=== PATIENT | female | born 1995 | race Caucasian/White ===

== ENCOUNTER 2017-07-13 12:47 | Emergency (ER) | payer SELFPAY ==
--- NOTE | 2017-07-13 15:40 | ER ---
Nurse's Notes [facility] Name: Ricarda Moya Age: 22 yrs Sex: Female : 1995 Arrival Date: 07/13/2017 Time: 12:50 Bed Waiting Private MD: None, None Diagnosis: Presentation: 07/13 12:58 Presenting complaint: Patient states: Reports vaginal bleeding with 2 small clots aj today. Patient had negative home tests and negative test at [facility]. Transition of care: patient was not received from another setting of care. Onset of symptoms was July 13, 2017. Care prior to arrival: None. 12:58 Method Of Arrival: Ambulatory aj 12:58 Acuity: CATALINO 3 aj Triage Assessment: 12:59 General: Appears in no apparent distress. comfortable, Behavior is calm, cooperative, aj appropriate for age. Neuro: Level of Consciousness is awake, alert, obeys commands, Oriented to person, place, time, situation, Appropriate for age. Respiratory: Airway is patent Respiratory effort is even, unlabored, Respiratory pattern is regular, symmetrical. : Reports vaginal bleeding that is. : Reports cramping. Derm: Skin is intact, is healthy with good turgor, Skin is pink, warm \T\ dry. normal. 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 - Social history:: Smoking status: Patient uses tobacco products, smokes one-half pack cigarettes per day. Vital Signs: 12:59 BP 103 / 57; Pulse 92; Resp 16; Temp 98.2; Pulse Ox 98% on R/A; Weight 58.97 kg; Height aj 5 ft. 3 in. (160.02 cm); 12:59 Body Mass Index 23.03 (58.97 kg, 160.02 cm) aj ED Course: 12:50 Patient arrived in ED. mr 12:50 None, None is Private Physician. mr 12:58 Triage completed. aj 12:59 Arm band placed on right wrist. Patient placed in waiting room, Patient notified of aj wait time. 14:55 Angelito Holden PA is [facility]. jr8 14:55 Hari Lama MD is Attending Physician. jr8 14:56 Patient's name was called from ER lobby. No response. aj 15:35 Patient's name was called from ER lobby. No response. aj 15:39 Patient's name was called from ER lobby. No response. aj 15:40 Hari Lama MD is Attending Physician. aj Administered Medications: No medications were administered Outcome: 15:40 Patient left the ED. aj Signatures: Rona Garcia, RN Marlee Harding mr Angelito Holden PA PA jr8
== END 2017-07-13 15:40 | disposition left against medical advice (07) ==
LOC: ER 12:47
DX: Z02.9 Encounter for administrative examinations, unspecified (principal)
CPT/HCPCS: 99281

== ENCOUNTER 2017-07-26 10:38 | Emergency (ER) | payer OTHER ==
--- NOTE | 2017-07-26 11:11 | RAD REPORT ---
EXAM DESCRIPTION: Maryann Single View07/26/2017 11:05 am CLINICAL HISTORY: Chest pain COMPARISON: 2014 FINDINGS: The lungs appear clear of acute infiltrate. The heart is normal size IMPRESSION: No acute abnormalities displayed
[2017-07-26] MEDS ORDERED: FAMOTIDINE 20 MG/2 ML VIAL IV ONE (11:21)
[2017-07-26] MEDS ORDERED: INDOMETHACIN 25 MG CAP PO ONE (11:30)
[2017-07-26 11:31] LABS: Absolute Lymphocytes (CBC) 2.2 K/uL (0.7-4.9); Absolute Monocytes 0.6 K/uL (0.1-1.3); Absolute Neutrophil 4.2 K/uL (1.8-8.0); Basophils % 0.8 % (0-1.3); Eosinophils % 2.2 % (0-4.4); Hematocrit 39.6 % (36.0-45.0); MCH 31.6 pg (27.0-35.0); MCV 92.5 fL (80-100); MPV 7.8 fL (7.6-11.3); Monocytes % 7.8 % (3.3-12.3); RBC Red Blood Cell Count 4.28 M/uL (3.86-4.86)
[2017-07-26 11:33] LABS: Bicarbonate 26 mEq/L (21-31); Glucose Level 94 mg/dL (65-120); Potassium 3.5 mEq/L (3.6-5.0); Sodium Level 138 mEq/L (135-145)
[2017-07-26 11:42] LABS: BUN Blood Urea Nitrogen 8 mg/dL (6-20); C-Reactive Protein 5.6 mg/L (<10.0); Protime INR 1.02
[2017-07-26 12:33] LABS: Urine Blood NEGATIVE (NEG); Urine Glucose NEGATIVE (NEG); Urine Protein NEGATIVE (NEG); Urine Specific Gravity <1.005 (1.005-1.030); Urine pH 5.5 (5.0-7.0)
--- NOTE | 2017-07-26 13:28 | ER ---
Nurse's Notes [facility] Name: Ricarda Moya Age: 22 yrs Sex: Female : 1995 Arrival Date: 07/26/2017 Time: 10:39 Bed 16 Private MD: Diagnosis: Chest pain, unspecified Presentation: 07/26 10:39 Presenting complaint: EMS states: pt report CP similar to last episode when diagnosed sg with inflammation of the lining of her heart. Transition of care: patient was not received from another setting of care. Onset of symptoms was July 26, 2017. Risk Assessment: Do you want to hurt yourself or someone else? Patient reports no desire to harm self or others. Initial Sepsis Screen: Does the patient meet any 2 criteria? No. Patient's initial sepsis screen is negative. Does the patient have a suspected source of infection? No. Patient's initial sepsis screen is negative. Care prior to arrival: IV initiated. 20 GA, in the right antecubital area, Glucose check: 128. 10:39 Method Of Arrival: EMS: [facility] sg 10:39 Acuity: CATALINO 3 sg Triage Assessment: 07/27 10:45 General: Appears in no apparent distress. comfortable, well groomed, well developed, sg well nourished, Behavior is calm, cooperative, appropriate for age. 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 - Social history:: Smoking status: Patient/guardian denies using tobacco. - Ebola Screening: : Patient negative for fever greater than or equal to 101.5 degrees Fahrenheit, and additional compatible Ebola Virus Disease symptoms Patient denies exposure to infectious person Patient denies travel to an Ebola-affected area in the 21 days before illness onset No symptoms or risks identified at this time. Screenin/07 10:46 Abuse screen: Denies threats or abuse. Denies injuries from another. Nutritional sg screening: No deficits noted. Tuberculosis screening: No symptoms or risk factors identified. Never had TB. Fall Risk None identified. Assessment: 10:45 General: Appears in no apparent distress. comfortable, well groomed, well developed, sg well nourished, Behavior is calm, cooperative, appropriate for age. Pain: Complains of pain in mid-sternal area Pain does not radiate. Quality of pain is described as aching. Neuro: Level of Consciousness is awake, alert, obeys commands, Oriented to person, place, time, situation, Pipe Racker are equal bilaterally Moves all extremities. Full function Speech is normal, Facial symmetry appears normal. Cardiovascular: Heart tones S1 S2 present Capillary refill is brisk in bilateral fingers Patient's skin is warm and dry. Chest pain is described as mild, is located in anterior chest wall substernal area. Respiratory: Airway is patent Respiratory effort is even, unlabored, Respiratory pattern is regular, symmetrical. GI: No signs and/or symptoms were reported involving the gastrointestinal system. : No signs and/or symptoms were reported regarding the genitourinary system. EENT: No signs and/or symptoms were reported regarding the EENT system. Derm: Skin is pink, warm \T\ dry. Musculoskeletal: No signs and/or symptoms reported regarding the musculoskeletal system. Vital Signs: 07/26 10:42 BP 107 / 66; Pulse 80; Resp 16; Temp 98.3; Pulse Ox 100% on R/A; Pain 10/10; sg 11:40 BP 110 / 68; Pulse 76; Resp 17; Temp 98.3; Pulse Ox 100% on R/A; sg ED Course: 10:39 Patient arrived in ED. sg 10:42 Triage completed. sg 10:42 Arm band placed on. sg 10:45 Angelito Holden [facility] is [facility]. jr8 10:45 Lance Landa MD is Attending Physician. jr8 10:58 Van Amezcua, SAIMA is Primary Nurse. sg 11:03 X-ray completed. Portable x-ray completed in exam room. Patient tolerated procedure kp1 well. 11:04 XRAY Chest (1 view) In Process Unspecified. EDMS 11:26 Initial lab(s) drawn, by me, sent to lab. Maintain EMS IV. Dressing intact. Site clean mh5 \T\ dry. 11:27 Patient has correct armband on for positive identification. Bed in low position. Side mh5 rails up X 1. Adult w/ patient. quality assurance monitor body on. Pulse ox on. NIBP on. 11:31 EKG done, by emergency medical technician. reviewed by Angelito AMAYA. [facility] 12:59 Urine collected: clean catch specimen, clear. [facility] 13:48 No provider procedures requiring assistance completed. IV discontinued, intact, sg bleeding controlled, No redness/swelling at site. Pressure dressing applied. Administered Medications: 12:30 Drug: Pepcid 20 mg Route: IVP; Site: right antecubital; sg 13:00 Drug: Indomethacin 50 mg Route: PO; Outcome: 13:27 Discharge ordered by MD. bashir 13:48 Discharged to home ambulatory, with employer safety technician 13:48 Condition: good 13:48 Discharge instructions given to patient, Instructed on discharge instructions, follow up and referral plans. medication usage, safety practices, Demonstrated understanding of instructions, follow-up care, medications, Prescriptions given X 2. 13:51 Patient left the ED. Signatures: Dispatcher [employer] EDMS Van Amezcua, RN RN Angelito Wilson PA PA jrRona kumar, [employer] EKG [facility]1 Marlee Soria [facility] Cherie Perry kp1
--- NOTE | 2017-07-26 13:28 | EDPHYS ---
Physician Documentation [facility] Name: Ricarda Moya Age: 22 yrs Sex: Female : 1995 Arrival Date: 07/26/2017 Time: 10:39 Bed 16 Private MD: ED Physician Lance Landa HPI: 07/26 10:54 This 22 yrs old Female presents to ER via EMS with complaints of chest pain. jr8 10:54 The patient or guardian reports chest pain that is located primarily in the anterior jr8 chest wall, left. The pain does not radiate. Associated signs and symptoms: Pertinent positives: dizziness, nausea. The chest pain is described as sharp. Duration: The patient or guardian reports a single episode, that is still ongoing. Modifying factors: The symptoms are alleviated by NSAIDS, Ibuprofen. the symptoms are aggravated by supine position . Severity of pain: At its worst the pain was moderate. The patient has experienced similar episodes in the past, a few times. The patient has not recently seen a physician. Patient stated that this past November she was diagnosed with pericarditis by PCP and shell grader. Stated that she has had recurrent episodes. Last episode was a few months ago. Today while walking had sudden onset sharp chest pain that is non relieved. Better when leaning forward and worse when lying down. Ibuprofen helps . 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 - Social history:: Smoking status: Patient/guardian denies using tobacco. - Ebola Screening: : Patient negative for fever greater than or equal to 101.5 degrees Fahrenheit, and additional compatible Ebola Virus Disease symptoms Patient denies exposure to infectious person Patient denies travel to an Ebola-affected area in the 21 days before illness onset No symptoms or risks identified at this time. ROS: 10:54 Eyes: Negative for injury, pain, redness, and discharge, ENT: Negative for injury, jr8 pain, and discharge, Neck: Negative for injury, pain, and swelling, Respiratory: Negative for shortness of breath, cough, wheezing, and pleuritic chest pain, Back: Negative for injury and pain, MS/Extremity: Negative for injury and deformity, Skin: Negative for injury, rash, and discoloration. 10:54 Cardiovascular: Positive for chest pain, Negative for edema, orthopnea, palpitations, paroxysmal nocturnal dyspnea. 10:54 Abdomen/GI: Positive for nausea, Negative for abdominal pain, vomiting, diarrhea, constipation, abdominal cramps, abdominal distension, hematemesis, black/tarry stool, rectal bleeding. 10:54 Neuro: Positive for dizziness, Negative for altered mental status, gait disturbance, headache, hearing loss, loss of consciousness, numbness, seizure activity, speech changes, syncope, near syncope, tingling, tinnitus, tremor, visual changes, weakness. Exam: 10:54 Neck: Trachea midline, no thyromegaly or masses palpated, and no cervical jr8 lymphadenopathy. Supple, full range of motion without nuchal rigidity, or vertebral point tenderness. No Meningismus. Chest/axilla: Normal chest wall appearance and motion. Nontender with no deformity. No lesions are appreciated. Cardiovascular: Regular rate and rhythm with a normal S1 and S2. No gallops, murmurs, or rubs. Normal PMI, no JVD. No pulse deficits. Respiratory: Lungs have equal breath sounds bilaterally, clear to auscultation and percussion. No rales, rhonchi or wheezes noted. No increased work of breathing, no retractions or nasal flaring. Abdomen/GI: Soft, non-tender, with normal bowel sounds. No distension or tympany. No guarding or rebound. No evidence of tenderness throughout. Back: No spinal tenderness. No costovertebral tenderness. Full range of motion. Skin: Warm, dry with normal turgor. Normal color with no rashes, no lesions, and no evidence of cellulitis. MS/ Extremity: Pulses equal, no cyanosis. Neurovascular intact. Full, normal range of motion. Neuro: Awake and alert, GCS 15, oriented to person, place, time, and situation. Cranial nerves II-XII grossly intact. Motor strength 5/5 in all extremities. Sensory grossly intact. Cerebellar exam normal. Normal gait. 13:29 ECG was reviewed by the Attending Physician. 8 Vital Signs: 10:42 BP 107 / 66; Pulse 80; Resp 16; Temp 98.3; Pulse Ox 100% on R/A; Pain 10/10; sg 11:40 BP 110 / 68; Pulse 76; Resp 17; Temp 98.3; Pulse Ox 100% on R/A; sg MDM: 10:45 Patient medically screened. jr8 13:26 Differential diagnosis: acute myocardial infarction, acute pericarditis, anxiety, chest jr8 wall pain, Cholelithiasis esophagitis, gastritis, gastroesophageal reflux disease (GERD), pancreatitis, pneumonia, pneumothorax, pulmonary embolus. Data reviewed: vital signs, nurses notes, lab test result(s), EKG, radiologic studies, plain films, and as a result, I will discharge patient. Data interpreted: Pulse oximetry: on room air is 100 %. Interpretation: normal. Counseling: I had a detailed discussion with the patient and/or guardian regarding: the historical points, exam findings, and any diagnostic results supporting the discharge/admit diagnosis, lab results, radiology results, the need for outpatient follow up, a shell grader, a family practitioner, to return to the emergency department if symptoms worsen or persist or if there are any questions or concerns that arise at home. Response to treatment: the patient's symptoms have mildly improved after treatment. Special discussion: Based on the patient's history, exam, and Dx evaluation, there is no indication for emergent intervention or inpatient Tx. It is understood by the patient/guardian that if the Sx's persist or worsen they need to return immediately for re-evaluation. 07/26 10:47 Order name: Basic Metabolic Panel; Complete Time: 12:03 07/26 10:47 Order name: BNP; Complete Time: 12:03 07/26 10:47 Order name: CBC with Diff; Complete Time: 12:03 07/26 10:47 Order name: Magnesium; Complete Time: 12:03 07/26 10:47 Order name: PT-INR; Complete Time: 12:03 07/26 10:47 Order name: Troponin (emerg Dept Use Only); Complete Time: 12:03 07/26 10:47 Order name: XRAY Chest (1 view); Complete Time: 11:19 07/26 10:47 Order name: EKG; Complete Time: 10:48 07/26 10:47 Order name: ESR; Complete Time: 12:03 07/26 10:47 Order name: CRP; Complete Time: 12:03 07/26 12:30 Order name: Urine Dipstick--Ancillary (enter results); Complete Time: 12:58 em1 07/26 12:31 Order name: Test, Serum; Complete Time: 12:58 em1 07/26 10:47 Order name: Urine Test (obtain specimen); Complete Time: 12:20 jr8 07/26 10:47 Order name: Cardiac monitoring; Complete Time: 13:04 8 07/26 10:47 Order name: EKG - Nurse/Tech; Complete Time: 13:04 jr8 07/26 10:47 Order name: IV Saline Lock; Complete Time: 10:59 jr8 07/26 10:47 Order name: Labs collected and sent; Complete Time: 10:59 jr8 07/26 10:47 Order name: O2 Per Protocol; Complete Time: 10:59 jr8 07/26 10:47 Order name: O2 Sat Monitoring; Complete Time: 10:59 jr8 07/26 10:47 Order name: Urine Dipstick-Ancillary (obtain specimen); Complete Time: 12:20 jr8 EC:29 Rate is 73 beats/min. Rhythm is regular, Normal Sinus Rhythm. QRS [place] is Normal. [place] jr8 interval is normal at 124 msec. QRS interval is normal at 86 msec. QT interval is normal at 431 msec. No Q waves. T waves are Normal. No ST changes noted. Clinical impression: Normal ECG. Interpreted by me. Reviewed by me. Administered Medications: 12:30 Drug: Pepcid 20 mg Route: IVP; Site: right antecubital; sg 13:00 Drug: Indomethacin 50 mg Route: PO; sg Disposition: 16:20 Co-signature as Attending Physician, Lance Landa MD. rn Disposition: 07/26/17 13:27 Discharged to Home. Impression: Chest pain, unspecified. - Condition is Stable. - Discharge Instructions: Nonspecific Chest Pain, Pericarditis. - Prescriptions for omeprazole 20 mg Oral capsule,delayed release(DR/EC) - take 1 capsule by ORAL route once daily; 30 capsule. Ibuprofen 800 mg Oral Tablet - take 1 tablet by ORAL route every 8 hours As needed take with food; 30 tablet. - Work release form, Medication Reconciliation Form, Thank You Letter, Antibiotic Education, Prescription Opioid Use form. - Follow up: Private Physician; When: 2 - 3 days; Reason: Recheck today's complaints, Continuance of care, Re-evaluation by your physician. - Problem is new. - Symptoms have improved. Signatures: Dispatcher [employer] EDVan Mcgill RN RN sg Lance Landa MD MD rn Roszak, Josh, PA PA jr8 Corrections: (The following items were deleted from the chart) 13:51 13:27 07/26/2017 13:27 Discharged to Home. Impression: Chest pain, unspecified. sg Condition is Stable. Forms are Medication Reconciliation Form, Thank You Letter, Antibiotic Education, Prescription Opioid Use. Follow up: Private Physician; When: 2 - 3 days; Reason: Recheck today's complaints, Continuance of care, Re-evaluation by your physician. Problem is new. Symptoms have improved. jr8
--- NOTE | 2017-07-26 13:36 | EKG ---
Test Date: 2017-07-26 Test Time: 11:22:22 Air Value Tester: NILES MEASUREMENT RESULTS: Intervals: Rate: 73 NE: 124 QRSD: 86 QT: 392 QTc: 431 [place]: P: 55 NE: 124 QRS: 86 T: 33 INTERPRETIVE STATEMENTS: Normal sinus rhythm with sinus arrhythmia Nonspecific T wave abnormality Abnormal ECG Compared to ECG 11/22/2016 11:18:32 T-wave abnormality now present Electronically Signed On 07-26-17 13:35:33 CDT by Stanisalw Carroll
== END 2017-07-26 13:51 | disposition home or self-care (01) ==
LOC: ER 10:38
DX: R07.9 Chest pain, unspecified (principal)
CPT/HCPCS: 36415; 71045; 80048; 81003; 83735; 83880; 84484; 84703; 85025; 85610; 85652; 86140; 93005; 96374; 99284

== ENCOUNTER 2017-09-01 18:25 | Emergency (ER) | payer OTHER, SELFPAY ==
[2017-09-01] MEDS ORDERED: NA CHLORIDE 0.9% 1,000 ML ONE (20:33)
--- NOTE | 2017-09-01 20:39 | RAD REPORT ---
EXAM DESCRIPTION: US - Transvaginal OB - 09/01/2017 8:29 pm CLINICAL HISTORY: with abdominal pain and vomiting COMPARISON: None. FINDINGS: The uterus 10 x 5 x 6 centimeters centimeters. A gestational sac is present within the en dometrium. The gestational sac appears unremarkable. Within this is a yolk sac and pole with a crown-rump length 0.6 centimeters. Cardiac activity 126 beats per minute The ovaries are normal in size and echotexture. No significant free fluid is seen. IMPRESSION: Single live intrauterine with an estimated gestational age 6 weeks 5 days RAE April 22, 2018
[2017-09-01 20:48] LABS: Absolute Lymphocytes (CBC) 3.1 K/uL (0.7-4.9); Absolute Monocytes 0.6 K/uL (0.1-1.3); Basophils % 0.5 % (0-1.3); Eosinophils % 0.6 % (0-4.4); Lymphocytes % 26.5 % (15.3-44.8); MCH 31.8 pg (27.0-35.0); MCV 93.8 fL (80-100); MPV 7.5 fL (7.6-11.3); Monocytes % 5.1 % (3.3-12.3); RBC Red Blood Cell Count 4.27 M/uL (3.86-4.86)
[2017-09-01 21:22] LABS: BUN Blood Urea Nitrogen 9 mg/dL (7-18); Bicarbonate 26 mmol/L (21-32); Glucose Level 84 mg/dL (74-106); HCG, Quantitative 84312 mIU/mL (1-3); Potassium 3.5 mmol/L (3.5-5.1); Sodium Level 139 mmol/L (136-145)
[2017-09-01 21:56] LABS: Urine Blood TRACE (NEG); Urine Glucose NEGATIVE (NEG); Urine Protein NEGATIVE (NEG); Urine Specific Gravity 1.025 (1.005-1.030)
--- NOTE | 2017-09-01 22:04 | ER ---
Nurse's Notes [facility] Name: Ricarda Moya Age: 22 yrs Sex: Female : 1995 Arrival Date: 09/01/2017 Time: 18:27 Bed 19 Private MD: None, None Diagnosis: Vomiting;Intrauterine Presentation: 09/01 18:55 Presenting complaint: Patient states: Vomiting x2 days, its to the point now where i sg can barely hold water down, denies pain, denies urinary symptoms. Transition of care: patient was not received from another setting of care. Onset of symptoms was September 01, 2017. Risk Assessment: Do you want to hurt yourself or someone else? Patient reports no desire to harm self or others. Initial Sepsis Screen: Does the patient have a suspected source of infection? No. Patient's initial sepsis screen is negative. Care prior to arrival: None. 18:55 Method Of Arrival: Ambulatory sg 18:55 Acuity: CATALINO 3 sg 19:20 Initial Sepsis Screen: Does the patient meet any 2 criteria? No. Patient's initial jd3 sepsis screen is negative. 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 - Social history:: Smoking status: Patient/guardian denies using tobacco. - Ebola Screening: : Patient negative for fever greater than or equal to 101.5 degrees Fahrenheit, and additional compatible Ebola Virus Disease symptoms Patient denies exposure to infectious person Patient denies travel to an Ebola-affected area in the 21 days before illness onset No symptoms or risks identified at this time. - Family history:: not pertinent. - Hospitalizations: : No recent hospitalization is reported. Screenin:20 Abuse screen: Denies threats or abuse. Nutritional screening: No deficits noted. jd3 Tuberculosis screening: No symptoms or risk factors identified. Fall Risk Ambulatory Aid- None/Bed Rest/Nurse Assist (0 pts). Gait- Normal/Bed Rest/Wheelchair (0 pts) Mental Status- Oriented to own ability (0 pts). Total Brady Fall Scale indicates No Risk (0-24 pts). Assessment: 19:16 General: Appears in no apparent distress. Behavior is calm, cooperative, appropriate jd3 for age, Reports she can't hold anything down. pt also reports being 7 weeks . Pain: Denies pain. Neuro: Level of Consciousness is awake, alert, obeys commands, Oriented to person, place, time, situation. Cardiovascular: Heart tones S1 S2 present Capillary refill < 3 seconds Patient's skin is warm and dry. Respiratory: Airway is patent Respiratory effort is even, unlabored, Respiratory pattern is regular, symmetrical, Breath sounds are clear bilaterally. GI: Abdomen is round Bowel sounds present X 4 quads. Abd is soft and non tender X 4 quads. Reports nausea, vomiting. : No signs and/or symptoms were reported regarding the genitourinary system. EENT: No signs and/or symptoms were reported regarding the EENT system. Derm: Skin is healthy with good turgor, Skin is pink, warm \T\ dry. Musculoskeletal: Circulation, motion, and sensation intact. Range of motion:. 20:47 Reassessment: Patient appears in no apparent distress at this time. Patient and/or jd3 family updated on plan of care and expected duration. Pain level reassessed. Patient is alert, oriented x 3, equal unlabored respirations, skin warm/dry/pink. 21:42 Reassessment: Patient appears in no apparent distress at this time. Patient and/or jd3 family updated on plan of care and expected duration. Pain level reassessed. Patient is alert, oriented x 3, equal unlabored respirations, skin warm/dry/pink. 22:14 Reassessment: Patient appears in no apparent distress at this time. Patient and/or jd3 family updated on plan of care and expected duration. Pain level reassessed. Patient is alert, oriented x 3, equal unlabored respirations, skin warm/dry/pink. pt reported understanding of discharge instructions, even and steady gait upon discharge. Vital Signs: 18:57 Pulse 78; Resp 19; Temp 98.6; Pulse Ox 99% on R/A; Pain 7/10; sg 18:57 Weight 59.42 kg (R); Height 5 ft. 3 in. (160.02 cm); sg 19:00 BP 99 / 62; sg 21:42 BP 121 / 65; Pulse 61; Resp 17 S; Pulse Ox 100% on R/A; Pain 0/10; jd3 18:57 Body Mass Index 23.21 (59.42 kg, 160.02 cm) ED Course: 18:27 Patient arrived in ED. sb2 18:28 None, None is Private Physician. sb2 18:56 Triage completed. sg 18:56 Arm band placed on. sg 19:10 Lance Landa MD is Attending Physician. rn 19:16 Julito Gore, RN is Primary Nurse. jd3 19:20 Bed in low position. Call light in reach. Side rails up X 1. Adult w/ patient. jd3 19:40 Radiology exam delayed due to test not completed at this time. sg3 20:26 Ultrasound completed. Patient tolerated well. sg3 20:29 US Transvaginal Ob In Process Unspecified. EDMS 20:37 Inserted saline lock: 20 gauge in right antecubital area, using aseptic technique. jd3 Blood collected. 22:16 No provider procedures requiring assistance completed. IV discontinued, intact, jd3 bleeding controlled, No redness/swelling at site. Pressure dressing applied. Administered Medications: 20:45 Drug: NS 0.9% 1000 ml Route: IV; Rate: 1000 ml; Site: right antecubital; jd3 22:16 Follow up: Response: No adverse reaction; IV Status: Completed infusion; IV Intake: jd3 1000ml 20:45 Drug: NS 0.9% 1000 ml Route: IV; Rate: 1000 ml; Site: right antecubital; jd3 22:17 Follow up: Response: No adverse reaction; IV Status: Completed infusion; IV Intake: jd3 1000ml Intake: 22:16 IV: 1000ml; Total: 1000ml. jd3 22:17 IV: 1000ml; Total: 2000ml. jd3 Outcome: 22:04 Discharge ordered by . rn 22:16 Discharged to home ambulatory, with family. jd3 22:16 Condition: stable 22:16 Discharge instructions given to patient, family, Instructed on discharge instructions, follow up and referral plans. medication usage, Demonstrated understanding of instructions, follow-up care, medications, Prescriptions given X 1. 22:17 Patient left the ED. jd3 Signatures: Dispatcher [employer] EDMS Van Amezcua RN RN sg Lance Landa MD MD rn Davies, Jonathon, RN RN jd3 Giulia Ritter sg3 Pavithra Thompson sb2 Corrections: (The following items were deleted from the chart) 22:16 22:14 Reassessment: Patient appears in no apparent distress at this time. Patient jd3 and/or family updated on plan of care and expected duration. Pain level reassessed. Patient is alert, oriented x 3, equal unlabored respirations, skin warm/dry/pink. jd3
--- NOTE | 2017-09-01 22:04 | EDPHYS ---
Physician Documentation [facility] Name: Ricarda Moya Age: 22 yrs Sex: Female : 1995 Arrival Date: 09/01/2017 Time: 18:27 Bed 19 Private MD: None, None ED Physician Lance Landa HPI: 09/01 20:04 This 22 yrs old Female presents to ER via Ambulatory with complaints of 7WKS rn PG,VOMITING. 20:04 The patient presents to the emergency department with nausea and vomiting. The rn estimated gestational age is 7 weeks. course: care: none, Leakage of Fluid: none appreciated, Ultrasound: the patient has not had an ultrasound. Previous pregnancies: in previous pregnancies patient has had no complications. The patient has not experienced similar symptoms in the past. The patient has not recently seen a physician. Reports approx 7 weeks preg by LMP, July 09, presents with vomiting, about 3x/day, when eating, no abd pain/vaginal bleeding/discharge. Has not had imaging this . .. 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 - Social history:: Smoking status: Patient/guardian denies using tobacco. - Ebola Screening: : Patient negative for fever greater than or equal to 101.5 degrees Fahrenheit, and additional compatible Ebola Virus Disease symptoms Patient denies exposure to infectious person Patient denies travel to an Ebola-affected area in the 21 days before illness onset No symptoms or risks identified at this time. - Family history:: not pertinent. - Hospitalizations: : No recent hospitalization is reported. ROS: 20:04 Constitutional: Negative for fever, chills, and weight loss, Eyes: Negative for injury, rn pain, redness, and discharge, Cardiovascular: Negative for chest pain, palpitations, and edema, Respiratory: Negative for shortness of breath, cough, wheezing, and pleuritic chest pain, Abdomen/GI: Negative for abdominal pain, diarrhea, and constipation, MS/Extremity: Negative for injury and deformity, Skin: Negative for injury, rash, and discoloration, Neuro: Negative for headache, numbness, tingling, and seizure. Exam: 20:04 Constitutional: This is a well developed, well nourished patient who is awake, alert, rn and in no acute distress. Head/Face: Normocephalic, atraumatic. ENT: MMM Cardiovascular: Regular rate and rhythm with a normal S1 and S2. No gallops, murmurs, or rubs. Normal PMI, no JVD. No pulse deficits. Respiratory: Lungs have equal breath sounds bilaterally, clear to auscultation and percussion. No rales, rhonchi or wheezes noted. No increased work of breathing, no retractions or nasal flaring. Abdomen/GI: Soft, non-tender, with normal bowel sounds. No distension or tympany. No guarding or rebound. No evidence of tenderness throughout. MS/ Extremity: Pulses equal, no cyanosis. Neurovascular intact. Full, normal range of motion. Equal circumference. Neuro: Awake and alert, GCS 15, oriented to person, place, time, and situation. Cranial nerves II-XII grossly intact. Motor strength 5/5 in all extremities. Sensory grossly intact. Cerebellar exam normal. Normal gait. Vital Signs: 18:57 Pulse 78; Resp 19; Temp 98.6; Pulse Ox 99% on R/A; Pain 7/10; sg 18:57 Weight 59.42 kg (R); Height 5 ft. 3 in. (160.02 cm); sg 19:00 BP 99 / 62; sg 21:42 BP 121 / 65; Pulse 61; Resp 17 S; Pulse Ox 100% on R/A; Pain 0/10; jd3 18:57 Body Mass Index 23.21 (59.42 kg, 160.02 cm) MDM: 19:11 Patient medically screened. rn 22:02 Differential diagnosis: ectopic . Data reviewed: vital signs, nurses notes, patent attorney test result(s), radiologic studies, ultrasound, and as a result, I will discharge patient. Counseling: I had a detailed discussion with the patient and/or guardian regarding: the historical points, exam findings, and any diagnostic results supporting the discharge/admit diagnosis, lab results, radiology results, the need for outpatient follow up, to return to the emergency department if symptoms worsen or persist or if there are any questions or concerns that arise at home. Response to treatment: the patient's symptoms have markedly improved after treatment, and as a result, I will discharge patient. Special discussion: I discussed with the patient/guardian in detail that at this point there is no indication for admission to the hospital. It is understood, however, that if the symptoms persist or worsen the patient needs to return immediately for re-evaluation. Based on the history and exam findings, there is no indication for further emergent testing or inpatient evaluation. I discussed with the patient/guardian the need to see the OB Gyne specialist for further evaluation of the symptoms. ED course: U/S shows viable IUP, improved with fluids, patient does not want to take nausea meds, will dc with zofran prn if gets near dehydration.. 09/01 19:27 Order name: Quantitative Hcg; Complete Time: 21: rn 09/01 19:27 Order name: Abo/rh Typing; Complete Time: : rn 09/01 19:27 Order name: Basic Metabolic Panel; Complete Time: 21:25 rn 09/01 19:27 Order name: CBC with Diff; Complete Time: 21:01 rn 09/01 21:27 Order name: ABO/RH no charge; Complete Time: 21:32 EDMS 09/01 21:53 Order name: Urine Dipstick--Ancillary (enter results); Complete Time: 22:02 ms 09/01 19:27 Order name: Urine Test (obtain specimen); Complete Time: 21:43 rn 09/01 19:27 Order name: IV Saline Lock; Complete Time: 20:46 rn 09/01 19:27 Order name: Labs collected and sent; Complete Time: 20:46 rn 09/01 19:27 Order name: NPO; Complete Time: 19:58 rn 09/01 19:27 Order name: US Transvaginal Ob; Complete Time: 20:41 rn 09/01 21:53 Order name: Urine --Ancillary (enter results); Complete Time: 22:02 ms 09/01 19:27 Order name: Urine Dipstick-Ancillary (obtain specimen); Complete Time: 21:43 rn Administered Medications: 20:45 Drug: NS 0.9% 1000 ml Route: IV; Rate: 1000 ml; Site: right antecubital; jd3 22:16 Follow up: Response: No adverse reaction; IV Status: Completed infusion; IV Intake: jd3 1000ml 20:45 Drug: NS 0.9% 1000 ml Route: IV; Rate: 1000 ml; Site: right antecubital; jd3 22:17 Follow up: Response: No adverse reaction; IV Status: Completed infusion; IV Intake: jd3 1000ml Disposition: 09/01/17 22:04 Discharged to Home. Impression: Vomiting, Intrauterine . - Condition is Stable. - Discharge Instructions: Nausea and Vomiting, First Trimester of . - Prescriptions for Zofran ODT 4 mg Oral tablet,disintegrating - place 1 tablet by TRANSLINGUAL route every 8-10 hours As needed; 10 tablet. - Medication Reconciliation Form, Thank You Letter, Antibiotic Education, Prescription Opioid Use form. - Follow up: Private Physician; When: As needed; Reason: Recheck today's complaints, Re-evaluation by your physician. - Problem is new. - Symptoms have improved. Signatures: Dispatcher [employer] EDVan Mcgill RN RN sg Nieto, Roman, MD MD rn Davies, Jonathon, RN RN jd3 Corrections: (The following items were deleted from the chart) 22:17 22:04 09/01/2017 22:04 Discharged to Home. Impression: Vomiting; Intrauterine jd3 . Condition is Stable. Forms are Medication Reconciliation Form, Thank You Letter, Antibiotic Education, Prescription Opioid Use. Follow up: Private Physician; When: As needed; Reason: Recheck today's complaints, Re-evaluation by your physician. Problem is new. Symptoms have improved. rn
== END 2017-09-01 22:17 | disposition home or self-care (01) ==
LOC: ER 18:25
DX: O21.9 Vomiting of pregnancy, unspecified (principal); Z3A.01 Less than 8 weeks gestation of pregnancy
CPT/HCPCS: 36415; 76817; 80048; 81003; 81025; 84702; 85025; 86900; 86901; 96360; 96361; 99284; J7030

== ENCOUNTER 2017-12-07 13:27 | Emergency (ER) | payer OTHER ==
[2017-12-07] MEDS ORDERED: NA CHLORIDE 0.9% 1,000 ML ONE (13:59)
[2017-12-07 14:22] LABS: Urine Blood 1+ (NEG); Urine Glucose NEGATIVE (NEG); Urine Protein TRACE (NEG); Urine Specific Gravity 1.025 (1.005-1.030)
[2017-12-07 14:31] LABS: BUN Blood Urea Nitrogen 7 mg/dL (7-18); Bicarbonate 27 mmol/L (21-32); Glucose Level 87 mg/dL (74-106); Potassium 3.7 mmol/L (3.5-5.1); Sodium Level 138 mmol/L (136-145); Troponin (Emerg Dept Use Only) < 0.02 ng/mL (0.0-0.045)
[2017-12-07 14:33] LABS: Absolute Lymphocytes (CBC) 1.6 K/uL (0.7-4.9); Absolute Monocytes 0.5 K/uL (0.1-1.3); Absolute Neutrophil 9.6 K/uL (1.8-8.0); Basophils % 0.4 % (0-1.3); Eosinophils % 0.5 % (0-4.4); Hematocrit 33.8 % (36.0-45.0); Lymphocytes % 13.8 % (15.3-44.8); MCH 32.7 pg (27.0-35.0); MCV 94.5 fL (80-100); MPV 7.8 fL (7.6-11.3); Monocytes % 4.3 % (3.3-12.3); RBC Red Blood Cell Count 3.58 M/uL (3.86-4.86)
[2017-12-07 14:38] LABS: Urine Bacteria <20 /HPF (<20)
[2017-12-07 14:39] LABS: Urine Culture Reflex Order NOT NEEDED; Urine Mucus MOD /HPF (NONE SEEN)
--- NOTE | 2017-12-07 15:37 | ER ---
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 aj Reports tingling over entire body during episode. Transition of care: patient was not received from another setting of care. Onset of symptoms was December 07, 2017. Risk Assessment: Do you want to hurt yourself or someone else? Patient reports no desire to harm self or others. Initial Sepsis Screen: Does the patient meet any 2 criteria? No. Patient's initial sepsis screen is negative. Does the patient have a suspected source of infection? No. Patient's initial sepsis screen is negative. Care prior to arrival: None. 13:35 Method Of Arrival: Ambulatory aj 13:35 Acuity: CATALINO 3 aj Triage Assessment: 13:37 General: Appears in no apparent distress. comfortable, Behavior is calm, cooperative, aj appropriate for age. Pain: Denies pain. Neuro: Level of Consciousness is awake, alert, obeys commands, Oriented to person, place, time, situation, Appropriate for age Reports a syncopal episode. Respiratory: Airway is patent Respiratory effort is even, unlabored, Respiratory pattern is regular, symmetrical. GI: Reports nausea. Derm: Skin is intact, is healthy with good turgor, Skin is pink, warm \T\ dry. normal. 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 - Social history:: Smoking status: Patient/guardian denies using tobacco. - Ebola Screening: : Patient negative for fever greater than or equal to 101.5 degrees Fahrenheit, and additional compatible Ebola Virus Disease symptoms Patient denies exposure to infectious person Patient denies travel to an Ebola-affected area in the 21 days before illness onset No symptoms or risks identified at this time. - Family history:: not pertinent. - Hospitalizations: : No recent hospitalization is reported. Screenin:16 Abuse screen: Denies threats or abuse. Denies injuries from another. Nutritional iw screening: No deficits noted. Tuberculosis screening: No symptoms or risk factors identified. Fall Risk IV access (20 points). Assessment: 14:15 General: Appears in no apparent distress. Behavior is calm, cooperative. Pain: Denies iw pain. Neuro: Level of Consciousness is awake, alert, obeys commands, Oriented to person, place, time, situation, Moves all extremities. Full function. Cardiovascular: Capillary refill < 3 seconds in bilateral fingers Patient's skin is warm and dry. Respiratory: Respiratory effort is even, unlabored, Respiratory pattern is regular, symmetrical. GI: Abdomen is. Derm: Skin is intact, is healthy with good turgor. Musculoskeletal: Range of motion: intact in all extremities. 14:57 Reassessment: Patient appears in no apparent distress at this time. Patient and/or iw family updated on plan of care and expected duration. Pain level reassessed. Patient is alert, oriented x 3, equal unlabored respirations, skin warm/dry/pink. Patient denies pain at this time. Neuro: Denies weakness dizziness. Vital Signs: 13:37 BP 111 / 67; Pulse 96; Resp 18; Temp 97.9; Pulse Ox 99% on R/A; Weight 61.23 kg; Height aj 5 ft. 3 in. (160.02 cm) (R); 14:56 BP 102 / 65; Pulse 79; Resp 16; Pulse Ox 100% on R/A; Pain 0/10; iw 15:34 BP 96 / 59; Pulse 84; Resp 16; Pulse Ox 98% on R/A; iw 13:37 Body Mass Index 23.91 (61.23 kg, 160.02 cm) aj ED Course: 13:31 Patient arrived in ED. mr 13:36 Triage completed. aj 13:37 Arm band placed on left wrist. Patient placed in an exam room. aj 13:39 Lance Landa MD is Attending Physician. rn 14:04 EKG done, by hvac residential service technician. reviewed by Lance Landa MD. [facility] 14:12 Bronwyn Klein, SAIMA is Primary Nurse. iw 14:15 Initial lab(s) drawn, by me, sent to lab. Urine collected: clean catch specimen. iw Inserted saline lock: 20 gauge in right antecubital area, using aseptic technique. Blood collected. 15:43 Patient has correct armband on for positive identification. iw 15:43 No provider procedures requiring assistance completed. IV discontinued, intact, iw bleeding controlled, No redness/swelling at site. Pressure dressing applied. Administered Medications: 14:12 Drug: NS 0.9% 1000 ml Route: IV; Rate: 1000 ml; Site: right antecubital; iw 15:15 Follow up: IV Status: Completed infusion iw Outcome: 15:36 Discharge ordered by MD. rn 15:43 Discharged to home ambulatory. iw 15:43 Condition: good 15:43 Discharge instructions given to patient, Instructed on discharge instructions, follow up and referral plans. Demonstrated understanding of instructions, follow-up care. 15:45 Patient left the ED. iw Signatures: Rona Garcia RN Viri Harding Irene, RN RN iw Nieto, Roman, MD MD rn Montes, Shakira 3
--- NOTE | 2017-12-07 15:37 | EDPHYS ---
Physician Documentation [facility] Name: Ricarda Moya Age: 22 yrs Sex: Female : 1995 Arrival Date: 12/07/2017 Time: 13:31 Bed 5 Private MD: ED Physician Lance Landa HPI: 12/07 13:56 This 22 yrs old Female presents to ER via Ambulatory with complaints of rn Passed Out Prior To Arrival, 21 wks . 13:56 The patient has experienced syncope, collapsed. Onset: The symptoms/episode rn began/occurred just prior to arrival. Duration: The patient has had multiple episodes. Associated injury: The patient did not suffer any apparent associated injury. Current symptoms: Currently, the patient is not experiencing any symptoms. The patient has not experienced similar symptoms in the past. Reports 21 weeks , was getting haircut, stood up and felt lightheaded, felt tunnel vision, sat in chair and told passed out briefly, happened again 10 min later. Currently asymptomatic, no known heart problems in her or family. No fever/vomiting/diarrhea, has been eating well. NO vaginal bleeding or discharge, is feeling baby move. . 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 - Social history:: Smoking status: Patient/guardian denies using tobacco. - Ebola Screening: : Patient negative for fever greater than or equal to 101.5 degrees Fahrenheit, and additional compatible Ebola Virus Disease symptoms Patient denies exposure to infectious person Patient denies travel to an Ebola-affected area in the 21 days before illness onset No symptoms or risks identified at this time. - Family history:: not pertinent. - Hospitalizations: : No recent hospitalization is reported. ROS: 13:56 Constitutional: Negative for fever, chills, and weight loss, Eyes: Negative for injury, rn pain, redness, and discharge, Neck: Negative for injury, pain, and swelling, Cardiovascular: Negative for chest pain, palpitations, and edema, Respiratory: Negative for shortness of breath, cough, wheezing, and pleuritic chest pain, Abdomen/GI: Negative for abdominal pain, nausea, vomiting, diarrhea, and constipation, Back: Negative for injury and pain, : Negative for injury, bleeding, discharge, and swelling, MS/Extremity: Negative for injury and deformity, Skin: Negative for injury, rash, and discoloration, Neuro: Negative for headache, numbness, tingling, and seizure. Exam: 13:56 Constitutional: This is a well developed, well nourished patient who is awake, alert, rn and in no acute distress. Head/Face: Normocephalic, atraumatic. Eyes: Pupils equal round and reactive to light, extra-ocular motions intact. Lids and lashes normal. Conjunctiva and sclera are non-icteric and not injected. Cornea within normal limits. Periorbital areas with no swelling, redness, or edema. ENT: MMM Cardiovascular: Regular rate and rhythm with a normal S1 and S2. No gallops, murmurs, or rubs. Normal PMI, no JVD. No pulse deficits. Respiratory: Lungs have equal breath sounds bilaterally, clear to auscultation and percussion. No rales, rhonchi or wheezes noted. No increased work of breathing, no retractions or nasal flaring. Abdomen/GI: + gravid uterus, no abd tenderness Skin: Warm, dry with normal turgor. Normal color with no rashes, no lesions, and no evidence of cellulitis. MS/ Extremity: Pulses equal, no cyanosis. Neurovascular intact. Full, normal range of motion. Equal circumference. Neuro: Awake and alert, GCS 15, oriented to person, place, time, and situation. Cranial nerves II-XII grossly intact. Motor strength 5/5 in all extremities. Sensory grossly intact. Cerebellar exam normal. Vital Signs: 13:37 BP 111 / 67; Pulse 96; Resp 18; Temp 97.9; Pulse Ox 99% on R/A; Weight 61.23 kg; Height aj 5 ft. 3 in. (160.02 cm) (R); 14:56 BP 102 / 65; Pulse 79; Resp 16; Pulse Ox 100% on R/A; Pain 0/10; iw 15:34 BP 96 / 59; Pulse 84; Resp 16; Pulse Ox 98% on R/A; iw 13:37 Body Mass Index 23.91 (61.23 kg, 160.02 cm) aj Procedures: 13:56 Ultrasound: Type: OB, performed by the emergency department physician, Bedside u/s rn performed by Dr. Landa, [facility] 135, good movement and fluid, showed images to patient and SAIMA Borges. No free abd fluid noted. . MDM: 13:39 Patient medically screened. rn 15:34 Differential Diagnosis: cardiac arrhythmia, idiopathic syncope, , vasovagal rn episode. Data reviewed: vital signs, nurses notes, lab test result(s), EKG, and as a result, I will discharge patient. Counseling: I had a detailed discussion with the patient and/or guardian regarding: the historical points, exam findings, and any diagnostic results supporting the discharge/admit diagnosis, lab results, the need for outpatient follow up, to return to the emergency department if symptoms worsen or persist or if there are any questions or concerns that arise at home. Response to treatment: the patient's symptoms have resolved after treatment, the patient's condition has returned to base line, the patient is now symptom free, patient is well hydrated. and as a result, I will discharge patient. Special discussion: I discussed with the patient/guardian in detail that at this point there is no indication for admission to the hospital. It is understood, however, that if the symptoms persist or worsen the patient needs to return immediately for re-evaluation. Based on the history and exam findings, there is no indication for further emergent testing or inpatient evaluation. I discussed with the patient/guardian the need to see the OB Gyne specialist for further evaluation of the symptoms. I discussed with the patient/guardian the need to see the primary care provider for further evaluation of the symptoms. ED course: Pt back to baseline, normal vitals, neg w/u here, on phone entire time, no further episodes, ambulatory to bathroom, normal neuro exam, baby fine on bedside u/s, will dc home with pcp and OB f/u. Return precautions given and understood.. 12/07 13:47 Order name: CBC with Diff; Complete Time: 14:41 rn 12/07 13:47 Order name: Basic Metabolic Panel; Complete Time: 14:36 rn 12/07 13:47 Order name: Urine Microscopic Only; Complete Time: 14:41 rn 12/07 13:47 Order name: Troponin (emerg Dept Use Only); Complete Time: 14:36 rn 12/07 14:14 Order name: Urine Dipstick--Ancillary (enter results); Complete Time: 14:36 eb 12/07 14:14 Order name: Urine --Ancillary (enter results); Complete Time: 14:36 eb 12/07 13:47 Order name: IV Start; Complete Time: 13:51 rn 12/07 13:47 Order name: Urine Dipstick-Ancillary (obtain specimen); Complete Time: 14:13 rn 12/07 13:47 Order name: EKG; Complete Time: 13:48 rn 12/07 13:47 Order name: EKG - Nurse/Tech; Complete Time: 13:50 rn Administered Medications: 14:12 Drug: NS 0.9% 1000 ml Route: IV; Rate: 1000 ml; Site: right antecubital; iw 15:15 Follow up: IV Status: Completed infusion iw Disposition: 12/07/17 15:36 Discharged to Home. Impression: Syncope and collapse, Dehydration. - Condition is Stable. - Discharge Instructions: Dehydration, Adult, Syncope. - Medication Reconciliation Form, Thank You Letter, Antibiotic Education, Prescription Opioid Use form. - Follow up: Private Physician; When: As needed; Reason: Recheck today's complaints, Re-evaluation by your physician. - Problem is new. - Symptoms have improved. Signatures: Dispatcher [employer] EDMS Rona Garcia RN RN aj Williams, Irene, RN RN iw Nieto, Roman, MD MD rn Corrections: (The following items were deleted from the chart) 14:01 13:56 Constitutional: Negative for fever, chills, and weight loss, Eyes: Negative for rn injury, pain, redness, and discharge, Neck: Negative for injury, pain, and swelling, Cardiovascular: Negative for chest pain, palpitations, and edema, Respiratory: Negative for shortness of breath, cough, wheezing, and pleuritic chest pain, Abdomen/GI: Negative for abdominal pain, nausea, vomiting, diarrhea, and constipation, Back: Negative for injury and pain, MS/Extremity: Negative for injury and deformity, Skin: Negative for injury, rash, and discoloration, Neuro: Negative for headache, numbness, tingling, and seizure, rn 15:45 15:36 12/07/2017 15:36 Discharged to Home. Impression: Syncope and collapse; iw Dehydration. Condition is Stable. Forms are Medication Reconciliation Form, Thank You Letter, Antibiotic Education, Prescription Opioid Use. Follow up: Private Physician; When: As needed; Reason: Recheck today's complaints, Re-evaluation by your physician. Problem is new. Symptoms have improved. rn
--- NOTE | 2017-12-08 06:51 | EKG ---
Test Date: 2017-12-07 Test Time: 13:57:59 [employer]: MELANIE MEASUREMENT RESULTS: Intervals: Rate: 77 GA: 118 QRSD: 84 QT: 388 QTc: 439 [place]: P: 76 GA: 118 QRS: 86 T: 33 INTERPRETIVE STATEMENTS: Normal sinus rhythm Normal ECG Compared to ECG 07/26/2017 11:22:22 Sinus arrhythmia no longer present T-wave abnormality no longer present Electronically Signed On 12-08-17 06:49:17 CDT by Remberto Frye
== END 2017-12-07 15:45 | disposition home or self-care (01) ==
LOC: ER 13:27
DX: E86.0 Dehydration (principal); Z3A.21 21 weeks gestation of pregnancy
CPT/HCPCS: 36415; 80048; 81003; 81015; 81025; 84484; 85025; 93005; 96360; 99284; J7030

== ENCOUNTER 2021-03-09 09:10 | Emergency (ER) | payer BC, OTHER ==
--- OUTSIDE RECORDS SUMMARY | 2021-03-09 09:19 | XMS REPORT | Continuity of Care Document ---
:1995 Author Organization [facility] t Address 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 [facility] [id number] 2019 [facility] - 00:00:00 STAR (MEDICAID HMO) MEDICAID [facility] [id number] 2019 00:00:00 [place] ACS - [id number] [facility] - [place]OM[place] [id number] [facility] PROGRAM - FAMILY PLANNING Advance Directives Directive Decision Effective Termination Comments Source Date Date Healthcare Agents on N/A Univ ersity [facility]NameRelations[facility] Agent Medical RelationshipCommunicationJames Branch MilesFatherPrimary healthcare [phone] (Mobile) Problems Condition Condition Condition Status Onset Resolution Last Treating Co mments Source Name Details Category Date Date Treatment Clinician Date Problem Active 2020-1 [facility] depression Depression 0-08 da 00:00: Medical 00 Group Sterilizat Sterilizat Problem Active 2020-1 [facility] [place] ion ion 0-08 da requested Requested 00:00: Medi mary 00 Group Gastroesop Gastroesop Problem Active 2020-0 M [place] hageal hageal 6-05 da reflux Reflux 00:00: Medical disease Disease 00 Group without without esophagiti Esophagiti s s Tachycardi Tachycardi Problem Active 2020-0 M [place] a a 5-12 da 00:00: Medical 00 Group Dyspnea on Dyspnea on Problem Active 2020-0 [facility] exertion Exertion 5-12 da 00:00: Medical 00 Group Folliculit Folliculit Problem Active 2020-0 M [place] is is 2-26 da 00:00: Medical 00 Group History of History of Problem Active 2020-0 M [facility] pre-eclamp Pre-eclamp 2-26 da leoncio leoncio 00:00: Medical 00 Group Over Over Disease Active 2019- Univers weight weight 2-18 ity of 00:00: [place] 00 Medical Branch Acute Acute Disease Active Univers nasopharyn nasopharyn 2-18 it y of gitis gitis 00:00: [place] (common (common 00 Medical cold) cold) Branch Multiparit Multiparit Disease Active 2020 U nivers y y 1-15 ity of 00:00: [place] 00 Medical Branch History of History of Disease Active Overview : Univers pre-eclamp pre-eclamp 1-15 Reports i ty of leoncio leoncio 00:00: delivery [place] 00 at 37w5d Medical Branch Rubella Rubella Disease Active Univers non-immune non-immune 7-13 it y of status, status, 00:00: [place] antepartum antepartum 00 Ga dical Branch Tobacco Tobacco Disease Active Overview: Univ ers use in use in 7-10 Reports ity of , , [place] ante[place] antepartum [place] days ago Medical 03/04/19 Branch History of History of Disease Active Overview : Univers pericardit pericardit 7-10 Questiona ity of is is 00:00: ble. [place] 00 External Medical records Branch received and reviewed. All labs (ESR and CRP) were normal, CXR was normal. No EKG received. Pt was tx with kenalog 40mg. EKG from 11/28/16 received (see external records) noted to be NSR Supervisio Supervisio Disease Active U nivers n of high n of high 7-10 ity of risk risk 00:00: [place] , , 00 Me dical antepartum antepartum Br anch Breast Breast Disease Active Univers lump on lump on 10 ity of right side right [place] 00:[place] at 11 at 11 00 Medical o'clock o'clock Branch position position History of History of Disease Active Overview : Univers breast breast 10 Reports ity of lump lump 00:00: benign no 00 issues Medical Branch Allergies, Adverse Reactions, Alerts Allergy Allergy Status Severity Reaction(s) Onset Inactive Treating Comm ents Source Name Type Date Date Clinician LATEX DRUG Active Low Rash Univers INGREDI 7-10 ity of 00:00: [place] 00 Medical Branch Latex Propensi Active Rash Univers ty to 7-10 ity of adverse 00:00: [place] reaction 00 Medical s Branch Latex Allergy Active Rash [place] [facility] e Group Social History Social Habit Start Date Stop Date Quantity Comments Source ASSERTION 2019-02-22 University of 00:00:00 [facility] [place] [facility] Sex Assigned At Universit y of [facility] [place] [facility] Cigarettes smoked 2019-04-09 2019-04-09 Univers ity of current (pack per 00:00:00 00:00:00 ) - Reported Branch Cigarette 2019-04-09 2019-04-09 University of pack-years 00:00:00 00:00:00 [facility] [place] [facility] Alcohol intake 2019-04-09 2019-04-09 University of 00:00:00 00:00:00 [facility] [place] [facility] Alcohol Comment 2019-03-06 2019-03-06 [facility] 03/04/2019 [facility] [place] [facility] History of tobacco 2019-03-04 Cigarette Smoker University of use 00:00:00 [facility] [place] [facility] Tobacco Comment 2017-08-29 2017-08-29 information Universi ty of 00:00:00 00:00:00 provided [facility] [place] [facility] Smoking Status Start Date Stop Date Source Former smoker 2019-04-09 00:00:00 2019-04-09 00:00:00 Universi ty of [facility] [place] [facility] Medications Ordered Filled Start Stop Current Ordering Indication Dosage Frequency Signature Comments Components Source Medication Medication Date Date Medication? Clinician (SIG) Name Name proMETHazin 2020-0 Yes 12.5mg Take 12.5 Univers e 12.5 mg 1-15 mg by ity of tablet 16:18: mouth [place] 36 every 4 Medical (four) Branch hours as needed. proMETHazin 2020-0 Yes 12.5mg Take 12.5 Univers e 12.5 mg 1-15 mg by ity of tablet 16:18: mouth [place] 36 every 4 Medical (four) Branch hours as needed. proMETHazin 2020-0 Yes 12.5mg Take 12.5 Univers e 12.5 mg 1-15 mg by ity of tablet 16:18: mouth [place] 36 every 4 Medical (four) Branch hours as needed. proMETHazin 2020-0 Yes 12.5mg Take 12.5 Univers e 12.5 mg 1-15 mg by ity of tablet 16:18: mouth [place] 36 every 4 Medical (four) Branch hours as needed. proMETHazin 2020-0 Yes 12.5mg Take 12.5 Univers e 12.5 mg 1-15 mg by ity of tablet 16:18: mouth [place] 36 every 4 Medical (four) Branch hours as needed. proMETHazin 2020-0 Yes 12.5mg Take 12.5 Univers e 12.5 mg 1-15 mg by ity of tablet 16:18: mouth [place] 36 every 4 Medical (four) Branch hours as needed. proMETHazin 2020-0 Yes 12.5mg Take 12.5 Univers e 12.5 mg 1-15 mg by ity of tablet 16:18: mouth [place] 36 every 4 Medical (four) Branch hours as needed. proMETHazin 2020-0 Yes 12.5mg Take 12.5 Univers e 12.5 mg 1-15 mg by ity of tablet 16:18: mouth [place] 36 every 4 Medical (four) Branch hours as needed. proMETHazin 2020-0 Yes 12.5mg Take 12.5 Univers e 12.5 mg 1-15 mg by ity of tablet 16:18: mouth [place] 36 every 4 Medical (four) Branch hours as needed. proMETHazin 2020-0 Yes 12.5mg Take 12.5 Univers e 12.5 mg 1-15 mg by ity of tablet 16:18: mouth [place] 36 every 4 Medical (four) Branch hours as needed. proMETHazin 2020-0 Yes 12.5mg Take 12.5 Univers e 12.5 mg 1-15 mg by ity of tablet 16:18: mouth [place] 36 every 4 Medical (four) Branch hours as needed. proMETHazin 2020-0 Yes 12.5mg Take 12.5 Univers e 12.5 mg 1-15 mg by ity of tablet 16:18: mouth [place] 36 every 4 Medical (four) Branch hours as needed. proMETHazin 2020-0 Yes 12.5mg Take 12.5 Univers e 12.5 mg 1-15 mg by ity of tablet 16:18: mouth [place] 36 every 4 Medical (four) Branch hours as needed. proMETHazin 2020-0 Yes 12.5mg Take 12.5 Univers e 12.5 mg 1-15 mg by ity of tablet 16:18: mouth [place] 36 every 4 Medical (four) Branch hours as needed. proMETHazin 2020-0 Yes 12.5mg Take 12.5 Univers e 12.5 mg 1-15 mg by ity of tablet 16:18: mouth [place] 36 every 4 Medical (four) Branch hours as needed. proMETHazin 2020-0 Yes 12.5mg Take 12.5 Univers e 12.5 mg 1-15 mg by ity of tablet 16:18: mouth [place] 36 every 4 Medical (four) Branch hours as needed. proMETHazin 2020-0 Yes 12.5mg Take 12.5 Univers e 12.5 mg 1-15 mg by ity of tablet 16:18: mouth [place] 36 every 4 Medical (four) Branch hours as needed. 2020-0 Yes [id number] 1{tbl} Take 1 U nivers multivitami 1-15 tablet by ity of n ( 00:00: mouth [place] VITAMIN) 00 daily. Medical tablet Branch 2020-0 Yes [id number] 1{tbl} Take 1 U nivers multivitami 1-15 tablet by ity of n ( 00:00: mouth [place] VITAMIN) 00 daily. Medical tablet Branch Yes [id number] 1{tbl} Take 1 U nivers multivitami 1-15 tablet by ity of n ( 00:00: mouth [place] VITAMIN) 00 daily. Medical tablet Branch Yes [id number] 1{tbl} Take 1 U nivers multivitami 1-15 tablet by ity of n ( 00:00: mouth [place] VITAMIN) 00 daily. Medical tablet Branch Yes [id number] 1{tbl} Take 1 U nivers multivitami 1-15 tablet by ity of n ( 00:00: mouth [place] VITAMIN) 00 daily. Medical tablet Branch Yes [id number] 1{tbl} Take 1 U nivers multivitami 1-15 tablet by ity of n ( 00:00: mouth [place] VITAMIN) 00 daily. Medical tablet Branch Yes [id number] 1{tbl} Take 1 U nivers multivitami 1-15 tablet by ity of n ( 00:00: mouth [place] VITAMIN) 00 daily. Medical tablet Branch Yes [id number] 1{tbl} Take 1 U nivers multivitami 1-15 tablet by ity of n ( 00:00: mouth [place] VITAMIN) 00 daily. Medical tablet Branch Yes [id number] 1{tbl} Take 1 U nivers multivitami 1-15 tablet by ity of n ( 00:00: mouth [place] VITAMIN) 00 daily. Medical tablet Branch Yes [id number] 1{tbl} Take 1 U nivers multivitami 1-15 tablet by ity of n ( 00:00: mouth [place] VITAMIN) 00 daily. Medical tablet Branch Yes [id number] 1{tbl} Take 1 U nivers multivitami 1-15 tablet by ity of n ( 00:00: mouth [place] VITAMIN) 00 daily. Medical tablet Branch Yes [id number] 1{tbl} Take 1 U nivers multivitami 1-15 tablet by ity of n ( 00:00: mouth [place] VITAMIN) 00 daily. Medical tablet Branch 2020-0 Yes [id number] 1{tbl} Take 1 U nivers multivitami 1-15 tablet by ity of n ( 00:00: mouth [place] VITAMIN) 00 daily. Medical tablet Branch Yes [id number] 1{tbl} Take 1 U nivers multivitami 1-15 tablet by ity of n ( 00:00: mouth [place] VITAMIN) 00 daily. Medical tablet Branch Yes [id number] 1{tbl} Take 1 U nivers multivitami 1-15 tablet by ity of n ( 00:00: mouth [place] VITAMIN) 00 daily. Medical tablet Branch Yes [id number] 1{tbl} Take 1 U nivers multivitami 1-15 tablet by ity of n ( 00:00: mouth [place] VITAMIN) 00 daily. Medical tablet Branch Yes [id number] 1{tbl} Take 1 U nivers multivitami 1-15 tablet by ity of n ( 00:00: mouth [place] VITAMIN) 00 daily. Medical tablet Branch proMETHazin Yes 12.5mg Take 12.5 Univers e 12.5 mg 8-10 mg by ity of tablet 17:49: mouth [place] 27 every 4 Medical (four) Branch hours as needed. [id number] 2018-0 Yes 1{tbl} Take 1 Un alejandrina iron-folic- 7-10 tablet by ity of docusate 00:00: mouth [place] (CITRANATAL 00 daily. Medica l , Branch DUAL-IRON,) 27 mg iron-1 mg -50 mg Tab [id number] 2018-0 Yes 1{tbl} Take 1 Un alejandrina iron-folic- 7-10 tablet by ity of docusate 00:00: mouth [place] (CITRANATAL 00 daily. Medica l , Branch DUAL-IRON,) 27 mg iron-1 mg -50 mg Tab [id number] 2018-0 Yes 1{tbl} Take 1 Un alejandrina iron-folic- 7-10 tablet by ity of docusate 00:00: mouth [place] (CITRANATAL 00 daily. Medica l , Branch DUAL-IRON,) 27 mg iron-1 mg -50 mg Tab [id number] 2018-0 Yes 1{tbl} Take 1 Un alejandrina iron-folic- 7-10 tablet by ity of docusate 00:00: mouth [place] (CITRANATAL 00 daily. Medica l , Branch DUAL-IRON,) 27 mg iron-1 mg -50 mg Tab [id number] 2018-0 Yes 1{tbl} Take 1 Un alejandrina iron-folic- 7-10 tablet by ity of docusate 00:00: mouth [place] (CITRANATAL 00 daily. Medica l , Branch DUAL-IRON,) 27 mg iron-1 mg -50 mg Tab [id number] 2018-0 Yes 1{tbl} Take 1 Un ale[place]andrina iron-folic- 7-10 tablet by ity of docusate 00:00: mouth [place] (CITRANATAL 00 daily. Medica l , Branch DUAL-IRON,) 27 mg iron-1 mg -50 mg Tab [id number] 2018-0 Yes 1{tbl} Take 1 Un alejandrina iron-folic- 7-10 tablet by ity of docusate 00:00: mouth [place] (CITRANATAL 00 daily. Medica l , Branch DUAL-IRON,) 27 mg iron-1 mg -50 mg Tab 2018-0 Yes 1{tbl} Take 1 Un alejandrina iron-folic- 7-10 tablet by ity of docusate 00:00: mouth [place] (CITRANATAL 00 daily. Medica l , Branch DUAL-IRON,) 27 mg iron-1 mg -50 mg Tab 2018-0 Yes 1{tbl} Take 1 Un alejandrina iron-folic- 7-10 tablet by ity of docusate 00:00: mouth [place] (CITRANATAL 00 daily. Medica l , Branch DUAL-IRON,) 27 mg iron-1 mg -50 mg Tab [id number] 2018-0 Yes 1{tbl} Take 1 Un alejandrina iron-folic- 7-10 tablet by ity of docusate 00:00: mouth [place] (CITRANATAL 00 daily. Medica l , Branch DUAL-IRON,) 27 mg iron-1 mg -50 mg Tab [id number] 2018-0 Yes 1{tbl} Take 1 Un ale[place] iron-folic- 7-10 tablet by ity of docusate 00:00: mouth [place] (CITRANATAL 00 daily. Medica l , Branch DUAL-IRON,) 27 mg iron-1 mg -50 mg Tab [id number] 2018-0 Yes 1{tbl} Take 1 Un ale[place]andrina iron-folic- 7-10 tablet by ity of docusate 00:00: mouth [place] (CITRANATAL 00 daily. Medica l , Branch DUAL-IRON,) 27 mg iron-1 mg -50 mg Tab [id number] 2018-0 Yes 1{tbl} Take 1 Un [place] iron-folic- 7-10 tablet by ity of docusate 00:00: mouth [place] (CITRANATAL 00 daily. Medica l , Branch DUAL-IRON,) 27 mg iron-1 mg -50 mg Tab [id number] 2018-0 Yes 1{tbl} Take 1 Un alejandrina iron-folic- 7-10 tablet by ity of docusate 00:00: mouth [place] (CITRANATAL 00 daily. Medica l , Branch DUAL-IRON,) 27 mg iron-1 mg -50 mg Tab [id number] Yes 1{tbl} Take 1 Un [place] iron-folic- 7-10 tablet by ity of docusate 00:00: mouth [place] (CITRANATAL 00 daily. Medica l , Branch DUAL-IRON,) 27 mg iron-1 mg -50 mg Tab [id number] Yes 1{tbl} Take 1 Un [place] iron-folic- 7-10 tablet by ity of docusate 00:00: mouth [place] (CITRANATAL 00 daily. Medica l , Branch DUAL-IRON,) 27 mg iron-1 mg -50 mg Tab [id number] 2018-0 Yes 1{tbl} Take 1 Un ale[place]andrina iron-folic- 7-10 tablet by ity of docusate 00:00: mouth [place] (CITRANATAL 00 daily. Medica l , Branch DUAL-IRON,) 27 mg iron-1 mg -50 mg Tab [id number] 2018-0 Yes 1{tbl} Take 1 Un aeljandrina iron-folic- 7-10 tablet by ity of docusate 00:00: mouth [place] (CITRANATAL 00 daily. Medica l , Branch DUAL-IRON,) 27 mg iron-1 mg -50 mg Tab acetaminoph acetaminoph No acetaminop [place] en 300 en 300 hen 300 da mg-codeine mg-codeine mg-codeine Medical 30 mg 30 mg 30 mg Group tablet 1-2 tablet 1-2 tablet 1-2 p.o. q 6 p.o. q 6 p.o. q 6 hrs PRN hrs PRN hrs PRN pain pain pain citalopram citalopram No citalopram [place] 20 mg 20 mg 20 mg da tablet Take tablet Take tablet Medical 1 tablet 1 tablet Take 1 Group every day every day tablet by oral by oral every day route. route. by oral route. doxycycline doxycycline No 1capsul BID doxycyclin [place] monohydrate monohydrate e(s) e d a 100 mg 100 mg monohydrat Medic al capsule capsule e 100 mg Group Take 1 Take 1 capsule capsule capsule Take 1 twice a day twice a day capsule by oral by oral twice a route for 7 route for 7 day by days. days. oral route for 7 days. Flagyl 500 Flagyl 500 No 1 BID Flagyl 500 [place] mg tablet mg tablet mg tablet da Take 1 Take 1 Take 1 Medical tablet tablet tablet Group twice a day twice a day twice a by oral by oral day by route for 7 route for 7 oral route days. days. for 7 days. ibuprofen ibuprofen No ibuprofen [place] 800 mg 800 mg 800 mg da tablet Take tablet Take tablet Medical 1 tablet 1 tablet Take 1 Group every 6 every 6 tablet hours by hours by every 6 oral route oral route hours by as needed. as needed. oral route as needed. Sprintec Sprintec No 1 Q1D Sprintec [place] (28) 0.25 (28) 0.25 (28) 0.25 da mg-35 mcg mg-35 mcg mg-35 mcg Medical tablet Take tablet Take tablet Group 1 tablet 1 tablet Take 1 every day every day tablet by oral by oral every day route. route. by oral route. Vital Signs Vital Name Observation Time Observation Value Comments Source BP Diastolic 2020-05-11 00:00:00 71 mm[Hg] [facility] Height 2020-05-11 00:00:00 63 [in_i] [facility] BMI (Body Mass 2020-05-11 00:00:00 29.3 kg/m2 [facility] Medical Index) Group BP Systolic 2020-05-11 00:00:00 105 mm[Hg] [facility] Body Weight 2020-05-11 00:00:00 165.6 [lb_av] [facility] BP Diastolic 2019-12-27 00:00:00 63 mm[Hg] [facility] Height 2019-12-27 00:00:00 63 [in_i] [facility] BMI (Body Mass 2019-12-27 00:00:00 27 kg/m2 [facility] Medical Index) Group BP Systolic 2019-12-27 00:00:00 107 mm[Hg] [facility] Body Weight 2019-12-27 00:00:00 152.6 [lb_av] [facility] BP Diastolic 2019-12-13 00:00:00 76 mm[Hg] [facility] Height 2019-12-13 00:00:00 63 [in_i] [facility] BMI (Body Mass 2019-12-13 00:00:00 27.1 kg/m2 [facility] Medical Index) Group BP Systolic 2019-12-13 00:00:00 112 mm[Hg] [facility] Body Weight 2019-12-13 00:00:00 153 [lb_av] [facility] BP Diastolic 2019-11-28 00:00:00 72 mm[Hg] [facility] Height 2019-11-28 00:00:00 63 [in_i] [facility] BMI (Body Mass 2019-11-28 00:00:00 27.1 kg/m2 [facility] Medical Index) Group BP Systolic 2019-11-28 00:00:00 113 mm[Hg] [facility] Body Weight 2019-11-28 00:00:00 153 [lb_av] [facility] BP Diastolic 2019-10-31 00:00:00 81 mm[Hg] [facility] Height 2019-10-31 00:00:00 63 [in_i] [facility] BMI (Body Mass 2019-10-31 00:00:00 31.4 kg/m2 [facility] Medical Index) Group BP Systolic 2019-10-31 00:00:00 123 mm[Hg] [facility] Body Weight 2019-10-31 00:00:00 177.3 [lb_av] [facility] BP Diastolic 2019-10-24 00:00:00 78 mm[Hg] [facility] Height 2019-10-24 00:00:00 63 [in_i] [facility] BMI (Body Mass 2019-10-24 00:00:00 31.2 kg/m2 [facility] Medical Index) Group BP Systolic 2019-10-24 00:00:00 121 mm[Hg] [facility] Body Weight 2019-10-24 00:00:00 176 [lb_av] [facility] BP Diastolic 2019-10-14 00:00:00 70 mm[Hg] [facility] Height 2019-10-14 00:00:00 63 [in_i] [facility] BMI (Body Mass 2019-10-14 00:00:00 30.6 kg/m2 [facility] Medical Index) Group BP Systolic 2019-10-14 00:00:00 106 mm[Hg] [facility] Body Weight 2019-10-14 00:00:00 173 [lb_av] [facility] BP Diastolic 2019-10-09 00:00:00 72 mm[Hg] [facility] Height 2019-10-09 00:00:00 63 [in_i] [facility] BMI (Body Mass 2019-10-09 00:00:00 30.5 kg/m2 [facility] Medical Index) Group BP Systolic 2019-10-09 00:00:00 112 mm[Hg] [facility] Body Weight 2019-10-09 00:00:00 172.3 [lb_av] [facility] BP Diastolic 2019-10-04 00:00:00 78 mm[Hg] [facility] Height 2019-10-04 00:00:00 63 [in_i] [facility] BMI (Body Mass 2019-10-04 00:00:00 30.5 kg/m2 [facility] BP Systolic 2019-10-04 00:00:00 116 mm[Hg] [facility] Body Weight 2019-10-04 00:00:00 171.9 [lb_av] [facility] BP Diastolic 2019-09-17 00:00:00 71 mm[Hg] [facility] Height 2019-09-17 00:00:00 63 [in_i] [facility] BMI (Body Mass 2019-09-17 00:00:00 30 kg/m2 [facility] 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 BP Systolic 2019-09-17 00:00:00 112 mm[Hg] [facility] Body Weight 2019-09-17 00:00:00 169.4 [lb_av] [facility] BP Diastolic 2019-08-27 00:00:00 71 mm[Hg] [facility] Height 2019-08-27 00:00:00 63 [in_i] [facility] BMI (Body Mass 2019-08-27 00:00:00 29.4 kg/m2 [place] 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 BP Systolic 2019-08-27 00:00:00 114 mm[Hg] [facility] Body Weight 2019-08-27 00:00:00 166 [lb_av] [facility] BP Diastolic 2019-07-26 00:00:00 63 mm[Hg] [facility] Height 2019-07-26 00:00:00 63 [in_i] [facility] BMI (Body Mass 2019-07-26 00:00:00 29.1 kg/m2 [place] 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 BP Systolic 2019-07-26 00:00:00 102 mm[Hg] [facility] Body Weight 2019-07-26 00:00:00 164 [lb_av] [facility] BP Diastolic 2019-07-18 00:00:00 63 mm[Hg] [facility] Height 2019-07-18 00:00:00 63 [in_i] [facility] BMI (Body Mass 2019-07-18 00:00:00 29.1 kg/m2 [place] 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 BP Systolic 2019-07-18 00:00:00 102 mm[Hg] [facility] Body Weight 2019-07-18 00:00:00 164.3 [lb_av] [facility] BP Diastolic 2019-07-02 00:00:00 70 mm[Hg] [facility] Height 2019-07-02 00:00:00 63 [in_i] [facility] BMI (Body Mass 2019-07-02 00:00:00 28.6 kg/m2 [place] 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 BP Systolic 2019-07-02 00:00:00 117 mm[Hg] [facility] Body Weight 2019-07-02 00:00:00 161.2 [lb_av] [facility] BP Diastolic 2019-06-04 00:00:00 60 mm[Hg] [facility] Height 2019-06-04 00:00:00 63 [in_i] [facility] BMI (Body Mass 2019-06-04 00:00:00 28.1 kg/m2 [place] 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 BP Systolic 2019-06-04 00:00:00 107 mm[Hg] [facility] Body Weight 2019-06-04 00:00:00 158.8 [lb_av] [facility] BP Diastolic 2019-05-02 00:00:00 58 mm[Hg] [facility] Height 2019-05-02 00:00:00 63 [in_i] [facility] BMI (Body Mass 2019-05-02 00:00:00 27.9 kg/m2 [place] 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 BP Systolic 2019-05-02 00:00:00 107 mm[Hg] [facility] Body Weight 2019-05-02 00:00:00 157.3 [lb_av] [facility] BP Diastolic 2019-04-17 00:00:00 67 mm[Hg] [facility] Height 2019-04-17 00:00:00 63 [in_i] [facility] BMI (Body Mass 2019-04-17 00:00:00 28.4 kg/m2 [place] 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 BP Systolic 2019-04-17 00:00:00 111 mm[Hg] [facility] Body Weight 2019-04-17 00:00:00 160.2 [lb_av] [facility] Systolic blood 2019-04-09 16:28:00 111 mm[Hg] Univer sity of pressure [facility] [place] [facility] Diastolic blood 2019-04-09 16:28:00 65 mm[Hg] Unive rsity of pressure [place] [facility] Heart rate 2019-04-09 16:28:00 92 /min [facility] [place] [facility] Body temperature 2019-04-09 16:28:00 36.39 Jacki [facility] [place] [facility] Respiratory rate 2019-04-09 16:28:00 16 /min [facility] [place] [facility] Body height 2019-04-09 16:28:00 160 cm [facility] [place] [facility] Body weight 2019-04-09 16:28:00 72.15 kg [facility] [place] [facility] BMI 2019-04-09 16:28:00 28.18 kg/m2 [facility] [place] [facility] Systolic blood 2019-04-09 16:28:00 111 mm[Hg] Univer sity of pressure [place] [facility] Diastolic blood 2019-04-09 16:28:00 65 mm[Hg] Unive rsity of pressure [place] [facility] Heart rate 2019-04-09 16:28:00 92 /min [facility] [place] [facility] Body temperature 2019-04-09 16:28:00 36.39 Jacki [facility] [place] [facility] Respiratory rate 2019-04-09 16:28:00 16 /min [facility] [place] [facility] Body height 2019-04-09 16:28:00 160 cm [facility] [place] [facility] Body weight 2019-04-09 16:28:00 72.15 kg [facility] [place] [facility] BMI 2019-04-09 16:28:00 28.18 kg/m2 [facility] [place] [facility] Systolic blood 2019-03-29 19:36:00 113 mm[Hg] Univer sity of pressure [place] [facility] Diastolic blood 2019-03-29 19:36:00 72 mm[Hg] [facility] Heart rate 2019-03-29 19:36:00 82 /min [facility] Body temperature 2019-03-29 19:36:00 36.11 Jacki [facility] Respiratory rate 2019-03-29 19:36:00 16 /min [facility] Body height 2019-03-29 19:36:00 160 cm [facility] Body weight 2019-03-29 19:36:00 72.632 kg [facility] BMI 2019-03-29 19:36:00 28.36 kg/m2 [facility] Systolic blood 2019-03-29 19:36:00 113 mm[Hg] [facility] Diastolic blood 2019-03-29 19:36:00 72 mm[Hg] [facility] Heart rate 2019-03-29 19:36:00 82 /min [facility] Body temperature 2019-03-29 19:36:00 36.11 Jacki [facility] Respiratory rate 2019-03-29 19:36:00 16 /min [facility] Body height 2019-03-29 19:36:00 160 cm [facility] Body weight 2019-03-29 19:36:00 72.632 kg [facility] BMI 2019-03-29 19:36:00 28.36 kg/m2 [facility] Heart rate 2019-03-21 16:56:00 59 /min [facility] Body temperature 2019-03-21 16:56:00 36.39 Jacki [facility] Respiratory rate 2019-03-21 16:56:00 16 /min [facility] Body height 2019-03-21 16:56:00 160 cm [facility] Body weight 2019-03-21 16:56:00 73.029 kg [facility] BMI 2019-03-21 16:56:00 28.52 kg/m2 [facility] Systolic blood 2019-03-21 16:56:00 112 mm[Hg] [facility] Diastolic blood 2019-03-21 16:56:00 62 mm[Hg] [facility] Heart rate 2019-03-21 16:56:00 59 /min [facility] Body temperature 2019-03-21 16:56:00 36.39 Jacki [facility] Respiratory rate 2019-03-21 16:56:00 16 /min [facility] Body height 2019-03-21 16:56:00 160 cm [facility] Body weight 2019-03-21 16:56:00 73.029 kg [facility] BMI 2019-03-21 16:56:00 28.52 kg/m2 [facility] Systolic blood 2019-03-21 16:56:00 112 mm[Hg] [facility] Diastolic blood 2019-03-21 16:56:00 62 mm[Hg] [facility] Systolic blood 2019-03-12 16:59:00 123 mm[Hg] [facility] Diastolic blood 2019-03-12 16:59:00 71 mm[Hg] [facility] Heart rate 2019-03-12 16:59:00 76 /min [facility] Body temperature 2019-03-12 16:59:00 36.28 Jacki [facility] Respiratory rate 2019-03-12 16:59:00 16 /min [facility] Body height 2019-03-12 16:59:00 160 cm [facility] Body weight 2019-03-12 16:59:00 73.738 kg [facility] BMI 2019-03-12 16:59:00 28.80 kg/m2 [facility] Systolic blood 2019-03-12 16:59:00 123 mm[Hg] [facility] Diastolic blood 2019-03-12 16:59:00 71 mm[Hg] [facility] Heart rate 2019-03-12 16:59:00 76 /min [facility] Body temperature 2019-03-12 16:59:00 36.28 Jacki [facility] Respiratory rate 2019-03-12 16:59:00 16 /min [facility] Body height 2019-03-12 16:59:00 160 cm [facility] Body weight 2019-03-12 16:59:00 73.738 kg [facility] BMI 2019-03-12 16:59:00 28.80 kg/m2 [facility] Systolic blood 2019-03-06 15:53:00 127 mm[Hg] [facility] Diastolic blood 2019-03-06 15:53:00 80 mm[Hg] [facility] Heart rate 2019-03-06 15:53:00 79 /min [facility] Body temperature 2019-03-06 15:53:00 36.22 Jacki [facility] Respiratory rate 2019-03-06 15:53:00 16 /min [facility] Body height 2019-03-06 15:53:00 170.2 cm [facility] Body weight 2019-03-06 15:53:00 72.576 kg [facility] BMI 2019-03-06 15:53:00 25.06 kg/m2 [facility] Height 2018-10-26 00:00:00 63 [in_i] [facility] BMI (Body Mass 2018-10-26 00:00:00 27.6 kg/m2 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 Body Weight 2018-10-26 00:00:00 156 [lb_av] [facility] BP Diastolic 2018-07-26 00:00:00 73 mm[Hg] [facility] Height 2018-07-26 00:00:00 63 [in_i] [facility] BMI (Body Mass 2018-07-26 00:00:00 26.6 kg/m2 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 BP Systolic 2018-07-26 00:00:00 121 mm[Hg] [facility] Body Weight 2018-07-26 00:00:00 150.2 [lb_av] [facility] BP Diastolic 2018-04-26 00:00:00 69 mm[Hg] [facility] Height 2018-04-26 00:00:00 63 [in_i] [facility] BMI (Body Mass 2018-04-26 00:00:00 25.7 kg/m2 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 BP Systolic 2018-04-26 00:00:00 97 mm[Hg] [facility] Body Weight 2018-04-26 00:00:00 145 [lb_av] [facility] BP Diastolic 2018-04-02 00:00:00 85 mm[Hg] [facility] Height 2018-04-02 00:00:00 63 [in_i] [facility] BMI (Body Mass 2018-04-02 00:00:00 29.5 kg/m2 [facility] Medical Index) Group BP Systolic 2018-04-02 00:00:00 145 mm[Hg] [facility] Body Weight 2018-04-02 00:00:00 166.5 [lb_av] [facility] BP Diastolic 2018-03-29 00:00:00 79 mm[Hg] [facility] Height 2018-03-29 00:00:00 63 [in_i] [facility] BMI (Body Mass 2018-03-29 00:00:00 29.6 kg/m2 [facility] BP Systolic 2018-03-29 00:00:00 118 mm[Hg] [facility] Body Weight 2018-03-29 00:00:00 166.9 [lb_av] [facility] BP Diastolic 2018-03-09 00:00:00 75 mm[Hg] [facility] Height 2018-03-09 00:00:00 63 [in_i] [facility] BMI (Body Mass 2018-03-09 00:00:00 28 kg/m2 [facility] BP Systolic 2018-03-09 00:00:00 120 mm[Hg] [facility] Body Weight 2018-03-09 00:00:00 158 [lb_av] [facility] BP Diastolic 2018-02-28 00:00:00 72 mm[Hg] [facility] Height 2018-02-28 00:00:00 63 [in_i] [facility] BMI (Body Mass 2018-02-28 00:00:00 27.6 kg/m2 [facility] BP Systolic 2018-02-28 00:00:00 115 mm[Hg] [facility] Body Weight 2018-02-28 00:00:00 156 [lb_av] [facility] BP Diastolic 2018-02-23 00:00:00 69 mm[Hg] [facility] Height 2018-02-23 00:00:00 63 [in_i] [facility] BMI (Body Mass 2018-02-23 00:00:00 27.5 kg/m2 [facility] 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 BP Systolic 2018-02-23 00:00:00 107 [facility]Hg[facility] 2018-02-23 00:00:00 155 [lb_av] [facility] Procedures Procedure Date / Time Performing Clinician Source Performed unlisted imaging order 2019-12-27 00:00:00 [facility] Bilateral Tubal Ligation 2019-12-18 00:00:00 [facility] non-stress test 2019-10-31 00:00:00 [facility] US, obstetric, limited 2019-10-14 [facility] 2019-10-14 00:00:00 [facility] non-stress test 2019-10-09 00:00:00 [facility] US, obstetric, limited 2019-09-17 00:00:00 [facility] ULTRASOUND REPEAT 2019-08-27 00:00:00 [facility] US, obstetric, limited 2019-07-26 00:00:00 [facility] ULTRASOUND, 2019-06-27 00:00:00 [facility] UTERUS REAL TIME WITH Group IMAGE DOC, AND MATERNAL EVAL PLUS DETAILED ANATOMIC EXAMINATION, TRANSABDOMINAL APPROACH; SINGLE OR FIRST GESTATION US, obstetric, limited 2019-06-04 00:00:00 [facility] ULTRASOUND, 2019-05-30 00:00:00 [facility] UTERUS REAL TIME WITH Group IMAGE DOC, AND MATERNAL EVAL PLUS DETAILED ANATOMIC EXAMINATION, TRANSABDOMINAL APPROACH; SINGLE OR FIRST GESTATION US, obstetric, limited 2019-05-02 00:00:00 [facility] AUTHORIZATION FOR RELEASE 2019-04-17 06:01:00 Doctor Unassigned, [facility] US, obstetric, limited 2019-04-17 00:00:00 [facility] POCT RAPID FLU A AND B 2019-04-09 17:08:00 Melyssa Mccarty [facility] POCT URINALYSIS 2019-04-09 16:42:00 Melyssa Mccarty [facility] POCT URINALYSIS 2019-03-29 19:40:00 Melyssa Mccarty [facility] US OB TRANSVAGINAL 2019-03-21 19:44:41 Vani Sullivan [facility] POCT URINALYSIS 2019-03-12 17:18:00 Melyssa Mccarty [facility] POCT URINALYSIS W/O 2019-03-06 16:01:00 [facility] SPECIFIC GRAVITY [facility] POCT TEST 2019-03-06 15:58:[address] [facility] ASSIGNMENT OF BENEFITS 2019-03-06 15:11:41 [facility] non-stress test 2018-04-02 00:00:00 [facility] US, obstetric, limited 2018-03-29 00:00:00 [facility] non-stress test 2018-02-28 00:00:00 [facility] US, obstetric, limited 2018-02-23 00:00:00 [facility] ULTRASOUND REPEAT 2018-01-26 00:00:00 [facility] Plan of Care Planned Activity Planned Date Details Comments Source Diagnostic Test 2020-05-11 urinalysis, [facility] 00:00:00 dipstick [code = Group urinalysis, dipstick] Diagnostic Test 2020-05-11 wet [place], vaginal [facility] [employer] [facility] Pending 00:00:00 [code = wet mount, Group vaginal] Encounters Start End Encounter Admission Attending Care Care Encounter Source Date/Time Date/Time Type Type Clinicians Facility Department ID 2020-06-10 2020-06-10 Outpatient [facility] [id number] [facility] 03:[facility]:00 03:45:00 [facility] 2020-05-11 2020-05-11 Outpatient G_[facility] MMG [id number] [facility] 11:32:00 11:32:00 [facility] 2020-05-11 2020-05-11 Outpatient G_[facility] MMG [id number] [facility] 11:32:00 11:32:00 0323 [facility] 2020-05-11 2020-05-11 Kartik MMG [place] - [id number] [facility] 00:00:00 00:00:00 Discovery tavia Samuels MD: [address] [facility] [place] [address] [address] , Ph. [phone] 2020-05-05 2020-05-05 Outpatient G_[facility] MMG [id number] [facility] 01:33:00 01:33:00 0318 [facility] 2020-03-23 2020-03-23 Outpatient [facility] MMG [id number] [facility] 01:05:00 01:05:00 [facility]201 [facility] 2020-02-17 2020-02-17 Outpatient G_[facility] MMG [id number] [facility] 01:05:00 01:05:00 1228 [facility] 2020-01-13 2020-01-13 Outpatient [facility] MMG [id number] [facility] 01:06:00 01:06:00 1123 [facility] 2020-01-08 2020-01-08 Outpatient G_[facility] MMG [id number] [facility] 02:30:00 02:30:00 [facility]8 [facility] 2019-12-27 2019-12-27 Outpatient [facility] MMG [id number] [facility] 03:21:00 03:21:00 [facility]6 [facility] 2019-12-27 2019-12-27 Outpatient G_[facility] MMG MMG [id number] [facility] 03:21:00 03:21:00 [facility]9 [facility] 2019-12-27 2019-12-27 Kartik MM [place] - [id number] [facility] 00:00:00 00:00:00 Discovery tavia Samuels MD: [address] [facility] [address], [place] [address] , Ph. [phone] 2019-12-18 2019-12-18 Outpatient [facility] MMG [id number] [facility] 10:30:00 10:30:00 [facility]5 [facility] 2019-12-13 2019-12-13 Outpatient G_[facility] MMG [id number] [facility] 10:26:00 10:26:00 1023 [facility] 2019-12-13 2019-12-13 Outpatient [facility] MMG [id number] [facility] 10:26:00 10:26:00 1024 [facility] 2019-12-13 2019-12-13 Kartik [facility] [place] - [id number] M at[facility] 00:00:00 00:00:00 Discovery tavia Samuels MD: [address] [place] [address] , Ph. [phone] 2019-12-06 2019-12-06 Outpatient [facility] MMG [id number] [facility] 05:58:00 05:58:00 1022 Medical Group 2019-11-28 2019-11-28 Outpatient G_[facility] MMG [id number] [facility] 02:49:00 02:49:00 1008 [facility] 2019-11-28 2019-11-28 Outpatient [facility] MMG [id number] [facility] 02:49:00 02:49:00 1012 Medical Group 2019-11-28 2019-11-28 Kartik [facility] [place] - [id number] M [facility] 00:00:00 00:00:00 Discovery tavia Samuels MD: [address] [place] [address] , Ph. [phone] 2019-11-01 2019-11-01 Outpatient [facility] MMG [id number] [facility] 09:08:00 09:08:00 0924 [facility] 2019-11-01 2019-11-01 Outpatient G_[facility] MM[facility] MMG [id number] [facility] 09:08:00 09:08:00 [facility]7 [facility] 2019-10-31 2019-10-31 Outpatient [facility] MMG [id number] [facility] 11:52:00 11:52:00 0910 [facility] 2019-10-31 2019-10-31 Kartik [place]WKINSG [place] - [id number] M [facility] 00:00:00 00:00:00 Discovery tavia Samuels MD: [address] [place] [address] , Ph. [phone] 2019-10-24 2019-10-24 Outpatient G_[facility] MMG [id number] [facility] 08:18:00 08:18:00 0903 da [facility] 2019-10-24 2019-10-24 Kartik [place]WKINSG [place] - [id number] M [facility] 00:00:00 00:00:00 Discovery tavia Samuels MD: [address] [place] [address] , Ph. [phone] 2019-10-14 2019-10-14 Outpatient [facility] MMG [id number] [facility] 08:40:00 08:40:00 0824 [facility] 2019-10-14 2019-10-14 Kartik [place]INS[place] - [id number] M [facility] 00:00:00 00:00:00 Discovery tavia Samuels MD: [address] [place] [address] , Ph. [phone] 2019-10-09 2019-10-09 Outpatient [facility] MMG [id number] [facility] 07:34:00 07:34:00 0819 [facility] 2019-10-09 2019-10-09 Jena Loaiza MM [place] - [id number] [facility] 00:00:00 00:00:00 Discovery tavia Adair NP: [address] [place] [address] , Ph. [phone] 2019-10-06 2019-10-06 Outpatient [facility] MMG [id number] [facility] 09:39:00 09:39:00 0816 [facility] 2019-10-04 2019-10-04 Outpatient [facility] MMG [id number] [facility] 03:37:00 03:37:00 0814 [facility] 2019-10-04 2019-10-04 Kartik [place] - [id number] M [facility] 00:00:00 00:00:00 Discovery tavia Samuels MD: [address] [place] [address] , Ph. [phone] 2019-09-17 2019-09-17 Outpatient [facility] MMG [id number] [facility] 08:39:00 08:39:00 0728 da [facility] 2019-09-17 2019-09-17 Outpatient G_[facility] MMG [id number] [facility] 08:39:00 08:39:00 0813 [facility] 2019-09-17 2019-09-17 Kartik [place] - [id number] M [facility] 00:00:00 00:00:00 Discovery tavia Samuels MD: [address] [place] [address] , Ph. [phone] 2019-08-27 2019-08-27 Outpatient [facility] MMG [id number] [facility] 07:51:00 07:51:00 0707 [facility] 2019-08-27 2019-08-27 Kartik [place] - [id number] M [facility] 00:00:00 00:00:00 Discovery tavia Samuels MD: [address] [place] [address] , Ph. [phone] 2019-08-15 2019-08-15 Outpatient [facility] MMG [id number] [facility] 06:16:00 06:16:00 0706 Medical Group 2019-07-29 2019-07-29 Outpatient G_[facility] MMG MMG [id number] [facility] 12:56:00 12:56:00 0608 [facility] 2019-07-26 2019-07-26 Outpatient [facility] MMG [id number] [facility] 03:50:00 03:50:00 06 [facility] 2019-07-26 2019-07-26 Kartik [place] - [id number] [facility] 00:00:00 00:00:00 Discovery tavia Samuels MD: [address] [place] [address] , Ph. [phone] 2019-07-18 2019-07-18 Outpatient [facility] MMG [id number] [facility] 10:22:00 10:22:00 0528 [facility] 2019-07-18 2019-07-18 Outpatient [facility] MMG [id number] [facility] 10:22:00 10:22:00 0604 [facility] 2019-07-18 2019-07-18 Kartik [place] - [id number] [facility] 00:00:00 00:00:00 Discovery tavia Samuels MD: [address] [place] [address] , Ph. [phone] 2019-07-02 2019-07-02 Outpatient [facility] MMG [id number] [facility] 07:27:00 07:27:00 0512 Medical Group 2019-07-02 2019-07-02 Kartik [place] - [id number] M [facility] 00:00:00 00:00:00 Discovery tavia Samuels MD: [address] [place] [address] , Ph. [phone] 2019-06-04 2019-06-04 Outpatient [facility] MMG [id number] [facility] 11:25:00 11:25:00 0414 [facility] 2019-06-04 2019-06-04 Outpatient [facility] MMG [id number] [facility] 11:25:00 11:25:00 0507 [facility] 2019-06-04 2019-06-04 Outpatient [facility] MMG [id number] [facility] 11:25:00 11:25:00 0511 [facility] 2019-06-04 2019-06-04 Kartik [facility] [place] - [id number] M [facility] 00:00:00 00:00:00 Discovery tavia Samuels MD: [address] [facility] [address], [place] [address] , Ph. [phone] 2019-05-31 2019-05-31 Outpatient G_[facility]appas MMG [facility] [id number] [facility] 11:44:00 11:44:00 0410 [facility] 2019-05-30 2019-05-30 Kartik HAWKINS [place] - [id number] M [facility] 00:00:00 00:00:00 Discovery tavia Samuels MD: [address] [facility] [address], [place] [address] , Ph. [phone] 2019-05-28 2019-05-28 Outpatient G_[facility]appas MMG [facility] [id number] [facility] 09:09:00 09:09:00 0409 [facility] 2019-05-07 2019-05-07 Outpatient R AKINSIPE, [facility] [id number] Univers 16:00:00 16:00:00 MELYSSA [id number] ity o f [facility] 2019-05-07 2019-05-07 Telephone [facility] 1.2.840.114 [id number] [facility] 00:00:00 00:00:00 Melyssa Dailey MACHINE BRUSHER [id number] ity [facility] [id number] Dewayne as MATERNAL [id number] Med ical & CHILD [address] [place] [address] 2019-05-07 2019-05-07 Telephone [facility] 1.2.840.114 [id number] 00:00:00 00:00:00 Melyssa Dailey MACHINE BRUSHER [id number] REGIONAL [id number] MATERNAL [id number] & CHILD [address] [place] [address] 2019-05-05 2019-05-05 Outpatient G_Pappas MMG MM [id number] [facility] 01:01:00 01:01:00 0315 [facility] 2019-05-02 2019-05-02 Outpatient G_Pappas MMG MM [id number] [facility] 04:27:00 04:27:00 311 Medical Group 2019-05-02 2019-05-02 Jena Loaiza [facility] [place] - [id number] [facility] 00:00:00 00:00:00 Discovery [facility]: [address] [place] [address] , Ph. [phone] 2019-04-30 2019-04-30 Outpatient P ARTEMIO, [facility] [id number] Univers 11:00:00 11:00:00 OSCAR yanez [facility] 2019-04-19 2019-04-19 Outpatient G_Pappas MMG MM [id number] [facility] 10:48:00 10:48:00 0228 Medical [facility] 2019-04-19 2019-04-19 Outpatient G_[facility] MMG MM [id number] [facility] 10:48:00 10:48:00 031 [facility] 2019-04-17 2019-04-17 Outpatient G_[facility] MMG MMG [id number] [facility] 12:05:00 12:05:00 022 [facility] 2019-04-17 2019-04-17 Orders Doctor GWEN Smallwood2.840.114 [id number] Univers 00:00:00 00:00:00 Only Unassigned, DAVON 350.1.13.10 ity of [place] [facility] 4.2.7.2.686 Dewayne as [id number] [address] 2019-04-17 2019-04-17 Jena Loaiza [facility] [place] - [id number] [facility] 00:00:00 00:00:00 Discovery tavia Adair [facility]: [address] [place] [address] , Ph. [phone] 2019-04-17 2019-04-17 Orders Doctor GWEN Smallwood2.840.114 [id number] 00:00:00 00:00:00 Only Unassigned, DAVON 350.1.13.10 [place] [facility] [id number] [id number] 2019-04-11 2019-04-11 Outpatient G_Pappas MMG MM [id number] [facility] 10:46:00 10:46:00 0220 Medical Group 2019-04-11 2019-04-11 Outpatient G_[facility] MMG [id number] [facility] 10:46:00 10:46:00 0225 Medical Group 2019-04-10 2019-04-10 Outpatient [facility] MMG [id number] [facility] 11:46:00 11:46:00 0219 [facility] 2019-04-09 2019-04-09 Routine Akinsipe, [facility] 1.2.720.063 [id number] [facility] 10:20:53 11:14:02 Melyssa C MACHINE BRUSHER 350.1.13.10 ity of Visit REGIONAL 4.2.7.2.686 Dewayne as MATERNAL [id number] Med ical & CHILD [address] [place] [address] 2019-04-09 2019-04-09 Routine Akinsipe, [facility] 1.2.555.780 [id number] 10:20:53 11:14:02 Melyssa C MACHINE BRUSHER 350.1.13.10 Visit REGIONAL [id number] MATERNAL [id number] & CHILD [address] [place] [address] 2019-04-09 2019-04-09 Telephone Akinsipe, [facility] 1.2.840.114 [id number] 00:00:00 00:00:00 Melyssa C MACHINE BRUSHER [id number] REGIONAL [id number] MATERNAL [id number] & CHILD [address] [place] [address] 2019-04-09 2019-04-09 Telephone Akinsipe, [facility] 1.2.840.114 [id number] [facility] 00:00:00 00:00:00 Melyssa C MACHINE BRUSHER 350.1.13.10 ity of REGIONAL 4.2.7.2.686 Dewayne as MATERNAL [id number] Med ical & CHILD [address] [place] [address] 2019-04-02 2019-04-02 Abstract Akinsipe, [facility] 1.2.840.114 [id number] 00:00:00 00:00:00 Melyssa C MACHINE BRUSHER 350.1.13.10 REGIONAL 4.2.7.2.686 MATERNAL [id number] & CHILD [address] [place] [address] 2019-04-02 2019-04-02 Abstract Shylape, [facility] 1.2.840.114 [id number] [facility] 00:00:00 00:00:00 Melyssa C MACHINE BRUSHER 350.1.13.10 ity of REGIONAL 4.2.7.2.686 Dewayne as MATERNAL [id number] Med ical & CHILD [address] [place] [address] 2019-03-29 2019-03-29 Routine Biggsipe, [facility] 1.2.600.009 [id number] 13:15:49 13:58:15 Melyssa C MACHINE BRUSHER 350.1.13.10 Visit REGIONAL [id number] MATERNAL [id number] & CHILD [address] [place] [address] 2019-03-29 2019-03-29 Routine Akinpe, [facility] 1.2.593.466 [id number] [facility] 13:15:49 13:58:15 Melyssa C MACHINE BRUSHER 350.1.13.10 ity of Visit REGIONAL 4.2.7.2.686 Dewayne as MATERNAL [id number] Med ical & CHILD [address] [place] [address] 2019-03-25 2019-03-25 Patient Lul, [facility] 1.2.835.600 [id number] Univers 00:00:00 00:00:00 Secure Msg Melyssa C MACHINE BRUSHER 350.1.13.10 ity of REGIONAL 4.2.7.2.686 Dewayne as MATERNAL [id number] Med ical & CHILD [address] [place] [address] 2019-03-25 2019-03-25 Patient Shylape, [facility] 1.2.971.558 [id number] 00:00:00 00:00:00 Secure Msg Melyssa C MACHINE BRUSHER 350.1.13.10 REGIONAL 4.2.7.2.686 MATERNAL [id number] & CHILD [address] [place] [address] 2019-03-23 2019-03-23 Patient Doctor H[place]AL[place] [id number] Univers 00:00:00 00:00:00 Secure Msg Unassigned, DAVON [id number] [facility] [place] [facility] 4.2.7.2.686 Dewayne as [phone] [facility] 019 Miranda 2019-03-23 2019-03-23 Patient Doctor GWEN [id number] 00:00:00 00:00:00 Secure Msg Unassigned, DAVON [id number] [place] [facility] [id number] [id number] [facility] 2019-03-22 2019-03-22 Outpatient G_[facility] [id number] [place] 03:31:00 03:31:00 0131 [facility] 2019-03-21 2019-03-21 Routine Trimester, [facility] Res-1st UNIVERSIT 1.2.840.114 [id number] Univers 10:37:46 12:13:44 Cain Pereyra HEALTH 350.1.13.1 0 ity of Visit CLINICS 4.2.7.2.686 [place] [id number] [facility] [address] 2019-03-21 2019-03-21 Routine Trimester, UNIVERSIT 1.2.840.114 [id number] 10:37:46 12:13:44 [facility] HEALTH 350.1.13.10 Visit Res-1st CLINICS 4.2.7.2.686 [id number] [facility] 2019-03-14 2019-03-14 [facility], [facility] 1.2.840. 114 [id number] [facility] 08:59:20 09:14:20 Visit Melyssa Mccarty MACHINE BRUSHER 350.1.13. 10 ity of REGIONAL 4.2.7.2.686 [place] as MATERNAL [id number] Med ical & CHILD 107 [facility] 2019-03-14 2019-03-14 [facility], [facility] 1.2.840.114 [id number] 08:59:20 09:14:20 Visit [facility] MACHINE BRUSHER 350.1.13.10 REGIONAL 4.2.7.2.686 MATERNAL [id number] & CHILD 107 [facility] 2019-03-12 2019-03-12 Routine [place], [facility] 1.2.566.463 [id number] Univers 10:45:27 11:26:38 Melyssa C MACHINE BRUSHER 350.1.13.10 ity of Visit REGIONAL 4.2.7.2.686 [place] as MATERNAL [id number] [facility] ical & CHILD [address] [place] [address] 2019-03-12 2019-03-12 Routine [place], [facility] 1.2.403.928 [id number] 10:45:27 11:26:38 Melyssa C MACHINE BRUSHER 350.1.13.10 Visit REGIONAL 4.2.7.2.686 MATERNAL [id number] & CHILD [address] [place] [address] 2019-03-12 2019-03-12 Telephone [place], [facility] 1.2.840.114 [id number] Univers 00:00:00 00:00:00 Melyssa C MACHINE BRUSHER 350.1.13.10 ity of REGIONAL 4.2.7.2.686 [place] as MATERNAL [id number] Med ical & CHILD [address] [place] [address] 2019-03-08 2019-03-08 Patient [place], [facility] 1.2.058.998 [id number] Univers 00:00:00 00:00:00 Secure Msg Melyssa C MACHINE BRUSHER 350.1.13.10 ity of REGIONAL 4.2.7.2.686 [place] as MATERNAL [id number] [facility] ical & CHILD [address] [place] [address] 2019-03-08 2019-03-08 Patient [place], [facility] 1.2.955.842 [id number] 00:00:00 00:00:00 Secure Msg Melyssa C MACHINE BRUSHER 350.1.13.10 REGIONAL 4.2.7.2.686 MATERNAL [id number] & CHILD [address] [place] [address] 2019-03-07 2019-03-07 Telephone [place], [facility] 1.2.840.114 [id number] Univers 00:00:00 00:00:00 Melyssa C MACHINE BRUSHER 350.1.13.10 ity of REGIONAL 4.2.7.2.686 [place] as MATERNAL [id number] Med ical & CHILD [address] [place] [address] 2019-03-06 2019-03-06 Initial A[place], [facility] 1.2.671.074 [id number] Univers 09:42:06 11:08:11 Melyssa C MACHINE BRUSHER 350.1.13.10 ity of Visit [facility] 4.2.7.2.686 [place] as MATERNAL [id number] [facility] ical & CHILD [address] [place] [address] 2019-03-06 2019-03-06 Orders Doctor GWEN 1.2.840.114 [id number] Univers 00:00:00 00:00:00 Only Unassigned, DAVON 350.1.13.10 ity of [place] [facility] 4.2.7.2.686 [place]ne as [id number] [address] 2018-11-10 2018-11-10 Outpatient G_Pappas [facility] [id number] [place] 11:17:00 11:17:00 0114 [facility] 2018-11-10 2018-11-10 Outpatient G_Pappas [facility] [id number] [place] 11:17:00 11:17:00 0121 [facility] 2018-10-26 2018-10-26 Liz [facility] [place] - [id number] [place] 00:00:00 00:00:00 Maximilian [facility]ave [facility] MD: [address] [place], [place] [id number] , Ph. [phone] 2018-07-26 2018-07-26 Jena Loaiza [facility] [place] - [id number] [place] 00:00:00 00:00:00 Discovery Shanita Adair: [address] [facility] [address] [address] , Ph. [phone] 2018-04-26 2018-04-26 Jena Loaiza MM [place] - [id number] [place] 00:00:00 00:00:00 Discovery Shanita Adair: [facility] [address] [address] , Ph. [phone] 2018-04-02 2018-04-02 Kartik LANGE [place] - [id number] [place] 00:00:00 00:00:00 Discovery tavia Samuels MD: [address] [place] [address] , Ph. [phone] 2018-03-29 2018-03-29 Jena LANGE [place] - [id number] [place] 00:00:00 00:00:00 Discovery tavia Adair WHNP: [address] [place] [address] , Ph. [phone] 2018-03-09 2018-03-09 Kartik LANGE [place] - [id number] [place] 00:00:00 00:00:00 Discovery tavia Samuels MD: [address] [place] [address] , Ph. [phone] 2018-02-28 2018-02-28 Jena LANGE [place] - [id number] [place] 00:00:00 00:00:00 Discovery Bassam AdairNP: [address] [place] [address] , Ph. [phone] 2018-02-23 2018-02-23 Jena LANGE [place] - [id number] [place] 00:00:00 00:00:00 Discovery tavia Adair WHNP: [address] [place] [address] , Ph. [phone] 2018-01-26 2018-01-26 Kartik LANGE [place] - [id number] [place] 00:00:00 00:00:00 Discovery tavia Samuels MD: [address] [place] [address] Arvind [address] , Ph. [phone] Results Test Description Test Time Test Comments Results Result Comments Source Urinalysis macro (dipstick) panel - Urine 2020-05-11 10:34:3 6 Test Item Value Reference Range Interpretation Comme nts Leukocytes (test code = Leukocytes) Small Nitrite (test code = Nitrite) negative Urobilinogen (test code = Urobilinogen) .2 Protein (test code = Protein) Negative pH (test code = pH) 6.0 Blood (test code = Blood) Moderate Specific Spruce (test code = Specific Spruce) 1.020 Ketone (test code = Ketone) Negative Bilirubin (test code = Bilirubin) Negative Glucose (test code = Glucose) Negative Appearance (test code = Appearance) Clear Color (test code = Color) Yellow [facility]) panel - [id number] 14:51:51 Test Item Value Reference Range Interpretation Comments Leukocytes (test code = Leukocytes) Negative Nitrite (test code = Nitrite) negative Urobilinogen (test code = .2 Urobilinogen) Protein (test code = Protein) Negative pH (test code = pH) 7.0 Blood (test code = Blood) Negative Specific Spruce (test code = 1.020 Specific Spruce) Ketone (test code = Ketone) Negative Bilirubin (test code = Bilirubin) Negative Glucose (test code = Glucose) Negative Appearance (test code = Appearance) Clear Color (test code = Color) Yellow [facility] macro (dipstick) panel - [id number] 10:06:00 Test Item Value Reference Range Interpretation Comments Leukocytes (test code = Leukocytes) Trace Nitrite (test code = Nitrite) negative Urobilinogen (test code = .2 Urobilinogen) Protein (test code = Protein) Negative pH (test code = pH) 7.0 Blood (test code = Blood) Negative Specific Spruce (test code = 1.025 Specific Spruce) Ketone (test code = Ketone) Negative Bilirubin (test code = Bilirubin) Negative Glucose (test code = Glucose) Negative Appearance (test code = Appearance) Clear Color (test code = Color) Yellow [facility] macro (dipstick) panel - [id number] 10:06:00 Test Item Value Reference Range Interpretation Comments Leukocytes (test code = Leukocytes) Trace Nitrite (test code = Nitrite) negative Urobilinogen (test code = .2 Urobilinogen) Protein (test code = Protein) Negative pH (test code = pH) 7.0 Blood (test code = Blood) Negative Specific Spruce (test code = 1.025 Specific Spruce) Ketone (test code = Ketone) Negative Bilirubin (test code = Bilirubin) Negative Glucose (test code = Glucose) Negative Appearance (test code = Appearance) Clear Color (test code = Color) Yellow [facility], [id number] 09:33:09 Test Item Value Reference Range Interpretation Comments Test (test code = negative Test) [facility], [id number] 09:33:09 Test Item Value Reference Range Interpretation Comments Test (test code = negative Test) [facility] W Auto Differential panel - [id number] 08:59:00 Test Item Value Reference Range Interpretation Comments white blood count (test code = 6.0 K/uL 4.0-11.5 white blood count) red blood count (test code = red 5.01 M/uL 3.80-5.20 blood count) hemoglobin (test code = 13.5 g/dL 10.5-15.7 hemoglobin) hematocrit (test code = 43.1 % 34.0-50.0 hematocrit) MCV [Entitic volume] (test code = 86.0 fL 86-100 04686-7) mean corpuscular hemoglobin (test 26.9 pg 26.2-33.4 code = mean corpuscular hemoglobin) mean corpuscular HGB conc (test 31.3 g/dL 30-34 code = mean corpuscular HGB conc) red cell distribution width (test 15.5 % 12.0-15.5 code = red cell distribution width) platelet count (test code = 280 K/uL 165-450 platelet count) mean platelet volume (test code = 9.1 fL 9.4-12.6 L mean platelet volume) Segmented neutrophils/100 49.2 % 44.4-80.1 leukocytes in Blood (test code = 07479-8) Immature granulocytes [#/volume] 0.0 K/uL 0.0-0.03 in Blood (test code = 01717-5) lymphocyte% (test code = 43.9 % 10.0-50.0 lymphocyte%) mono % (test code = mono %) 4.2 % 3.6-12.0 eos % (test code = eos %) 1.8 % 0.0-5.4 Basophils/100 leukocytes in 0.7 % 0.1-1.2 Unspecified specimen (test code = 25685-7) Band form neutrophils [#/volume] 2.96 K/uL 1.56-6.13 in Blood (test code = 36163-0) Lymphocytes [#/volume] in 2.6 K/uL 1.18-3.74 Unspecified specimen by Automated count (test code = 87388-2) mono # (test code = mono #) 0.25 K/uL 0.24-0.86 eos # (test code = eos #) 0.11 K/uL 0.04-0.36 basophil # (test code = basophil 0.04 K/uL 0.01-0.08 #) NRBC% (test code = NRBC%) 0 /100 WBC 0-0.2 NRBC# (test code = NRBC#) 0 K/uL [facility] W Auto Differential panel - [id number] 08:59:00 Test Item Value Reference Range Interpretation Comments white blood count (test code = 6.0 K/uL 4.0-11.5 white blood count) red blood count (test code = red 5.01 M/uL 3.80-5.20 blood count) hemoglobin (test code = 13.5 g/dL 10.5-15.7 hemoglobin) hematocrit (test code = 43.1 % 34.0-50.0 hematocrit) MCV [Entitic volume] (test code = 86.0 fL 86-100 20381-3) mean corpuscular hemoglobin (test 26.9 pg 26.2-33.4 code = mean corpuscular hemoglobin) mean corpuscular HGB conc (test 31.3 g/dL 30-34 code = mean corpuscular HGB conc) red cell distribution width (test 15.5 % 12.0-15.5 code = red cell distribution width) platelet count (test code = 280 K/uL 165-450 platelet count) mean platelet volume (test code = 9.1 fL 9.4-12.6 L mean platelet volume) Segmented neutrophils/100 49.2 % 44.4-80.1 leukocytes in Blood (test code = 19368-3) Immature granulocytes [#/volume] 0.0 K/uL 0.0-0.03 in Blood (test code = 85789-8) lymphocyte% (test code = 43.9 % 10.0-50.0 lymphocyte%) mono % (test code = mono %) 4.2 % 3.6-12.0 eos % (test code = eos %) 1.8 % 0.0-5.4 Basophils/100 leukocytes in 0.7 % 0.1-1.2 Unspecified specimen (test code = 58382-8) Band form neutrophils [#/volume] 2.96 K/uL 1.56-6.13 in Blood (test code = 39374-9) Lymphocytes [#/volume] in 2.6 K/uL 1.18-3.74 Unspecified specimen by Automated count (test code = 68502-4) mono # (test code = mono #) 0.25 K/uL 0.24-0.86 eos # (test code = eos #) 0.11 K/uL 0.04-0.36 basophil # (test code = basophil 0.04 K/uL 0.01-0.08 #) NRBC% (test code = NRBC%) 0 /100 WBC 0-0.2 NRBC# (test code = NRBC#) 0 K/uL [facility] macro (dipstick) panel - [id number] 13:38:11 Test Item Value Reference Range Interpretation Comments Leukocytes (test code = Leukocytes) Small Nitrite (test code = Nitrite) negative Urobilinogen (test code = .2 Urobilinogen) Protein (test code = Protein) Negative pH (test code = pH) 7.0 Blood (test code = Blood) Moderate Specific Spruce (test code = 1.020 Specific Spruce) Ketone (test code = Ketone) Negative Bilirubin (test code = Bilirubin) Negative Glucose (test code = Glucose) Negative Appearance (test code = Appearance) Clear Color (test code = Color) Yellow [facility] macro (dipstick) panel - [id number] 13:38:11 Test Item Value Reference Range Interpretation Comments Leukocytes (test code = Leukocytes) Small Nitrite (test code = Nitrite) negative Urobilinogen (test code = .2 Urobilinogen) Protein (test code = Protein) Negative pH (test code = pH) 7.0 Blood (test code = Blood) Moderate Specific Spruce (test code = 1.020 Specific Spruce) Ketone (test code = Ketone) Negative Bilirubin (test code = Bilirubin) Negative Glucose (test code = Glucose) Negative Appearance (test code = Appearance) Clear Color (test code = Color) [facility] - [id number] 13:38:11 Test Item Value Reference Range Interpretation Comments Leukocytes (test code = Leukocytes) Small Nitrite (test code = Nitrite) negative Urobilinogen (test code = .2 Urobilinogen) Protein (test code = Protein) Negative pH (test code = pH) 7.0 Blood (test code = Blood) Moderate Specific Spruce (test code = 1.020 Specific Spruce) Ketone (test code = Ketone) Negative Bilirubin (test code = Bilirubin) Negative Glucose (test code = Glucose) Negative Appearance (test code = Appearance) Clear Color (test code = Color) [facility] panel - [id number] 08:05:00 Test Item Value Reference Range Interpretation Comments white blood count (test code = 10.1 K/uL 4.0-11.5 white blood count) red blood count (test code = red 3.40 M/uL 3.80-5.20 L blood count) hemoglobin (test code = 9.6 g/dL 10.5-15.7 L hemoglobin) hematocrit (test code = 29.8 % 34.0-50.0 L hematocrit) MCV [Entitic volume] (test code = 87.6 fL 86-100 57508-1) mean corpuscular hemoglobin (test 28.2 pg 26.2-33.4 code = mean corpuscular hemoglobin) mean corpuscular HGB conc (test 32.2 g/dL 30-34 code = mean corpuscular HGB conc) red cell distribution width (test 14.1 % 12.0-15.5 code = red cell distribution width) platelet count (test code = 245 K/uL 165-450 platelet count) mean platelet volume (test code = 11.0 fL 9.4-12.6 mean platelet volume) Segmented neutrophils/100 65.7 % 44.4-80.1 leukocytes in Blood (test code = 39847-4) Immature granulocytes [#/volume] 0.1 K/uL 0.0-0.03 H in Blood (test code = 81473-6) lymphocyte% (test code = 27.2 % 10.0-50.0 lymphocyte%) mono % (test code = mono %) 5.2 % 3.6-12.0 eos % (test code = eos %) 0.7 % 0.0-5.4 Basophils/100 leukocytes in 0.5 % 0.1-1.2 Unspecified specimen (test code = 17655-7) Band form neutrophils [#/volume] 6.61 K/uL 1.56-6.13 H in Blood (test code = 21103-4) Lymphocytes [#/volume] in 2.7 K/uL 1.18-3.74 Unspecified specimen by Automated count (test code = 58955-2) mono # (test code = mono #) 0.52 K/uL 0.24-0.86 eos # (test code = eos #) 0.07 K/uL 0.04-0.36 basophil # (test code = basophil 0.05 K/uL 0.01-0.08 #) NRBC% (test code = NRBC%) 0 /100 WBC 0-0.2 NRBC# (test code = NRBC#) 0 K/uL [facility] W Auto Differential panel - [id number] 04:18:00 Test Item Value Reference Range Interpretation Comments white blood count (test code = 8.2 K/uL 4.0-11.5 white blood count) red blood count (test code = red 3.42 M/uL 3.80-5.20 L blood count) hemoglobin (test code = 9.6 g/dL 10.5-15.7 L hemoglobin) hematocrit (test code = 30.3 % 34.0-50.0 L hematocrit) MCV [Entitic volume] (test code = 88.6 fL 86-100 94312-6) mean corpuscular hemoglobin (test 28.1 pg 26.2-33.4 code = mean corpuscular hemoglobin) mean corpuscular HGB conc (test 31.7 g/dL 30-34 code = mean corpuscular HGB conc) red cell distribution width (test 14.3 % 12.0-15.5 code = red cell distribution width) platelet count (test code = 288 K/uL 165-450 platelet count) mean platelet volume (test code = 10.5 fL 9.4-12.6 mean platelet volume) Segmented neutrophils/100 58.7 % 44.4-80.1 leukocytes in Blood (test code = 81213-6) Immature granulocytes [#/volume] 0.1 K/uL 0.0-0.03 H in Blood (test code = 14328-1) lymphocyte% (test code = 32.6 % 10.0-50.0 lymphocyte%) mono % (test code = mono %) 6.2 % 3.6-12.0 eos % (test code = eos %) 1.1 % 0.0-5.4 Basophils/100 leukocytes in 0.5 % 0.1-1.2 Unspecified specimen (test code = 83068-0) Band form neutrophils [#/volume] 4.81 K/uL 1.56-6.13 in Blood (test code = 75673-4) Lymphocytes [#/volume] in 2.7 K/uL 1.18-3.74 Unspecified specimen by Automated count (test code = 25981-0) mono # (test code = mono #) 0.51 K/uL 0.24-0.86 eos # (test code = eos #) 0.09 K/uL 0.04-0.36 basophil # (test code = basophil 0.04 K/uL 0.01-0.08 #) NRBC% (test code = NRBC%) 0 /100 WBC 0-0.2 NRBC# (test code = NRBC#) 0 K/uL [facility] and Indirect antibody screen panel - Blood 2019-11-07 04:18:00 Test Item Value Reference Range Interpretation Comments Rh [Type] in Blood (test code = 4+ 86955-6) ABO and Rh group panel - Blood A positive (test code = 54477-1) [facility]port[facility]atitis B virus surface Ag [Presence] in Serum 2019-11-07 04:18:00 Test Item Value Reference Range Interpretation Comments .hepatitis B surface antigen (test negative negative code = .hepatitis B surface antigen) [facility]port[facility]agin Ab [Presence] in Serum by [id number] 04:18:00 Test Item Value Reference Range Interpretation Comments Reagin Ab [Presence] in Serum by nonreactive nonreactive RPR (test code = 28324-9) [facility]port[facility]inalysis macro (dipstick) panel - [id number] 08:55:00 Test Item Value Reference Range Interpretation Comments Leukocytes (test code = Large Leukocytes) Nitrite (test code = negative Nitrite) Urobilinogen (test code = .2 Urobilinogen) Protein (test code = Negative Protein) pH (test code = pH) 7.0 Blood (test code = Blood) Hemolyzed: Trace Specific Spruce (test code 1.025 = Specific Spruce) Ketone (test code = Ketone) Negative Bilirubin (test code = Negative Bilirubin) Glucose (test code = Negative Glucose) Appearance (test code = Clear Appearance) Color (test code = Color) Yellow [facility]portUrinalysis macro (dipstick) panel - [id number] 11:15:00 Test Item Value Reference Range Interpretation Comments Leukocytes (test code = Large Leukocytes) Nitrite (test code = negative Nitrite) Urobilinogen (test code = .2 Urobilinogen) Protein (test code = Negative Protein) pH (test code = pH) 7.0 Blood (test code = Blood) Non-Hemolyzed: Trace Specific Spruce (test 1.020 code = Specific Spruce) Ketone (test code = Negative Ketone) Bilirubin (test code = Negative Bilirubin) Glucose (test code = Negative Glucose) Appearance (test code = Clear Appearance) Color (test code = Color) Yellow [facility]portUrinalysis macro (dipstick) panel - [id number] 11:15:00 Test Item Value Reference Range Interpretation Comments Leukocytes (test code = Large Leukocytes) Nitrite (test code = negative Nitrite) Urobilinogen (test code = .2 Urobilinogen) Protein (test code = Negative Protein) pH (test code = pH) 7.0 Blood (test code = Blood) Non-Hemolyzed: Trace Specific Spruce (test 1.020 code = Specific Spruce) Ketone (test code = Negative Ketone) Bilirubin (test code = Negative Bilirubin) Glucose (test code = Negative Glucose) Appearance (test code = Clear Appearance) Color (test code = Color) Yellow [facility]portnon-stress [id number] 18:40:53 Test Item Value Reference Range Interpretation Comments Reactive (test code = Reactive) Yes Contractions (test code = Contractions) No [facility]port[facility]-stress [id number] 18:40:53 Test Item Value Reference Range Interpretation Comments Reactive (test code = Reactive) Yes Contractions (test code = Contractions) No [facility] Group[facility] [id number] 18:40:53 Test Item Value Reference Range Interpretation Comments Reactive (test code = Reactive) Yes Contractions (test code = Contractions) No [facility]portUrinalysis complete panel - [id number] 05:54:00 Test Item Value Reference Range Interpretation Comments Color of Urine by Auto (test light yellow code = 47128-2) Appearance of Urine (test code = SL cloudy clear A 5767-9) Glucose [Presence] in Urine by negative negative Automated test strip (test code = 23439-7) Bilirubin.total [Mass/volume] in negative negative Urine (test code = 1978-6) Ketones [Mass/volume] in Urine negative negative by Automated test strip (test code = 02190-6) Specific gravity of Urine by 1.017 1.003-1.030 Automated test strip (test code = 54888-4) blood urine (test code = blood negative negative urine) pH of Urine (test code = 2756-5) 7.000 5-9 protein urine (UA) (test code = trace negative protein urine (UA)) Urobilinogen [Presence] in Urine normal 0.2-1.0 (test code = 04169-8) Nitrite [Presence] in Urine by negative negative Test strip (test code = 5802-4) Leukocyte esterase [Presence] in =4 negative H Urine by Automated test strip (test code = 62358-5) Erythrocytes [#/volume] in Urine =1-5 0-5 by Automated count (test code = 798-9) Leukocytes [#/area] in Urine =30-49 0-5 H sediment by Automated count (test code = 67975-2) Epithelial cells [Presence] in =11-14 0-5 Urine sediment by Light microscopy (test code = 04687-5) Bacteria identified in Urine by moderate (2 none detect H Culture (test code = 630-4) Casts [#/area] in Urine sediment =2-5 none detect by Automated count (test code = 30864-2) urine culture added? (test code yes = urine culture added?) [facility]portAphvnTxmkp-4-Vithepwdibprx.placental [Presence] in Vaginal [id number] 05:54:00 Test Item Value Reference Range Interpretation Comments Oirkw-3-Bhzwdnqzdltdd.placental negative neg [Presence] in Vaginal fluid (test code = 85994-5) [facility]portBacteria identified in Urine by [id number] 05:54:00 Test Item Value Reference Range Interpretation Comments Bacteria identified in no growth at 2 days. Urine by Culture (test code = 630-4) [facility]port[facility]inalysis complete panel - [id number] 05:54:00 Test Item Value Reference Range Interpretation Comments Color of Urine by Auto (test light yellow code = 92098-6) Appearance of Urine (test code = SL cloudy clear A 5767-9) Glucose [Presence] in Urine by negative negative Automated test strip (test code = 88216-9) Bilirubin.total [Mass/volume] in negative negative Urine (test code = 1978-6) Ketones [Mass/volume] in Urine negative negative by Automated test strip (test code = 54947-8) Specific gravity of Urine by 1.017 1.003-1.030 Automated test strip (test code = 07946-1) blood urine (test code = blood negative negative urine) pH of Urine (test code = 2756-5) 7.000 5-9 protein urine (UA) (test code = trace negative protein urine (UA)) Urobilinogen [Presence] in Urine normal 0.2-1.0 (test code = 85751-4) Nitrite [Presence] in Urine by negative negative Test strip (test code = 5802-4) Leukocyte esterase [Presence] in =4 negative H Urine by Automated test strip (test code = 67288-6) Erythrocytes [#/volume] in Urine =1-5 0-5 by Automated count (test code = 798-9) Leukocytes [#/area] in Urine =30-49 0-5 H sediment by Automated count (test code = 55604-7) Epithelial cells [Presence] in =11-14 0-5 Urine sediment by Light microscopy (test code = 60986-7) Bacteria identified in Urine by moderate (2 none detect H Culture (test code = 630-4) Casts [#/area] in Urine sediment =2-5 none detect by Automated count (test code = 00894-5) urine culture added? (test code yes = urine culture added?) [facility] GulfportAsqslGgbez-7-Ebgbtvetykumb.placental [Presence] in Vaginal [id number] 05:54:00 Test Item Value Reference Range Interpretation Comments Utsqh-9-Uwmenmbwrjncr.placental negative neg [Presence] in Vaginal fluid (test code = 61069-0) [facility]portBacteria identified in Urine by [id number] 05:54:00 Test Item Value Reference Range Interpretation Comments Bacteria identified in no growth at 2 days. Urine by Culture (test code = 630-4) [facility]port[facility]inalysis complete panel - [id number] 05:54:00 Test Item Value Reference Range Interpretation Comments Color of Urine by Auto (test light yellow code = 47040-2) Appearance of Urine (test code = SL cloudy clear A 5767-9) Glucose [Presence] in Urine by negative negative Automated test strip (test code = 10111-2) Bilirubin.total [Mass/volume] in negative negative Urine (test code = 1978-6) Ketones [Mass/volume] in Urine negative negative by Automated test strip (test code = 21220-4) Specific gravity of Urine by 1.017 1.003-1.030 Automated test strip (test code = 91336-0) blood urine (test code = blood negative negative urine) pH of Urine (test code = 2756-5) 7.000 5-9 protein urine (UA) (test code = trace negative protein urine (UA)) Urobilinogen [Presence] in Urine normal 0.2-1.0 (test code = 85519-8) Nitrite [Presence] in Urine by negative negative Test strip (test code = 5802-4) Leukocyte esterase [Presence] in =4 negative H Urine by Automated test strip (test code = 39305-8) Erythrocytes [#/volume] in Urine =1-5 0-5 by Automated count (test code = 798-9) Leukocytes [#/area] in Urine =30-49 0-5 H sediment by Automated count (test code = 53528-5) Epithelial cells [Presence] in =11-14 0-5 Urine sediment by Light microscopy (test code = 63425-7) Bacteria identified in Urine by moderate (2 none detect H Culture (test code = 630-4) Casts [#/area] in Urine sediment =2-5 none detect by Automated count (test code = 68841-0) urine culture added? (test code yes = urine culture added?) [facility] IxzytIfdow-2-Ycvfgpiqpjprt.placental [Presence] in Vaginal [id number] 05:54:00 Test Item Value Reference Range Interpretation Comments Gdsag-3-Gyxxzuizqpaqn.placental negative neg [Presence] in Vaginal fluid (test code = 60521-1) [facility] GroupBacteria identified in Urine by [id number] 05:54:00 Test Item Value Reference Range Interpretation Comments Bacteria identified in no growth at 2 days. Urine by Culture (test code = 630-4) [facility], vaginal/rectal, streptococcus group [id number] 00:00:00 Test Item Value Reference Range Interpretation Comments group B strep (test code = group B normal strep) [facility] vaginal/rectal, streptococcus group [id number] 00:00:00 Test Item Value Reference Range Interpretation Comments group B strep (test code = group B normal strep) [facility] vaginal/rectal, streptococcus group [id number] 00:00:00 Test Item Value Reference Range Interpretation Comments group B strep (test code = group B normal strep) [facility] vaginal/rectal, streptococcus group [id number] 00:00:00 Test Item Value Reference Range Interpretation Comments group B strep (test code = group B normal strep) [facility] GroupUrinalysis macro (dipstick) panel - [id number] 14:59:26 Test Item Value Reference Range Interpretation Comments Leukocytes (test code = Large Leukocytes) Nitrite (test code = negative Nitrite) Urobilinogen (test code = .2 Urobilinogen) Protein (test code = Negative Protein) pH (test code = pH) 7.5 Blood (test code = Blood) Non-Hemolyzed: Trace Specific Spruce (test 1.020 code = Specific Spruce) Ketone (test code = Negative Ketone) Bilirubin (test code = Negative Bilirubin) Glucose (test code = Negative Glucose) Appearance (test code = Clear Appearance) Color (test code = Color) [facility] - [id number] 14:59:26 Test Item Value Reference Range Interpretation Comments Leukocytes (test code = Large Leukocytes) Nitrite (test code = negative Nitrite) Urobilinogen (test code = .2 Urobilinogen) Protein (test code = Negative Protein) pH (test code = pH) 7.5 Blood (test code = Blood) Non-Hemolyzed: Trace Specific Spruce (test 1.020 code = Specific Spruce) Ketone (test code = Negative Ketone) Bilirubin (test code = Negative Bilirubin) Glucose (test code = Negative Glucose) Appearance (test code = Clear Appearance) Color (test code = Color) [facility]) panel - [id number] 14:59:26 Test Item Value Reference Range Interpretation Comments Leukocytes (test code = Large Leukocytes) Nitrite (test code = negative Nitrite) Urobilinogen (test code = .2 Urobilinogen) Protein (test code = Negative Protein) pH (test code = pH) 7.5 Blood (test code = Blood) Non-Hemolyzed: Trace Specific Spruce (test 1.020 code = Specific Spruce) Ketone (test code = Negative Ketone) Bilirubin (test code = Negative Bilirubin) Glucose (test code = Negative Glucose) Appearance (test code = Clear Appearance) Color (test code = Color) [facility] (dipstick) panel - [id number] 14:59:26 Test Item Value Reference Range Interpretation Comments Leukocytes (test code = Large Leukocytes) Nitrite (test code = negative Nitrite) Urobilinogen (test code = .2 Urobilinogen) Protein (test code = Negative Protein) pH (test code = pH) 7.5 Blood (test code = Blood) Non-Hemolyzed: Trace Specific Spruce (test 1.020 code = Specific Spruce) Ketone (test code = Negative Ketone) Bilirubin (test code = Negative Bilirubin) Glucose (test code = Negative Glucose) Appearance (test code = Clear Appearance) Color (test code = Color) [facility] (dipstick) panel - [id number] 14:59:26 Test Item Value Reference Range Interpretation Comments Leukocytes (test code = Large Leukocytes) Nitrite (test code = negative Nitrite) Urobilinogen (test code = .2 Urobilinogen) Protein (test code = Negative Protein) pH (test code = pH) 7.5 Blood (test code = Blood) Non-Hemolyzed: Trace Specific Spruce (test 1.020 code = Specific Spruce) Ketone (test code = Negative Ketone) Bilirubin (test code = Negative Bilirubin) Glucose (test code = Negative Glucose) Appearance (test code = Clear Appearance) Color (test code = Color) [facility] - [id number] 06:30:00 Test Item Value Reference Range Interpretation Comments white blood count (test code = 11.5 K/uL 4.0-11.5 white blood count) red blood count (test code = red 3.26 M/uL 3.80-5.20 L blood count) hemoglobin (test code = 9.9 g/dL 10.5-15.7 L hemoglobin) hematocrit (test code = 29.7 % 34.0-50.0 L hematocrit) MCV [Entitic volume] (test code = 91.1 fL 86-100 11583-7) mean corpuscular hemoglobin (test 30.4 pg 26.2-33.4 code = mean corpuscular hemoglobin) mean corpuscular HGB conc (test 33.3 g/dL 30-34 code = mean corpuscular HGB conc) red cell distribution width (test 13.2 % 12.0-15.5 code = red cell distribution width) platelet count (test code = 310 K/uL 165-450 platelet count) mean platelet volume (test code = 9.5 fL 9.4-12.6 mean platelet volume) Segmented neutrophils/100 68.5 % 44.4-80.1 leukocytes in Blood (test code = 16964-4) Immature granulocytes [#/volume] 0.3 K/uL 0.0-0.03 H in Blood (test code = 40432-5) lymphocyte% (test code = 21.8 % 10.0-50.0 lymphocyte%) mono % (test code = mono %) 6.4 % 3.6-12.0 eos % (test code = eos %) 0.5 % 0.0-5.4 Basophils/100 leukocytes in 0.3 % 0.1-1.2 Unspecified specimen (test code = 25896-5) Band form neutrophils [#/volume] 7.85 K/uL 1.56-6.13 H in Blood (test code = 78341-6) Lymphocytes [#/volume] in 2.5 K/uL 1.18-3.74 Unspecified specimen by Automated count (test code = 09029-7) mono # (test code = mono #) 0.73 K/uL 0.24-0.86 eos # (test code = eos #) 0.06 K/uL 0.04-0.36 basophil # (test code = basophil 0.04 K/uL 0.01-0.08 #) NRBC% (test code = NRBC%) 0 /100 WBC 0-0.2 NRBC# (test code = NRBC#) 0 K/uL [facility] W Auto Differential panel - [id number] 06:30:00 Test Item Value Reference Range Interpretation Comments white blood count (test code = 11.5 K/uL 4.0-11.5 white blood count) red blood count (test code = red 3.26 M/uL 3.80-5.20 L blood count) hemoglobin (test code = 9.9 g/dL 10.5-15.7 L hemoglobin) hematocrit (test code = 29.7 % 34.0-50.0 L hematocrit) MCV [Entitic volume] (test code = 91.1 fL 86-100 93613-3) mean corpuscular hemoglobin (test 30.4 pg 26.2-33.4 code = mean corpuscular hemoglobin) mean corpuscular HGB conc (test 33.3 g/dL 30-34 code = mean corpuscular HGB conc) red cell distribution width (test 13.2 % 12.0-15.5 code = red cell distribution width) platelet count (test code = 310 K/uL 165-450 platelet count) mean platelet volume (test code = 9.5 fL 9.4-12.6 mean platelet volume) Segmented neutrophils/100 68.5 % 44.4-80.1 leukocytes in Blood (test code = 44749-5) Immature granulocytes [#/volume] 0.3 K/uL 0.0-0.03 H in Blood (test code = 61151-8) lymphocyte% (test code = 21.8 % 10.0-50.0 lymphocyte%) mono % (test code = mono %) 6.4 % 3.6-12.0 eos % (test code = eos %) 0.5 % 0.0-5.4 Basophils/100 leukocytes in 0.3 % 0.1-1.2 Unspecified specimen (test code = 73730-1) Band form neutrophils [#/volume] 7.85 K/uL 1.56-6.13 H in Blood (test code = 92654-1) Lymphocytes [#/volume] in 2.5 K/uL 1.18-3.74 Unspecified specimen by Automated count (test code = 11761-8) mono # (test code = mono #) 0.73 K/uL 0.24-0.86 eos # (test code = eos #) 0.06 K/uL 0.04-0.36 basophil # (test code = basophil 0.04 K/uL 0.01-0.08 #) NRBC% (test code = NRBC%) 0 /100 WBC 0-0.2 NRBC# (test code = NRBC#) 0 K/uL [facility] W Auto Differential panel - [id number] 06:30:00 Test Item Value Reference Range Interpretation Comments white blood count (test code = 11.5 K/uL 4.0-11.5 white blood count) red blood count (test code = red 3.26 M/uL 3.80-5.20 L blood count) hemoglobin (test code = 9.9 g/dL 10.5-15.7 L hemoglobin) hematocrit (test code = 29.7 % 34.0-50.0 L hematocrit) MCV [Entitic volume] (test code = 91.1 fL 86-100 38129-1) mean corpuscular hemoglobin (test 30.4 pg 26.2-33.4 code = mean corpuscular hemoglobin) mean corpuscular HGB conc (test 33.3 g/dL 30-34 code = mean corpuscular HGB conc) red cell distribution width (test 13.2 % 12.0-15.5 code = red cell distribution width) platelet count (test code = 310 K/uL 165-450 platelet count) mean platelet volume (test code = 9.5 fL 9.4-12.6 mean platelet volume) Segmented neutrophils/100 68.5 % 44.4-80.1 leukocytes in Blood (test code = 15323-0) Immature granulocytes [#/volume] 0.3 K/uL 0.0-0.03 H in Blood (test code = 30954-6) lymphocyte% (test code = 21.8 % 10.0-50.0 lymphocyte%) mono % (test code = mono %) 6.4 % 3.6-12.0 eos % (test code = eos %) 0.5 % 0.0-5.4 Basophils/100 leukocytes in 0.3 % 0.1-1.2 Unspecified specimen (test code = 21800-9) Band form neutrophils [#/volume] 7.85 K/uL 1.56-6.13 H in Blood (test code = 93352-2) Lymphocytes [#/volume] in 2.5 K/uL 1.18-3.74 Unspecified specimen by Automated count (test code = 93528-2) mono # (test code = mono #) 0.73 K/uL 0.24-0.86 eos # (test code = eos #) 0.06 K/uL 0.04-0.36 basophil # (test code = basophil 0.04 K/uL 0.01-0.08 #) NRBC% (test code = NRBC%) 0 /100 WBC 0-0.2 NRBC# (test code = NRBC#) 0 K/uL [facility] W Auto Differential panel - [id number] 06:30:00 Test Item Value Reference Range Interpretation Comments white blood count (test code = 11.5 K/uL 4.0-11.5 white blood count) red blood count (test code = red 3.26 M/uL 3.80-5.20 L blood count) hemoglobin (test code = 9.9 g/dL 10.5-15.7 L hemoglobin) hematocrit (test code = 29.7 % 34.0-50.0 L hematocrit) MCV [Entitic volume] (test code = 91.1 fL 86-100 63365-0) mean corpuscular hemoglobin (test 30.4 pg 26.2-33.4 code = mean corpuscular hemoglobin) mean corpuscular HGB conc (test 33.3 g/dL 30-34 code = mean corpuscular HGB conc) red cell distribution width (test 13.2 % 12.0-15.5 code = red cell distribution width) platelet count (test code = 310 K/uL 165-450 platelet count) mean platelet volume (test code = 9.5 fL 9.4-12.6 mean platelet volume) Segmented neutrophils/100 68.5 % 44.4-80.1 leukocytes in Blood (test code = 14376-8) Immature granulocytes [#/volume] 0.3 K/uL 0.0-0.03 H in Blood (test code = 25980-4) lymphocyte% (test code = 21.8 % 10.0-50.0 lymphocyte%) mono % (test code = mono %) 6.4 % 3.6-12.0 eos % (test code = eos %) 0.5 % 0.0-5.4 Basophils/100 leukocytes in 0.3 % 0.1-1.2 Unspecified specimen (test code = 67925-4) Band form neutrophils [#/volume] 7.85 K/uL 1.56-6.13 H in Blood (test code = 14271-3) Lymphocytes [#/volume] in 2.5 K/uL 1.18-3.74 Unspecified specimen by Automated count (test code = 26815-9) mono # (test code = mono #) 0.73 K/uL 0.24-0.86 eos # (test code = eos #) 0.06 K/uL 0.04-0.36 basophil # (test code = basophil 0.04 K/uL 0.01-0.08 #) NRBC% (test code = NRBC%) 0 /100 WBC 0-0.2 NRBC# (test code = NRBC#) 0 K/uL [facility] W Auto Differential panel - [id number] 06:30:00 Test Item Value Reference Range Interpretation Comments white blood count (test code = 11.5 K/uL 4.0-11.5 white blood count) red blood count (test code = red 3.26 M/uL 3.80-5.20 L blood count) hemoglobin (test code = 9.9 g/dL 10.5-15.7 L hemoglobin) hematocrit (test code = 29.7 % 34.0-50.0 L hematocrit) MCV [Entitic volume] (test code = 91.1 fL 86-100 87726-1) mean corpuscular hemoglobin (test 30.4 pg 26.2-33.4 code = mean corpuscular hemoglobin) mean corpuscular HGB conc (test 33.3 g/dL 30-34 code = mean corpuscular HGB conc) red cell distribution width (test 13.2 % 12.0-15.5 code = red cell distribution width) platelet count (test code = 310 K/uL 165-450 platelet count) mean platelet volume (test code = 9.5 fL 9.4-12.6 mean platelet volume) Segmented neutrophils/100 68.5 % 44.4-80.1 leukocytes in Blood (test code = 22235-4) Immature granulocytes [#/volume] 0.3 K/uL 0.0-0.03 H in Blood (test code = 07919-5) lymphocyte% (test code = 21.8 % 10.0-50.0 lymphocyte%) mono % (test code = mono %) 6.4 % 3.6-12.0 eos % (test code = eos %) 0.5 % 0.0-5.4 Basophils/100 leukocytes in 0.3 % 0.1-1.2 Unspecified specimen (test code = 45046-4) Band form neutrophils [#/volume] 7.85 K/uL 1.56-6.13 H in Blood (test code = 60237-7) Lymphocytes [#/volume] in 2.5 K/uL 1.18-3.74 Unspecified specimen by Automated count (test code = 07260-5) mono # (test code = mono #) 0.73 K/uL 0.24-0.86 eos # (test code = eos #) 0.06 K/uL 0.04-0.36 basophil # (test code = basophil 0.04 K/uL 0.01-0.08 #) NRBC% (test code = NRBC%) 0 /100 WBC 0-0.2 NRBC# (test code = NRBC#) 0 [facility] - [id number] 06:07:00 Test Item Value Reference Range Interpretation Comments Color of Urine by Auto (test light yellow code = 82073-6) Appearance of Urine (test code clear clear = 5767-9) Glucose [Presence] in Urine by trace (30 negative Automated test strip (test code = 97768-6) Bilirubin.total [Mass/volume] negative negative in Urine (test code = 1978-6) Ketones [Mass/volume] in Urine negative negative by Automated test strip (test code = 86257-0) Specific gravity of Urine by 1.016 1.003-1.030 Automated test strip (test code = 60923-7) blood urine (test code = blood negative negative urine) pH of Urine (test code = 7.000 5-9 2756-5) protein urine (UA) (test code = trace negative protein urine (UA)) Urobilinogen [Presence] in normal 0.2-1.0 Urine (test code = 72934-5) Nitrite [Presence] in Urine by negative negative Test strip (test code = 5802-4) Leukocyte esterase [Presence] =1 negative H in Urine by Automated test strip (test code = 18502-8) Erythrocytes [#/volume] in =1-5 0-5 Urine by Automated count (test code = 798-9) Leukocytes [#/area] in Urine =1-5 0-5 sediment by Automated count (test code = 31389-1) Epithelial cells [Presence] in =6-10 0-5 Urine sediment by Light microscopy (test code = 60005-0) Bacteria identified in Urine by small(1 none detect Culture (test code = 630-4) Casts [#/area] in Urine none detected none detect sediment by Automated count (test code = 81497-4) urine culture added? (test code yes = urine culture added?) [facility] - [id number] 06:07:00 Test Item Value Reference Range Interpretation Comments Color of Urine by Auto (test light yellow code = 62727-8) Appearance of Urine (test code clear clear = 5767-9) Glucose [Presence] in Urine by trace (30 negative Automated test strip (test code = 57010-6) Bilirubin.total [Mass/volume] negative negative in Urine (test code = 1978-6) Ketones [Mass/volume] in Urine negative negative by Automated test strip (test code = 96424-1) Specific gravity of Urine by 1.016 1.003-1.030 Automated test strip (test code = 33425-1) blood urine (test code = blood negative negative urine) pH of Urine (test code = 7.000 5-9 2756-5) protein urine (UA) (test code = trace negative protein urine (UA)) Urobilinogen [Presence] in normal 0.2-1.0 Urine (test code = 43695-7) Nitrite [Presence] in Urine by negative negative Test strip (test code = 5802-4) Leukocyte esterase [Presence] =1 negative H in Urine by Automated test strip (test code = 71713-1) Erythrocytes [#/volume] in =1-5 0-5 Urine by Automated count (test code = 798-9) Leukocytes [#/area] in Urine =1-5 0-5 sediment by Automated count (test code = 02846-3) Epithelial cells [Presence] in =6-10 0-5 Urine sediment by Light microscopy (test code = 63413-0) Bacteria identified in Urine by small(1 none detect Culture (test code = 630-4) Casts [#/area] in Urine none detected none detect sediment by Automated count (test code = 07009-6) urine culture added? (test code yes = urine culture added?) [facility] - [id number] 06:07:00 Test Item Value Reference Range Interpretation Comments Color of Urine by Auto (test light yellow code = 21915-7) Appearance of Urine (test code clear clear = 5767-9) Glucose [Presence] in Urine by trace (30 negative Automated test strip (test code = 57082-3) Bilirubin.total [Mass/volume] negative negative in Urine (test code = 1977-07) Ketones [Mass/volume] in Urine negative negative by Automated test strip (test code = 22291-6) Specific gravity of Urine by 1.016 1.003-1.030 Automated test strip (test code = 89182-9) blood urine (test code = blood negative negative urine) pH of Urine (test code = 7.000 5-9 2756-5) protein urine (UA) (test code = trace negative protein urine (UA)) Urobilinogen [Presence] in normal 0.2-1.0 Urine (test code = 69106-4) Nitrite [Presence] in Urine by negative negative Test strip (test code = 5802-4) Leukocyte esterase [Presence] =1 negative H in Urine by Automated test strip (test code = 23505-8) Erythrocytes [#/volume] in =1-5 0-5 Urine by Automated count (test code = 798-9) Leukocytes [#/area] in Urine =1-5 0-5 sediment by Automated count (test code = 45634-1) Epithelial cells [Presence] in =6-10 0-5 Urine sediment by Light microscopy (test code = 56067-7) Bacteria identified in Urine by small(1 none detect Culture (test code = 630-4) Casts [#/area] in Urine none detected none detect sediment by Automated count (test code = 34531-6) urine culture added? (test code yes = urine culture added?) [facility] by [id number] 06:07:00 Test Item Value Reference Range Interpretation Comments Bacteria identified in no growth after 2 Urine by Culture (test days code = 630-4) [facility] - [id number] 06:07:00 Test Item Value Reference Range Interpretation Comments Color of Urine by Auto (test light yellow code = 70691-0) Appearance of Urine (test code clear clear = 5767-9) Glucose [Presence] in Urine by trace (30 negative Automated test strip (test code = 09919-2) Bilirubin.total [Mass/volume] negative negative in Urine (test code = 1977-07) Ketones [Mass/volume] in Urine negative negative by Automated test strip (test code = 13928-9) Specific gravity of Urine by 1.016 1.003-1.030 Automated test strip (test code = 67256-0) blood urine (test code = blood negative negative urine) pH of Urine (test code = 7.000 5-9 2756-5) protein urine (UA) (test code = trace negative protein urine (UA)) Urobilinogen [Presence] in normal 0.2-1.0 Urine (test code = 01150-2) Nitrite [Presence] in Urine by negative negative Test strip (test code = 5802-4) Leukocyte esterase [Presence] =1 negative H in Urine by Automated test strip (test code = 68266-1) Erythrocytes [#/volume] in =1-5 0-5 Urine by Automated count (test code = 798-9) Leukocytes [#/area] in Urine =1-5 0-5 sediment by Automated count (test code = 83761-7) Epithelial cells [Presence] in =6-10 0-5 Urine sediment by Light microscopy (test code = 16139-6) Bacteria identified in Urine by small(1 none detect Culture (test code = 630-4) Casts [#/area] in Urine none detected none detect sediment by Automated count (test code = 94248-6) urine culture added? (test code yes = urine culture added?) [facility] by [id number] 06:07:00 Test Item Value Reference Range Interpretation Comments Bacteria identified in no growth after 2 Urine by Culture (test days code = 630-4) [facility] - [id number] 06:07:00 Test Item Value Reference Range Interpretation Comments Color of Urine by Auto (test light yellow code = 93829-1) Appearance of Urine (test code clear clear = 5767-9) Glucose [Presence] in Urine by trace (30 negative Automated test strip (test code = 15819-0) Bilirubin.total [Mass/volume] negative negative in Urine (test code = 1977-07) Ketones [Mass/volume] in Urine negative negative by Automated test strip (test code = 18352-1) Specific gravity of Urine by 1.016 1.003-1.030 Automated test strip (test code = 38276-7) blood urine (test code = blood negative negative urine) pH of Urine (test code = 7.000 5-9 2756-5) protein urine (UA) (test code = trace negative protein urine (UA)) Urobilinogen [Presence] in normal 0.2-1.0 Urine (test code = 99701-8) Nitrite [Presence] in Urine by negative negative Test strip (test code = 5802-4) Leukocyte esterase [Presence] =1 negative H in Urine by Automated test strip (test code = 53175-6) Erythrocytes [#/volume] in =1-5 0-5 Urine by Automated count (test code = 798-9) Leukocytes [#/area] in Urine =1-5 0-5 sediment by Automated count (test code = 56241-6) Epithelial cells [Presence] in =6-10 0-5 Urine sediment by Light microscopy (test code = 21064-5) Bacteria identified in Urine by small(1 none detect Culture (test code = 630-4) Casts [#/area] in Urine none detected none detect sediment by Automated count (test code = 17556-5) urine culture added? (test code yes = urine culture added?) [facility] by [id number] 06:07:00 Test Item Value Reference Range Interpretation Comments Bacteria identified in no growth after 2 Urine by Culture (test days code = 630-4) [facility] (dipstick) panel - [id number] 09:25:26 Test Item Value Reference Range Interpretation Comments Leukocytes (test code = Leukocytes) Large Nitrite (test code = Nitrite) negative Urobilinogen (test code = .2 Urobilinogen) Protein (test code = Protein) Negative pH (test code = pH) 7.0 Blood (test code = Blood) Negative Specific Spruce (test code = 1.015 Specific Spruce) Ketone (test code = Ketone) Negative Bilirubin (test code = Bilirubin) Negative Glucose (test code = Glucose) Negative Appearance (test code = Appearance) Clear Color (test code = Color) Yellow [facility] (dipstick) panel - [id number] 09:25:26 Test Item Value Reference Range Interpretation Comments Leukocytes (test code = Leukocytes) Large Nitrite (test code = Nitrite) negative Urobilinogen (test code = .2 Urobilinogen) Protein (test code = Protein) Negative pH (test code = pH) 7.0 Blood (test code = Blood) Negative Specific Spruce (test code = 1.015 Specific Spruce) Ketone (test code = Ketone) Negative Bilirubin (test code = Bilirubin) Negative Glucose (test code = Glucose) Negative Appearance (test code = Appearance) Clear Color (test code = Color) Yellow [facility] (dipstick) panel - [id number] 09:25:26 Test Item Value Reference Range Interpretation Comments Leukocytes (test code = Leukocytes) Large Nitrite (test code = Nitrite) negative Urobilinogen (test code = .2 Urobilinogen) Protein (test code = Protein) Negative pH (test code = pH) 7.0 Blood (test code = Blood) Negative Specific Spruce (test code = 1.015 Specific Spruce) Ketone (test code = Ketone) Negative Bilirubin (test code = Bilirubin) Negative Glucose (test code = Glucose) Negative Appearance (test code = Appearance) Clear Color (test code = Color) [facility] (dipstick) panel - [id number] 09:25:26 Test Item Value Reference Range Interpretation Comments Leukocytes (test code = Leukocytes) Large Nitrite (test code = Nitrite) negative Urobilinogen (test code = .2 Urobilinogen) Protein (test code = Protein) Negative pH (test code = pH) 7.0 Blood (test code = Blood) Negative Specific Spruce (test code = 1.015 Specific Spruce) Ketone (test code = Ketone) Negative Bilirubin (test code = Bilirubin) Negative Glucose (test code = Glucose) Negative Appearance (test code = Appearance) Clear Color (test code = Color) Yellow [facility] Group[facility] [Mass/volume] in Serum or Plasma --1 hour post dose [id number] 09:49:00 Test Item Value Reference Range Interpretation Comments Results (test code = Results) [facility] [[facility]/volume] in Serum or Plasma --1 hour post dose [id number] 09:49:00 Test Item Value Reference Range Interpretation Comments Results (test code = Results) 121 [facility] macro (dipstick) panel - [id number] 08:47:35 Test Item Value Reference Range Interpretation Comments Leukocytes (test code = Large Leukocytes) Nitrite (test code = negative Nitrite) Urobilinogen (test code = .2 Urobilinogen) Protein (test code = Negative Protein) pH (test code = pH) 7.0 Blood (test code = Blood) Non-Hemolyzed: Trace Specific Spruce (test 1.020 code = Specific Spruce) Ketone (test code = Negative Ketone) Bilirubin (test code = Negative Bilirubin) Glucose (test code = Negative Glucose) Appearance (test code = Slightly Cloudy Appearance) Color (test code = Color) Yellow [facility] macro (dipstick) panel - [id number] 08:47:35 Test Item Value Reference Range Interpretation Comments Leukocytes (test code = Large Leukocytes) Nitrite (test code = negative Nitrite) Urobilinogen (test code = .2 Urobilinogen) Protein (test code = Negative Protein) pH (test code = pH) 7.0 Blood (test code = Blood) Non-Hemolyzed: Trace Specific Spruce (test 1.020 code = Specific Spruce) Ketone (test code = Negative Ketone) Bilirubin (test code = Negative Bilirubin) Glucose (test code = Negative Glucose) Appearance (test code = Slightly Cloudy Appearance) Color (test code = Color) Yellow [facility] [id number] 07:41:00 Test Item Value Reference Range Interpretation Comments quest collection (test code = quest quest collection) [facility]port[facility] observation [Identifier] in Unspecified specimen by Wet [id number] 06:57:00 Test Item Value Reference Range Interpretation Comments Microscopic observation no trichomonas, [Identifier] in yeast or clue cell Unspecified specimen by observed. Wet preparation (test code = 680-9) [facility] observation [Identifier] in Unspecified specimen by Wet [id number] 06:57:00 Test Item Value Reference Range Interpretation Comments Microscopic observation no trichomonas, [Identifier] in yeast or clue cell Unspecified specimen by observed. Wet preparation (test code = 680-9) [facility]portErwjyXyirt-3-Yafuxdmvmdmhn.placental [Presence] in Vaginal [id number] 05:33:00 Test Item Value Reference Range Interpretation Comments Ezowu-1-Utfzzamqeujtk.placental negative neg [Presence] in Vaginal fluid (test code = 67412-5) [facility] complete panel - [id number] 05:33:00 Test Item Value Reference Range Interpretation Comments Color of Urine by Auto (test light yellow code = 67894-5) Appearance of Urine (test code = SL cloudy clear A 5767-9) Glucose [Presence] in Urine by trace (50 negative Automated test strip (test code = 69997-9) Bilirubin.total [Mass/volume] in negative negative Urine (test code = 1978-6) Ketones [Mass/volume] in Urine negative negative by Automated test strip (test code = 95571-6) Specific gravity of Urine by 1.016 1.003-1.030 Automated test strip (test code = 60712-7) blood urine (test code = blood negative negative urine) pH of Urine (test code = 2756-5) 7.000 5-9 protein urine (UA) (test code = trace negative protein urine (UA)) Urobilinogen [Presence] in Urine normal 0.2-1.0 (test code = 75137-2) Nitrite [Presence] in Urine by negative negative Test strip (test code = 5802-4) Leukocyte esterase [Presence] in =2 negative H Urine by Automated test strip (test code = 27049-9) Erythrocytes [#/volume] in Urine =1-5 0-5 by Automated count (test code = 798-9) Leukocytes [#/area] in Urine =11-14 0-5 H sediment by Automated count (test code = 39363-6) Epithelial cells [Presence] in =11-14 0-5 Urine sediment by Light microscopy (test code = 41763-6) Bacteria identified in Urine by small(1 none detect Culture (test code = 630-4) Casts [#/area] in Urine sediment =2-5 none detect by Automated count (test code = 86304-0) urine culture added? (test code yes = urine culture added?) [facility] identified in Urine by [id number] 05:33:00Bacteria Ur [facility]Mat[facility] GiuynEabpy-9-Cmtcakazeanvb.placental [Presence] in Vaginal [id number] 05:33:00 Test Item Value Reference Range Interpretation Comments Rxtdu-7-Zydhnhjjbktrd.placental negative neg [Presence] in Vaginal fluid (test code = 98828-1) [facility] complete panel - [id number] 05:33:00 Test Item Value Reference Range Interpretation Comments Color of Urine by Auto (test light yellow code = 34188-8) Appearance of Urine (test code = SL cloudy clear A 5767-9) Glucose [Presence] in Urine by trace (50 negative Automated test strip (test code = 29893-1) Bilirubin.total [Mass/volume] in negative negative Urine (test code = 1978-6) Ketones [Mass/volume] in Urine negative negative by Automated test strip (test code = 84557-5) Specific gravity of Urine by 1.016 1.003-1.030 Automated test strip (test code = 89582-7) blood urine (test code = blood negative negative urine) pH of Urine (test code = 2756-5) 7.000 5-9 protein urine (UA) (test code = trace negative protein urine (UA)) Urobilinogen [Presence] in Urine normal 0.2-1.0 (test code = 81431-8) Nitrite [Presence] in Urine by negative negative Test strip (test code = 5802-4) Leukocyte esterase [Presence] in =2 negative H Urine by Automated test strip (test code = 48936-1) Erythrocytes [#/volume] in Urine =1-5 0-5 by Automated count (test code = 798-9) Leukocytes [#/area] in Urine =11-14 0-5 H sediment by Automated count (test code = 96080-0) Epithelial cells [Presence] in =11-14 0-5 Urine sediment by Light microscopy (test code = 09817-5) Bacteria identified in Urine by small(1 none detect Culture (test code = 630-4) Casts [#/area] in Urine sediment =2-5 none detect by Automated count (test code = 92395-8) urine culture added? (test code yes = urine culture added?) [facility]port[facility] identified in Urine by [id number] 05:33:00Bacteria Ur [facility]Urinal[facility] macro (dipstick) panel - [id number] 15:17:12 Test Item Value Reference Range Interpretation Comments Leukocytes (test code = Small Leukocytes) Nitrite (test code = negative Nitrite) Urobilinogen (test code = .2 Urobilinogen) Protein (test code = Negative Protein) pH (test code = pH) 7.0 Blood (test code = Blood) Non-Hemolyzed: Trace Specific Spruce (test 1.025 code = Specific Spruce) Ketone (test code = Negative Ketone) Bilirubin (test code = Negative Bilirubin) Glucose (test code = Negative Glucose) Appearance (test code = Clear Appearance) Color (test code = Color) Yellow [facility]port[facility]ysis macro (dipstick) panel - [id number] 09:42:47 Test Item Value Reference Range Interpretation Comments Leukocytes (test code = Leukocytes) Large Nitrite (test code = Nitrite) negative Urobilinogen (test code = .2 Urobilinogen) Protein (test code = Protein) Negative pH (test code = pH) 7.0 Blood (test code = Blood) Negative Specific Spruce (test code = 1.020 Specific Spruce) Ketone (test code = Ketone) Negative Bilirubin (test code = Bilirubin) Negative Glucose (test code = Glucose) Negative Appearance (test code = Appearance) Cloudy Color (test code = Color) Yellow [facility]port[facility] macro (dipstick) panel - [id number] 09:42:47 Test Item Value Reference Range Interpretation Comments Leukocytes (test code = Leukocytes) Large Nitrite (test code = Nitrite) negative Urobilinogen (test code = .2 Urobilinogen) Protein (test code = Protein) Negative pH (test code = pH) 7.0 Blood (test code = Blood) Negative Specific Spruce (test code = 1.020 Specific Spruce) Ketone (test code = Ketone) Negative Bilirubin (test code = Bilirubin) Negative Glucose (test code = Glucose) Negative Appearance (test code = Appearance) Cloudy Color (test code = Color) Yellow [facility]port[facility] macro (dipstick) panel - [id number] 09:54:00 Test Item Value Reference Range Interpretation Comments Leukocytes (test code = Leukocytes) Small Nitrite (test code = Nitrite) negative Urobilinogen (test code = .2 Urobilinogen) Protein (test code = Protein) Negative pH (test code = pH) 7.0 Blood (test code = Blood) Negative Specific Spruce (test code = 1.020 Specific Spruce) Ketone (test code = Ketone) Negative Bilirubin (test code = Bilirubin) Negative Glucose (test code = Glucose) Negative Appearance (test code = Appearance) Clear Color (test code = Color) Yellow [facility]port[facility] macro (dipstick) panel - [id number] 09:54:00 Test Item Value Reference Range Interpretation Comments Leukocytes (test code = Leukocytes) Small Nitrite (test code = Nitrite) negative Urobilinogen (test code = .2 Urobilinogen) Protein (test code = Protein) Negative pH (test code = pH) 7.0 Blood (test code = Blood) Negative Specific Spruce (test code = 1.020 Specific Spruce) Ketone (test code = Ketone) Negative Bilirubin (test code = Bilirubin) Negative Glucose (test code = Glucose) Negative Appearance (test code = Appearance) Clear Color (test code = Color) Yellow [facility]port[facility] macro (dipstick) panel - [id number] 09:54:00 Test Item Value Reference Range Interpretation Comments Leukocytes (test code = Leukocytes) Small Nitrite (test code = Nitrite) negative Urobilinogen (test code = .2 Urobilinogen) Protein (test code = Protein) Negative pH (test code = pH) 7.0 Blood (test code = Blood) Negative Specific Spruce (test code = 1.020 Specific Spruce) Ketone (test code = Ketone) Negative Bilirubin (test code = Bilirubin) Negative Glucose (test code = Glucose) Negative Appearance (test code = Appearance) Clear Color (test code = Color) Yellow [facility], LB + reflex to HR HPV if [id number] 00:00:00 Test Item Value Reference Range Interpretation Comments liquid Pap test with reflex to HPV normal type-detect 3.0 if ASCUS or greater (test code = liquid Pap test with reflex to HPV type-detect 3.0 if ASCUS or greater) [facility]portB[facility] identified in Urine by [id number] 03:30:00[facility] CenterChromosome 13+18+21+X+Y aneuploidy in Blood by Molecular genetics method [id number] 00:00:00 Test Item Value Reference Range Interpretation Comments report summary (test code = see notes report summary) report note (test code = see notes report note) trisomy 13 age-based risk score (test code = trisomy 13 age-based risk score) trisomy 13 risk score (test code = trisomy 13 risk score) trisomy 13 age-based risk 1/5,621 (0.02%) text (test code = trisomy 13 age-based risk text) trisomy 13 risk score text <1/10,000 (<0.01%) (test code = trisomy 13 risk score text) trisomy 13 age-based risk fraction (test code = trisomy 13 age-based risk fraction) trisomy 13 risk score fraction (test code = trisomy 13 risk score fraction) trisomy 13 result text low risk (test code = trisomy 13 result text) trisomy 13 result comments see notes (test code = trisomy 13 result comments) trisomy 18 age-based risk score (test code = trisomy 18 age-based risk score) trisomy 18 risk score (test code = trisomy 18 risk score) trisomy 18 age-based risk 1/1,765 (0.06%) text (test code = trisomy 18 age-based risk text) trisomy 18 risk score text <1/10,000 (<0.01%) (test code = trisomy 18 risk score text) trisomy 18 age-based risk fraction (test code = trisomy 18 age-based risk fraction) trisomy 18 risk score fraction (test code = trisomy 18 risk score fraction) trisomy 18 result text low risk (test code = trisomy 18 result text) trisomy 18 result comments see notes (test code = trisomy 18 result comments) trisomy 21 age-based risk score (test code = trisomy 21 age-based risk score) trisomy 21 risk score (test code = trisomy 21 risk score) trisomy 21 age-based risk 1/870 (0.11%) text (test code = trisomy 21 age-based risk text) trisomy 21 risk score text <1/10,000 (<0.01%) (test code = trisomy 21 risk score text) trisomy 21 age-based risk fraction (test code = trisomy 21 age-based risk fraction) trisomy 21 risk score fraction (test code = trisomy 21 risk score fraction) trisomy 21 result text low risk (test code = trisomy 21 result text) trisomy 21 result comments see notes (test code = trisomy 21 result comments) monosomy X age-based risk score (test code = monosomy X age-based risk score) monosomy X risk score (test code = monosomy X risk score) monosomy X age-based risk 1/255 (0.39%) text (test code = monosomy X age-based risk text) monosomy X risk score text <1/10,000 (<0.01%) (test code = monosomy X risk score text) monosomy X age-based risk fraction (test code = monosomy X age-based risk fraction) monosomy X risk score fraction (test code = monosomy X risk score fraction) monosomy X result text low risk (test code = monosomy X result text) monosomy X result comments see notes (test code = monosomy X result comments) 22Q11.2 deletion syndrome population-based risk score (test code = 22Q11.2 deletion syndrome population-based risk score) 22Q11.2 deletion syndrome /2,000 population-based risk text (test code = 22Q11.2 deletion syndrome population-based risk text) 22Q11.2 deletion syndrome risk score (test code = 22Q11.2 deletion syndrome risk score) 22Q11.2 deletion syndrome 9,000 risk score text (test code = 22Q11.2 deletion syndrome risk score text) 22Q11.2 deletion syndrome low risk result text (test code = 22Q11.2 deletion syndrome result text) 22Q11.2 deletion syndrome see notes result interpretation (test code = 22Q11.2 deletion syndrome result interpretation) prader-willi syndrome population-based risk score (test code = prader-willi syndrome population-based risk score) prader-willi syndrome 1/10,000 population-based risk text (test code = prader-willi syndrome population-based risk text) prader-willi syndrome risk score (test code = prader-willi syndrome risk score) prader-willi syndrome risk 03/04,800 score text (test code = prader-willi syndrome risk score text) prader-willi syndrome low risk result text (test code = prader-willi syndrome result text) prader-willi syndrome see notes result interpretation (test code = prader-willi syndrome result interpretation) angelman syndrome population-based risk score (test code = angelman syndrome population-based risk score) angelman syndrome 1/12,000 population-based risk text (test code = angelman syndrome population-based risk text) angelman syndrome risk score (test code = angelman syndrome risk score) angelman syndrome risk 16,600 score text (test code = angelman syndrome risk score text) angelman syndrome result low risk text (test code = angelman syndrome result text) angelman syndrome result see notes interpretation (test code = angelman syndrome result interpretation) cri-du-chat syndrome population-based risk score (test code = cri-du-chat syndrome population-based risk score) cri-du-chat syndrome 20,000 population-based risk text (test code = cri-du-chat syndrome population-based risk text) cri-du-chat syndrome risk score (test code = cri-du-chat syndrome risk score) cri-du-chat syndrome risk 57,100 score text (test code = cri-du-chat syndrome risk score text) cri-du-chat syndrome result low risk text (test code = cri-du-chat syndrome result text) cri-du-chat syndrome result see notes interpretation (test code = cri-du-chat syndrome result interpretation) 1P36 deletion syndrome population-based risk score (test code = 1P36 deletion syndrome population-based risk score) 1P36 deletion syndrome 5,000 population-based risk text (test code = 1P36 deletion syndrome population-based risk text) 1P36 deletion syndrome risk score (test code = 1P36 deletion syndrome risk score) 1P36 deletion syndrome risk 12,400 score text (test code = 1P36 deletion syndrome risk score text) 1P36 deletion syndrome low risk result text (test code = 1P36 deletion syndrome result text) 1P36 deletion syndrome see notes result interpretation (test code = 1P36 deletion syndrome result interpretation) triploidy result text (test low risk code = triploidy result text) triploidy result comments see notes (test code = triploidy result comments) gender of fetus (test code female = gender of fetus) fraction (in %) (test 6.8 % code = fraction (in %)) fraction (test code = 6.8% fraction) footnotes (test code = see notes footnotes) boiler plate text (test see notes code = boiler plate text) references (test code = see notes references) approvals (test code = see notes approvals) contacts (test code = see notes contacts) [facility] RAPID FLU A AND B [id number] 17:18:00 Test Item Value Reference Range Interpretation Comments POCT INFLUENZA A (test code = Negative Negative - Negative 3840) POCT INFLUENZA B (test code = Negative Negative - Negative 3841) [facility] URINALYSIS W SPECIFIC [id number] 16:43:00 Test Item Value Reference Range Interpretation Comments POCT U SP GRAV (test code = 3255) . 1.005-1.025 POCT PH U (test code = 3254) . 5-8 POCT U LEUK EST (test code = 3263) . Negative - Negative POCT U NIT (test code = 3262) . Negative - Negative POCT U PROT (test code = 3259) Trace Negative - Negative POCT U GLU (test code = 3256) Neg Negative - Negative POCT U KETONE (test code = 3258) . Negative - Negative POCT U UROBILI (test code = 3260) . 0.2-1 POCT U BILI (test code = 3261) . Negative - Negative POCT U BLD (test code = 3257) . Negative - Negative POCT U COLOR (test code = 3266) POCT U APPEAR (test code = 3267) [facility] URINALYSIS W SPECIFIC [id number] 19:40:00 Test Item Value Reference Range Interpretation Comments POCT U SP GRAV (test code = 3255) . 1.005-1.025 POCT PH U (test code = 3254) . 5-8 POCT U LEUK EST (test code = 3263) . Negative - Negative POCT U NIT (test code = 3262) . Negative - Negative POCT U PROT (test code = 3259) Trace Negative - Negative POCT U GLU (test code = 3256) Neg Negative - Negative POCT U KETONE (test code = 3258) . Negative - Negative POCT U UROBILI (test code = 3260) . 0.2-1 POCT U BILI (test code = 3261) . Negative - Negative POCT U BLD (test code = 3257) . Negative - Negative POCT U COLOR (test code = 3266) POCT U APPEAR (test code = 3267) [facility] URINALYSIS W SPECIFIC [id number] 17:18:00 Test Item Value Reference Range Interpretation Comments POCT U SP GRAV (test code = 3255) . 1.005-1.025 POCT PH U (test code = 3254) . 5-8 POCT U LEUK EST (test code = 3263) . Negative - Negative POCT U NIT (test code = 3262) . Negative - Negative POCT U PROT (test code = 3259) Trace Negative - Negative POCT U GLU (test code = 3256) Neg Negative - Negative POCT U KETONE (test code = 3258) . Negative - Negative POCT U UROBILI (test code = 3260) . 0.2-1 POCT U BILI (test code = 3261) . Negative - Negative POCT U BLD (test code = 3257) . Negative - Negative POCT U COLOR (test code = 3266) POCT U APPEAR (test code = 3267) [facility] URINALYSIS W SPECIFIC [id number] 17:18:00 Test Item Value Reference Range Interpretation Comments POCT U SP GRAV (test code = 3255) . 1.005-1.025 POCT PH U (test code = 3254) . 5-8 POCT U LEUK EST (test code = 3263) . Negative - Negative POCT U NIT (test code = 3262) . Negative - Negative POCT U PROT (test code = 3259) Trace Negative - Negative POCT U GLU (test code = 3256) Neg Negative - Negative POCT U KETONE (test code = 3258) . Negative - Negative POCT U UROBILI (test code = 3260) . 0.2-1 POCT U BILI (test code = 3261) . Negative - Negative POCT U BLD (test code = 3257) . Negative - Negative POCT U COLOR (test code = 3266) POCT U APPEAR (test code = 3267) [facility] URINALYSIS W/O SPECIFIC [id number] 16:01:00 Test Item Value Reference Range Interpretation Comments POCT PH U (test code = 3254) 5 mg/dl 5-8 POCT U LEUK EST (test code = Trace Negative - Negative 3263) POCT U NIT (test code = 3262) Neg Negative - Negative POCT U PROT (test code = 3259) Trace Negative - Negative POCT U GLU (test code = 3256) Neg Negative - Negative POCT U KETONE (test code = 3258) None Negative - Negative POCT U BLD (test code = 3257) Neg Negative - Negative [facility] URINALYSIS W/O SPECIFIC [id number] 16:01:00 Test Item Value Reference Range Interpretation Comments POCT PH U (test code = 3254) 5 mg/dl 5-8 POCT U LEUK EST (test code = Trace Negative - Negative 3263) POCT U NIT (test code = 3262) Neg Negative - Negative POCT U PROT (test code = 3259) Trace Negative - Negative POCT U GLU (test code = 3256) Neg Negative - Negative POCT U KETONE (test code = 3258) None Negative - Negative POCT U BLD (test code = 3257) Neg Negative - Negative [facility] [id number] 15:58:00 Test Item Value Reference Range Interpretation Comments POCT PREG (test code = 1605) Positive On board controls acceptable with C Yes Line (test code = 3574) POCT PREG LOT # (test code = 3575) POCT PREG TEST DATE (test code = 3576) Lab Interpretation (test code = Abnormal 45469-7) [facility] [id number] 15:58:00 Test Item Value Reference Range Interpretation Comments POCT PREG (test code = 1605) Positive On board controls acceptable with C Yes Line (test code = 3574) POCT PREG LOT # (test code = 3575) POCT PREG TEST DATE (test code = 3576) Lab Interpretation (test code = Abnormal 17061-0) [facility], [id number] 13:36:04 Test Item Value Reference Range Interpretation Comments Test (test code = negative Test) [facility]stick) panel - [id number] 13:27:27 Test Item Value Reference Range Interpretation Comments Leukocytes (test code = Leukocytes) Trace Nitrite (test code = Nitrite) negative Urobilinogen (test code = .2 Urobilinogen) Protein (test code = Protein) Negative pH (test code = pH) 6.0 Blood (test code = Blood) Small Specific Spruce (test code = 1.010 Specific Spruce) Ketone (test code = Ketone) Negative Bilirubin (test code = Bilirubin) Negative Glucose (test code = Glucose) Negative Appearance (test code = Appearance) Clear Color (test code = Color) Yellow [facility] W Auto Differential panel - [id number] 09:04:00 Test Item Value Reference Range Interpretation Comments white blood count (test code = 9.4 K/uL 4.0-11.5 white blood count) red blood count (test code = red 3.47 M/uL 3.80-5.20 L blood count) Hemoglobin [Mass/volume] in Blood 10.5 g/dL 10.5-15.7 (test code = 718-7) hematocrit (test code = hematocrit) 32.4 % 34.0-50.0 L Erythrocyte mean corpuscular volume 93.2 fL 78-98 [Entitic volume] (test code = 37292-2) Erythrocyte mean corpuscular 30.2 pg 26.2-33.4 hemoglobin [Entitic mass] (test code = 00557-1) mean corpuscular HGB conc (test 32.3 g/dL 31.5-36.2 code = mean corpuscular HGB conc) red cell distribution width (test 12.7 % 11.5-15.5 code = red cell distribution width) Platelets [#/volume] in Blood (test 188 K/uL 137-338 code = 89463-6) Platelet mean volume [Entitic 9.2 fL 8.4-11.8 volume] in Blood (test code = 06442-3) Neutrophils.band form/100 67.1 % 44.4-80.1 leukocytes in Blood (test code = 06415-9) Lymphocytes/100 leukocytes in Body 26.9 % 10.0-50.0 fluid (test code = 55494-3) Monocytes/100 leukocytes in Blood 4.6 % 3.6-12.04 by Automated count (test code = 5905-5) Eosinophils/100 leukocytes in Blood 0.7 % 0.0-5.41 by Automated count (test code = 713-8) Basophils/100 leukocytes in Blood 0.7 % 0.0-0.79 by Automated count (test code = 706-2) [facility] [facility] Differential panel - [id number] 04:43:00 Test Item Value Reference Range Interpretation Comments white blood count (test code = 8.6 K/uL 4.0-11.5 white blood count) red blood count (test code = red 3.65 M/uL 3.80-5.20 L blood count) Hemoglobin [Mass/volume] in Blood 11.1 g/dL 10.5-15.7 (test code = 718-7) hematocrit (test code = hematocrit) 34.0 % 34.0-50.0 Erythrocyte mean corpuscular volume 93.0 fL 78-98 [Entitic volume] (test code = 07083-2) Erythrocyte mean corpuscular 30.4 pg 26.2-33.4 hemoglobin [Entitic mass] (test code = 75183-7) mean corpuscular HGB conc (test 32.7 g/dL 31.5-36.2 code = mean corpuscular HGB conc) red cell distribution width (test 12.8 % 11.5-15.5 code = red cell distribution width) Platelets [#/volume] in Blood (test 218 K/uL 137-338 code = 57507-0) Platelet mean volume [Entitic 9.2 fL 8.4-11.8 volume] in Blood (test code = 01724-4) Neutrophils.band form/100 54.5 % 44.4-80.1 leukocytes in Blood (test code = 85063-4) Lymphocytes/100 leukocytes in Body 38.2 % 10.0-50.0 fluid (test code = 60470-8) Monocytes/100 leukocytes in Blood 5.6 % 3.6-12.04 by Automated count (test code = 5905-5) Eosinophils/100 leukocytes in Blood 0.9 % 0.0-5.41 by Automated count (test code = 713-8) Basophils/100 leukocytes in Blood 0.8 % 0.0-0.79 H by Automated count (test code = 706-2) [facility] - Serum or Plasma 2018-04-05 04:43:00 Test Item Value Reference Range Interpretation Comments glucose (test code = glucose) 80 mg/dL 74-106 Urea nitrogen [Mass/volume] in 11 mg/dL 6-20 Serum or Plasma (test code = 3094-0) Osmolality of Serum or Plasma 265 280-300 L (test code = 2692-2) creatinine (test code = 0.8 mg/dL 0.50-0.90 creatinine) glomerular filtration rate (test >60.00 code = glomerular filtration rate) Urea nitrogen/Creatinine [Mass 13.8 12-20 Ratio] in Serum or Plasma (test code = 3097-3) sodium level (test code = sodium 133 mmol/L 135-145 L level) Potassium [Moles/volume] in Body 4.1 mmol/L 3.5-5.2 fluid (test code = 2821-7) chloride level (test code = 102 mmol/L 98-108 chloride level) CO2 (test code = CO2) 19 mmol/L 21-32 L anion gap (test code = anion gap) 16.1 mEq/L 12-20 calcium level (test code = calcium 9.3 mg/dL 8.6-10.0 level) total protein (test code = total 6.5 g/dL 6.6-8.7 L protein) albumin (test code = albumin) 3.1 g/dL 3.5-5.2 L globulin (test code = globulin) 3.4 gm/dL A/G ratio (test code = A/G ratio) 0.9 >1.0 bilirubin,total (test code = <0.3 0.0-1.2 bilirubin,total) AST/SGOT (test code = AST/SGOT) 15 U/L 15-32 Alanine aminotransferase 10 U/L 0-33 [Enzymatic activity/volume] in Serum or Plasma (test code = 1742-6) Alkaline phosphatase [Enzymatic 166 U/L 35-105 H activity/volume] in Serum or Plasma (test code = 6768-6) [facility] [Mass/volume] in [id number] 04:43:00 Test Item Value Reference Range Interpretation Comments uric acid (test code = uric acid) 6.3 mg/dL 2.4-5.7 H [facility]act[facility] [Moles/volume] in Serum or [id number] 04:43:00 Test Item Value Reference Range Interpretation Comments LDH (test code = LDH) 177 U/L 135-214 [facility] [Presence] in Serum by [id number] 04:43:00 Test Item Value Reference Range Interpretation Comments Reagin Ab [Presence] in Serum by nonreactive nonreactive RPR (test code = 56616-6) [facility]port[facility]atitis B virus surface Ag [Presence] in Serum 2018-04-05 04:43:00 Test Item Value Reference Range Interpretation Comments .hepatitis B surface antigen (test negative negative code = .hepatitis B surface antigen) [facility]port[facility] macro (dipstick) panel - [id number] 14:37:39 Test Item Value Reference Range Interpretation Comments Leukocytes (test code = Small Leukocytes) Nitrite (test code = negative Nitrite) Urobilinogen (test code = .2 Urobilinogen) Protein (test code = 30 Protein) pH (test code = pH) 7.0 Blood (test code = Blood) Non-Hemolyzed: Moderate Specific Spruce (test 1.020 code = Specific Spruce) Ketone (test code = Negative Ketone) Bilirubin (test code = Negative Bilirubin) Glucose (test code = Negative Glucose) Appearance (test code = Clear Appearance) Color (test code = Color) Yellow [facility] macro (dipstick) panel - [id number] 14:37:39 Test Item Value Reference Range Interpretation Comments Leukocytes (test code = Small Leukocytes) Nitrite (test code = negative Nitrite) Urobilinogen (test code = .2 Urobilinogen) Protein (test code = 30 Protein) pH (test code = pH) 7.0 Blood (test code = Blood) Non-Hemolyzed: Moderate Specific Spruce (test 1.020 code = Specific Spruce) Ketone (test code = Negative Ketone) Bilirubin (test code = Negative Bilirubin) Glucose (test code = Negative Glucose) Appearance (test code = Clear Appearance) Color (test code = Color) Yellow [facility]port[facility] macro (dipstick) panel - [id number] 14:37:39 Test Item Value Reference Range Interpretation Comments Leukocytes (test code = Small Leukocytes) Nitrite (test code = negative Nitrite) Urobilinogen (test code = .2 Urobilinogen) Protein (test code = 30 Protein) pH (test code = pH) 7.0 Blood (test code = Blood) Non-Hemolyzed: Moderate Specific Spruce (test 1.020 code = Specific Spruce) Ketone (test code = Negative Ketone) Bilirubin (test code = Negative Bilirubin) Glucose (test code = Negative Glucose) Appearance (test code = Clear Appearance) Color (test code = Color) Yellow [facility] GroupUrinal[facility] complete panel - [id number] 06:37:00 Test Item Value Reference Range Interpretation Comments Color of Urine by Auto (test yellow code = 77410-8) Appearance of Urine (test code SL cloudy clear A = 5767-9) Glucose [Presence] in Urine by =4+ (1000 negative H Automated test strip (test code = 25083-5) Bilirubin.total [Mass/volume] negative negative in Urine (test code = 1978-6) Ketones [Mass/volume] in Urine negative negative by Automated test strip (test code = 00719-5) Specific gravity of Urine by 1.021 1.003-1.030 Automated test strip (test code = 91133-1) blood urine (test code = blood negative negative urine) pH of Urine (test code = 6.500 5-9 2756-5) protein urine (UA) (test code = negative negative protein urine (UA)) Urobilinogen [Presence] in normal 0.2-1.0 Urine (test code = 14623-2) Nitrite [Presence] in Urine by negative negative Test strip (test code = 5802-4) Leukocyte esterase [Presence] =3 negative H in Urine by Automated test strip (test code = 74282-8) Erythrocytes [#/volume] in =1-5 0-5 Urine by Automated count (test code = 798-9) Leukocytes [#/area] in Urine =11-14 0-5 H sediment by Automated count (test code = 47006-4) Epithelial cells [Presence] in =6-10 0-5 Urine sediment by Light microscopy (test code = 52225-1) Bacteria identified in Urine by small(1 none detect Culture (test code = 630-4) Casts [#/area] in Urine none detected none detect sediment by Automated count (test code = 14990-0) urine culture added? (test code yes = urine culture added?) [facility] identified in Urine by [id number] 06:37:00Bacteria Ur [facility] 2018-03-20 06:37:00 Test Item Value Reference Range Interpretation Comments Color of Urine by Auto (test yellow code = 08300-9) Appearance of Urine (test code SL cloudy clear A = 5767-9) Glucose [Presence] in Urine by =4+ (1000 negative H Automated test strip (test code = 56561-9) Bilirubin.total [Mass/volume] negative negative in Urine (test code = 1978-6) Ketones [Mass/volume] in Urine negative negative by Automated test strip (test code = 13654-4) Specific gravity of Urine by 1.021 1.003-1.030 Automated test strip (test code = 23301-8) blood urine (test code = blood negative negative urine) pH of Urine (test code = 6.500 5-9 2756-5) protein urine (UA) (test code = negative negative protein urine (UA)) Urobilinogen [Presence] in normal 0.2-1.0 Urine (test code = 01607-4) Nitrite [Presence] in Urine by negative negative Test strip (test code = 5802-4) Leukocyte esterase [Presence] =3 negative H in Urine by Automated test strip (test code = 47008-8) Erythrocytes [#/volume] in =1-5 0-5 Urine by Automated count (test code = 798-9) Leukocytes [#/area] in Urine =11-14 0-5 H sediment by Automated count (test code = 17923-2) Epithelial cells [Presence] in =6-10 0-5 Urine sediment by Light microscopy (test code = 40533-4) Bacteria identified in Urine by small(1 none detect Culture (test code = 630-4) Casts [#/area] in Urine none detected none detect sediment by Automated count (test code = 96101-8) urine culture added? (test code yes = urine culture added?) [facility] identified in Urine by [id number] 06:37:00Bacteria Ur CultMem[facility] GulfportUrinalysis macro (dipstick) panel - [id number] 10:47:01 Test Item Value Reference Range Interpretation Comments Leukocytes (test code = Leukocytes) Trace Nitrite (test code = Nitrite) negative Urobilinogen (test code = .2 Urobilinogen) Protein (test code = Protein) Negative pH (test code = pH) 7.0 Blood (test code = Blood) Negative Specific Spruce (test code = 1.015 Specific Spruce) Ketone (test code = Ketone) Negative Bilirubin (test code = Bilirubin) Negative Glucose (test code = Glucose) Negative Appearance (test code = Appearance) Clear Color (test code = Color) Yellow [facility]port[facility]ysis macro (dipstick) panel - [id number] 10:47:01 Test Item Value Reference Range Interpretation Comments Leukocytes (test code = Leukocytes) Trace Nitrite (test code = Nitrite) negative Urobilinogen (test code = .2 Urobilinogen) Protein (test code = Protein) Negative pH (test code = pH) 7.0 Blood (test code = Blood) Negative Specific Spruce (test code = 1.015 Specific Spruce) Ketone (test code = Ketone) Negative Bilirubin (test code = Bilirubin) Negative Glucose (test code = Glucose) Negative Appearance (test code = Appearance) Clear Color (test code = Color) Yellow [facility]port[facility]ysis macro (dipstick) panel - [id number] 10:47:01 Test Item Value Reference Range Interpretation Comments Leukocytes (test code = Leukocytes) Trace Nitrite (test code = Nitrite) negative Urobilinogen (test code = .2 Urobilinogen) Protein (test code = Protein) Negative pH (test code = pH) 7.0 Blood (test code = Blood) Negative Specific Spruce (test code = 1.015 Specific Spruce) Ketone (test code = Ketone) Negative Bilirubin (test code = Bilirubin) Negative Glucose (test code = Glucose) Negative Appearance (test code = Appearance) Clear Color (test code = Color) Yellow [facility]portnon-stress [id number] 14:04:00 Test Item Value Reference Range Interpretation Comments Reactive (test code = Reactive) Yes Contractions (test code = Contractions) No [facility] Groupnon-stress [id number] 14:04:00 Test Item Value Reference Range Interpretation Comments Reactive (test code = Reactive) Yes Contractions (test code = Contractions) No [facility] GroupUrinalysis macro (dipstick) panel - [id number] 13:10:36 Test Item Value Reference Range Interpretation Comments Leukocytes (test code = Leukocytes) Large Nitrite (test code = Nitrite) negative Urobilinogen (test code = .2 Urobilinogen) Protein (test code = Protein) Negative pH (test code = pH) 7.0 Blood (test code = Blood) Negative Specific Spruce (test code = 1.015 Specific Spruce) Ketone (test code = Ketone) Negative Bilirubin (test code = Bilirubin) Negative Glucose (test code = Glucose) Negative Appearance (test code = Appearance) Clear Color (test code = Color) Yellow [facility] GroupUrinalysis macro (dipstick) panel - [id number] 13:10:36 Test Item Value Reference Range Interpretation Comments Leukocytes (test code = Leukocytes) Large Nitrite (test code = Nitrite) negative Urobilinogen (test code = .2 Urobilinogen) Protein (test code = Protein) Negative pH (test code = pH) 7.0 Blood (test code = Blood) Negative Specific Spruce (test code = 1.015 Specific Spruce) Ketone (test code = Ketone) Negative Bilirubin (test code = Bilirubin) Negative Glucose (test code = Glucose) Negative Appearance (test code = Appearance) Clear Color (test code = Color) Yellow [facility] GroupUrinalysis macro (dipstick) panel - [id number] 13:10:36 Test Item Value Reference Range Interpretation Comments Leukocytes (test code = Leukocytes) Large Nitrite (test code = Nitrite) negative Urobilinogen (test code = .2 Urobilinogen) Protein (test code = Protein) Negative pH (test code = pH) 7.0 Blood (test code = Blood) Negative Specific Spruce (test code = 1.015 Specific Spruce) Ketone (test code = Ketone) Negative Bilirubin (test code = Bilirubin) Negative Glucose (test code = Glucose) Negative Appearance (test code = Appearance) Clear Color (test code = Color) Yellow [facility] GroupUrinalysis macro (dipstick) panel - [id number] 09:37:36 Test Item Value Reference Range Interpretation Comments Leukocytes (test code = Leukocytes) Small Nitrite (test code = Nitrite) negative Urobilinogen (test code = .2 Urobilinogen) Protein (test code = Protein) Trace pH (test code = pH) 7.0 Blood (test code = Blood) Negative Specific Spruce (test code = 1.020 Specific Spruce) Ketone (test code = Ketone) Negative Bilirubin (test code = Bilirubin) Negative Glucose (test code = Glucose) Negative Appearance (test code = Appearance) Clear Color (test code = Color) Yellow [facility] GroupUrinalysis macro (dipstick) panel - [id number] 09:37:36 Test Item Value Reference Range Interpretation Comments Leukocytes (test code = Leukocytes) Small Nitrite (test code = Nitrite) negative Urobilinogen (test code = .2 Urobilinogen) Protein (test code = Protein) Trace pH (test code = pH) 7.0 Blood (test code = Blood) Negative Specific Spruce (test code = 1.020 Specific Spruce) Ketone (test code = Ketone) Negative Bilirubin (test code = Bilirubin) Negative Glucose (test code = Glucose) Negative Appearance (test code = Appearance) Clear Color (test code = Color) Yellow [facility]port[facility] macro (dipstick) panel - [id number] 09:37:36 Test Item Value Reference Range Interpretation Comments Leukocytes (test code = Leukocytes) Small Nitrite (test code = Nitrite) negative Urobilinogen (test code = .2 Urobilinogen) Protein (test code = Protein) Trace pH (test code = pH) 7.0 Blood (test code = Blood) Negative Specific Spruce (test code = 1.020 Specific Spruce) Ketone (test code = Ketone) Negative Bilirubin (test code = Bilirubin) Negative Glucose (test code = Glucose) Negative Appearance (test code = Appearance) Clear Color (test code = Color) Yellow [facility]portGlucose [Mass/volume] in Serum or Plasma --1 hour post dose [id number] 13:44:00 Test Item Value Reference Range Interpretation Comments Results (test code = Results) 104 [facility] GroupUrinalysis macro (dipstick) panel - [id number] 08:53:48 Test Item Value Reference Range Interpretation Comments Leukocytes (test code = Leukocytes) Negative Nitrite (test code = Nitrite) negative Urobilinogen (test code = .2 Urobilinogen) Protein (test code = Protein) Negative pH (test code = pH) 7.0 Blood (test code = Blood) Negative Specific Spruce (test code = 1.010 Specific Spruce) Ketone (test code = Ketone) Negative Bilirubin (test code = Bilirubin) Negative Glucose (test code = Glucose) Negative Appearance (test code = Appearance) Clear Color (test code = Color) Yellow [facility]
[2021-03-09] MEDS ORDERED: AZITHROMYCIN 250 MG TAB ONE (10:41)
[2021-03-09 11:11] LABS: SARS-COV-2 RT PCR POSITIVE (NEGATIVE)
--- NOTE | 2021-03-09 11:30 | ER ---
Nurse's Notes [facility] Name: Ricarda Moya Age: 25 yrs Sex: Female : 1995 Arrival Date: 03/09/2021 Time: 09:23 Bed Treatment Private MD: Diagnosis: Acute bronchiolitis, unspecified;Acute upper respiratory infection, unspecified;Tobacco abuse counseling;Tobacco use;Coronavirus infection, unspecified Presentation: 03/09 09:34 Chief complaint: Patient states: Cough for 2 days that is getting worse and chest ww pressure this morning. Sore throat on and has resolved. Exposed to COVID this past weekend. Coronavirus screen: Vaccine status: Patient reports receiving the 1st dose of the Covid vaccine. Client denies travel out of the [place] in the last 14 days. Ebola Screen: Patient negative for fever greater than or equal to 101.5 degrees Fahrenheit, and additional compatible Ebola Virus Disease symptoms Patient denies exposure to infectious person. Patient denies travel to an Ebola-affected area in the 21 days before illness onset. Initial Sepsis Screen: Does the patient meet any 2 criteria? No. Patient's initial sepsis screen is negative. Does the patient have a suspected source of infection? No. Patient's initial sepsis screen is negative. Risk Assessment: Do you want to hurt yourself or someone else? Patient reports no desire to harm self or others. Onset of symptoms was March 09, 2021. 09:34 Method Of Arrival: Ambulatory ww 09:34 Acuity: CATALINO 4 ww Triage Assessment: 09:36 General: Appears in no apparent distress. comfortable, Behavior is calm, cooperative, ww appropriate for age. Pain: Denies pain. EENT: No deficits noted. No signs and/or symptoms were reported regarding the EENT system. Neuro: Level of Consciousness is awake, alert, obeys commands, Oriented to person, place, time, situation. Cardiovascular: Reports chest pain, since chest pressure this morning from coughing. Respiratory: Reports shortness of breath cough that is Airway is patent Respiratory effort is even, unlabored, Respiratory pattern is regular, symmetrical, Onset: The symptoms/episode began/occurred yesterday, the patient has mild shortness of breath. GI: No deficits noted. No signs and/or symptoms were reported involving the gastrointestinal system. : No deficits noted. No signs and/or symptoms were reported regarding the genitourinary system. Derm: Skin is intact, is healthy with good turgor, Skin is pink, warm \\T\\ dry. 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 - Social history:: Smoking status: Patient denies any tobacco usage or history of. - Family history:: not pertinent. Screenin:38 Abuse screen: Denies threats or abuse. Denies injuries from another. Nutritional ww screening: No deficits noted. Tuberculosis screening: No symptoms or risk factors identified. Fall Risk None identified. Assessment: 10:43 Cardiovascular: Rhythm is regular. Respiratory: Airway is patent [facility] Vital Signs: 09:34 BP 107 / 83; Pulse 81; Resp 18; Temp 97.4; Pulse Ox 100% on R/A; Weight 58.97 kg; ww Height 5 ft. 3 in. (160.02 cm); Pain 0/10; 09:34 Body Mass Index 23.03 (58.97 kg, 160.02 cm) ED Course: 09:23 Patient arrived in ED. am2 09:36 Triage completed. ww 09:36 Arm band placed on left wrist. ww 09:52 COVID swab sent to lab. 09:59 Fadia Walden, SAIMA is Primary Nurse. [facility] 10:00 COVID-19/FLU A+B (Document "Date of Onset" if Symptomatic) Sent. [facility] 10:01 Cristiano Jenkins MD is Attending Physician. [facility] 10:43 Patient has correct armband on for positive identification. Bed in low position. Call [facility] light in reach. Side rails up X 1. 10:43 No provider procedures requiring assistance completed. Patient did not have IV access [facility] during this emergency room visit. Administered Medications: 10:44 Drug: Zithromax (azithromycin) 500 mg Route: PO; [facility] 11:35 Drug: Aspirin Chewable Tablet 162 mg Route: PO; [facility] 11:35 Drug: Pepcid (famotidine) 40 mg Route: PO; jh5 Outcome: 11:29 Discharge ordered by MD. junior 11:40 Patient left the ED. 5 Signatures: Cristiano Jenkins MD MD cha Moreno, Amanda am2 Rees, Jessica RN RN jh5 Joann Wesley RN RN ww
--- NOTE | 2021-03-09 11:30 | EDPHYS ---
Physician Documentation [facility] Name: Ricarda Moya Age: 25 yrs Sex: Female : 1995 Arrival Date: 03/09/2021 Time: 09:23 Bed Treatment Private MD: ED Physician Cristiano Jenkins HPI: 03/09 10:39 This 25 yrs old Female presents to ER via Ambulatory with complaints of vernon Cough, Breathing Difficulty. 10:39 The patient or guardian reports airway noise, cough, flu symptoms, low-grade fever, vernon myalgias. Onset: The symptoms/episode began/occurred 2 day(s) ago. Severity of symptoms: At their worst the symptoms were mild, in the emergency department the symptoms are unchanged. Modifying factors: The symptoms are alleviated by nothing, the symptoms are aggravated by nothing. Associated signs and symptoms: Pertinent positives: rhinorrhea. The patient has experienced similar episodes in the past, several times. 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 - Social history:: Smoking status: Patient denies any tobacco usage or history of. - Family history:: not pertinent. ROS: 10:39 Constitutional: Negative for fever, chills, and weight loss, Eyes: Negative for injury, vernon pain, redness, and discharge, ENT: Negative for injury, pain, and discharge, Neck: Negative for injury, pain, and swelling, Cardiovascular: Negative for chest pain, palpitations, and edema, Abdomen/GI: Negative for abdominal pain, nausea, vomiting, diarrhea, and constipation, Back: Negative for injury and pain, : Negative for injury, bleeding, discharge, and swelling, MS/Extremity: Negative for injury and deformity, Skin: Negative for injury, rash, and discoloration, Neuro: Negative for headache, weakness, numbness, tingling, and seizure, Psych: Negative for depression, anxiety, suicide ideation, homicidal ideation, and hallucinations, Allergy/Immunology: Negative for hives, rash, and allergies, Endocrine: Negative for neck swelling, polydipsia, polyuria, polyphagia, and marked weight changes, Hematologic/Lymphatic: Negative for swollen nodes, abnormal bleeding, and unusual bruising. 10:39 Respiratory: Positive for cough, "sounds productive". Exam: 10:39 Constitutional: This is a well developed, well nourished patient who is awake, alert, vernon and in no acute distress. Head/Face: Normocephalic, atraumatic. Eyes: Pupils equal round and reactive to light, extra-ocular motions intact. Lids and lashes normal. Conjunctiva and sclera are non-icteric and not injected. Cornea within normal limits. Periorbital areas with no swelling, redness, or edema. ENT: Nares patent. No nasal discharge, no septal abnormalities noted. Tympanic membranes are normal and external auditory canals are clear. Oropharynx with no redness, swelling, or masses, exudates, or evidence of obstruction, uvula midline. Mucous membranes moist. Neck: Trachea midline, no thyromegaly or masses palpated, and no cervical lymphadenopathy. Supple, full range of motion without nuchal rigidity, or vertebral point tenderness. No Meningismus. Chest/axilla: Normal chest wall appearance and motion. Nontender with no deformity. No lesions are appreciated. Cardiovascular: Regular rate and rhythm with a normal S1 and S2. No gallops, murmurs, or rubs. Normal PMI, no JVD. No pulse deficits. Abdomen/GI: Soft, non-tender, with normal bowel sounds. No distension or tympany. No guarding or rebound. No evidence of tenderness throughout. Back: No spinal tenderness. No costovertebral tenderness. Full range of motion. Skin: Warm, dry with normal turgor. Normal color with no rashes, no lesions, and no evidence of cellulitis. MS/ Extremity: Pulses equal, no cyanosis. Neurovascular intact. Full, normal range of motion. Neuro: Awake and alert, GCS 15, oriented to person, place, time, and situation. Cranial nerves II-XII grossly intact. Motor strength 5/5 in all extremities. Sensory grossly intact. Cerebellar exam normal. Normal gait. Psych: Awake, alert, with orientation to person, place and time. Behavior, mood, and affect are within normal limits. 10:39 Respiratory: the patient does not display signs of respiratory distress, Respirations: normal, Breath sounds: are clear throughout, no bronchial sounds, no decreased breath sounds, no rales, no stridor, no wheezing, rhonchi, that are mild. Vital Signs: 09:34 BP 107 / 83; Pulse 81; Resp 18; Temp 97.4; Pulse Ox 100% on R/A; Weight 58.97 kg; ww Height 5 ft. 3 in. (160.02 cm); Pain 0/10; 09:34 Body Mass Index 23.03 (58.97 kg, 160.02 cm) ww MDM: 10:01 Patient medically screened. [facility] 10:45 Differential Diagnosis: Bronchitis Influenza Upper Respiratory Infection Sinusitis vernon Pharyngitis Otitis Media Viral Syndrome Pneumonia. Data reviewed: vital signs, nurses notes. 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 Counseling: I had a detailed discussion with the patient and/or guardian regarding: the historical points, exam findings, and any diagnostic results supporting the discharge/admit diagnosis, lab results, radiology results, the need for outpatient follow up, for definitive care, a family practitioner. 03/09 09:43 Order name: COVID-19/FLU A+B (Document "Date of Onset" if Symptomatic); Complete Time: 11:29 Administered Medications: 10:44 Drug: Zithromax (azithromycin) 500 mg Route: PO; [facility] 11:35 Drug: Aspirin Chewable Tablet 162 mg Route: PO; 5 11:35 Drug: Pepcid (famotidine) 40 mg Route: PO; [email or web address] Disposition Summary: 03/09/21 11:29 Discharge Ordered Location: Home vernon Problem: new vernon Symptoms: have improved vernon Condition: Stable vernon Diagnosis - Acute bronchiolitis, unspecified vernon - Acute upper respiratory infection, unspecified vernon - Tobacco abuse counseling vernon - Tobacco use vernon - Coronavirus infection, unspecified vernon Followup: vernon - With: Private Physician - When: 2 - 3 days - Reason: Recheck today's complaints, Continuance of care, Re-evaluation by your physician Discharge Instructions: - Discharge Summary Sheet vernon - Steps to Quit Smoking vernon - Health Risks of Smoking vernon - Upper Respiratory Infection, Adult vernon - Cool Mist Vaporizer vrenon - Upper Respiratory Infection, Adult, [id number] vernon - Steps to Quit Smoking, [id number] vernon - Cough, Adult, [id number] [facility] - Cough, Adult vernon - Aspirin and Your Heart vernon - COVID-19 vernon - COVID-19 Frequently Asked Questions [place] [id number] Things You Can Do to Manage Your COVID-19 Symptoms at Home - [facility] - COVID-19: Quarantine vs. Isolation - [facility] Forms: - Medication Reconciliation Form [facility] - Thank You Letter vernon - Antibiotic Education [facility] - Prescription Opioid Use [facility] Prescriptions: - Bromfed DM 2-30-10 mg/5 mL Oral syrup - take 7.5 milliliter by ORAL route every 6 hours; 160 milliliter; Refills: 0, [facility] Product Selection Permitted - Zithromax Z-Anthony 250 mg Oral Tablet - take 1 tablet by ORAL route as directed for 5 days Day 1 - take two (2) tablets [facility] one time. Day 2, 3, 4 , 5 take one (1) tablet once daily.; 6 tablet; Refills: 0, Product Selection Permitted - albuterol sulfate 90 mcg/actuation Inhalation HFA aerosol inhaler - inhale 2 puff by INHALATION route every 4-6 hours; 1 Pump; Refills: 0, Product vernon Selection Permitted - Pepcid 20 mg Oral Tablet - take 1 tablet by ORAL route every 12 hours for 30 days; 60 tablet; Refills: 0, [facility] Product Selection Permitted - Singulair 10 mg Oral Tablet - take 1 tablet by ORAL route At bedtime; 30 tablet; Refills: 0, Product vernon Selection Permitted Signatures: Dispatcher [employer] Cristiano Nayak MD MD cha Rees, Jessica RN RN [email or web address] Joann Wesley RN RN ww Corrections: (The following items were deleted from the chart) 09:44 09:44 COVID-19/FLU A+[id number] ordered. EDMS EDMS
[2021-03-09] MEDS ORDERED: ASPIRIN 81 MG CHEWABLE TABLET ONE (11:37)
[2021-03-09] MEDS ORDERED: FAMOTIDINE 20 MG TAB ONE (11:38)
[2021-03-09 11:51] VITALS: BP 107/83; TEMP 97.4; O2SAT 100
== END 2021-03-09 11:40 | disposition home or self-care (01) ==
LOC: ER 09:10
DX: U07.1 COVID-19 (principal); J21.9 Acute bronchiolitis, unspecified; J06.9 Acute upper respiratory infection, unspecified; Z71.6 Tobacco abuse counseling; Z72.0 Tobacco use
CPT/HCPCS: 0240U; 99283

== ENCOUNTER 2021-04-30 15:30 | Emergency (ER) | payer OTHER ==
--- OUTSIDE RECORDS SUMMARY | 2021-04-30 15:37 | XMS REPORT | Continuity of Care Document ---
:1995 Author Organization [facility] t Address [address] [place] [address] Care Team Providers Name Role Phone G_Pappas Attending Clinician Unavailable AKINDEE C Attending Clinician Unavailable Akinsipe DARLINE C Attending Clinician Redd ULLOA Attending Clinician Unavailable Doctor Unassigned, Name Attending Clinician Unavailable Trimester, Res-1st Attending Clinician Unavailable Hafsa CABRERA R Attending Clinician Lab Attending Clinician Unavailable G_Pappas Admitting Clinician Unavailable Payers Payer Name Policy Type Policy Number Effective Date Expiration Date Mame goldsmith [facility] [id number] 2019 [facility] - 00:00:00 STAR (MEDICAID HMO) MEDICAID [facility] [id number] 2019 00:00:00 [place] - [id number] [facility] - [place]OM[place] [id number] [facility] PROGRAM - FAMILY PLANNING Advance Directives Directive Decision Effective Termination Comments Source Date Date Healthcare Agents on N/A [facility] ersity [facility]NameRelationsh[facility] Agent Medical RelationshipCommunicationJames Branch MilesFatherPrimary healthcare -[phone] (Mobile) Problems Condition Condition Condition Status Onset [...] Univers weight weight 2-18 ity of 00:00: [place] 00 Medical Branch Acute Acute Disease Active Univers nasopharyn nasopharyn 2-18 it y of gitis gitis 00:00: [place] (common (common 00 Medical cold) cold) Branch [...] status, status, 00:00: [place] antepartum antepartum 00 Ca dical Branch Tobacco Tobacco Disease Active Overview: [...] high 7-10 ity of risk risk 00:00: [place] , , 00 Me dical antepartum antepartum [...] Latex Allergy Active Rash [facility] Social History Social Habit Start Date Stop Date Quantity Comments Source ASSERTION 2019-02-22 University of 00:00:00 [facility] Sex Assigned At Universit y of [facility] Cigarettes smoked 2019-04-09 2019-04-09 Univers ity of current (pack per 00:00:00 00:00:00 ) - Reported Branch Cigarette 2019-04-09 2019-04-09 University of pack-years 00:00:00 00:00:00 [facility] Alcohol intake 2019-04-09 2019-04-09 University of 00:00:00 00:00:00 [facility] Alcohol Comment 2019-03-06 2019-03-[address] [facility], T[facility] y of 00:00:00 00:00:00 03/04/2019 [facility] History of tobacco 2019-03-04 Cigarette Smoker University of use 00:00:00 [facility] Tobacco Comment 2017-08-29 2017-08-29 information Universi ty of 00:00:00 00:00:00 provided [facility] Smoking Status Start Date Stop Date Source Former smoker 2019-04-09 00:00:00 2019-04-09 00:00:00 Universi ty of [facility] Medications Ordered Filled Start Stop Current Ordering [...] (four) Branch hours as needed. 2020-0 Yes [id number] 1{tbl} Take 1 U nivers multivitami 1-15 tablet by ity of n ( 00:00: mouth [place] VITAMIN) 00 daily. Medical tablet Branch 2020-0 Yes [id number] 1{tbl} Take 1 U nivers multivitami 1-15 tablet by ity of n ( 00:00: mouth [place] VITAMIN) 00 daily. Medical tablet Branch Yes [id number] 1{tbl} Take 1 U nivers multivitami 1-15 tablet by ity of n ( 00:00: mouth [place] VITAMIN) 00 daily. Medical tablet Branch Yes [id number] 1{tbl} Take 1 U nivers multivitami 1-15 tablet by ity of n ( 00:00: mouth [place] VITAMIN) 00 daily. Medical tablet Branch Yes [id number] 1{tbl} Take 1 U nivers multivitami 1-15 tablet by ity of n ( 00:00: mouth [place] VITAMIN) 00 daily. Medical tablet Branch Yes [id number] 1{tbl} Take 1 U nivers multivitami 1-15 tablet by ity of n ( 00:00: mouth [place] VITAMIN) 00 daily. Medical tablet Branch Yes [id number] 1{tbl} Take 1 U nivers multivitami 1-15 tablet by ity of n ( 00:00: mouth [place] VITAMIN) 00 daily. Medical tablet Branch Yes [id number] 1{tbl} Take 1 U nivers multivitami 1-15 tablet by ity of n ( 00:00: mouth [place] VITAMIN) 00 daily. Medical tablet Branch Yes [id number] 1{tbl} Take 1 U nivers multivitami 1-15 tablet by ity of n ( 00:00: mouth [place] VITAMIN) 00 daily. Medical tablet Branch Yes [id number] 1{tbl} Take 1 U nivers multivitami 1-15 tablet by ity of n ( 00:00: mouth [place] VITAMIN) 00 daily. Medical tablet Branch Yes [id number] 1{tbl} Take 1 U nivers multivitami 1-15 tablet by ity of n ( 00:00: mouth [place] VITAMIN) 00 daily. Medical tablet Branch Yes [id number] 1{tbl} Take 1 U nivers multivitami 1-15 tablet by ity of n ( 00:00: mouth [place] VITAMIN) 00 daily. Medical tablet Branch 2020-0 Yes [id number] 1{tbl} Take 1 U nivers multivitami 1-15 tablet by ity of n ( 00:00: mouth [place] VITAMIN) 00 daily. Medical tablet Branch Yes [id number] 1{tbl} Take 1 U nivers multivitami 1-15 tablet by ity of n ( 00:00: mouth [place] VITAMIN) 00 daily. Medical tablet Branch Yes [id number] 1{tbl} Take 1 U nivers multivitami 1-15 tablet by ity of n ( 00:00: mouth [place] VITAMIN) 00 daily. Medical tablet Branch Yes [id number] 1{tbl} Take 1 U nivers multivitami 1-15 tablet by ity of n ( 00:00: mouth [place] VITAMIN) 00 daily. Medical tablet Branch Yes [id number] 1{tbl} Take 1 U nivers multivitami 1-15 tablet by ity of n ( 00:00: mouth [place] VITAMIN) 00 daily. Medical tablet Branch proMETHazin Yes 12.5mg Take 12.5 Univers e 12.5 mg 8-10 mg by ity of tablet 17:49: mouth [place] 27 every 4 Medical (four) Branch hours as needed. [id number]- 2018-0 Yes 1{tbl} Take 1 Un alejandrina iron-folic- 7-10 tablet by ity of docusate 00:00: mouth [place] (CITRANATAL 00 daily. Medica l , Branch DUAL-IRON,) 27 mg iron-1 mg -50 mg Tab [id number]- 2018-0 Yes 1{tbl} Take 1 Un alejandrina iron-folic- 7-10 tablet by ity of docusate 00:00: mouth [place] (CITRANATAL 00 daily. Medica l , Branch DUAL-IRON,) 27 mg iron-1 mg -50 mg Tab [id number]- 2018-0 Yes 1{tbl} Take 1 Un alejandrina iron-folic- 7-10 tablet by ity of docusate 00:00: mouth [place] (CITRANATAL 00 daily. Medica l , Branch DUAL-IRON,) 27 mg iron-1 mg -50 mg Tab [id number]- 2018-0 Yes 1{tbl} Take 1 Un alejandrina iron-folic- 7-10 tablet by ity of docusate 00:00: mouth [place] (CITRANATAL 00 daily. Medica l , Branch DUAL-IRON,) 27 mg iron-1 mg -50 mg Tab [id number] 2018-0 Yes 1{tbl} Take 1 Un alejandrina iron-folic- 7-10 tablet by ity of docusate 00:00: mouth [place] (CITRANATAL 00 daily. Medica l , Branch DUAL-IRON,) 27 mg iron-1 mg -50 mg Tab [id number] 2018-0 Yes 1{tbl} Take 1 Un alejandrina iron-folic- 7-10 tablet by ity of docusate 00:00: mouth [place] (CITRANATAL 00 daily. Medica l , Branch DUAL-IRON,) 27 mg iron-1 mg -50 mg Tab [id number] 2018-0 Yes 1{tbl} Take 1 Un alejandrina iron-folic- 7-10 tablet by ity of docusate 00:00: mouth [place] (CITRANATAL 00 daily. Medica l , Branch DUAL-IRON,) 27 mg iron-1 mg -50 mg Tab [id number] 2018-0 Yes 1{tbl} Take 1 Un alejandrina iron-folic- 7-10 tablet by ity of docusate 00:00: mouth [place] (CITRANATAL 00 daily. Medica l , Branch DUAL-IRON,) 27 mg iron-1 mg -50 mg Tab [id number] 2018-0 Yes 1{tbl} Take 1 Un alejandrina iron-folic- 7-10 tablet by ity of docusate 00:00: mouth [place] (CITRANATAL 00 daily. Medica l , Branch DUAL-IRON,) 27 mg iron-1 mg -50 mg Tab [id number] 2018-0 Yes 1{tbl} Take 1 Un alejandrina [...] 27 mg iron-1 mg -50 mg Tab [id number] 2018-0 Yes 1{tbl} Take 1 Un alejandrina iron-folic- 7-10 tablet by ity of docusate 00:00: mouth [place] (CITRANATAL 00 daily. Medica l , Branch DUAL-IRON,) 27 mg iron-1 mg -50 mg Tab [id number] 2018-0 Yes 1{tbl} Take 1 Un alejandrina iron-folic- 7-10 tablet by ity of docusate 00:00: mouth [place] (CITRANATAL 00 daily. Medica l , Branch DUAL-IRON,) 27 mg iron-1 mg -50 mg Tab [id number] 2018-0 Yes 1{tbl} Take 1 Un alejandrina iron-folic- 7-10 tablet by ity of docusate 00:00: mouth [place] (CITRANATAL 00 daily. Medica l , Branch DUAL-IRON,) 27 mg iron-1 mg -50 mg Tab [id number] Yes 1{tbl} Take 1 Un alejandrina iron-folic- 7-10 tablet by ity of docusate 00:00: mouth [place] (CITRANATAL 00 daily. Medica l , Branch DUAL-IRON,) 27 mg iron-1 mg -50 mg Tab [id number] Yes 1{tbl} Take 1 Un alejandrina iron-folic- 7-10 tablet by ity of docusate 00:00: mouth [place] (CITRANATAL 00 daily. Medica l , Branch DUAL-IRON,) 27 mg iron-1 mg -50 mg Tab 2018-0 Yes 1{tbl} Take 1 Un alejandrina iron-folic- 7-10 tablet by ity of docusate 00:00: mouth [place] (CITRANATAL 00 daily. Medica l , Branch DUAL-IRON,) 27 mg iron-1 mg -50 mg Tab [id number] 2018-0 Yes 1{tbl} Take 1 Un alejandrina [...] Source BP Diastolic 2020-05-11 00:00:00 71 mm[Hg] [facility] Height 2020-05-11 00:00:00 63 [facility] BMI (Body Mass 2020-05-11 00:00:00 29.3 kg/m2 [facility] BP Systolic 2020-05-11 00:00:00 105 mm[Hg] [facility] Body Weight 2020-05-11 00:00:00 165.6 [lb_av] [facility] BP Diastolic 2019-12-27 00:00:00 63 mm[Hg] [facility] Height 2019-12-27 00:00:00 63 [in_i] [facility] BMI (Body Mass 2019-12-27 00:00:00 27 kg/m2 [facility] BP Systolic 2019-12-27 00:00:00 107 mm[Hg] [facility] Body Weight 2019-12-27 00:00:00 152.6 [lb_av] [facility] BP Diastolic 2019-12-13 00:00:00 76 mm[Hg] [facility] Height 2019-12-13 00:00:00 63 [in_i] [facility] BMI (Body Mass 2019-12-13 00:00:00 27.1 kg/m2 [facility] BP Systolic 2019-12-13 00:00:00 112 mm[Hg] [facility] Body Weight 2019-12-13 00:00:00 153 [lb_av] [facility] BP Diastolic 2019-11-28 00:00:00 72 mm[Hg] [facility] Height 2019-11-28 00:00:00 63 [in_i] [facility] BMI (Body Mass 2019-11-28 00:00:00 27.1 kg/m2 [facility] BP Systolic 2019-11-28 00:00:00 113 mm[Hg] [facility] Body Weight 2019-11-28 00:00:00 153 [lb_av] [facility] BP Diastolic 2019-10-31 00:00:00 81 mm[Hg] [facility] Height 2019-10-31 00:00:00 63 [in_i] [facility] BMI (Body Mass 2019-10-31 00:00:00 31.4 kg/m2 [facility] BP Systolic 2019-10-31 00:00:00 123 mm[Hg] [facility] Body Weight 2019-10-31 00:00:00 177.3 [lb_av] [facility] BP Diastolic 2019-10-24 00:00:00 78 mm[Hg] [facility] Height 2019-10-24 00:00:00 63 [in_i] [facility] BMI (Body Mass 2019-10-24 00:00:00 31.2 kg/m2 [facility] BP Systolic 2019-10-24 00:00:00 121 mm[Hg] [facility] Body Weight 2019-10-24 00:00:00 176 [lb_av] [facility] BP Diastolic 2019-10-14 00:00:00 70 mm[Hg] [facility] Height 2019-10-14 00:00:00 63 [in_i] [facility] BMI (Body Mass 2019-10-14 00:00:00 30.6 kg/m2 [facility] BP Systolic 2019-10-14 00:00:00 106 mm[Hg] [facility] Body Weight 2019-10-14 00:00:00 173 [lb_av] [facility] BP Diastolic 2019-10-09 00:00:00 72 mm[Hg] [facility] Height 2019-10-09 00:00:00 63 [in_i] [facility] BMI (Body Mass 2019-10-09 00:00:00 30.5 kg/m2 [facility] BP Systolic 2019-10-09 00:00:00 112 mm[Hg] [facility] Body Weight 2019-10-09 00:00:00 172.3 [lb_av] [facility] BP Diastolic 2019-10-04 00:00:00 78 mm[Hg] [facility] Height 2019-10-04 00:00:00 63 [in_i] [facility] BMI (Body Mass 2019-10-04 00:00:00 [facility] BP Systolic 2019-10-04 00:00:00 116 mm[Hg] [facility] Body Weight 2019-10-04 00:00:00 171.9 [lb_av] [facility] BP Diastolic 2019-09-17 00:00:00 71 mm[Hg] [facility] Height 2019-09-17 00:00:00 63 [in_i] [facility] BMI (Body Mass 2019-09-17 00:00:00 30 kg/m2 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 BP Systolic 2019-09-17 00:00:00 112 mm[Hg] [facility] Body Weight 2019-09-17 00:00:00 169.4 [lb_av] [facility] BP Diastolic 2019-08-27 00:00:00 71 mm[Hg] [facility] Height 2019-08-27 00:00:00 63 [in_i] [facility] BMI (Body Mass 2019-08-27 00:00:00 29.4 kg/m2 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 BP Systolic 2019-08-27 00:00:00 114 mm[Hg] [facility] Body Weight 2019-08-27 00:00:00 166 [lb_av] [facility] BP Diastolic 2019-07-26 00:00:00 63 mm[Hg] [facility] Height 2019-07-26 00:00:00 63 [in_i] [facility] BMI (Body Mass 2019-07-26 00:00:00 29.1 kg/m2 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 BP Systolic 2019-07-26 00:00:00 102 mm[Hg] [facility] Body Weight 2019-07-26 00:00:00 164 [lb_av] [facility] BP Diastolic 2019-07-18 00:00:00 63 mm[Hg] [facility] Height 2019-07-18 00:00:00 63 [in_i] [facility] BMI (Body Mass 2019-07-18 00:00:00 29.1 kg/m2 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 BP Systolic 2019-07-18 00:00:00 102 mm[Hg] [facility] Body Weight 2019-07-18 00:00:00 164.3 [lb_av] [facility] BP Diastolic 2019-07-02 00:00:00 70 mm[Hg] [facility] Height 2019-07-02 00:00:00 63 [in_i] [facility] BMI (Body Mass 2019-07-02 00:00:00 28.6 kg/m2 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 BP Systolic 2019-07-02 00:00:00 117 mm[Hg] [facility] Body Weight 2019-07-02 00:00:00 161.2 [lb_av] [facility] BP Diastolic 2019-06-04 00:00:00 60 mm[Hg] [facility] Height 2019-06-04 00:00:00 63 [in_i] [facility] BMI (Body Mass 2019-06-04 00:00:00 28.1 kg/m2 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 BP Systolic 2019-06-04 00:00:00 107 mm[Hg] [facility] Body Weight 2019-06-04 00:00:00 158.8 [lb_av] [facility] BP Diastolic 2019-05-02 00:00:00 58 mm[Hg] [facility] Height 2019-05-02 00:00:00 63 [in_i] [facility] BMI (Body Mass 2019-05-02 00:00:00 27.9 kg/m2 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 BP Systolic 2019-05-02 00:00:00 107 mm[Hg] [facility] Body Weight 2019-05-02 00:00:00 157.3 [lb_av] [facility] BP Diastolic 2019-04-17 00:00:00 67 mm[Hg] [facility] Height 2019-04-17 00:00:00 63 [in_i] [facility] BMI (Body Mass 2019-04-17 00:00:00 28.4 kg/m2 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 BP Systolic 2019-04-17 00:00:00 111 mm[Hg] [facility] Body Weight 2019-04-17 00:00:00 160.2 [lb_av] [facility] Systolic blood 2019-04-09 16:28:00 111 mm[Hg] Univer sity of pressure [facility] Diastolic blood 2019-04-09 16:28:00 65 mm[Hg] Unive rsity of pressure [place] [facility] Heart rate 2019-04-09 16:28:00 92 /min [facility] [place] [facility] Body temperature 2019-04-09 16:28:00 36.39 Jacki [facility] [place] [facility] Respiratory rate 2019-04-09 16:28:00 16 /min [facility] [place] [facility] Body height 2019-04-09 16:28:00 160 cm [facility] [place] [facility] Body weight 2019-04-09 16:28:00 72.15 kg [facility] [place] [facility] BMI 2019-04-09 16:28:00 28.18 kg/m2 [facility] [place] [facility] Systolic blood 2019-04-09 16:28:00 111 mm[Hg] Univer sity of pressure [place] [facility] Diastolic blood 2019-04-09 16:28:00 65 mm[Hg] Unive rsity of pressure [place] [facility] Heart rate 2019-04-09 16:28:00 92 /min [facility] [place] [facility] Body temperature 2019-04-09 16:28:00 36.39 Jacki [facility] [place] [facility] Respiratory rate 2019-04-09 16:28:00 16 /min [facility] [place] [facility] Body height 2019-04-09 16:28:00 160 cm [facility] [place] [facility] Body weight 2019-04-09 16:28:00 72.15 kg [facility] [place] [facility] BMI 2019-04-09 16:28:00 28.18 kg/m2 [facility] [place] [facility] Systolic blood 2019-03-29 19:36:00 113 mm[Hg] Univer sity of pressure [place] [facility] Diastolic blood 2019-03-29 19:36:00 72 mm[Hg] Unive rsity of pressure [place] [facility] Heart rate 2019-03-29 19:36:00 82 /min [facility] [place] [facility] Body temperature 2019-03-29 19:36:00 36.11 Jacki [facility] [place] [facility] Respiratory rate 2019-03-29 19:36:00 16 /min [facility] [place] [facility] Body height 2019-03-29 19:36:00 160 cm [facility] [place] [facility] Body weight 2019-03-29 19:36:00 72.632 kg [facility] [place] [facility] BMI 2019-03-29 19:36:00 28.36 kg/m2 [facility] [place] [facility] Systolic blood 2019-03-29 19:36:00 113 mm[Hg] Univer sity of pressure [place] [facility] Diastolic blood 2019-03-29 19:36:00 72 mm[Hg] Unive rsity of pressure [place] [facility] Heart rate 2019-03-29 19:36:00 82 /min [facility] [place] [facility] Body temperature 2019-03-29 19:36:00 36.11 Jacki [facility] [place] [facility] Respiratory rate 2019-03-29 19:36:00 16 /min [facility] [place] [facility] Body height 2019-03-29 19:36:00 160 cm [facility] [place] [facility] Body weight 2019-03-29 19:36:00 72.632 kg [facility] [place] [facility] BMI 2019-03-29 19:36:00 28.36 kg/m2 [facility] [place] [facility] Heart rate 2019-03-21 16:56:00 59 /min [facility] [place] [facility] Body temperature 2019-03-21 16:56:00 36.39 Jacki [facility] [place] [facility] Respiratory rate 2019-03-21 16:56:00 16 /min [facility] [place] [facility] Body height 2019-03-21 16:56:00 160 cm [facility] [place] [facility] Body weight 2019-03-21 16:56:00 73.029 kg [facility] [place] [facility] BMI 2019-03-21 16:56:00 28.52 kg/m2 [facility] [place] [facility] Systolic blood 2019-03-21 16:56:00 112 mm[Hg] Univer sity of pressure [place] [facility] Diastolic blood 2019-03-21 16:56:00 62 mm[Hg] Unive rsity of pressure [place] [facility] Heart rate 2019-03-21 16:56:00 59 /min [facility] [place] [facility] Body temperature 2019-03-21 16:56:00 36.39 Jacki [facility] [place] [facility] Respiratory rate 2019-03-21 16:56:00 16 /min [facility] [place] [facility] Body height 2019-03-21 16:56:00 160 cm [facility] [place] [facility] Body weight 2019-03-21 16:56:00 73.029 kg [facility] [place] [facility] BMI 2019-03-21 16:56:00 28.52 kg/m2 [facility] [place] [facility] Systolic blood 2019-03-21 16:56:00 112 mm[Hg] Univer sity of pressure [place] [facility] Diastolic blood 2019-03-21 16:56:00 62 mm[Hg] Unive rsity of pressure [place] [facility] Systolic blood 2019-03-12 16:59:00 123 mm[Hg] Univer sity of pressure [place] [facility] Diastolic blood 2019-03-12 16:59:00 71 mm[Hg] Unive rsity of pressure [place] [facility] Heart rate 2019-03-12 16:59:00 76 /min [facility] [place] [facility] Body temperature 2019-03-12 16:59:00 36.28 Jacki [facility] [place] [facility] Respiratory rate 2019-03-12 16:59:00 16 /min [facility] [place] [facility] Body height 2019-03-12 16:59:00 160 cm [facility] [place] [facility] Body weight 2019-03-12 16:59:00 73.738 kg [facility] [place] [facility] BMI 2019-03-12 16:59:00 28.80 kg/m2 [facility] [place] [facility] Systolic blood 2019-03-12 16:59:00 123 mm[Hg] Univer sity of pressure [place] [facility] Diastolic blood 2019-03-12 16:59:00 71 mm[Hg] Unive rsity of pressure [place] [facility] Heart rate 2019-03-12 16:59:00 76 /min [facility] [place] [facility] Body temperature 2019-03-12 16:59:00 36.28 Jacki [facility] [place] [facility] Respiratory rate 2019-03-12 16:59:00 16 /min [facility] [place] [facility] Body height 2019-03-12 16:59:00 160 cm [facility] [place] [facility] Body weight 2019-03-12 16:59:00 73.738 kg [facility] [place] [facility] BMI 2019-03-12 16:59:00 28.80 kg/m2 [facility] [place] [facility] Systolic blood 2019-03-06 15:53:00 127 mm[Hg] Univer sity of pressure [place] [facility] Diastolic blood 2019-03-06 15:53:00 80 mm[Hg] Unive rsity of pressure [place] [facility] Heart rate 2019-03-06 15:53:00 79 /min [facility] Body temperature 2019-03-06 15:53:00 36.22 Jacki [facility] Respiratory rate 2019-03-06 15:53:00 16 /min [facility] Body height 2019-03-06 15:53:00 170.2 cm [facility] Body weight 2019-03-06 15:53:00 72.576 kg [facility] BMI 2019-03-06 15:53:00 25.06 kg/m2 [facility] Height 2018-10-26 00:00:00 63 [in_i] [facility] BMI (Body Mass 2018-10-26 00:00:00 27.6 kg/m2 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 Body Weight 2018-10-26 00:00:00 156 [lb_av] [facility] BP Diastolic 2018-07-26 00:00:00 73 mm[Hg] [facility] Height 2018-07-26 00:00:00 63 [in_i] [facility] BMI (Body Mass 2018-07-26 00:00:00 26.6 kg/m2 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 BP Systolic 2018-07-26 00:00:00 121 mm[Hg] [facility] Body Weight 2018-07-26 00:00:00 150.2 [lb_av] [facility] BP Diastolic 2018-04-26 00:00:00 69 mm[Hg] [facility] Height 2018-04-26 00:00:00 63 [in_i] [facility] BMI (Body Mass 2018-04-26 00:00:00 25.7 kg/m2 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 BP Systolic 2018-04-26 00:00:00 97 mm[Hg] [facility] Body Weight 2018-04-26 00:00:00 145 [lb_av] [facility] BP Diastolic 2018-04-02 00:00:00 85 mm[Hg] [facility] Height 2018-04-02 00:00:00 63 [in_i] [facility] BMI (Body Mass 2018-04-02 00:00:00 29.5 kg/m2 [facility] BP Systolic 2018-04-02 00:00:00 145 mm[Hg] [facility] Body Weight 2018-04-02 00:00:00 166.5 [lb_av] [facility] BP Diastolic 2018-03-29 00:00:00 79 mm[Hg] [facility] Height 2018-03-29 00:00:00 63 [in_i] [facility] BMI (Body Mass 2018-03-29 00:00:00 29[facility]6 [facility] BP Systolic 2018-03-29 00:00:00 118 mm[Hg] [facility] Body Weight 2018-03-29 00:00:00 166.9 [lb_av] [facility] BP Diastolic 2018-03-09 00:00:00 75 mm[Hg] [facility] Height 2018-03-09 00:00:00 63 [in_i] [facility] BMI (Body Mass 2018-03-09 00:00:00 28 [facility] BP Systolic 2018-03-09 00:00:00 120 mm[Hg] [facility] Body Weight 2018-03-09 00:00:00 158 [lb_av] [facility] BP Diastolic 2018-02-28 00:00:00 72 mm[Hg] [facility] Height 2018-02-28 00:00:00 63 [in_i] [facility] BMI (Body Mass 2018-02-28 00:00:00 27.6 [facility] BP Systolic 2018-02-28 00:00:00 115 mm[Hg] [facility] Body Weight 2018-02-28 00:00:00 156 [lb_av] [facility] BP Diastolic 2018-02-23 00:00:00 69 mm[Hg] [facility] Height 2018-02-23 00:00:00 63 [in_i] [facility] BMI (Body Mass 2018-02-23 00:00:00 27.5 kg/m2 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 BP Systolic 2018-02-23 00:00:00 107 mm[facility] Weight 2018-02-23 00:00:00 155 [lb_av] [facility] Procedures Procedure Date / Time Performing Clinician Source Performed unlisted imaging order 2019-12-27 00:00:00 [facility] Bilateral Tubal Ligation 2019-12-18 00:00:00 [facility] non-stress test 2019-10-31 00:00:00 [facility] US, obstetric, limited 2019-10-14 00[facility]00 [facility] 2019-10-14 00:00:00 [facility] non-stress test 2019-10-09 00:00:00 [facility] US, obstetric, limited 2019-09-17 00:00:00 [facility] ULTRASOUND REPEAT 2019-08-27 00:00:00 [facility] US, obstetric, limited 2019-07-26 00:00:00 [facility] ULTRASOUND, 2019-06-27 00:00:00 [facility] UTERUS REAL TIME WITH Group IMAGE DOC, AND MATERNAL EVAL PLUS DETAILED ANATOMIC EXAMINATION, TRANSABDOMINAL APPROACH; SINGLE OR FIRST GESTATION US, obstetric, limited 2019-06-04 00:00:00 [facility] ULTRASOUND, 2019-05-30 00:00:00 [facility] UTERUS REAL TIME WITH Group IMAGE DOC, AND MATERNAL EVAL PLUS DETAILED ANATOMIC EXAMINATION, TRANSABDOMINAL APPROACH; SINGLE OR FIRST GESTATION US, obstetric, limited 2019-05-02 00:00:00 [facility] AUTHORIZATION FOR RELEASE 2019-04-17 06:01:00 Doctor Unassigned, [facility] [place] [facility] US, obstetric, limited 2019-04-17 00:00:00 [facility] POCT RAPID FLU A AND B 2019-04-09 17:08:00 Melyssa Mccarty [facility] POCT URINALYSIS 2019-04-09 16:42:00 Melyssa Mccarty [facility] POCT URINALYSIS 2019-03-29 19:40:00 Melyssa Mccarty [facility] US OB TRANSVAGINAL 2019-03-21 19:44:41 Vani Sullivan [facility] POCT URINALYSIS 2019-03-12 17:18:00 Melyssa Mccarty [facility] POCT URINALYSIS W/O 2019-03-06 16:01:00 [facility] SPECIFIC GRAVITY [facility] POCT TEST 2019-03-06 15:58:00 Gabby Florian [facility] ASSIGNMENT OF BENEFITS 2019-03-06 15:11:41 Doctor [facility]assigned, [facility] [place] [facility] non-stress test 2018-04-02 00:00:00 [facility] US, obstetric, limited 2018-03-29 00:00:00 [facility] non-stress test 2018-02-28 00:00:00 [facility] US, obstetric, limited 2018-02-23 00:00:00 [facility] ULTRASOUND REPEAT 2018-01-26 00:00:00 [facility] Plan of Care Planned Activity Planned Date Details Comments Source Diagnostic Test 2020-05-11 urinalysis, [facility] 00:00:00 dipstick [code = Group urinalysis, dipstick] Diagnostic Test 2020-05-11 wet [place], vaginal [facility] 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 Medical Pending 00:00:00 [code = [place], Group vaginal] Encounters Start End Encounter Admission Attending Care Care Encounter Source Date/Time Date/Time Type Type Clinicians Facility Department ID 2020-06-10 2020-06-10 Outpatient [facility] [id number] [facility] 03:45:00 03:45:00 0623 [facility] 2020-05-11 2020-05-11 Outpatient G_Pappas [facility] MMG [id number] [place] 11:32:00 11:32:00 0322 [facility] 2020-05-11 2020-05-11 Outpatient G_Pappas MMG MMG [id number] [place] 11:32:00 11:32:00 0323 [facility] 2020-05-11 2020-05-11 Kartik MMG [place] - [id number] [place] [facility] 00:00:00 00:00:00 Discovery tavia Samuels MD: 600 [facility] [address], [place] [address] , Ph. [phone] 2020-05-05 2020-05-05 Outpatient G_Pappas MMG MMG [id number] [place] 01:33:00 01:33:00 0318 [facility] 2020-03-23 2020-03-23 Outpatient G_Pappas MMG MMG [id number] [place] 01:05:00 01:05:00 0201 [facility] 2020-02-17 2020-02-17 Outpatient G_Pappas MMG MMG [id number] [place] 01:05:00 01:05:00 1228 [facility] 2020-01-13 2020-01-13 Outpatient G_Pappas MMG MMG [id number] [place] 01:06:00 01:06:00 1123 [facility] 2020-01-08 2020-01-08 Outpatient G_Pappas MMG MMG [id number] [place] 02:30:00 02:30:00 1118 [facility] 2019-12-27 2019-12-27 Outpatient G_Pappas MMG MMG [id number] [place] 03:21:00 03:21:00 1106 [facility] 2019-12-27 2019-12-27 Outpatient G_Pappas MMG MMG [id number] [place] 03:21:00 03:21:00 1109 [facility] 2019-12-27 2019-12-27 Kartik MM [place] - [id number] [facility] 00:00:00 00:00:00 Discovery tavia Samuels MD: 600 [facility] [address], [place] [address] , Ph. [phone] 2019-12-18 2019-12-18 Outpatient G_Pappas MMG MMG [id number] [place] 10:30:00 10:30:00 1105 [facility] 2019-12-13 2019-12-13 Outpatient G_Pappas MMG MMG [id number] [place] 10:26:00 10:26:00 1023 [facility] 2019-12-13 2019-12-13 Outpatient G_Pappas MMG MMG [id number] [place] 10:26:00 10:26:00 1024 [facility] 2019-12-13 2019-12-13 Kartik [facility] [place] - [id number] M [facility] 00:00:00 00:00:00 Discovery tavia Samuels MD: [address] [place] [address] , Ph. [phone] 2019-12-06 2019-12-06 Outpatient G_Pappas MMG MMG [id number] [place] 05:58:00 05:58:00 1022 Medical Group 2019-11-28 2019-11-28 Outpatient G_Pappas MMG MMG [id number] [place] 02:49:00 02:49:00 1008 [facility] 2019-11-28 2019-11-28 Outpatient G_Pappas MMG MMG [id number] [place] 02:49:00 02:49:00 1012 Medical Group 2019-11-28 2019-11-28 Kartik [facility] [place] - [id number] M [facility] 00:00:00 00:00:00 Discovery tavia Samuels MD: [address] [place] [address] , Ph. [phone] 2019-11-01 2019-11-01 Outpatient G_Pappas MMG MMG [id number] [place] 09:08:00 09:08:00 0924 [facility] 2019-11-01 2019-11-01 Outpatient G_Pappas MMG MMG [id number] [place] 09:08:00 09:08:00 1007 [facility] 2019-10-31 2019-10-31 Outpatient G_Pappas MMG MMG [id number] [place] 11:52:00 11:52:00 0910 [facility] 2019-10-31 2019-10-31 Kartik [place]WKINSG [place] - [id number] [facility] 00:00:00 00:00:00 Discovery tavia Samuels MD: [address] [place] [address] , Ph. [phone] 2019-10-24 2019-10-24 Outpatient G_Pappas MMG MMG [id number] [place] 08:18:00 08:18:00 0903 da [facility] 2019-10-24 2019-10-24 Kartik [place]WKINSG [place] - [id number] M [facility] 00:00:00 00:00:00 Discovery tavia Samuels MD: [address] [place] [address] , Ph. [phone] 2019-10-14 2019-10-14 Outpatient G_Pappas MMG MMG [id number] [place] 08:40:00 08:40:00 0824 [facility] 2019-10-14 2019-10-14 Kartik [place]WKINS[place] - [id number] M [facility] 00:00:00 00:00:00 Discovery tavia Samuels MD: [address] [place] [address] , Ph. [phone] 2019-10-09 2019-10-09 Outpatient G_Pappas MMG MMG [id number] [place] 07:34:00 07:34:00 0819 [facility] 2019-10-09 2019-10-09 Jena Loaiza MM [place] - [id number] [place] 00:00:00 00:00:00 Discovery tavia Adair NP: [address] [place] [address] , Ph. [phone] 2019-10-06 2019-10-06 Outpatient G_Pappas MMG MMG [id number] [place] 09:39:00 09:39:00 0816 [facility] 2019-10-04 2019-10-04 Outpatient G_Pappas MMG MMG [id number] [place] 03:37:00 03:37:00 0814 [facility] 2019-10-04 2019-10-04 Kartik [place] - [id number] M [facility] 00:00:00 00:00:00 Discovery tavia Samuels MD: [address] [place] [address] , Ph. [phone] 2019-09-17 2019-09-17 Outpatient G_Pappas MMG MMG [id number] [place] 08:39:00 08:39:00 0728 da [facility] 2019-09-17 2019-09-17 Outpatient G_Pappas MMG MMG [id number] [place] 08:39:00 08:39:00 0813 [facility] 2019-09-17 2019-09-17 Kartik [place] - [id number] M [facility] 00:00:00 00:00:00 Discovery tavia Samuels MD: [address] [place] [address] , Ph. [phone] 2019-08-27 2019-08-27 Outpatient G_Pappas MMG MMG [id number] [place] 07:51:00 07:51:00 0707 [facility] 2019-08-27 2019-08-27 Kartik [place] - [id number] M [facility] 00:00:00 00:00:00 Discovery tavia Samuels MD: [address] [place] [address] , Ph. [phone] 2019-08-15 2019-08-15 Outpatient G_Pappas MMG MMG [id number] [place] 06:16:00 06:16:00 0706 Medical Group 2019-07-29 2019-07-29 Outpatient G_Pappas MMG MMG [id number] [place] 12:56:00 12:56:00 0608 [facility] 2019-07-26 2019-07-26 Outpatient G_Pappas MMG MMG [id number] [place] 03:50:00 03:50:00 06 da [facility] 2019-07-26 2019-07-26 Kartik [place] - [id number] M [facility] 00:00:00 00:00:00 Discovery tavia Samuels MD: [address] [place] [address] , Ph. [phone] 2019-07-18 2019-07-18 Outpatient G_Pappas MMG MMG [id number] [place] 10:22:00 10:22:00 0528 [facility] 2019-07-18 2019-07-18 Outpatient G_Pappas MMG MMG [id number] [place] 10:22:00 10:22:00 0604 [facility] 2019-07-18 2019-07-18 Kartik [place] - [id number] M [facility] 00:00:00 00:00:00 Discovery tavia Samuels MD: [address] [place] [address] , Ph. [phone] 2019-07-02 2019-07-02 Outpatient G_[facility]app[facility] MMG MMG [id number] [place] 07:27:00 07:27:00 0512 Medical Group 2019-07-02 2019-07-02 Kartik [place] - [id number] M [facility] 00:00:00 00:00:00 Discovery tavia Samuels MD: [address] [place] [address] , Ph. [phone] 2019-06-04 2019-06-04 Outpatient G_Pappas MMG MMG [id number] [place] 11:25:00 11:25:00 0414 [facility] 2019-06-04 2019-06-04 Outpatient G_Pappas MMG MMG [id number] [place] 11:25:00 11:25:00 0507 [facility] 2019-06-04 2019-06-04 Outpatient G_Pappas MMG MMG [id number] [place] 11:25:00 11:25:00 0511 [facility] 2019-06-04 2019-06-04 Kartik [facility] [place] - [id number] M [facility] 00:00:00 00:00:00 Discovery tavia Samuels MD: 600 [facility] [address], [place] [address] , Ph. [phone] 2019-05-31 2019-05-31 Outpatient G_Pappas MMG [facility] [id number] [place] 11:44:00 11:44:00 0410 [facility] 2019-05-30 2019-05-30 Kartik HAWKINS [place] - [id number] M [facility] 00:00:00 00:00:00 Discovery tavia Samuels MD: 600 [facility] [address], [place] [address] , Ph. [phone] 2019-05-28 2019-05-28 Outpatient G_Pappas MMG [facility] [id number] [place] 09:09:00 09:09:00 0409 [facility] 2019-05-07 2019-05-07 Outpatient R AKINSIPE, [facility] [id number] [id number]-20 Univers 16:00:00 16:00:00 MELYSSA [id number] ity o f [facility] 2019-05-07 2019-05-07 Telephone [facility] 1.2.840.[id number] [facility] 00:00:00 00:00:00 Melyssa Dailey SALES SERVICE EXECUTIVE 350.1.13.10 ity [facility] 4.2.7.2.686 [place] as MATERNAL [id number] Med ical & CHILD [address] [place] [address] 2019-05-07 2019-05-07 Telephone [facility] 1.2.840.114 [id number] 00:00:00 00:00:00 Melyssa Dailey SALES SERVICE EXECUTIVE 350.1.13.10 REGIONAL 4.2.7.2.686 MATERNAL [id number] & CHILD [address] [place] [address] 2019-05-05 2019-05-05 Outpatient G_Pappas MMG MM [id number] [place] 01:01:00 01:01:00 0315 [facility] 2019-05-02 2019-05-02 Outpatient G_Pappas MMG MM [id number] [place] 04:27:00 04:27:00 311 Medical Group 2019-05-02 2019-05-02 Jena Loaiza [facility] [place] - [id number] [place] 00:00:00 00:00:00 Discovery Giovany [facility]: [address] [place] [address] , Ph. [phone] 2019-04-30 2019-04-30 Outpatient P ARTEMIO, [facility] [id number] Univers 11:00:00 11:00:00 OSCAR yanez [facility] 2019-04-19 2019-04-19 Outpatient G_Pappas MMG MM [id number] [place] 10:48:00 10:48:00 0228 Medical [facility] 2019-04-19 2019-04-19 Outpatient G_Pappas MMG MM [id number] [place] 10:48:00 10:48:00 031 [facility] 2019-04-17 2019-04-17 Outpatient G_Pappas MMG MMG [id number] [place] 12:05:00 12:05:00 022 [facility] 2019-04-17 2019-04-17 Orders Doctor GWEN Smallwood2.840.114 [id number] Univers 00:00:00 00:00:00 Only Unassigned, DAVON 350.1.13.10 ity of [place] [facility] 4.2.7.2.686 [place] as [id number] [address] 2019-04-17 2019-04-17 Jena Loaiza [facility] [place] - [id number] [place] 00:00:00 00:00:00 Discovery tavia Adair [facility]: [address] [place] [address] , Ph. [phone] 2019-04-17 2019-04-17 Orders Doctor GWEN Small[place]2.840.114 [id number] 00:00:00 00:00:00 Only Unassigned, DAVON 350.1.13.10 [place] [facility] 4.2.7.2.686 [id number] 2019-04-11 2019-04-11 Outpatient G_Pappas MMG MM [id number] [place] 10:46:00 10:46:00 0220 Medical Group 2019-04-11 2019-04-11 Outpatient G_Pappas MMG MMG [id number] [place] 10:46:00 10:46:00 0225 Medical Group 2019-04-10 2019-04-10 Outpatient G_Pappas MMG MM [id number] [place] 11:46:00 11:46:00 0219 [facility] 2019-04-09 2019-04-09 Routine Akinsipe, [facility] 1.2.454.679 [id number] Univers 10:20:53 11:14:02 Melyssa C SALES SERVICE EXECUTIVE 350.1.13.10 ity of Visit REGIONAL 4.2.7.2.686 [place] as MATERNAL [id number] Med ical & CHILD [address] [place] [address] 2019-04-09 2019-04-09 Routine Akinsipe, [facility] 1.2.249.323 [id number] 10:20:53 11:14:02 Melyssa C SALES SERVICE EXECUTIVE 350.1.13.10 Visit REGIONAL 4.2.7.2.686 MATERNAL [id number] & CHILD [address] [place] [address] 2019-04-09 2019-04-09 Telephone Biggpe, [facility] 1.2.840.114 [id number] Univers 00:00:00 00:00:00 Melyssa C SALES SERVICE EXECUTIVE 350.1.13.10 ity of REGIONAL 4.2.7.2.686 [place] as MATERNAL [id number] Med ical & CHILD [address] [place] [address] 2019-04-09 2019-04-09 Telephone Akinsipe, [facility] 1.2.840.114 [id number] 00:00:00 00:00:00 Melyssa C SALES SERVICE EXECUTIVE 350.1.13.10 REGIONAL 4.2.7.2.686 MATERNAL [id number] & CHILD [address] [place] [address] 2019-04-02 2019-04-02 Abstract Akinpe, [facility] 1.2.840.114 [id number] 00:00:00 00:00:00 Melyssa C SALES SERVICE EXECUTIVE 350.1.13.10 REGIONAL 4.2.7.2.686 MATERNAL [id number] & CHILD [address] [place] [address] 2019-04-02 2019-04-02 Abstract Akinsipe, [facility] 1.2.840.[id number] [facility] 00:00:00 00:00:00 Melyssa C SALES SERVICE EXECUTIVE 350.1.13.10 ity of REGIONAL 4.2.7.2.686 [place] as MATERNAL [id number] Med ical & CHILD [address] [place] [address] 2019-03-29 2019-03-29 Routine Akinsipe, [facility] 1.2.823.811 [id number] 13:15:49 13:58:15 Melyssa C SALES SERVICE EXECUTIVE 350.1.13.10 Visit REGIONAL 4.2.7.2.686 MATERNAL [id number] & CHILD [address] [place] [address] 2019-03-29 2019-03-29 Routine Akinsipe, [facility] 1.2.565.[id number] [facility] 13:15:49 13:58:15 Melyssa C SALES SERVICE EXECUTIVE 350.1.13.10 ity of Visit REGIONAL 4.2.7.2.686 [place] as MATERNAL [id number] Med ical & CHILD [address] [place] [address] 2019-03-25 2019-03-25 Patient Akinsipe, [facility] 1.2.512.603 [id number] 00:00:00 00:00:00 Secure Msg Melyssa C SALES SERVICE EXECUTIVE 350.1.13.10 REGIONAL 4.2.7.2.686 MATERNAL [id number] & CHILD [address] [place] [address] 2019-03-25 2019-03-25 Patient Akinsipe, [facility] 1.2.767.[id number] [facility] 00:00:00 00:00:00 Secure Msg Melyssa C SALES SERVICE EXECUTIVE 350.1.13.10 ity of REGIONAL 4.2.7.2.686 [place] as MATERNAL [id number] Med ical & CHILD [address] [place] [address] 2019-03-23 2019-03-23 Patient Doctor HIDALGO 1.2.840.114 [id number] Univers 00:00:00 00:00:00 Secure Msg Unassigned, DAVON 350.1.13.10 ity of [place] [facility] 4.2.7.2.686 [place] as [id number] [facility] [address] [place] 2019-03-23 2019-03-23 Patient Doctor GWEN 1.2.840.114 [id number] 00:00:00 00:00:00 Secure Msg Unassigned, DAVON 350.1.13.10 [place] [facility] 4.2.7.2.[id number] [facility] 2019-03-22 2019-03-22 Outpatient G_Pappas MMG MMG [id number] [place] 03:31:00 03:31:00 0131 Medical Group 2019-03-21 2019-03-21 Routine Trimester, [facility] Res-1st UN[facility]ERSIT 1.2.840.114 [id number] Univers 10:37:46 12:13:44 Cain Pereyra HEALTH 350.1.13.1 0 ity of Visit CLINICS 4.2.7.2.[place] [id number] [facility] 113 [place] 2019-03-21 2019-03-21 Routine Trimester, [facility] 1.2.840.114 [id number] 10:37:46 12:13:44 [facility] HEALTH 350.1.13.10 Visit Res-1st CLINICS 4.2.7.2.686 [id number] [facility] 2019-03-14 2019-03-14 Printing Plate Setter Lab, [facility] 1.2.840. [id number] [facility] 08:59:20 09:14:20 Visit Melyssa Mccarty SALES SERVICE EXECUTIVE 350.1.13. 10 ity of REGIONAL 4.2.7.2.686 [place] as MATERNAL [id number] Med ical & CHILD 107 [facility] 2019-03-14 2019-03-14 Printing Plate Setter Lab, [facility] 1.2.840.114 [id number] 08:59:20 09:14:20 Visit [facility] SALES SERVICE EXECUTIVE 350.1.13.10 REGIONAL 4.2.7.2.686 MATERNAL [id number] & CHILD 107 [facility] 2019-03-12 2019-03-12 Routine Akinsipe, [facility] 1.2.350.538 [id number] Univers 10:45:27 11:26:38 Melyssa C SALES SERVICE EXECUTIVE 350.1.13.10 ity of Visit REGIONAL 4.2.7.2.686 [place] as MATERNAL [id number] [facility] ical & CHILD [address] [place] [address] 2019-03-12 2019-03-12 Routine Akinsipe, [facility] 1.2.794.806 [id number] 10:45:27 11:26:38 Melyssa C SALES SERVICE EXECUTIVE 350.1.13.10 Visit REGIONAL 4.2.7.2.686 MATERNAL [id number] & CHILD [address] [place] [address] 2019-03-12 2019-03-12 Telephone Akinsipe, [facility] 1.2.840.114 [id number] Univers 00:00:00 00:00:00 Melyssa C SALES SERVICE EXECUTIVE 350.1.13.10 ity of REGIONAL 4.2.7.2.686 [place] as MATERNAL [id number] Med ical & CHILD [address] [place] [address] 2019-03-08 2019-03-08 Patient Akinsipe, [facility] 1.2.247.227 [id number] Univers 00:00:00 00:00:00 Secure Msg Melyssa C SALES SERVICE EXECUTIVE 350.1.13.10 ity of REGIONAL 4.2.7.2.686 [place] as MATERNAL [id number] [facility] ical & CHILD [address] [place] [address] 2019-03-08 2019-03-08 Patient Akinsipe, [facility] 1.2.773.844 [id number] 00:00:00 00:00:00 Secure Msg Melyssa C SALES SERVICE EXECUTIVE 350.1.13.10 REGIONAL 4.2.7.2.686 MATERNAL [id number] & CHILD [address] [place] [address] 2019-03-07 2019-03-07 Telephone Akinsipe, [facility] 1.2.840.114 [id number] Univers 00:00:00 00:00:00 Melyssa C SALES SERVICE EXECUTIVE 350.1.13.10 ity of REGIONAL 4.2.7.2.686 [place] as MATERNAL [id number] Med ical & CHILD [address] [place] [address] 2019-03-06 2019-03-06 Initial Akinsipe, [facility] 1.2.878.049 [id number] Univers 09:42:06 11:08:11 Melyssa C SALES SERVICE EXECUTIVE 350.1.13.10 ity of Visit [facility] 4.2.7.2.686 [place] as MATERNAL [id number] [facility] ical & CHILD [address] [place] [address] 2019-03-06 2019-03-06 Orders Doctor GWEN 1.2.840.114 [id number] Univers 00:00:00 00:00:00 Only Unassigned, DAVON 350.1.13.10 ity of [place] [facility] 4.2.7.2.686 [place] as [id number] [address] 2018-11-10 2018-11-10 Outpatient G_Pappas [facility] [id number] [place] 11:17:00 11:17:00 0114 [facility] 2018-11-10 2018-11-10 Outpatient G_Pappas [facility] [id number] [place] 11:17:00 11:17:00 0121 [facility] 2018-10-26 2018-10-26 Liz [facility] [place] - [id number] M atagor 00:00:00 00:00:00 Maximilian Malave [facility]ally MD: [address] [place], [place] [address] , Ph. [phone] 2018-07-26 2018-07-26 Jena Loaiza [facility] [place] - [id number] [place] 00:00:00 00:00:00 Discovery Shanita Adair: 600 Medical Medica l [address] [address] , Ph. [phone] 2018-04-26 2018-04-26 Jena Loaiza MM [place] - [id number] [place] 00:00:00 00:00:00 Discovery Shanita Adair: [facility] [address] [address] , Ph. [phone] 2018-04-02 2018-04-02 Kartik [place] - [id number] M at[place]or 00:00:00 00:00:00 Discovery tavia Samuels MD: [address] [place] [address] , Ph. [phone] 2018-03-29 2018-03-29 Jena [place] - [id number] [place] 00:00:00 00:00:00 Discovery tavia Adair WHNP: [address] [place] [address] , Ph. [phone] 2018-03-09 2018-03-09 Kartik [place] - [id number] M at[place]or 00:00:00 00:00:00 Discovery tavia Samuels MD: [address] [place] [address] , Ph. [phone] 2018-02-28 2018-02-28 Jena [place] - [id number] [place] 00:00:00 00:00:00 Discovery Bassam AdairNP: [address] [place] [address] , Ph. [phone] 2018-02-23 2018-02-23 Jena [place] - [id number] [place] 00:00:00 00:00:00 Discovery tavia Adair WHNP: [address] [place] [address] , Ph. [phone] 2018-01-26 2018-01-26 Kartik [place] - [id number] M at[place]or 00:00:00 00:00:00 Discovery tavia Samuels MD: [address] [place] [address] Arvind [address] , Ph. [phone] Results Test Description Test Time Test Comments [...] Blood (test code = Blood) Moderate Specific [place] (test code = Specific [place]) 1.020 Ketone (test code = Ketone) Negative Bilirubin (test code = Bilirubin) Negative Glucose (test code = Glucose) Negative Appearance (test code = Appearance) Clear Color (test code = Color) Yellow [facility] - [id number] 14:51:51 Test Item Value Reference Range Interpretation Comments Leukocytes (test code = Leukocytes) Negative Nitrite (test code = Nitrite) negative Urobilinogen (test code = .2 Urobilinogen) Protein (test code = Protein) Negative pH (test code = pH) 7.0 Blood (test code = Blood) Negative Specific [place] (test code = 1.020 Specific [place]) Ketone (test code = Ketone) Negative Bilirubin (test code = Bilirubin) Negative Glucose (test code = Glucose) Negative Appearance (test code = Appearance) Clear Color (test code = Color) Yellow [facility]dipstick[facility] - [id number] 10:06:00 Test Item Value Reference Range Interpretation Comments Leukocytes (test code = Leukocytes) Trace Nitrite (test code = Nitrite) negative Urobilinogen (test code = .2 Urobilinogen) Protein (test code = Protein) Negative pH (test code = pH) 7.0 Blood (test code = Blood) Negative Specific [place] (test code = 1.025 Specific [place]) Ketone (test code = Ketone) Negative Bilirubin (test code = Bilirubin) Negative Glucose (test code = Glucose) Negative Appearance (test code = Appearance) Clear Color (test code = Color) Yellow [place] [facility] macro (dipstick) panel - [id number] 10:06:00 Test Item Value Reference Range Interpretation Comments Leukocytes (test code = Leukocytes) Trace Nitrite (test code = Nitrite) negative Urobilinogen (test code = .2 Urobilinogen) Protein (test code = Protein) Negative pH (test code = pH) 7.0 Blood (test code = Blood) Negative Specific [place] (test code = 1.025 Specific [place]) Ketone (test code = Ketone) Negative Bilirubin (test code = Bilirubin) Negative Glucose (test code = Glucose) Negative Appearance (test code = Appearance) Clear Color (test code = Color) Yellow [facility], [id number] 09:33:09 Test Item Value Reference Range Interpretation Comments Test (test code = negative Test) [facility], [id number] 09:33:09 Test Item Value Reference Range Interpretation Comments Test (test code = negative Test) [facility] W Auto Differential panel - [id number] 08:59:00 Test Item Value Reference Range Interpretation Comments white blood count (test code = 6.0 K/uL 4.0-11.5 white blood count) red blood count (test code = red 5.01 M/uL 3.80-5.20 blood count) hemoglobin (test code = 13.5 g/dL 10.5-15.7 hemoglobin) hematocrit (test code = 43.1 % 34.0-50.0 hematocrit) MCV [Entitic volume] (test code = 86.0 fL 86-100 12252-1) mean corpuscular hemoglobin (test 26.9 pg 26.2-33.4 [...] 44.4-80.1 leukocytes in Blood (test code = 91388-8) Immature granulocytes [#/volume] 0.0 K/uL 0.0-0.03 in Blood (test code = 10907-5) lymphocyte% (test code = 43.9 % 10.0-50.0 lymphocyte%) mono % (test code = mono %) 4.2 % 3.6-12.0 eos % (test code = eos %) 1.8 % 0.0-5.4 Basophils/100 leukocytes in 0.7 % 0.1-1.2 Unspecified specimen (test code = 60679-1) Band form neutrophils [#/volume] 2.96 K/uL 1.56-6.13 in Blood (test code = 43623-0) Lymphocytes [#/volume] in 2.6 K/uL 1.18-3.74 Unspecified specimen by Automated count (test code = 87320-3) mono # (test code = mono #) 0.25 K/uL 0.24-0.86 eos # (test code = eos #) 0.11 K/uL 0.04-0.36 basophil # (test code = basophil 0.04 K/uL 0.01-0.08 #) NRBC% (test code = NRBC%) 0 /100 WBC 0-0.2 NRBC# (test code = NRBC#) 0 K/uL [facility] W Auto Differential panel - [id number] 08:59:00 Test Item Value Reference Range Interpretation Comments white blood count (test code = 6.0 K/uL 4.0-11.5 white blood count) red blood count (test code = red 5.01 M/uL 3.80-5.20 blood count) hemoglobin (test code = 13.5 g/dL 10.5-15.7 hemoglobin) hematocrit (test code = 43.1 % 34.0-50.0 hematocrit) MCV [Entitic volume] (test code = 86.0 fL 86-100 73805-6) mean corpuscular hemoglobin (test 26.9 pg 26.2-33.4 [...] 44.4-80.1 leukocytes in Blood (test code = 55000-0) Immature granulocytes [#/volume] 0.0 K/uL 0.0-0.03 in Blood (test code = 59965-5) lymphocyte% (test code = 43.9 % 10.0-50.0 lymphocyte%) mono % (test code = mono %) 4.2 % 3.6-12.0 eos % (test code = eos %) 1.8 % 0.0-5.4 Basophils/100 leukocytes in 0.7 % 0.1-1.2 Unspecified specimen (test code = 71719-3) Band form neutrophils [#/volume] 2.96 K/uL 1.56-6.13 in Blood (test code = 25654-7) Lymphocytes [#/volume] in 2.6 K/uL 1.18-3.74 Unspecified specimen by Automated count (test code = 59637-2) mono # (test code = mono #) 0.25 K/uL 0.24-0.86 eos # (test code = eos #) 0.11 K/uL 0.04-0.36 basophil # (test code = basophil 0.04 K/uL 0.01-0.08 #) NRBC% (test code = NRBC%) 0 /100 WBC 0-0.2 NRBC# (test code = NRBC#) 0 K/[facility] - [id number] 13:38:11 Test Item Value Reference Range Interpretation Comments Leukocytes (test code = Leukocytes) Small Nitrite (test code = Nitrite) negative Urobilinogen (test code = .2 Urobilinogen) Protein (test code = Protein) Negative pH (test code = pH) 7.0 Blood (test code = Blood) Moderate Specific [place] (test code = 1.020 Specific [place]) Ketone (test code = Ketone) Negative Bilirubin (test code = Bilirubin) Negative Glucose (test code = Glucose) Negative Appearance (test code = Appearance) Clear Color (test code = Color) Yellow [facility] - [id number] 13:38:11 Test Item Value Reference Range Interpretation Comments Leukocytes (test code = Leukocytes) Small Nitrite (test code = Nitrite) negative Urobilinogen (test code = .2 Urobilinogen) Protein (test code = Protein) Negative pH (test code = pH) 7.0 Blood (test code = Blood) Moderate Specific [place] (test code = 1.020 Specific [place]) Ketone (test code = Ketone) Negative Bilirubin (test code = Bilirubin) Negative Glucose (test code = Glucose) Negative Appearance (test code = Appearance) Clear Color (test code = Color) [facility] - [id number] 13:38:11 Test Item Value Reference Range Interpretation Comments Leukocytes (test code = Leukocytes) Small Nitrite (test code = Nitrite) negative Urobilinogen (test code = .2 Urobilinogen) Protein (test code = Protein) Negative pH (test code = pH) 7.0 Blood (test code = Blood) Moderate Specific [place] (test code = 1.020 Specific [place]) Ketone (test code = Ketone) Negative Bilirubin (test code = Bilirubin) Negative Glucose (test code = Glucose) Negative Appearance (test code = Appearance) Clear Color (test code = Color) [facility] - [id number] 08:05:00 Test Item Value Reference Range Interpretation Comments white blood count (test code = 10.1 K/uL 4.0-11.5 white blood count) red blood count (test code = red 3.40 M/uL 3.80-5.20 L blood count) hemoglobin (test code = 9.6 g/dL 10.5-15.7 L hemoglobin) hematocrit (test code = 29.8 % 34.0-50.0 L hematocrit) MCV [Entitic volume] (test code = 87.6 fL 86-100 89484-0) mean corpuscular hemoglobin (test 28.2 pg 26.2-33.4 [...] 44.4-80.1 leukocytes in Blood (test code = 59242-4) Immature granulocytes [#/volume] 0.1 K/uL 0.0-0.03 H in Blood (test code = 23193-9) lymphocyte% (test code = 27.2 % 10.0-50.0 lymphocyte%) mono % (test code = mono %) 5.2 % 3.6-12.0 eos % (test code = eos %) 0.7 % 0.0-5.4 Basophils/100 leukocytes in 0.5 % 0.1-1.2 Unspecified specimen (test code = 51138-8) Band form neutrophils [#/volume] 6.61 K/uL 1.56-6.13 H in Blood (test code = 08410-3) Lymphocytes [#/volume] in 2.7 K/uL 1.18-3.74 Unspecified specimen by Automated count (test code = 40764-3) mono # (test code = mono #) 0.52 K/uL 0.24-0.86 eos # (test code = eos #) 0.07 K/uL 0.04-0.36 basophil # (test code = basophil 0.05 K/uL 0.01-0.08 #) NRBC% (test code = NRBC%) 0 /100 WBC 0-0.2 NRBC# (test code = NRBC#) 0 K/uL [facility] W Auto Differential panel - [id number] 04:18:00 Test Item Value Reference Range Interpretation Comments white blood count (test code = 8.2 K/uL 4.0-11.5 white blood count) red blood count (test code = red 3.42 M/uL 3.80-5.20 L blood count) hemoglobin (test code = 9.6 g/dL 10.5-15.7 L hemoglobin) hematocrit (test code = 30.3 % 34.0-50.0 L hematocrit) MCV [Entitic volume] (test code = 88.6 fL 86-100 18553-2) mean corpuscular hemoglobin (test 28.1 pg 26.2-33.4 [...] 44.4-80.1 leukocytes in Blood (test code = 30429-7) Immature granulocytes [#/volume] 0.1 K/uL 0.0-0.03 H in Blood (test code = 47938-4) lymphocyte% (test code = 32.6 % 10.0-50.0 lymphocyte%) mono % (test code = mono %) 6.2 % 3.6-12.0 eos % (test code = eos %) 1.1 % 0.0-5.4 Basophils/100 leukocytes in 0.5 % 0.1-1.2 Unspecified specimen (test code = 06520-6) Band form neutrophils [#/volume] 4.81 K/uL 1.56-6.13 in Blood (test code = 37596-7) Lymphocytes [#/volume] in 2.7 K/uL 1.18-3.74 Unspecified specimen by Automated count (test code = 36928-8) mono # (test code = mono #) 0.51 K/uL 0.24-0.86 eos # (test code = eos #) 0.09 K/uL 0.04-0.36 basophil # (test code = basophil 0.04 K/uL 0.01-0.08 #) NRBC% (test code = NRBC%) 0 /100 WBC 0-0.2 NRBC# (test code = NRBC#) 0 K/uL [facility] - Blood 2019-11-07 04:18:00 Test Item Value Reference Range Interpretation Comments Rh [Type] in Blood (test code = 4+ 81345-8) ABO and Rh group panel - Blood A positive (test code = 96175-2) [facility] WesleyHepatitis B virus surface Ag [Presence] in Serum 2019-11-07 04:18:00 Test Item Value Reference Range Interpretation Comments .hepatitis B surface antigen (test negative negative code = .hepatitis B surface antigen) [facility] WesleyReagin Ab [Presence] in Serum by [id number] 04:18:00 Test Item Value Reference Range Interpretation Comments Reagin Ab [Presence] in Serum by nonreactive nonreactive RPR (test code = 41394-7) [facility]Ur[facility] macro (dipstick) panel - [id number] 08:55:00 Test Item Value Reference Range Interpretation Comments Leukocytes (test code = Large Leukocytes) Nitrite (test code = negative Nitrite) Urobilinogen (test code = .2 Urobilinogen) Protein (test code = Negative Protein) pH (test code = pH) 7.0 Blood (test code = Blood) Hemolyzed: Trace Specific [place] (test code 1.025 = Specific [place]) Ketone (test code = Ketone) Negative Bilirubin (test code = Negative Bilirubin) Glucose (test code = Negative Glucose) Appearance (test code = Clear Appearance) Color (test code = Color) Yellow [facility]Ur[facility] macro (dipstick) panel - [id number] 11:15:00 Test Item Value Reference Range Interpretation Comments Leukocytes (test code = Large Leukocytes) Nitrite (test code = negative Nitrite) Urobilinogen (test code = .2 Urobilinogen) Protein (test code = Negative Protein) pH (test code = pH) 7.0 Blood (test code = Blood) Non-Hemolyzed: Trace Specific [place] (test 1.020 code = Specific [place]) Ketone (test code = Negative Ketone) Bilirubin (test code = Negative Bilirubin) Glucose (test code = Negative Glucose) Appearance (test code = Clear Appearance) Color (test code = Color) Yellow [facility] macro (dipstick) panel - [id number] 11:15:00 Test Item Value Reference Range Interpretation Comments Leukocytes (test code = Large Leukocytes) Nitrite (test code = negative Nitrite) Urobilinogen (test code = .2 Urobilinogen) Protein (test code = Negative Protein) pH (test code = pH) 7.0 Blood (test code = Blood) Non-Hemolyzed: Trace Specific [place] (test 1.020 code = Specific [place]) Ketone (test code = Negative Ketone) Bilirubin (test code = Negative Bilirubin) Glucose (test code = Negative Glucose) Appearance (test code = Clear Appearance) Color (test code = Color) Yellow [facility]le[facility]on[facility] [id number] 18:40:53 Test Item Value Reference Range Interpretation Comments Reactive (test code = Reactive) Yes Contractions (test code = Contractions) No [facility]leynon[facility] [id number] 18:40:53 Test Item Value Reference Range Interpretation Comments Reactive (test code = Reactive) Yes Contractions (test code = Contractions) No [facility] [id number] 18:40:53 Test Item Value Reference Range Interpretation Comments Reactive (test code = Reactive) Yes Contractions (test code = Contractions) No [facility] WesleyUrinalysis complete panel - [id number] 05:54:00 Test Item Value Reference Range Interpretation Comments Color of Urine by Auto (test light yellow code = 66462-9) Appearance of Urine (test code = SL cloudy clear A 5767-9) Glucose [Presence] in Urine by negative negative Automated test strip (test code = 16631-9) Bilirubin.total [Mass/volume] in negative negative Urine (test code = 1978-6) Ketones [Mass/volume] in Urine negative negative by Automated test strip (test code = 06461-6) Specific gravity of Urine by 1.017 1.003-1.030 Automated test strip (test code = 05385-2) blood urine (test code = blood negative negative urine) pH of Urine (test code = 2756-5) 7.000 5-9 protein urine (UA) (test code = trace negative protein urine (UA)) Urobilinogen [Presence] in Urine normal 0.2-1.0 (test code = 05227-7) Nitrite [Presence] in Urine by negative negative Test strip (test code = 5802-4) Leukocyte esterase [Presence] in =4 negative H Urine by Automated test strip (test code = 34959-4) Erythrocytes [#/volume] in Urine =1-5 0-5 by Automated count (test code = 798-9) Leukocytes [#/area] in Urine =30-49 0-5 H sediment by Automated count (test code = 49079-7) Epithelial cells [Presence] in =11-14 0-5 Urine sediment by Light microscopy (test code = 49429-1) Bacteria identified in Urine by moderate (2 none detect H Culture (test code = 630-4) Casts [#/area] in Urine sediment =2-5 none detect by Automated count (test code = 60094-3) urine culture added? (test code yes = urine culture added?) [facility] WesleyUemleTexup-9-Rukfqcmvlfeip.placental [Presence] in Vaginal [id number] 05:54:00 Test Item Value Reference Range Interpretation Comments Jwlzg-3-Xpadtocfzbxtx.placental negative neg [Presence] in Vaginal fluid (test code = 97116-1) [facility] WesleyBacteria identified in Urine by [id number] 05:54:00 Test Item Value Reference Range Interpretation Comments Bacteria identified in no growth at 2 days. Urine by Culture (test code = 630-4) [facility] complete panel - [id number] 05:54:00 Test Item Value Reference Range Interpretation Comments Color of Urine by Auto (test light yellow code = 98109-4) Appearance of Urine (test code = SL cloudy clear A 5767-9) Glucose [Presence] in Urine by negative negative Automated test strip (test code = 31680-0) Bilirubin.total [Mass/volume] in negative negative Urine (test code = 1978-6) Ketones [Mass/volume] in Urine negative negative by Automated test strip (test code = 54464-9) Specific gravity of Urine by 1.017 1.003-1.030 Automated test strip (test code = 54395-4) blood urine (test code = blood negative negative urine) pH of Urine (test code = 2756-5) 7.000 5-9 protein urine (UA) (test code = trace negative protein urine (UA)) Urobilinogen [Presence] in Urine normal 0.2-1.0 (test code = 39552-1) Nitrite [Presence] in Urine by negative negative Test strip (test code = 5802-4) Leukocyte esterase [Presence] in =4 negative H Urine by Automated test strip (test code = 51755-3) Erythrocytes [#/volume] in Urine =1-5 0-5 by Automated count (test code = 798-9) Leukocytes [#/area] in Urine =30-49 0-5 H sediment by Automated count (test code = 09479-5) Epithelial cells [Presence] in =11-14 0-5 Urine sediment by Light microscopy (test code = 63924-5) Bacteria identified in Urine by moderate (2 none detect H Culture (test code = 630-4) Casts [#/area] in Urine sediment =2-5 none detect by Automated count (test code = 73267-9) urine culture added? (test code yes = urine culture added?) [facility] WesleyCscytJhney-1-Vkaqklvxssaub.placental [Presence] in Vaginal [id number] 05:54:00 Test Item Value Reference Range Interpretation Comments Jeinb-8-Zbkirlnxzjdak.placental negative neg [Presence] in Vaginal fluid (test code = 45201-9) [facility] WesleyBacteria identified in Urine by [id number] 05:54:00 Test Item Value Reference Range Interpretation Comments Bacteria identified in no growth at 2 days. Urine by Culture (test code = 630-4) [facility] complete panel - [id number] 05:54:00 Test Item Value Reference Range Interpretation Comments Color of Urine by Auto (test light yellow code = 14122-7) Appearance of Urine (test code = SL cloudy clear A 5767-9) Glucose [Presence] in Urine by negative negative Automated test strip (test code = 56009-2) Bilirubin.total [Mass/volume] in negative negative Urine (test code = 1978-6) Ketones [Mass/volume] in Urine negative negative by Automated test strip (test code = 24514-0) Specific gravity of Urine by 1.017 1.003-1.030 Automated test strip (test code = 13642-0) blood urine (test code = blood negative negative urine) pH of Urine (test code = 2756-5) 7.000 5-9 protein urine (UA) (test code = trace negative protein urine (UA)) Urobilinogen [Presence] in Urine normal 0.2-1.0 (test code = 55826-5) Nitrite [Presence] in Urine by negative negative Test strip (test code = 5802-4) Leukocyte esterase [Presence] in =4 negative H Urine by Automated test strip (test code = 04673-5) Erythrocytes [#/volume] in Urine =1-5 0-5 by Automated count (test code = 798-9) Leukocytes [#/area] in Urine =30-49 0-5 H sediment by Automated count (test code = 50518-1) Epithelial cells [Presence] in =11-14 0-5 Urine sediment by Light microscopy (test code = 35846-7) Bacteria identified in Urine by moderate (2 none detect H Culture (test code = 630-4) Casts [#/area] in Urine sediment =2-5 none detect by Automated count (test code = 04102-5) urine culture added? (test code yes = urine culture added?) [facility] ApdjjOcsnh-5-Buhgikupcgcva.placental [Presence] in Vaginal [id number] 05:54:00 Test Item Value Reference Range Interpretation Comments Gufqi-3-Bzubihtewacfu.placental negative neg [Presence] in Vaginal fluid (test code = 71020-0) [facility] GroupBacteria identified in Urine by [id number] 05:54:00 Test Item Value Reference Range Interpretation Comments Bacteria identified in no growth at 2 days. Urine by Culture (test code = 630-4) [facility]culture[facility] vaginal/rectal, streptococcus group [id number] 00:00:00 Test Item Value Reference Range Interpretation Comments group B strep (test code = group B normal strep) [facility] vaginal/rectal, streptococcus group [id number] 00:00:00 Test Item Value Reference Range Interpretation Comments group B strep (test code = group B normal strep) [facility] vaginal/rectal, streptococcus group [id number] 00:00:00 Test Item Value Reference Range Interpretation Comments group B strep (test code = group B normal strep) [facility]/rectal, streptococcus group [id number] 00:00:00 Test Item Value Reference Range Interpretation Comments group B strep (test code = group B normal strep) [facility] GroupUrinalysis macro (dipstick) panel - [id number] 14:59:26 Test Item Value Reference Range Interpretation Comments Leukocytes (test code = Large Leukocytes) Nitrite (test code = negative Nitrite) Urobilinogen (test code = .2 Urobilinogen) Protein (test code = Negative Protein) pH (test code = pH) 7.5 Blood (test code = Blood) Non-Hemolyzed: Trace Specific [place] (test 1.020 code = Specific [place]) Ketone (test code = Negative Ketone) Bilirubin (test code = Negative Bilirubin) Glucose (test code = Negative Glucose) Appearance (test code = Clear Appearance) Color (test code = Color) Yellow [facility]dipstick) panel - [id number] 14:59:26 Test Item Value Reference Range Interpretation Comments Leukocytes (test code = Large Leukocytes) Nitrite (test code = negative Nitrite) Urobilinogen (test code = .2 Urobilinogen) Protein (test code = Negative Protein) pH (test code = pH) 7.5 Blood (test code = Blood) Non-Hemolyzed: Trace Specific [place] (test 1.020 code = Specific [place]) Ketone (test code = Negative Ketone) Bilirubin (test code = Negative Bilirubin) Glucose (test code = Negative Glucose) Appearance (test code = Clear Appearance) Color (test code = Color) Yellow [facility] macro (dipstick) panel - [id number] 14:59:26 Test Item Value Reference Range Interpretation Comments Leukocytes (test code = Large Leukocytes) Nitrite (test code = negative Nitrite) Urobilinogen (test code = .2 Urobilinogen) Protein (test code = Negative Protein) pH (test code = pH) 7.5 Blood (test code = Blood) Non-Hemolyzed: Trace Specific [place] (test 1.020 code = Specific [place]) Ketone (test code = Negative Ketone) Bilirubin (test code = Negative Bilirubin) Glucose (test code = Negative Glucose) Appearance (test code = Clear Appearance) Color (test code = Color) Yellow [facility] (dipstick) panel - [id number] 14:59:26 Test Item Value Reference Range Interpretation Comments Leukocytes (test code = Large Leukocytes) Nitrite (test code = negative Nitrite) Urobilinogen (test code = .2 Urobilinogen) Protein (test code = Negative Protein) pH (test code = pH) 7.5 Blood (test code = Blood) Non-Hemolyzed: Trace Specific [place] (test 1.020 code = Specific [place]) Ketone (test code = Negative Ketone) Bilirubin (test code = Negative Bilirubin) Glucose (test code = Negative Glucose) Appearance (test code = Clear Appearance) Color (test code = Color) Yellow [facility] (dipstick) panel - [id number] 14:59:26 Test Item Value Reference Range Interpretation Comments Leukocytes (test code = Large Leukocytes) Nitrite (test code = negative Nitrite) Urobilinogen (test code = .2 Urobilinogen) Protein (test code = Negative Protein) pH (test code = pH) 7.5 Blood (test code = Blood) Non-Hemolyzed: Trace Specific [place] (test 1.020 code = Specific [place]) Ketone (test code = Negative Ketone) Bilirubin (test code = Negative Bilirubin) Glucose (test code = Negative Glucose) Appearance (test code = Clear Appearance) Color (test code = Color) [facility] - [id number] 06:30:00 Test Item Value Reference Range Interpretation Comments white blood count (test code = 11.5 K/uL 4.0-11.5 white blood count) red blood count (test code = red 3.26 M/uL 3.80-5.20 L blood count) hemoglobin (test code = 9.9 g/dL 10.5-15.7 L hemoglobin) hematocrit (test code = 29.7 % 34.0-50.0 L hematocrit) MCV [Entitic volume] (test code = 91.1 fL 86-100 86879-4) mean corpuscular hemoglobin (test 30.4 pg 26.2-33.4 [...] 44.4-80.1 leukocytes in Blood (test code = 10512-5) Immature granulocytes [#/volume] 0.3 K/uL 0.0-0.03 H in Blood (test code = 98028-7) lymphocyte% (test code = 21.8 % 10.0-50.0 lymphocyte%) mono % (test code = mono %) 6.4 % 3.6-12.0 eos % (test code = eos %) 0.5 % 0.0-5.4 Basophils/100 leukocytes in 0.3 % 0.1-1.2 Unspecified specimen (test code = 88239-0) Band form neutrophils [#/volume] 7.85 K/uL 1.56-6.13 H in Blood (test code = 42423-6) Lymphocytes [#/volume] in 2.5 K/uL 1.18-3.74 Unspecified specimen by Automated count (test code = 56478-8) mono # (test code = mono #) 0.73 K/uL 0.24-0.86 eos # (test code = eos #) 0.06 K/uL 0.04-0.36 basophil # (test code = basophil 0.04 K/uL 0.01-0.08 #) NRBC% (test code = NRBC%) 0 /100 WBC 0-0.2 NRBC# (test code = NRBC#) 0 K/uL [facility] W Auto Differential panel - [id number] 06:30:00 Test Item Value Reference Range Interpretation Comments white blood count (test code = 11.5 K/uL 4.0-11.5 white blood count) red blood count (test code = red 3.26 M/uL 3.80-5.20 L blood count) hemoglobin (test code = 9.9 g/dL 10.5-15.7 L hemoglobin) hematocrit (test code = 29.7 % 34.0-50.0 L hematocrit) MCV [Entitic volume] (test code = 91.1 fL 86-100 95349-8) mean corpuscular hemoglobin (test 30.4 pg 26.2-33.4 [...] 44.4-80.1 leukocytes in Blood (test code = 08064-4) Immature granulocytes [#/volume] 0.3 K/uL 0.0-0.03 H in Blood (test code = 84792-3) lymphocyte% (test code = 21.8 % 10.0-50.0 lymphocyte%) mono % (test code = mono %) 6.4 % 3.6-12.0 eos % (test code = eos %) 0.5 % 0.0-5.4 Basophils/100 leukocytes in 0.3 % 0.1-1.2 Unspecified specimen (test code = 28961-3) Band form neutrophils [#/volume] 7.85 K/uL 1.56-6.13 H in Blood (test code = 93944-5) Lymphocytes [#/volume] in 2.5 K/uL 1.18-3.74 Unspecified specimen by Automated count (test code = 87973-1) mono # (test code = mono #) 0.73 K/uL 0.24-0.86 eos # (test code = eos #) 0.06 K/uL 0.04-0.36 basophil # (test code = basophil 0.04 K/uL 0.01-0.08 #) NRBC% (test code = NRBC%) 0 /100 WBC 0-0.2 NRBC# (test code = NRBC#) 0 K/uL [facility] W Auto Differential panel - [id number] 06:30:00 Test Item Value Reference Range Interpretation Comments white blood count (test code = 11.5 K/uL 4.0-11.5 white blood count) red blood count (test code = red 3.26 M/uL 3.80-5.20 L blood count) hemoglobin (test code = 9.9 g/dL 10.5-15.7 L hemoglobin) hematocrit (test code = 29.7 % 34.0-50.0 L hematocrit) MCV [Entitic volume] (test code = 91.1 fL 86-100 54481-6) mean corpuscular hemoglobin (test 30.4 pg 26.2-33.4 [...] 44.4-80.1 leukocytes in Blood (test code = 90131-5) Immature granulocytes [#/volume] 0.3 K/uL 0.0-0.03 H in Blood (test code = 99357-7) lymphocyte% (test code = 21.8 % 10.0-50.0 lymphocyte%) mono % (test code = mono %) 6.4 % 3.6-12.0 eos % (test code = eos %) 0.5 % 0.0-5.4 Basophils/100 leukocytes in 0.3 % 0.1-1.2 Unspecified specimen (test code = 76653-2) Band form neutrophils [#/volume] 7.85 K/uL 1.56-6.13 H in Blood (test code = 93900-5) Lymphocytes [#/volume] in 2.5 K/uL 1.18-3.74 Unspecified specimen by Automated count (test code = 70029-2) mono # (test code = mono #) 0.73 K/uL 0.24-0.86 eos # (test code = eos #) 0.06 K/uL 0.04-0.36 basophil # (test code = basophil 0.04 K/uL 0.01-0.08 #) NRBC% (test code = NRBC%) 0 /100 WBC 0-0.2 NRBC# (test code = NRBC#) 0 K/uL [facility] W Auto Differential panel - [id number] 06:30:00 Test Item Value Reference Range Interpretation Comments white blood count (test code = 11.5 K/uL 4.0-11.5 white blood count) red blood count (test code = red 3.26 M/uL 3.80-5.20 L blood count) hemoglobin (test code = 9.9 g/dL 10.5-15.7 L hemoglobin) hematocrit (test code = 29.7 % 34.0-50.0 L hematocrit) MCV [Entitic volume] (test code = 91.1 fL 86-100 17442-5) mean corpuscular hemoglobin (test 30.4 pg 26.2-33.4 [...] 44.4-80.1 leukocytes in Blood (test code = 68162-9) Immature granulocytes [#/volume] 0.3 K/uL 0.0-0.03 H in Blood (test code = 10989-4) lymphocyte% (test code = 21.8 % 10.0-50.0 lymphocyte%) mono % (test code = mono %) 6.4 % 3.6-12.0 eos % (test code = eos %) 0.5 % 0.0-5.4 Basophils/100 leukocytes in 0.3 % 0.1-1.2 Unspecified specimen (test code = 18300-3) Band form neutrophils [#/volume] 7.85 K/uL 1.56-6.13 H in Blood (test code = 98090-1) Lymphocytes [#/volume] in 2.5 K/uL 1.18-3.74 Unspecified specimen by Automated count (test code = 28999-8) mono # (test code = mono #) 0.73 K/uL 0.24-0.86 eos # (test code = eos #) 0.06 K/uL 0.04-0.36 basophil # (test code = basophil 0.04 K/uL 0.01-0.08 #) NRBC% (test code = NRBC%) 0 /100 WBC 0-0.2 NRBC# (test code = NRBC#) 0 K/uL [facility] W Auto Differential panel - [id number] 06:30:00 Test Item Value Reference Range Interpretation Comments white blood count (test code = 11.5 K/uL 4.0-11.5 white blood count) red blood count (test code = red 3.26 M/uL 3.80-5.20 L blood count) hemoglobin (test code = 9.9 g/dL 10.5-15.7 L hemoglobin) hematocrit (test code = 29.7 % 34.0-50.0 L hematocrit) MCV [Entitic volume] (test code = 91.1 fL 86-100 93697-1) mean corpuscular hemoglobin (test 30.4 pg 26.2-33.4 [...] 44.4-80.1 leukocytes in Blood (test code = 07587-5) Immature granulocytes [#/volume] 0.3 K/uL 0.0-0.03 H in Blood (test code = 80243-6) lymphocyte% (test code = 21.8 % 10.0-50.0 lymphocyte%) mono % (test code = mono %) 6.4 % 3.6-12.0 eos % (test code = eos %) 0.5 % 0.0-5.4 Basophils/100 leukocytes in 0.3 % 0.1-1.2 Unspecified specimen (test code = 42059-7) Band form neutrophils [#/volume] 7.85 K/uL 1.56-6.13 H in Blood (test code = 02090-5) Lymphocytes [#/volume] in 2.5 K/uL 1.18-3.74 Unspecified specimen by Automated count (test code = 29032-2) mono # (test code = mono #) 0.73 K/uL 0.24-0.86 eos # (test code = eos #) 0.06 K/uL 0.04-0.36 basophil # (test code = basophil 0.04 K/uL 0.01-0.08 #) NRBC% (test code = NRBC%) 0 /100 WBC 0-0.2 NRBC# (test code = NRBC#) 0 [facility] [id number] 06:07:00 Test Item Value Reference Range Interpretation Comments Color of Urine by Auto (test light yellow code = 21717-4) Appearance of Urine (test code clear clear = 5767-9) Glucose [Presence] in Urine by trace (30 negative Automated test strip (test code = 55553-6) Bilirubin.total [Mass/volume] negative negative in Urine (test code = 1978-6) Ketones [Mass/volume] in Urine negative negative by Automated test strip (test code = 31129-9) Specific gravity of Urine by 1.016 1.003-1.030 Automated test strip (test code = 87827-1) blood urine (test code = blood negative negative urine) pH of Urine (test code = 7.000 5-9 2756-5) protein urine (UA) (test code = trace negative protein urine (UA)) Urobilinogen [Presence] in normal 0.2-1.0 Urine (test code = 90830-3) Nitrite [Presence] in Urine by negative negative Test strip (test code = 5802-4) Leukocyte esterase [Presence] =1 negative H in Urine by Automated test strip (test code = 97632-4) Erythrocytes [#/volume] in =1-5 0-5 Urine by Automated count (test code = 798-9) Leukocytes [#/area] in Urine =1-5 0-5 sediment by Automated count (test code = 92812-7) Epithelial cells [Presence] in =6-10 0-5 Urine sediment by Light microscopy (test code = 14695-9) Bacteria identified in Urine by small(1 none detect Culture (test code = 630-4) Casts [#/area] in Urine none detected none detect sediment by Automated count (test code = 74969-6) urine culture added? (test code yes = urine culture added?) [facility] - [id number] 06:07:00 Test Item Value Reference Range Interpretation Comments Color of Urine by Auto (test light yellow code = 90313-5) Appearance of Urine (test code clear clear = 5767-9) Glucose [Presence] in Urine by trace (30 negative Automated test strip (test code = 20795-7) Bilirubin.total [Mass/volume] negative negative in Urine (test code = 1978-6) Ketones [Mass/volume] in Urine negative negative by Automated test strip (test code = 70942-4) Specific gravity of Urine by 1.016 1.003-1.030 Automated test strip (test code = 76826-2) blood urine (test code = blood negative negative urine) pH of Urine (test code = 7.000 5-9 2756-5) protein urine (UA) (test code = trace negative protein urine (UA)) Urobilinogen [Presence] in normal 0.2-1.0 Urine (test code = 51247-3) Nitrite [Presence] in Urine by negative negative Test strip (test code = 5802-4) Leukocyte esterase [Presence] =1 negative H in Urine by Automated test strip (test code = 25060-3) Erythrocytes [#/volume] in =1-5 0-5 Urine by Automated count (test code = 798-9) Leukocytes [#/area] in Urine =1-5 0-5 sediment by Automated count (test code = 77150-1) Epithelial cells [Presence] in =6-10 0-5 Urine sediment by Light microscopy (test code = 75273-6) Bacteria identified in Urine by small(1 none detect Culture (test code = 630-4) Casts [#/area] in Urine none detected none detect sediment by Automated count (test code = 34494-8) urine culture added? (test code yes = urine culture added?) [facility] - [id number] 06:07:00 Test Item Value Reference Range Interpretation Comments Color of Urine by Auto (test light yellow code = 68142-7) Appearance of Urine (test code clear clear = 5767-9) Glucose [Presence] in Urine by trace (30 negative Automated test strip (test code = 94464-4) Bilirubin.total [Mass/volume] negative negative in Urine (test code = 1977-07) Ketones [Mass/volume] in Urine negative negative by Automated test strip (test code = 15374-9) Specific gravity of Urine by 1.016 1.003-1.030 Automated test strip (test code = 34894-5) blood urine (test code = blood negative negative urine) pH of Urine (test code = 7.000 5-9 2756-5) protein urine (UA) (test code = trace negative protein urine (UA)) Urobilinogen [Presence] in normal 0.2-1.0 Urine (test code = 69928-8) Nitrite [Presence] in Urine by negative negative Test strip (test code = 5802-4) Leukocyte esterase [Presence] =1 negative H in Urine by Automated test strip (test code = 41612-1) Erythrocytes [#/volume] in =1-5 0-5 Urine by Automated count (test code = 798-9) Leukocytes [#/area] in Urine =1-5 0-5 sediment by Automated count (test code = 53366-7) Epithelial cells [Presence] in =6-10 0-5 Urine sediment by Light microscopy (test code = 70193-6) Bacteria identified in Urine by small(1 none detect Culture (test code = 630-4) Casts [#/area] in Urine none detected none detect sediment by Automated count (test code = 46347-5) urine culture added? (test code yes = urine culture added?) [facility] by [id number] 06:07:00 Test Item Value Reference Range Interpretation Comments Bacteria identified in no growth after 2 Urine by Culture (test days code = 630-4) [facility] - [id number] 06:07:00 Test Item Value Reference Range Interpretation Comments Color of Urine by Auto (test light yellow code = 64585-8) Appearance of Urine (test code clear clear = 5767-9) Glucose [Presence] in Urine by trace (30 negative Automated test strip (test code = 20345-2) Bilirubin.total [Mass/volume] negative negative in Urine (test code = 1977-07) Ketones [Mass/volume] in Urine negative negative by Automated test strip (test code = 77739-8) Specific gravity of Urine by 1.016 1.003-1.030 Automated test strip (test code = 10357-5) blood urine (test code = blood negative negative urine) pH of Urine (test code = 7.000 5-9 2756-5) protein urine (UA) (test code = trace negative protein urine (UA)) Urobilinogen [Presence] in normal 0.2-1.0 Urine (test code = 51199-4) Nitrite [Presence] in Urine by negative negative Test strip (test code = 5802-4) Leukocyte esterase [Presence] =1 negative H in Urine by Automated test strip (test code = 56447-0) Erythrocytes [#/volume] in =1-5 0-5 Urine by Automated count (test code = 798-9) Leukocytes [#/area] in Urine =1-5 0-5 sediment by Automated count (test code = 02716-8) Epithelial cells [Presence] in =6-10 0-5 Urine sediment by Light microscopy (test code = 09043-9) Bacteria identified in Urine by small(1 none detect Culture (test code = 630-4) Casts [#/area] in Urine none detected none detect sediment by Automated count (test code = 24289-7) urine culture added? (test code yes = urine culture added?) [facility] by [id number] 06:07:00 Test Item Value Reference Range Interpretation Comments Bacteria identified in no growth after 2 Urine by Culture (test days code = 630-4) [facility] - [id number] 06:07:00 Test Item Value Reference Range Interpretation Comments Color of Urine by Auto (test light yellow code = 23365-2) Appearance of Urine (test code clear clear = 5767-9) Glucose [Presence] in Urine by trace (30 negative Automated test strip (test code = 15133-9) Bilirubin.total [Mass/volume] negative negative in Urine (test code = 1977-07) Ketones [Mass/volume] in Urine negative negative by Automated test strip (test code = 06802-3) Specific gravity of Urine by 1.016 1.003-1.030 Automated test strip (test code = 06533-0) blood urine (test code = blood negative negative urine) pH of Urine (test code = 7.000 5-9 2756-5) protein urine (UA) (test code = trace negative protein urine (UA)) Urobilinogen [Presence] in normal 0.2-1.0 Urine (test code = 19737-2) Nitrite [Presence] in Urine by negative negative Test strip (test code = 5802-4) Leukocyte esterase [Presence] =1 negative H in Urine by Automated test strip (test code = 61757-6) Erythrocytes [#/volume] in =1-5 0-5 Urine by Automated count (test code = 798-9) Leukocytes [#/area] in Urine =1-5 0-5 sediment by Automated count (test code = 85877-7) Epithelial cells [Presence] in =6-10 0-5 Urine sediment by Light microscopy (test code = 34049-3) Bacteria identified in Urine by small(1 none detect Culture (test code = 630-4) Casts [#/area] in Urine none detected none detect sediment by Automated count (test code = 88860-9) urine culture added? (test code yes = urine culture added?) [facility] by [id number] 06:07:00 Test Item Value Reference Range Interpretation Comments Bacteria identified in no growth after 2 Urine by Culture (test days code = 630-4) [facility] macro (dipstick) panel - [id number] 09:25:26 Test Item Value Reference Range Interpretation Comments Leukocytes (test code = Leukocytes) Large Nitrite (test code = Nitrite) negative Urobilinogen (test code = .2 Urobilinogen) Protein (test code = Protein) Negative pH (test code = pH) 7.0 Blood (test code = Blood) Negative Specific [place] (test code = 1.015 Specific [place]) Ketone (test code = Ketone) Negative Bilirubin (test code = Bilirubin) Negative Glucose (test code = Glucose) Negative Appearance (test code = Appearance) Clear Color (test code = Color) Yellow [facility] (dipstick) panel - [id number] 09:25:26 Test Item Value Reference Range Interpretation Comments Leukocytes (test code = Leukocytes) Large Nitrite (test code = Nitrite) negative Urobilinogen (test code = .2 Urobilinogen) Protein (test code = Protein) Negative pH (test code = pH) 7.0 Blood (test code = Blood) Negative Specific [place] (test code = 1.015 Specific [place]) Ketone (test code = Ketone) Negative Bilirubin (test code = Bilirubin) Negative Glucose (test code = Glucose) Negative Appearance (test code = Appearance) Clear Color (test code = Color) Yellow [facility] (dipstick) panel - [id number] 09:25:26 Test Item Value Reference Range Interpretation Comments Leukocytes (test code = Leukocytes) Large Nitrite (test code = Nitrite) negative Urobilinogen (test code = .2 Urobilinogen) Protein (test code = Protein) Negative pH (test code = pH) 7.0 Blood (test code = Blood) Negative Specific [place] (test code = 1.015 Specific [place]) Ketone (test code = Ketone) Negative Bilirubin (test code = Bilirubin) Negative Glucose (test code = Glucose) Negative Appearance (test code = Appearance) Clear Color (test code = Color) Yellow [facility] (dipstick) panel - [id number] 09:25:26 Test Item Value Reference Range Interpretation Comments Leukocytes (test code = Leukocytes) Large Nitrite (test code = Nitrite) negative Urobilinogen (test code = .2 Urobilinogen) Protein (test code = Protein) Negative pH (test code = pH) 7.0 Blood (test code = Blood) Negative Specific [place] (test code = 1.015 Specific [place]) Ketone (test code = Ketone) Negative Bilirubin (test code = Bilirubin) Negative Glucose (test code = Glucose) Negative Appearance (test code = Appearance) Clear Color (test code = Color) Yellow [facility] GroupGlucose [Mass/volume] in Serum or Plasma --1 hour post dose [id number] 09:49:00 Test Item Value Reference Range Interpretation Comments Results (test code = Results) 121 [facility] GroupGlucose [Mass/volume] in Serum or Plasma --1 hour post dose [id number] 09:49:00 Test Item Value Reference Range Interpretation Comments Results (test code = Results) 121 [facility] macro (dipstick) panel - [id number] 08:47:35 Test Item Value Reference Range Interpretation Comments Leukocytes (test code = Large Leukocytes) Nitrite (test code = negative Nitrite) Urobilinogen (test code = .2 Urobilinogen) Protein (test code = Negative Protein) pH (test code = pH) 7.0 Blood (test code = Blood) Non-Hemolyzed: Trace Specific [place] (test 1.020 code = Specific [place]) Ketone (test code = Negative Ketone) Bilirubin (test code = Negative Bilirubin) Glucose (test code = Negative Glucose) Appearance (test code = Slightly Cloudy Appearance) Color (test code = Color) Yellow [facility] (dipstick) panel - [id number] 08:47:35 Test Item Value Reference Range Interpretation Comments Leukocytes (test code = Large Leukocytes) Nitrite (test code = negative Nitrite) Urobilinogen (test code = .2 Urobilinogen) Protein (test code = Negative Protein) pH (test code = pH) 7.0 Blood (test code = Blood) Non-Hemolyzed: Trace Specific [place] (test 1.020 code = Specific [place]) Ketone (test code = Negative Ketone) Bilirubin (test code = Negative Bilirubin) Glucose (test code = Negative Glucose) Appearance (test code = Slightly Cloudy Appearance) Color (test code = Color) Yellow [facility] [id number] 07:41:00 Test Item Value Reference Range Interpretation Comments quest collection (test code = quest quest collection) [facility] WesleyMicroscopic observation [Identifier] in Unspecified specimen by Wet [id number] 06:57:00 Test Item Value Reference Range Interpretation Comments Microscopic observation no trichomonas, [Identifier] in yeast or clue cell Unspecified specimen by observed. Wet preparation (test code = 680-9) [facility]Microsc[facility] observation [Identifier] in Unspecified specimen by Wet [id number] 06:57:00 Test Item Value Reference Range Interpretation Comments Microscopic observation no trichomonas, [Identifier] in yeast or clue cell Unspecified specimen by observed. Wet preparation (test code = 680-9) [facility] WesleyXfenmQtwqz-8-Aogzayzgklshi.placental [Presence] in Vaginal [id number] 05:33:00 Test Item Value Reference Range Interpretation Comments Ziiwk-6-Kqotalxbmqsqp.placental negative neg [Presence] in Vaginal fluid (test code = 73039-6) [facility] complete panel - [id number] 05:33:00 Test Item Value Reference Range Interpretation Comments Color of Urine by Auto (test light yellow code = 37387-0) Appearance of Urine (test code = SL cloudy clear A 5767-9) Glucose [Presence] in Urine by trace (50 negative Automated test strip (test code = 46318-7) Bilirubin.total [Mass/volume] in negative negative Urine (test code = 1978-6) Ketones [Mass/volume] in Urine negative negative by Automated test strip (test code = 40972-7) Specific gravity of Urine by 1.016 1.003-1.030 Automated test strip (test code = 27209-6) blood urine (test code = blood negative negative urine) pH of Urine (test code = 2756-5) 7.000 5-9 protein urine (UA) (test code = trace negative protein urine (UA)) Urobilinogen [Presence] in Urine normal 0.2-1.0 (test code = 98391-1) Nitrite [Presence] in Urine by negative negative Test strip (test code = 5802-4) Leukocyte esterase [Presence] in =2 negative H Urine by Automated test strip (test code = 18464-5) Erythrocytes [#/volume] in Urine =1-5 0-5 by Automated count (test code = 798-9) Leukocytes [#/area] in Urine =11-14 0-5 H sediment by Automated count (test code = 81346-3) Epithelial cells [Presence] in =11-14 0-5 Urine sediment by Light microscopy (test code = 32454-2) Bacteria identified in Urine by small(1 none detect Culture (test code = 630-4) Casts [#/area] in Urine sediment =2-5 none detect by Automated count (test code = 30138-6) urine culture added? (test code yes = urine culture added?) [facility] identified in Urine by [id number] 05:33:00Bacteria Ur [facility] UgvbgSkmcf-9-Apvilvypqdjhi.placental [Presence] in Vaginal [id number] 05:33:00 Test Item Value Reference Range Interpretation Comments Eoufc-2-Tlnduggtmrhop.placental negative neg [Presence] in Vaginal fluid (test code = 26732-6) [facility] complete panel - [id number] 05:33:00 Test Item Value Reference Range Interpretation Comments Color of Urine by Auto (test light yellow code = 31731-1) Appearance of Urine (test code = SL cloudy clear A 5767-9) Glucose [Presence] in Urine by trace (50 negative Automated test strip (test code = 34210-3) Bilirubin.total [Mass/volume] in negative negative Urine (test code = 1978-6) Ketones [Mass/volume] in Urine negative negative by Automated test strip (test code = 79529-4) Specific gravity of Urine by 1.016 1.003-1.030 Automated test strip (test code = 14520-8) blood urine (test code = blood negative negative urine) pH of Urine (test code = 2756-5) 7.000 5-9 protein urine (UA) (test code = trace negative protein urine (UA)) Urobilinogen [Presence] in Urine normal 0.2-1.0 (test code = 46237-8) Nitrite [Presence] in Urine by negative negative Test strip (test code = 5802-4) Leukocyte esterase [Presence] in =2 negative H Urine by Automated test strip (test code = 72160-7) Erythrocytes [#/volume] in Urine =1-5 0-5 by Automated count (test code = 798-9) Leukocytes [#/area] in Urine =11-14 0-5 H sediment by Automated count (test code = 65706-5) Epithelial cells [Presence] in =11-14 0-5 Urine sediment by Light microscopy (test code = 75631-5) Bacteria identified in Urine by small(1 none detect Culture (test code = 630-4) Casts [#/area] in Urine sediment =2-5 none detect by Automated count (test code = 74005-5) urine culture added? (test code yes = urine culture added?) [facility] in Urine by [id number] 05:33:00[facility] - [id number] 15:17:12 Test Item Value Reference Range Interpretation Comments Leukocytes (test code = Small Leukocytes) Nitrite (test code = negative Nitrite) Urobilinogen (test code = .2 Urobilinogen) Protein (test code = Negative Protein) pH (test code = pH) 7.0 Blood (test code = Blood) Non-Hemolyzed: Trace Specific [place] (test 1.025 code = Specific [place]) Ketone (test code = Negative Ketone) Bilirubin (test code = Negative Bilirubin) Glucose (test code = Negative Glucose) Appearance (test code = Clear Appearance) Color (test code = Color) Yellow [facility] (dipstick) panel - [id number] 09:42:47 Test Item Value Reference Range Interpretation Comments Leukocytes (test code = Leukocytes) Large Nitrite (test code = Nitrite) negative Urobilinogen (test code = .2 Urobilinogen) Protein (test code = Protein) Negative pH (test code = pH) 7.0 Blood (test code = Blood) Negative Specific [place] (test code = 1.020 Specific [place]) Ketone (test code = Ketone) Negative Bilirubin (test code = Bilirubin) Negative Glucose (test code = Glucose) Negative Appearance (test code = Appearance) Cloudy Color (test code = Color) Yellow [facility] (dipstick) panel - [id number] 09:42:47 Test Item Value Reference Range Interpretation Comments Leukocytes (test code = Leukocytes) Large Nitrite (test code = Nitrite) negative Urobilinogen (test code = .2 Urobilinogen) Protein (test code = Protein) Negative pH (test code = pH) 7.0 Blood (test code = Blood) Negative Specific [place] (test code = 1.020 Specific [place]) Ketone (test code = Ketone) Negative Bilirubin (test code = Bilirubin) Negative Glucose (test code = Glucose) Negative Appearance (test code = Appearance) Cloudy Color (test code = Color) Yellow [facility] (dipstick) panel - [id number] 09:54:00 Test Item Value Reference Range Interpretation Comments Leukocytes (test code = Leukocytes) Small Nitrite (test code = Nitrite) negative Urobilinogen (test code = .2 Urobilinogen) Protein (test code = Protein) Negative pH (test code = pH) 7.0 Blood (test code = Blood) Negative Specific [place] (test code = 1.020 Specific [place]) Ketone (test code = Ketone) Negative Bilirubin (test code = Bilirubin) Negative Glucose (test code = Glucose) Negative Appearance (test code = Appearance) Clear Color (test code = Color) Yellow [facility]Ur[facility] macro (dipstick) panel - [id number] 09:54:00 Test Item Value Reference Range Interpretation Comments Leukocytes (test code = Leukocytes) Small Nitrite (test code = Nitrite) negative Urobilinogen (test code = .2 Urobilinogen) Protein (test code = Protein) Negative pH (test code = pH) 7.0 Blood (test code = Blood) Negative Specific [place] (test code = 1.020 Specific [place]) Ketone (test code = Ketone) Negative Bilirubin (test code = Bilirubin) Negative Glucose (test code = Glucose) Negative Appearance (test code = Appearance) Clear Color (test code = Color) Yellow [facility] macro (dipstick) panel - [id number] 09:54:00 Test Item Value Reference Range Interpretation Comments Leukocytes (test code = Leukocytes) Small Nitrite (test code = Nitrite) negative Urobilinogen (test code = .2 Urobilinogen) Protein (test code = Protein) Negative pH (test code = pH) 7.0 Blood (test code = Blood) Negative Specific [place] (test code = 1.020 Specific [place]) Ketone (test code = Ketone) Negative Bilirubin (test code = Bilirubin) Negative Glucose (test code = Glucose) Negative Appearance (test code = Appearance) Clear Color (test code = Color) Yellow [facility], LB + reflex to HR HPV if [id number] 00:00:00 Test Item Value Reference Range Interpretation Comments liquid Pap test with reflex to HPV normal type-detect 3.0 if ASCUS or greater (test code = liquid Pap test with reflex to HPV type-detect 3.0 if ASCUS or greater) [facility]Bacteria identified in Urine by [id number] 03:30[facility]Chrom[facility] 13+18+21+X+Y aneuploidy in Blood by Molecular genetics method [id number] 00:00:00 Test Item Value Reference Range Interpretation [...] contacts (test code = see notes contacts) [facility] RAPID FLU A AND B [id number] 17:18:00 Test Item Value Reference Range Interpretation Comments POCT INFLUENZA A (test code = Negative Negative - Negative 3840) POCT INFLUENZA B (test code = Negative Negative - Negative 3841) [facility] URINALYSIS W SPECIFIC [id number] 16:43:00 Test Item Value Reference Range Interpretation [...] POCT U APPEAR (test code = 3267) [facility] URINALYSIS W SPECIFIC [id number] 19:40:00 Test Item Value Reference Range Interpretation [...] POCT U APPEAR (test code = 3267) [facility] URINALYSIS W SPECIFIC [id number] 17:18:00 Test Item Value Reference Range Interpretation [...] POCT U APPEAR (test code = 3267) [facility] URINALYSIS W SPECIFIC [id number] 17:18:00 Test Item Value Reference Range Interpretation [...] POCT U APPEAR (test code = 3267) [facility] URINALYSIS W/O SPECIFIC [id number] 16:01:00 Test Item Value Reference Range Interpretation [...] code = 3257) Neg Negative - Negative [facility] URINALYSIS W/O SPECIFIC [id number] 16:01:00 Test Item Value Reference Range Interpretation [...] code = 3257) Neg Negative - Negative [facility] [id number] 15:58:00 Test Item Value Reference Range Interpretation Comments POCT PREG (test code = 1605) Positive On board controls acceptable with C Yes Line (test code = 3574) POCT PREG LOT # (test code = 3575) POCT PREG TEST DATE (test code = 3576) Lab Interpretation (test code = Abnormal 56878-4) [facility] [id number] 15:58:00 Test Item Value Reference Range Interpretation Comments POCT PREG (test code = 1605) Positive On board controls acceptable with C Yes Line (test code = 3574) POCT PREG LOT # (test code = 3575) POCT PREG TEST DATE (test code = 3576) Lab Interpretation (test code = Abnormal 42216-0) [facility], [id number] 13:36:04 Test Item Value Reference Range Interpretation Comments Test (test code = negative Test) [facility]dipstick[facility] - [id number] 13:27:27 Test Item Value Reference Range Interpretation Comments Leukocytes (test code = Leukocytes) Trace Nitrite (test code = Nitrite) negative Urobilinogen (test code = .2 Urobilinogen) Protein (test code = Protein) Negative pH (test code = pH) 6.0 Blood (test code = Blood) Small Specific [place] (test code = 1.010 Specific [place]) Ketone (test code = Ketone) Negative Bilirubin (test code = Bilirubin) Negative Glucose (test code = Glucose) Negative Appearance (test code = Appearance) Clear Color (test code = Color) Yellow [facility] W Auto Differential panel - [id number] 09:04:00 Test Item Value Reference Range Interpretation [...] fL 78-98 [Entitic volume] (test code = 04750-1) Erythrocyte mean corpuscular 30.2 pg 26.2-33.4 hemoglobin [Entitic mass] (test code = 62807-2) mean corpuscular HGB conc (test 32.3 g/dL 31.5-36.2 code = mean corpuscular HGB conc) red cell distribution width (test 12.7 % 11.5-15.5 code = red cell distribution width) Platelets [#/volume] in Blood (test 188 K/uL 137-338 code = 37657-9) Platelet mean volume [Entitic 9.2 fL 8.4-11.8 volume] in Blood (test code = 25322-9) Neutrophils.band form/100 67.1 % 44.4-80.1 leukocytes in Blood (test code = 06117-6) Lymphocytes/100 leukocytes in Body 26.9 % 10.0-50.0 fluid (test code = 01436-6) Monocytes/100 leukocytes in Blood 4.6 % 3.6-12.04 by Automated count (test code = 5905-5) Eosinophils/100 leukocytes in Blood 0.7 % 0.0-5.41 by Automated count (test code = 713-8) Basophils/100 leukocytes in Blood 0.7 % 0.0-0.79 by Automated count (test code = 706-2) [facility] W Auto Differential panel - [id number] 04:43:00 Test Item Value Reference Range Interpretation [...] fL 78-98 [Entitic volume] (test code = 34822-1) Erythrocyte mean corpuscular 30.4 pg 26.2-33.4 hemoglobin [Entitic mass] (test code = 38440-6) mean corpuscular HGB conc (test 32.7 g/dL 31.5-36.2 code = mean corpuscular HGB conc) red cell distribution width (test 12.8 % 11.5-15.5 code = red cell distribution width) Platelets [#/volume] in Blood (test 218 K/uL 137-338 code = 44568-1) Platelet mean volume [Entitic 9.2 fL 8.4-11.8 volume] in Blood (test code = 13654-0) Neutrophils.band form/100 54.5 % 44.4-80.1 leukocytes in Blood (test code = 33516-1) Lymphocytes/100 leukocytes in Body 38.2 % 10.0-50.0 fluid (test code = 21993-6) Monocytes/100 leukocytes in Blood 5.6 % 3.6-12.04 by Automated count (test code = 5905-5) Eosinophils/100 leukocytes in Blood 0.9 % 0.0-5.41 by Automated count (test code = 713-8) Basophils/100 leukocytes in Blood 0.8 % 0.0-0.79 H by Automated count (test code = 706-2) [facility] 2000 [facility] - Serum or Plasma [...] Serum or Plasma (test code = 6768-6) [facility] WesleyUrate [Mass/volume] in [id number] 04:43:00 Test Item Value Reference Range Interpretation Comments uric acid (test code = uric acid) 6.3 mg/dL 2.4-5.7 H [facility] WesleyD-Lactate [Moles/volume] in Serum or [id number] 04:43:00 Test Item Value Reference Range Interpretation Comments LDH (test code = LDH) 177 U/L 135-214 [facility]Reagin Ab [Presence] in Serum by [id number] 04:43:00 Test Item Value Reference Range Interpretation Comments Reagin Ab [Presence] in Serum by nonreactive nonreactive RPR (test code = 72457-3) [facility] WesleyHepatitis B virus surface Ag [Presence] in Serum 2018-04-05 04:43:00 Test Item Value Reference Range Interpretation Comments .hepatitis B surface antigen (test negative negative code = .hepatitis B surface antigen) [facility] macro (dipstick) panel - [id number] 14:37:39 Test Item Value Reference Range Interpretation Comments Leukocytes (test code = Small Leukocytes) Nitrite (test code = negative Nitrite) Urobilinogen (test code = .2 Urobilinogen) Protein (test code = 30 Protein) pH (test code = pH) 7.0 Blood (test code = Blood) Non-Hemolyzed: Moderate Specific [place] (test 1.020 code = Specific [place]) Ketone (test code = Negative Ketone) Bilirubin (test code = Negative Bilirubin) Glucose (test code = Negative Glucose) Appearance (test code = Clear Appearance) Color (test code = Color) Yellow [facility] macro (dipstick) panel - [id number] 14:37:39 Test Item Value Reference Range Interpretation Comments Leukocytes (test code = Small Leukocytes) Nitrite (test code = negative Nitrite) Urobilinogen (test code = .2 Urobilinogen) Protein (test code = 30 Protein) pH (test code = pH) 7.0 Blood (test code = Blood) Non-Hemolyzed: Moderate Specific [place] (test 1.020 code = Specific [place]) Ketone (test code = Negative Ketone) Bilirubin (test code = Negative Bilirubin) Glucose (test code = Negative Glucose) Appearance (test code = Clear Appearance) Color (test code = Color) Yellow [facility] macro (dipstick) panel - [id number] 14:37:39 Test Item Value Reference Range Interpretation Comments Leukocytes (test code = Small Leukocytes) Nitrite (test code = negative Nitrite) Urobilinogen (test code = .2 Urobilinogen) Protein (test code = 30 Protein) pH (test code = pH) 7.0 Blood (test code = Blood) Non-Hemolyzed: Moderate Specific [place] (test 1.020 code = Specific [place]) Ketone (test code = Negative Ketone) Bilirubin (test code = Negative Bilirubin) Glucose (test code = Negative Glucose) Appearance (test code = Clear Appearance) Color (test code = Color) Yellow [facility] GroupUrinalysis complete panel - [id number] 06:37:00 Test Item Value Reference Range Interpretation Comments Color of Urine by Auto (test yellow code = 38278-1) Appearance of Urine (test code SL cloudy clear A = 5767-9) Glucose [Presence] in Urine by =4+ (1000 negative H Automated test strip (test code = 65394-4) Bilirubin.total [Mass/volume] negative negative in Urine (test code = 1978-6) Ketones [Mass/volume] in Urine negative negative by Automated test strip (test code = 48852-0) Specific gravity of Urine by 1.021 1.003-1.030 Automated test strip (test code = 20702-7) blood urine (test code = blood negative negative urine) pH of Urine (test code = 6.500 5-9 2756-5) protein urine (UA) (test code = negative negative protein urine (UA)) Urobilinogen [Presence] in normal 0.2-1.0 Urine (test code = 50482-1) Nitrite [Presence] in Urine by negative negative Test strip (test code = 5802-4) Leukocyte esterase [Presence] =3 negative H in Urine by Automated test strip (test code = 91961-3) Erythrocytes [#/volume] in =1-5 0-5 Urine by Automated count (test code = 798-9) Leukocytes [#/area] in Urine =11-14 0-5 H sediment by Automated count (test code = 69664-8) Epithelial cells [Presence] in =6-10 0-5 Urine sediment by Light microscopy (test code = 23481-2) Bacteria identified in Urine by small(1 none detect Culture (test code = 630-4) Casts [#/area] in Urine none detected none detect sediment by Automated count (test code = 37520-0) urine culture added? (test code yes = urine culture added?) [facility] identified in Urine by [id number] 06:37:00Bacteria Ur [facility]rine 2018-03-20 06:37:00 Test Item Value Reference Range Interpretation Comments Color of Urine by Auto (test yellow code = 93543-8) Appearance of Urine (test code SL cloudy clear A = 5767-9) Glucose [Presence] in Urine by =4+ (1000 negative H Automated test strip (test code = 07493-0) Bilirubin.total [Mass/volume] negative negative in Urine (test code = 1978-6) Ketones [Mass/volume] in Urine negative negative by Automated test strip (test code = 53576-7) Specific gravity of Urine by 1.021 1.003-1.030 Automated test strip (test code = 96453-5) blood urine (test code = blood negative negative urine) pH of Urine (test code = 6.500 5-9 2756-5) protein urine (UA) (test code = negative negative protein urine (UA)) Urobilinogen [Presence] in normal 0.2-1.0 Urine (test code = 86246-7) Nitrite [Presence] in Urine by negative negative Test strip (test code = 5802-4) Leukocyte esterase [Presence] =3 negative H in Urine by Automated test strip (test code = 14382-0) Erythrocytes [#/volume] in =1-5 0-5 Urine by Automated count (test code = 798-9) Leukocytes [#/area] in Urine =11-14 0-5 H sediment by Automated count (test code = 02506-1) Epithelial cells [Presence] in =6-10 0-5 Urine sediment by Light microscopy (test code = 85627-3) Bacteria identified in Urine by small(1 none detect Culture (test code = 630-4) Casts [#/area] in Urine none detected none detect sediment by Automated count (test code = 31878-0) urine culture added? (test code yes = urine culture added?) [facility] identified in Urine by [id number] 06:37:00Bacteria Ur CultMerit Health WesleyUrinalysis macro (dipstick) panel - [id number] 10:47:01 Test Item Value Reference Range Interpretation Comments Leukocytes (test code = Leukocytes) Trace Nitrite (test code = Nitrite) negative Urobilinogen (test code = .2 Urobilinogen) Protein (test code = Protein) Negative pH (test code = pH) 7.0 Blood (test code = Blood) Negative Specific [place] (test code = 1.015 Specific [place]) Ketone (test code = Ketone) Negative Bilirubin (test code = Bilirubin) Negative Glucose (test code = Glucose) Negative Appearance (test code = Appearance) Clear Color (test code = Color) Yellow [facility]Ur[facility] macro (dipstick) panel - [id number] 10:47:01 Test Item Value Reference Range Interpretation Comments Leukocytes (test code = Leukocytes) Trace Nitrite (test code = Nitrite) negative Urobilinogen (test code = .2 Urobilinogen) Protein (test code = Protein) Negative pH (test code = pH) 7.0 Blood (test code = Blood) Negative Specific [place] (test code = 1.015 Specific [place]) Ketone (test code = Ketone) Negative Bilirubin (test code = Bilirubin) Negative Glucose (test code = Glucose) Negative Appearance (test code = Appearance) Clear Color (test code = Color) Yellow [facility]Ur[facility] macro (dipstick) panel - [id number] 10:47:01 Test Item Value Reference Range Interpretation Comments Leukocytes (test code = Leukocytes) Trace Nitrite (test code = Nitrite) negative Urobilinogen (test code = .2 Urobilinogen) Protein (test code = Protein) Negative pH (test code = pH) 7.0 Blood (test code = Blood) Negative Specific [place] (test code = 1.015 Specific [place]) Ketone (test code = Ketone) Negative Bilirubin (test code = Bilirubin) Negative Glucose (test code = Glucose) Negative Appearance (test code = Appearance) Clear Color (test code = Color) Yellow [facility]on-stress [id number] 14:04:00 Test Item Value Reference Range Interpretation Comments Reactive (test code = Reactive) Yes Contractions (test code = Contractions) No [facility] Groupnon-stress [id number] 14:04:00 Test Item Value Reference Range Interpretation Comments Reactive (test code = Reactive) Yes Contractions (test code = Contractions) No [facility] GroupUrinalysis macro (dipstick) panel - [id number] 13:10:36 Test Item Value Reference Range Interpretation Comments Leukocytes (test code = Leukocytes) Large Nitrite (test code = Nitrite) negative Urobilinogen (test code = .2 Urobilinogen) Protein (test code = Protein) Negative pH (test code = pH) 7.0 Blood (test code = Blood) Negative Specific [place] (test code = 1.015 Specific [place]) Ketone (test code = Ketone) Negative Bilirubin (test code = Bilirubin) Negative Glucose (test code = Glucose) Negative Appearance (test code = Appearance) Clear Color (test code = Color) Yellow [facility] GroupUrinalysis macro (dipstick) panel - [id number] 13:10:36 Test Item Value Reference Range Interpretation Comments Leukocytes (test code = Leukocytes) Large Nitrite (test code = Nitrite) negative Urobilinogen (test code = .2 Urobilinogen) Protein (test code = Protein) Negative pH (test code = pH) 7.0 Blood (test code = Blood) Negative Specific [place] (test code = 1.015 Specific [place]) Ketone (test code = Ketone) Negative Bilirubin (test code = Bilirubin) Negative Glucose (test code = Glucose) Negative Appearance (test code = Appearance) Clear Color (test code = Color) Yellow [facility] GroupUrinalysis macro (dipstick) panel - [id number] 13:10:36 Test Item Value Reference Range Interpretation Comments Leukocytes (test code = Leukocytes) Large Nitrite (test code = Nitrite) negative Urobilinogen (test code = .2 Urobilinogen) Protein (test code = Protein) Negative pH (test code = pH) 7.0 Blood (test code = Blood) Negative Specific [place] (test code = 1.015 Specific [place]) Ketone (test code = Ketone) Negative Bilirubin (test code = Bilirubin) Negative Glucose (test code = Glucose) Negative Appearance (test code = Appearance) Clear Color (test code = Color) Yellow [facility] GroupUrinalysis macro (dipstick) panel - [id number] 09:37:36 Test Item Value Reference Range Interpretation Comments Leukocytes (test code = Leukocytes) Small Nitrite (test code = Nitrite) negative Urobilinogen (test code = .2 Urobilinogen) Protein (test code = Protein) Trace pH (test code = pH) 7.0 Blood (test code = Blood) Negative Specific [place] (test code = 1.020 Specific [place]) Ketone (test code = Ketone) Negative Bilirubin (test code = Bilirubin) Negative Glucose (test code = Glucose) Negative Appearance (test code = Appearance) Clear Color (test code = Color) Yellow [facility] GroupUrinalysis macro (dipstick) panel - [id number] 09:37:36 Test Item Value Reference Range Interpretation Comments Leukocytes (test code = Leukocytes) Small Nitrite (test code = Nitrite) negative Urobilinogen (test code = .2 Urobilinogen) Protein (test code = Protein) Trace pH (test code = pH) 7.0 Blood (test code = Blood) Negative Specific [place] (test code = 1.020 Specific [place]) Ketone (test code = Ketone) Negative Bilirubin (test code = Bilirubin) Negative Glucose (test code = Glucose) Negative Appearance (test code = Appearance) Clear Color (test code = Color) Yellow [facility] macro (dipstick) panel - [id number] 09:37:36 Test Item Value Reference Range Interpretation Comments Leukocytes (test code = Leukocytes) Small Nitrite (test code = Nitrite) negative Urobilinogen (test code = .2 Urobilinogen) Protein (test code = Protein) Trace pH (test code = pH) 7.0 Blood (test code = Blood) Negative Specific [place] (test code = 1.020 Specific [place]) Ketone (test code = Ketone) Negative Bilirubin (test code = Bilirubin) Negative Glucose (test code = Glucose) Negative Appearance (test code = Appearance) Clear Color (test code = Color) Yellow [facility] WesleyGlucose [Mass/volume] in Serum or Plasma --1 hour post dose [id number] 13:44:00 Test Item Value Reference Range Interpretation Comments Results (test code = Results) 104 [facility] GroupUrinalysis macro (dipstick) panel - [id number] 08:53:48 Test Item Value Reference Range Interpretation Comments Leukocytes (test code = Leukocytes) Negative Nitrite (test code = Nitrite) negative Urobilinogen (test code = .2 Urobilinogen) Protein (test code = Protein) Negative pH (test code = pH) 7.0 Blood (test code = Blood) Negative Specific [place] (test code = 1.010 Specific [place]) Ketone (test code = Ketone) Negative Bilirubin (test code = Bilirubin) Negative Glucose (test code = Glucose) Negative Appearance (test code = Appearance) Clear Color (test code = Color) Yellow [facility]
[2021-04-30] MEDS ORDERED: ONDANSETRON 4 MG/2 ML VIAL ONE (16:11)
[2021-04-30] MEDS ORDERED: NA CHLORIDE 0.9% 1,000 ML ONE (16:11)
[2021-04-30 16:23] LABS: Hematocrit 41.4 % (36.0-45.0); Lymphocytes % 15.1 % (15.3-44.8); MPV 7.7 fL (7.6-11.3); RBC Red Blood Cell Count 4.49 M/uL (3.86-4.86)
[2021-04-30 16:30] LABS: Urine Blood Trace-intact (Negative); Urine Glucose Negative (Negative); Urine Protein Negative (Negative); Urine Specific Gravity >=1.030 (1.005-1.030)
[2021-04-30 16:39] LABS: ALT/SGPT 35 U/L (12-78); AST/SGOT 15 U/L (15-37); Albumin 3.8 g/dL (3.4-5.0); Alkaline Phosphatase 77 U/L (45-117); BUN Blood Urea Nitrogen 12 mg/dL (7-18); Bicarbonate 27 mmol/L (21-32); Bilirubin Direct 0.3 mg/dL (0-0.2); Bilirubin Total 1.8 mg/dL (0.2-1.0); Glucose Level 90 mg/dL (74-106); Lipase 92 U/L (73-393); Potassium 3.7 mmol/L (3.5-5.1); Protein, Total 7.3 g/dL (6.4-8.2); Sodium Level 138 mmol/L (136-145)
[2021-04-30 17:32] LABS: Urine Specific Gravity/Preg >1.030 (1.005-1.030)
--- NOTE | 2021-04-30 18:37 | ER ---
Nurse's Notes [facility] Name: Ricarda Moya Age: 25 yrs Sex: Female : 1995 Arrival Date: 04/30/2021 Time: 15:34 Bed 12 Private MD: Diagnosis: Other abdominal pain;Vomiting;Diarrhea, unspecified Presentation: 04/30 15:40 Chief complaint: Patient states: she woke up this morning with abdominal pain, that ap3 when palpated radiates up her epigastric area. Patient reports NVD that also began this morning. Coronavirus screen: At this time, the client does not indicate any symptoms associated with coronavirus-19. Ebola Screen: No symptoms or risks identified at this time. Initial Sepsis Screen: Does the patient meet any 2 criteria? No. Patient's initial sepsis screen is negative. Does the patient have a suspected source of infection? No. Patient's initial sepsis screen is negative. Risk Assessment: Do you want to hurt yourself or someone else? Patient reports no desire to harm self or others. Onset of symptoms was April 30, 2021. 15:40 Method Of Arrival: Ambulatory ap3 15:40 Acuity: CATALINO 3 ap3 Triage Assessment: 15:42 General: Appears in no apparent distress. Behavior is calm, cooperative. Pain: ap3 Complains of pain in abdomen Pain radiates to epigastric area Pain currently is 7 out of 10 on a pain scale. Pain began suddenly, this morning Also complains of nausea. Neuro: Level of Consciousness is awake, alert, obeys commands, Oriented to person, place, time, situation, Appropriate for age. Cardiovascular: Patient's skin is warm and dry. Respiratory: Airway is patent Respiratory effort is even, unlabored. GI: Abdomen is flat, Reports lower abdominal pain, upper abdominal pain, diarrhea, nausea, vomiting. [employer]: 15:44 LMP 04/14/2021 ap3 Historical: - Allergies: 15:42 No Known Allergies; ap3 - Home Meds: 15:42 None [Active]; ap3 - PMHx: 15:42 pericarditis; ap3 - Immunization history:: Client reports receiving the 1st dose of the Covid vaccine, Flu vaccine is not up to date. - Social history:: Smoking status: Patient reports the use of cigarette tobacco products, smokes one-half pack cigarettes per day. Screenin:44 Abuse screen: Denies threats or abuse. Nutritional screening: No deficits noted. ap3 Tuberculosis screening: No symptoms or risk factors identified. Fall Risk Fall in past 12 months (25 points). No secondary diagnosis (0 pts). Ambulatory Aid- None/Bed Rest/Nurse Assist (0 pts). Gait- Normal/Bed Rest/Wheelchair (0 pts) Mental Status- Oriented to own ability (0 pts). Total Brady Fall Scale indicates Low Risk Score (25-44 pts). Fall prevention measures have been instituted. Placed close to Nursing Station Frequent Obs/Assesments occuring As available Patient and Family Educated on Fall Prevention Program and strategies. Assessment: 16:40 General: Appears in no apparent distress. comfortable. General: Behavior is calm, lr4 cooperative. Neuro: No deficits noted. Cardiovascular: No deficits noted. Respiratory: No deficits noted. GI: Abdomen is flat, non-distended, Bowel sounds present X 4 quads. Abdomen is tender to palpation in epigastric area Reports upper abdominal pain, nausea. Vital Signs: 15:40 BP 118 / 69; Pulse 91; Resp 16; Temp 99.0; Pulse Ox 100% ; Weight 63.5 kg; Height 5 ft. ap3 3 in. (160.02 cm); Pain 7/10; 18:30 BP 122 / 71; Pulse 85; Resp 18; Pulse Ox 99% on R/A; lr4 15:40 Body Mass Index 24.80 (63.50 kg, 160.02 cm) ap3 ED Course: 15:34 Patient arrived in ED. kz 15:42 Triage completed. ap3 15:44 Arm band placed on right wrist. ap3 15:45 Kobi Lopez PA is PHCP. jm 15:45 Hari Lama MD is Attending Physician. [facility] 16:04 Kayleigh Whelan RN is Primary Nurse. lr4 16:12 Inserted saline lock: 22 gauge in right antecubital area, using aseptic technique. tp1 Blood collected. 16:40 Patient has correct armband on for positive identification. Bed in low position. Call lr4 light in reach. Side rails up X 1. 16:40 No provider procedures requiring assistance completed. lr4 18:37 IV discontinued, intact, bleeding controlled, No redness/swelling at site. Pressure lr4 dressing applied. Administered Medications: 16:13 Drug: NS 0.9% 1000 ml Route: IV; Rate: 1 bolus; Site: right antecubital; lr4 18:37 Follow up: IV Status: Completed infusion lr4 16:13 Drug: Zofran (Ondansetron) 4 mg Route: IVP; Site: right antecubital; lr4 16:23 Follow up: Response: Nausea is decreased lr4 Outcome: 16:41 Condition: stable lr4 18:37 Discharge ordered by . vince 18:37 Discharged to home lr4 18:37 Discharge instructions given to patient, pt received verbal d/c instruction from md and nurse but left pt obtain d/c paperwork 18:58 Patient left the ED. lr4 Signatures: Kobi Lopez PA PA jmm Prokisch, Amanda, RN RN ap3 Meri Bustillo tp1 Kayleigh Whelan RN RN lr4 Ricarda Perales
--- NOTE | 2021-04-30 18:37 | EDPHYS ---
Physician Documentation [facility] Name: Ricarda Moya Age: 25 yrs Sex: Female : 1995 Arrival Date: 04/30/2021 Time: 15:34 Bed 12 Private MD: ED Physician Hari Lama HPI: 04/30 15:55 This 25 yrs old Female presents to ER via Ambulatory with complaints of Abdominal Pain. jmm 15:55 The patient presents with abdominal pain. Onset: The symptoms/episode began/occurred jmm this morning. The symptoms radiate to back. Associated signs and symptoms: Pertinent positives: nausea and vomiting, diarrhea. The symptoms are described as achy, sharp. Modifying factors: The symptoms are alleviated by nothing, the symptoms are aggravated by nothing. Is a 25-year-old female with history of pericarditis the presents emerged department periumbilical abdominal pain beginning earlier this morning along with vomiting and diarrhea. Patient states the pain radiates to the lower back. Denies any pelvic pain or vaginal bleeding. Patient does state that she does have a history of ovarian cyst. Denies recent travel, infectious exposure, recent antibiotic use.. 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 - Social history:: Smoking status: Patient reports the use of cigarette tobacco products, smokes one-half pack cigarettes per day. ROS: 15:55 Constitutional: Negative for fever, chills, and weight loss, Cardiovascular: Negative jmm for chest pain, palpitations, and edema, Respiratory: Negative for shortness of breath, cough, wheezing, and pleuritic chest pain. 15:55 Abdomen/GI: Positive for abdominal pain, nausea and vomiting, diarrhea. 15:55 All other systems are negative. Exam: 15:55 Constitutional: This is a well developed, well nourished patient who is awake, alert, jmm and in no acute distress. Head/Face: atraumatic. Eyes: EOMI, no conjunctival erythema appreciated ENT: Moist Mucus Membranes Neck: Trachea midline, Supple Chest/axilla: Normal chest wall appearance and motion. Cardiovascular: Regular rate and rhythm. No edema appreciated Respiratory: Normal respirations, no respiratory distress appreciated 15:55 Skin: General appearance color normal MS/ Extremity: Moves all extremities, no obvious deformities appreciated, no edema noted to the lower extremities Neuro: Awake and alert Psych: Behavior is normal, Mood is normal, Patient is cooperative and pleasant 15:55 Abdomen/GI: Inspection: abdomen appears normal, Bowel sounds: normal, Palpation: soft, mild abdominal tenderness, in the umbilical area. 15:55 Back: CVA tenderness, is absent. Vital Signs: 15:40 BP 118 / 69; Pulse 91; Resp 16; Temp 99.0; Pulse Ox 100% ; Weight 63.5 kg; Height 5 ft. ap3 3 in. (160.02 cm); Pain 7/10; 18:30 BP 122 / 71; Pulse 85; Resp 18; Pulse Ox 99% on R/A; lr4 15:40 Body Mass Index 24.80 (63.50 kg, 160.02 cm) ap3 MDM: 15:55 Patient medically screened. [facility] 18:36 Data reviewed: vital signs, nurses notes. Counseling: I had a detailed discussion with vince the patient and/or guardian regarding: the historical points, exam findings, and any diagnostic results supporting the discharge/admit diagnosis, lab results, the need for outpatient follow up, to return to the emergency department if symptoms worsen or persist or if there are any questions or concerns that arise at home. Refusal of service: The patient/guardian displays adequate decision making capability and despite a detailed discussion of alternatives, benefits, risks, and consequences refuses: CT Scan. 04/30 15:55 Order name: Basic Metabolic Panel; Complete Time: 16:46 [facility] 04/30 15:55 Order name: CBC with Diff; Complete Time: 16:29 [facility] 04/30 15:55 Order name: Hepatic Function; Complete Time: 16:46 [facility] 04/30 15:55 Order name: Lipase; Complete Time: 16:46 [facility] 04/30 16:29 Order name: Urine Dipstick-Ancillary; Complete Time: 16:34 EDMS 04/30 16:31 Order name: Urine --Ancillary (enter results); Complete Time: 17:36 em 04/30 15:55 Order name: IV Saline Lock; Complete Time: 16:12 [facility] 04/30 15:55 Order name: Labs collected and sent; Complete Time: 16:12 [facility] 04/30 15:55 Order name: Urine Dipstick-Ancillary (obtain specimen); Complete Time: 16:14 [facility] 04/30 15:55 Order name: Urine Test (obtain specimen); Complete Time: 16:14 [facility] Administered Medications: 16:13 Drug: NS 0.9% 1000 ml Route: IV; Rate: 1 bolus; Site: right antecubital; lr4 18:37 Follow up: IV Status: Completed infusion lr4 16:13 Drug: Zofran (Ondansetron) 4 mg Route: IVP; Site: right antecubital; lr4 16:23 Follow up: Response: Nausea is decreased lr4 Disposition Summary: 04/30/21 18:37 Discharge Ordered Location: Home [facility] Condition: Stable [facility] Diagnosis - Other abdominal pain jmm - Vomiting jmm - Diarrhea, unspecified [facility] Followup: [facility] - With: Private Physician - When: 2 - 3 days - Reason: Recheck today's complaints, Continuance of care, Re-evaluation by your physician Discharge Instructions: - Discharge Summary Sheet [facility] - Food Choices to Help Relieve Diarrhea, Adult jm - Vomiting, Adult [facility] Forms: - Medication Reconciliation Form [facility] - Thank You Letter [facility] - Antibiotic Education [facility] - Prescription Opioid Use [facility] Prescriptions: - ondansetron 4 mg Oral tablet,disintegrating - place 1 tablet by TRANSLINGUAL route 3 times per day; 20 tablet; Refills: 0, [facility] Product Selection Permitted - dicyclomine 20 mg Oral Tablet - take 1 tablet by ORAL route 4 times per day; 20 tablet; Refills: 0, Product [facility] Selection Permitted Signatures: Dispatcher [employer] EDMS Kobi Lopez PA PA jmm Prokisch, Amanda RN RN ap3 Kayleigh Whelan RN RN lr4 Corrections: (The following items were deleted from the chart) 18:41 15:58 Abdomen Pelvis W [id number] ordered. EDMS EDMS
[2021-04-30 19:06] VITALS: TEMP 99
[2021-04-30 19:07] VITALS: BP 122/71; O2SAT 99
== END 2021-04-30 18:58 | disposition home or self-care (01) ==
LOC: ER 15:30
DX: R10.9 Unspecified abdominal pain (principal); R11.2 Nausea with vomiting, unspecified; R19.7 Diarrhea, unspecified; F17.210 Nicotine dependence, cigarettes, uncomplicated
CPT/HCPCS: 96361; 85025; 80048; 36415; 81025; 80076; 81003; 83690; 96374; 99283; J7030; J2405

== ENCOUNTER 2021-12-27 08:06 | Emergency (ER) | payer OTHER ==
--- OUTSIDE RECORDS SUMMARY | 2021-12-27 08:13 | XMS REPORT | Continuity of Care Document ---
:1995 Author Organization [facility] t Address [address] [place] [address] Care Team Providers Name Role Phone G_Papjanes Attending Clinician Unavailable Melyssa Stout Attending Clinician [phone] OSCAR ULLOA Attending Clinician Unavailable Doctor Unassigned, [place] Attending Clinician Unavailable Tr[facility], [facility] Attending Clinician Unavailable Cain Pereyra MD Attending Clinician Landon Garciahuber Attending Clinician Unavailable G_Pappas Admitting Clinician Unavailable Payers Payer Name Policy Type Policy Number Effective Date Expiration Date S ourdiam[place] [employer] [place] [id number] 2019 COMM[facility] - 00:00:00 [place] (MEDICAID HMO) MEDICAID OF [place] [id number] 2019 00:00:00 [place] ACS - [id number] TMHP - TRADITIONAL Problems Condition Condition Condition Status Onset Resolution [...] Medical 00 Group Over Over Disease Active Univers weight weight 2-18 ity of 00:00: [place] 00 Medical Branch Acute Acute Disease Active Univers nasopharyn nasopharyn 2-18 it y of gitis gitis 00:00: [place] (common (common 00 Medical cold) cold) Branch Multiparit Multiparit Disease Active U nivers y y 1-15 ity of 00:00: [place] 00 Medical Branch History of History of Disease Active Overview : Univers pre-eclamp pre-eclamp 1-15 Reports i ty of leoncio leoncio 00:00: delivery [place] 00 at 37w5d Medical Branch Rubella Rubella Disease Active Univers non-immune non-immune 7-13 it y of status, status, 00:00: [place] antepartum antepartum 00 Ma dical Branch Tobacco Tobacco Disease Active Overview: [...] high 7-10 ity of risk risk 00:00: [place] , , 00 Me dical antepartum antepartum Br anch Breast Breast Disease Active Univers lump on lump on 08-29 ity of right [place] at 11 00 Medical o'clock o'clock Branch position position History of History of Disease Active Overview : Univers breast breast 08-29 Reports ity of lump lump 00:00: benign no 00 issues Medical Branch Allergies, Adverse Reactions, Alerts Allergy Allergy Status Severity Reaction(s) Onset Inactive Treating Comm ents Source Name Type Date Date Clinician LATEX DRUG Active Low Rash Univers INGREDI 7-10 ity of 00:00: [place] 00 Medical Branch Latex Propensi Active Rash Univers ty to 710 ity of adverse 00:00: [place] reaction 00 Medical s Branch Latex Allergy Active Rash [facility] e [facility] Social History Social Habit Start Date Stop Date Quantity Comments Source ASSERTION 2019-02-22 University of 00:00:00 [facility] Sex Assigned At Universit y of [facility] Cigarettes smoked 2019-04-09 2019-04-09 Univers ity of current (pack per 00:00:00 00:00:00 [place] ) - Reported Branch Cigarette 2019-04-09 2019-04-09 University of pack-years 00:00:00 00:00:00 [facility] Alcohol intake 2019-04-09 2019-04-09 University of 00:00:00 00:00:00 [facility] Alcohol Comment 2019-03-06 2019-03-06 last drank Universit y of 00:00:00 00:00:00 03/04/2019 [facility] History of tobacco 2019-03-04 Cigarette Smoker University of use 00:00:00 [facility] Tobacco Comment 2017-08-29 2017-08-29 information Universi ty of 00:00:00 00:00:00 provided [facility] Smoking Status Start Date Stop Date Source Former smoker 2019-04-09 00:00:00 2019-04-09 00:00:00 Universi ty of [facility] Medications Ordered Filled Start Stop Current Ordering [...] (four) Branch hours as needed. 2020-0 Yes [id number] 1{tbl} Take 1 U nivers multivitami 1-15 tablet by ity of n ( 00:00: mouth [place] VITAMIN) 00 daily. Medical tablet Branch 2020-0 Yes [id number] 1{tbl} Take 1 U nivers multivitami 1-15 tablet by ity of n ( 00:00: mouth [place] VITAMIN) 00 daily. Medical tablet Branch 2020-0 Yes [id number] 1{tbl} Take 1 U nivers multivitami 1-15 tablet by ity of n ( 00:00: mouth [place] VITAMIN) 00 daily. Medical tablet Branch Yes [id number] 1{tbl} Take 1 U nivers multivitami 1-15 tablet by ity of n ( 00:00: mouth [place] VITAMIN) 00 daily. Medical tablet Branch Yes [id number] 1{tbl} Take 1 U nivers multivitami 1-15 tablet by ity of n ( 00:00: mouth [place] VITAMIN) 00 daily. Medical tablet Branch Yes [id number] 1{tbl} Take 1 U nivers multivitami 1-15 tablet by ity of n ( 00:00: mouth [place] VITAMIN) 00 daily. Medical tablet Branch Yes [id number] 1{tbl} Take 1 U nivers multivitami 1-15 tablet by ity of n ( 00:00: mouth [place] VITAMIN) 00 daily. Medical tablet Branch Yes [id number] 1{tbl} Take 1 U nivers multivitami 1-15 tablet by ity of n ( 00:00: mouth [place] VITAMIN) 00 daily. Medical tablet Branch Yes [id number] 1{tbl} Take 1 U nivers multivitami 1-15 tablet by ity of n ( 00:00: mouth [place] VITAMIN) 00 daily. Medical tablet Branch Yes [id number] 1{tbl} Take 1 U nivers multivitami 1-15 tablet by ity of n ( 00:00: mouth [place] VITAMIN) 00 daily. Medical tablet Branch Yes [id number] 1{tbl} Take 1 U nivers multivitami 1-15 tablet by ity of n ( 00:00: mouth [place] VITAMIN) 00 daily. Medical tablet Branch Yes [id number] 1{tbl} Take 1 U nivers multivitami 1-15 tablet by ity of n ( 00:00: mouth [place] VITAMIN) 00 daily. Medical tablet Branch Yes [id number] 1{tbl} Take 1 U nivers multivitami 1-15 tablet by ity of n ( 00:00: mouth [place] VITAMIN) 00 daily. Medical tablet Branch Yes [id number] 1{tbl} Take 1 U nivers multivitami 1-15 tablet by ity of n ( 00:00: mouth [place] VITAMIN) 00 daily. Medical tablet Branch Yes [id number] 1{tbl} Take 1 U nivers multivitami 1-15 tablet by ity of n ( 00:00: mouth [place] VITAMIN) 00 daily. Medical tablet Branch Yes [id number] 1{tbl} Take 1 U nivers multivitami 1-15 tablet by ity of n ( 00:00: mouth [place] VITAMIN) 00 daily. Medical tablet Branch Yes [id number] 1{tbl} Take 1 U nivers multivitami 1-15 tablet by ity of n ( 00:00: mouth [place] VITAMIN) 00 daily. Medical tablet Branch proMETHazin Yes 12.5mg Take 12.5 Univers e 12.5 mg 8-10 mg by ity of tablet 17:49: mouth [place] 27 every 4 Medical (four) Branch hours as needed. [id number] 2018-0 Yes 1{tbl} Take 1 Un alejandrina iron-folic- 7-10 tablet by ity of docusate 00:00: mouth [place] (CITRANATAL 00 daily. Medica l , Branch DUAL-IRON,) 27 mg iron-1 mg -50 mg Tab [id number]- 2018-0 Yes 1{tbl} Take 1 Un alejandrina iron-folic- 7-10 tablet by ity of docusate 00:00: mouth [place] (CITRANATAL 00 daily. Medica l , Branch DUAL-IRON,) 27 mg iron-1 mg -50 mg Tab [id number]- 2018-0 Yes 1{tbl} Take 1 Un alejandrina iron-folic- 7-10 tablet by ity of docusate 00:00: mouth [place] (CITRANATAL 00 daily. Medica l , Branch DUAL-IRON,) 27 mg iron-1 mg -50 mg Tab [id number]- 2018-0 Yes 1{tbl} Take 1 Un alejandrina iron-folic- 7-10 tablet by ity of docusate 00:00: mouth [place] (CITRANATAL 00 daily. Medica l , Branch DUAL-IRON,) 27 mg iron-1 mg -50 mg Tab [id number]- 2018-0 Yes 1{tbl} Take 1 Un alejandrina iron-folic- 7-10 tablet by ity of docusate 00:00: mouth [place] (CITRANATAL 00 daily. Medica l , Branch DUAL-IRON,) 27 mg iron-1 mg -50 mg Tab [id number] 2018-0 Yes 1{tbl} Take 1 Un alejandrina iron-folic- 7-10 tablet by ity of docusate 00:00: mouth [place] (CITRANATAL 00 daily. Medica l , Branch DUAL-IRON,) 27 mg iron-1 mg -50 mg Tab [id number] 2018-0 Yes 1{tbl} Take 1 Un alejandrina iron-folic- 7-10 tablet by ity of docusate 00:00: mouth [place] (CITRANATAL 00 daily. Medica l , Branch DUAL-IRON,) 27 mg iron-1 mg -50 mg Tab [id number] 2018-0 Yes 1{tbl} Take 1 Un alejandrina iron-folic- 7-10 tablet by ity of docusate 00:00: mouth [place] (CITRANATAL 00 daily. Medica l , Branch DUAL-IRON,) 27 mg iron-1 mg -50 mg Tab [id number] 2018-0 Yes 1{tbl} Take 1 Un alejandrina iron-folic- 7-10 tablet by ity of docusate 00:00: mouth [place] (CITRANATAL 00 daily. Medica l , Branch DUAL-IRON,) 27 mg iron-1 mg -50 mg Tab [id number] 2018-0 Yes 1{tbl} Take 1 Un alejandrina iron-folic- 7-10 tablet by ity of docusate 00:00: mouth [place] (CITRANATAL 00 daily. Medica l , Branch DUAL-IRON,) 27 mg iron-1 mg -50 mg Tab [id number] 2018-0 Yes 1{tbl} Take 1 Un alejandrina iron-folic- 7-10 tablet by ity of docusate 00:00: mouth [place] (CITRANATAL 00 daily. Medica l , Branch DUAL-IRON,) 27 mg iron-1 mg -50 mg Tab [id number] 2018-0 Yes 1{tbl} Take 1 Un alejandrina iron-folic- 7-10 tablet by ity of docusate 00:00: mouth [place] (CITRANATAL 00 daily. Medica l , Branch DUAL-IRON,) 27 mg iron-1 mg -50 mg Tab [id number] 2018-0 Yes 1{tbl} Take 1 Un alejandrina iron-folic- 7-10 tablet by ity of docusate 00:00: mouth [place] (CITRANATAL 00 daily. Medica l , Branch DUAL-IRON,) 27 mg iron-1 mg -50 mg Tab [id number] 2018-0 Yes 1{tbl} Take 1 Un alejandrina iron-folic- 7-10 tablet by ity of docusate 00:00: mouth [place] (CITRANATAL 00 daily. Medica l , Branch DUAL-IRON,) 27 mg iron-1 mg -50 mg Tab [id number] 2018-0 Yes 1{tbl} Take 1 Un alejandrina iron-folic- 7-10 tablet by ity of docusate 00:00: mouth [place] (CITRANATAL 00 daily. Medica l , Branch DUAL-IRON,) 27 mg iron-1 mg -50 mg Tab [id number] 2018-0 Yes 1{tbl} Take 1 Un alejandrina iron-folic- 7-10 tablet by ity of docusate 00:00: mouth [place] (CITRANATAL 00 daily. Medica l , Branch DUAL-IRON,) 27 mg iron-1 mg -50 mg Tab [id number] 2018-0 Yes 1{tbl} Take 1 Un alejandrina iron-folic- 7-10 tablet by ity of docusate 00:00: mouth [place] (CITRANATAL 00 daily. 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 BP Systolic 2020-05-11 00:00:00 105 mm[Hg] [facility] Body Weight 2020-05-11 00:00:00 165.6 [lb_av] [facility] BP Diastolic 2019-12-27 00:00:00 63 mm[Hg] [facility] Height 2019-12-27 00:00:00 63 [in_i] [facility] BMI (Body Mass 2019-12-27 00:00:00 27 kg/m2 [facility]) [facility] BP Systolic 2019-12-27 00:00:00 107 mm[Hg] [facility] Body Weight 2019-12-27 00:00:00 152.6 [lb_av] [facility] BP Diastolic 2019-12-13 00:00:00 76 mm[Hg] [facility] Height 2019-12-13 00:00:00 63 [in_i] [facility] BMI (Body Mass 2019-12-13 00:00:00 27.1 kg/m2 [facility] Index) [facility] BP Systolic 2019-12-13 00:00:00 112 mm[Hg] [facility] Body Weight 2019-12-13 00:00:00 153 [lb_av] [facility] BP Diastolic 2019-11-28 00:00:00 72 mm[Hg] [facility] Height 2019-11-28 00:00:00 63 [in_i] [facility] BMI (Body Mass 2019-11-28 00:00:00 27.1 kg/m2 [facility]) [facility] BP Systolic 2019-11-28 00:00:00 113 mm[Hg] [facility] Body Weight 2019-11-28 00:00:00 153 [lb_av] [facility] BP Diastolic 2019-10-31 00:00:00 81 mm[Hg] [facility] Height 2019-10-31 00:00:00 63 [in_i] [facility] BMI (Body Mass 2019-10-31 00:00:00 31.4 kg/m2 [facility]) [facility] BP Systolic 2019-10-31 00:00:00 123 mm[Hg] [facility] Body Weight 2019-10-31 00:00:00 177.3 [lb_av] [facility] BP Diastolic 2019-10-24 00:00:00 78 mm[Hg] [facility] Height 2019-10-24 00:00:00 63 [in_i] [facility] BMI (Body Mass 2019-10-24 00:00:00 31.2 kg/m2 [facility]) [facility] BP Systolic 2019-10-24 00:00:00 121 mm[Hg] [facility] Body Weight 2019-10-24 00:00:00 176 [lb_av] [facility] BP Diastolic 2019-10-14 00:00:00 70 mm[Hg] [facility] Height 2019-10-14 00:00:00 63 [in_i] [facility] BMI (Body Mass 2019-10-14 00:00:00 30.6 kg/m2 [facility] Index) [facility] BP Systolic 2019-10-14 00:00:00 106 mm[Hg] [facility] Body Weight 2019-10-14 00:00:00 173 [lb_av] [facility] BP Diastolic 2019-10-09 00:00:00 72 mm[Hg] [facility] Height 2019-10-09 00:00:00 63 [in_i] [facility] BMI (Body Mass 2019-10-09 00:00:00 30.5 kg/m2 [facility] Index) [facility] BP Systolic 2019-10-09 00:00:00 112 mm[Hg] [facility] Body Weight 2019-10-09 00:00:00 172.3 [lb_av] [facility] BP Diastolic 2019-10-04 00:00:00 78 mm[Hg] [facility] Height 2019-10-04 00:00:00 63 [in_i] [facility] BMI (Body Mass 2019-10-04 00:00:00 30.5 kg/m2 [facility] Index) [facility] BP Systolic 2019-10-04 00:00:00 116 mm[Hg] [facility] Body Weight 2019-10-04 00:00:00 171.9 [lb_av] [facility] BP Diastolic 2019-09-17 00:00:00 71 mm[Hg] [facility] Height 2019-09-17 00:00:00 63 [in_i] [facility] BMI (Body Mass 2019-09-17 00:00:00 30 kg/m2 [facility] Index) [facility] BP Systolic 2019-09-17 00:00:00 112 mm[Hg] [facility] Body Weight 2019-09-17 00:00:00 169.4 [lb_av] [facility] BP Diastolic 2019-08-27 00:00:00 71 mm[Hg] [facility] Height 2019-08-27 00:00:00 63 [in_i] [facility] BMI (Body Mass 2019-08-27 00:00:00 29.4 kg/m2 [facility] Medical Index) Group BP Systolic 2019-08-27 00:00:00 114 mm[Hg] [facility] Body Weight 2019-08-27 00:00:00 166 [lb_av] [facility] BP Diastolic 2019-07-26 00:00:00 63 mm[Hg] [facility] Height 2019-07-26 00:00:00 63 [in_i] [facility] BMI (Body Mass 2019-07-26 00:00:00 29.1 kg/m2 [facility] Medical Index) Group BP Systolic 2019-07-26 00:00:00 102 mm[Hg] [facility] Body Weight 2019-07-26 00:00:00 164 [lb_av] [facility] BP Diastolic 2019-07-18 00:00:00 63 mm[Hg] [facility] Height 2019-07-18 00:00:00 63 [in_i] [facility] BMI (Body Mass 2019-07-18 00:00:00 29.1 kg/m2 [facility] Medical Index) Group BP Systolic 2019-07-18 00:00:00 102 mm[Hg] [facility] Body Weight 2019-07-18 00:00:00 164.3 [lb_av] [facility] BP Diastolic 2019-07-02 00:00:00 70 mm[Hg] [facility] Height 2019-07-02 00:00:00 63 [in_i] [facility] BMI (Body Mass 2019-07-02 00:00:00 28.6 kg/m2 [facility] Medical Index) Group BP Systolic 2019-07-02 00:00:00 117 mm[Hg] [facility] Body Weight 2019-07-02 00:00:00 161.2 [lb_av] [facility] BP Diastolic 2019-06-04 00:00:00 60 mm[Hg] [facility] Height 2019-06-04 00:00:00 63 [in_i] [facility] BMI (Body Mass 2019-06-04 00:00:00 28.1 kg/m2 [facility] BP Systolic 2019-06-04 00:00:00 107 mm[Hg] [facility] Body Weight 2019-06-04 00:00:00 158.8 [lb_av] [facility] BP Diastolic 2019-05-02 00:00:00 58 mm[Hg] [facility] Height 2019-05-02 00:00:00 63 [in_i] [facility] BMI (Body Mass 2019-05-02 00:00:00 27.9 [facility]2 [facility] BP Systolic 2019-05-02 00:00:00 107 mm[Hg] [facility] Body Weight 2019-05-02 00:00:00 157.3 [lb_av] [facility] BP Diastolic 2019-04-17 00:00:00 67 mm[Hg] [facility] Height 2019-04-17 00:00:00 63 [in_i] [facility] BMI (Body Mass 2019-04-17 00:00:00 28.4 kg/m2 [facility] BP Systolic 2019-04-17 00:00:00 111 mm[Hg] [facility] Body Weight 2019-04-17 00:00:00 160.2 [lb_av] [facility] Systolic blood 2019-04-09 16:28:00 111 mm[Hg] Univer sity of pressure [facility] Diastolic blood 2019-04-09 16:28:00 65 mm[Hg] Unive rsity of pressure [facility] Heart rate 2019-04-09 16:28:00 92 /min [facility] [place] [facility] Body temperature 2019-04-09 16:28:00 36.39 Jacki [facility] [place] [facility] Respiratory rate 2019-04-09 16:28:00 16 /min Univ ersity of [place] [facility] Body height 2019-04-09 16:28:00 160 cm [facility] [place] [facility] Body weight 2019-04-09 16:28:00 72.15 kg [facility] [place] [facility] BMI 2019-04-09 16:28:00 28.18 kg/m2 [facility] [place] [facility] Systolic blood 2019-04-09 16:28:00 111 mm[Hg] Univer sity of pressure [place] [facility] Diastolic blood 2019-04-09 16:28:00 65 mm[Hg] Unive rsity of pressure [place] [facility] Heart rate 2019-04-09 16:28:00 92 /min [facility] [place] [facility] Body temperature 2019-04-09 16:28:00 36.39 Jacki [facility] [place] [facility] Respiratory rate 2019-04-09 16:28:00 16 /min Univ ers[facility] of [place] [facility] Body height 2019-04-09 16:28:00 160 cm [facility] [place] [facility] Body weight 2019-04-09 16:28:00 72.15 kg [facility] [place] [facility] BMI 2019-04-09 16:28:00 28.18 kg/m2 [facility] [place] [facility] Systolic blood 2019-03-29 19:36:00 113 mm[Hg] Univer sity of pressure [place] [facility] Diastolic blood 2019-03-29 19:36:00 72 mm[Hg] Unive rsity of pressure [place] [facility] Heart rate 2019-03-29 19:36:00 82 /min [facility] [place] [facility] Body temperature 2019-03-29 19:36:00 36.11 Jacki [facility] [place] [facility] Respiratory rate 2019-03-29 19:36:00 16 /min Univ [facility] [place] [facility] Body height 2019-03-29 19:36:00 160 cm [facility] [place] [facility] Body weight 2019-03-29 19:36:00 72.632 kg [facility] [place] [facility] BMI 2019-03-29 19:36:00 28.36 kg/m2 [facility] [place] [facility] Systolic blood 2019-03-29 19:36:00 113 mm[Hg] Univer sity of pressure [place] [facility] Diastolic blood 2019-03-29 19:36:00 72 mm[Hg] Unive rsity of pressure [place] [facility] Heart rate 2019-03-29 19:36:00 82 /min [facility] [place] [facility] Body temperature 2019-03-29 19:36:00 36.11 Jacki [facility] [place] [facility] Respiratory rate 2019-03-29 19:36:00 16 /min Univ [facility] [place] [facility] Body height 2019-03-29 19:36:00 160 cm [facility] [place] [facility] Body weight 2019-03-29 19:36:00 72.632 kg [facility] [place] [facility] BMI 2019-03-29 19:36:00 28.36 kg/m2 [facility] [place] [facility] Heart rate 2019-03-21 16:56:00 59 /min [facility] [place] [facility] Body temperature 2019-03-21 16:56:00 36.39 Jacki [facility] [place] [facility] Respiratory rate 2019-03-21 16:56:00 16 /min Univ [facility] [place] [facility] Body height 2019-03-21 16:56:00 160 cm [facility] [place] [facility] Body weight 2019-03-21 16:56:00 73.029 kg [facility] [place] [facility] BMI 2019-03-21 16:56:00 28.52 kg/m2 [facility] [place] [facility] Systolic blood 2019-03-21 16:56:00 112 mm[Hg] Univer sity of pressure [place] [facility] Diastolic blood 2019-03-21 16:56:00 62 mm[Hg] Unive rsity of pressure [place] [facility] Heart rate 2019-03-21 16:56:00 59 /min [facility] [place] [facility] Body temperature 2019-03-21 16:56:00 36.39 Jacki [facility] [place] [facility] Respiratory rate 2019-03-21 16:56:00 16 /min Univ [facility] [place] [facility] Body height 2019-03-21 16:56:00 160 cm [facility] [place] [facility] Body weight 2019-03-21 16:56:00 73.029 kg [facility] [place] [facility] BMI 2019-03-21 16:56:00 28.52 kg/m2 [facility] [place] [facility] Systolic blood 2019-03-21 16:56:00 112 mm[Hg] Univer sity of pressure [place] [facility] Diastolic blood 2019-03-21 16:56:00 62 mm[Hg] Unive rsity of pressure [place] [facility] Systolic blood 2019-03-12 16:59:00 123 mm[Hg] Univer sity of pressure [place] [facility] Diastolic blood 2019-03-12 16:59:00 71 mm[Hg] Unive rsity of pressure [facility] Heart rate 2019-03-12 16:59:00 76 /min [facility] [place] [facility] Body temperature 2019-03-12 16:59:00 36.28 Jacki [facility] [place] [facility] Respiratory rate 2019-03-12 16:59:00 16 /min Univ [facility] [place] [facility] Body height 2019-03-12 16:59:00 160 cm [facility] [place] [facility] Body weight 2019-03-12 16:59:00 73.738 kg [facility] [place] [facility] BMI 2019-03-12 16:59:00 28.80 kg/m2 [facility] [place] [facility] Systolic blood 2019-03-12 16:59:00 123 mm[Hg] Univer sity of pressure [facility] Diastolic blood 2019-03-12 16:59:00 71 mm[Hg] Unive rsity of pressure [facility] Heart rate 2019-03-12 16:59:00 76 /min [facility] [place] [facility] Body temperature 2019-03-12 16:59:00 36.28 Jacki [facility] [place] [facility] Respiratory rate 2019-03-12 16:59:00 16 /min [facility] [place] [facility] Body height 2019-03-12 16:59:00 160 cm [facility] [place] [facility] Body weight 2019-03-12 16:59:00 73.738 kg [facility] [place] [facility] BMI 2019-03-12 16:59:00 28.80 kg/m2 [facility] [place] [facility] Systolic blood 2019-03-06 15:53:00 127 mm[Hg] Univer sity of pressure [facility] Diastolic blood 2019-03-06 15:53:00 80 mm[Hg] Unive rsity of pressure [facility] Heart rate 2019-03-06 15:53:00 79 /min [facility] [place] [facility] Body temperature 2019-03-06 15:53:00 36.22 Jacki [facility] [place] [facility] Respiratory rate 2019-03-06 15:53:00 16 /min [facility] Body height 2019-03-06 15:53:00 170.2 cm [facility] Body weight 2019-03-06 15:53:00 72.576 kg [facility] BMI 2019-03-06 15:53:00 25.06 kg/m2 [facility] Height 2018-10-26 00:00:00 63 [in_i] [facility] BMI (Body Mass 2018-10-26 00:00:00 27.6 kg/m2 [facility] Body Weight 2018-10-26 00:00:00 156 [lb_av] [facility] BP Diastolic 2018-07-26 00:00:00 73 mm[Hg] [facility] Height 2018-07-26 00:00:00 63 [in_i] [facility] BMI (Body Mass 2018-07-26 00:00:00 26.6 kg/m2 [facility] BP Systolic 2018-07-26 00:00:00 121 mm[Hg] [facility] Body Weight 2018-07-26 00:00:00 150.2 [lb_av] [facility] BP Diastolic 2018-04-26 00:00:00 69 mm[Hg] [facility] Height 2018-04-26 00:00:00 63 [in_i] [facility] BMI (Body Mass 2018-04-26 00:00:00 25.7 kg/m2 [facility] BP Systolic 2018-04-26 00:00:00 97 mm[Hg] [facility] Body Weight 2018-04-26 00:00:00 145 [lb_av] [facility] BP Diastolic 2018-04-02 00:00:00 85 mm[Hg] [facility] Height 2018-04-02 00:00:00 63 [in_i] [facility] BMI (Body Mass 2018-04-02 00:00:00 29.5 kg/m2 [facility] BP Systolic 2018-04-02 00:00:00 145 mm[Hg] [facility] Body Weight 2018-04-02 00:00:00 166.5 [lb_av] [facility] BP Diastolic 2018-03-29 00:00:00 79 mm[Hg] [facility] Height 2018-03-29 00:00:00 63 [in_i] [facility] BMI (Body Mass 2018-03-29 00:00:00 29.6 kg/m2 [facility] Medical Index) Group BP Systolic 2018-03-29 00:00:00 118 mm[Hg] [facility] Body Weight 2018-03-29 00:00:00 166.9 [lb_av] [facility] BP Diastolic 2018-03-09 00:00:00 75 mm[Hg] [facility] Height 2018-03-09 00:00:00 63 [in_i] [facility] BMI (Body Mass 2018-03-09 00:00:00 28 kg/m2 [facility] Medical Index) Group BP Systolic 2018-03-09 00:00:00 120 mm[Hg] [facility] Body Weight 2018-03-09 00:00:00 158 [lb_av] [facility] BP Diastolic 2018-02-28 00:00:00 72 mm[Hg] [facility] Height 2018-02-28 00:00:00 63 [in_i] [facility] BMI (Body Mass 2018-02-28 00:00:00 27.6 kg/m2 [facility] Medical Index) Group BP Systolic 2018-02-28 00:00:00 115 mm[Hg] [facility] Body Weight 2018-02-28 00:00:00 156 [lb_av] [facility] BP Diastolic 2018-02-23 00:00:00 69 mm[Hg] [facility] Height 2018-02-23 00:00:00 63 [in_i] [facility] BMI (Body Mass 2018-02-23 00:00:00 27.5 kg/m2 [facility] Medical Index) Group BP Systolic 2018-02-23 00:00:00 107 mm[Hg] [facility] Body Weight 2018-02-23 00:00:00 155 [lb_av] [facility] Procedures Procedure Date / Time Performing Clinician Source Performed unlisted imaging order 2019-12-27 00:00:00 [facility] Bilateral Tubal Ligation 2019-12-18 00:00:00 [facility] non-stress test 2019-10-31 00:00:00 [facility] US, obstetric, limited 2019-10-14 [facility] 2019-10-14 00:00:00 [facility] non-stress test 2019-10-09 00:00:00 [facility] US, obstetric, limited 2019-09-17 00:00:00 [facility] ord Medical [facility] ULTRASOUND REPEAT 2019-08-27 00:00:00 [facility] US, obstetric, limited 2019-07-26 00:00:00 [facility] ord Medical [facility] ULTRASOUND, 2019-06-27 00:00:00 [facility] UTERUS REAL TIME WITH Group IMAGE DOC, AND MATERNAL EVAL PLUS DETAILED ANATOMIC EXAMINATION, TRANSABDOMINAL APPROACH; SINGLE OR FIRST GESTATION US, obstetric, limited 2019-06-04 00:00:00 [facility] ord Medical [facility] ULTRASOUND, 2019-05-30 00:00:00 [facility] UTERUS REAL TIME WITH Group IMAGE DOC, AND MATERNAL EVAL PLUS DETAILED ANATOMIC EXAMINATION, TRANSABDOMINAL APPROACH; SINGLE OR FIRST GESTATION US, obstetric, limited 2019-05-02 00:00:00 [facility] AUTHORIZATION FOR RELEASE 2019-04-17 06:01:00 Doctor Unassigned, [facility] [place] [facility] US, obstetric, limited 2019-04-17 00:00:00 [facility] ord Medical [facility] POCT RAPID FLU A AND B 2019-04-09 17:08:00 Melyssa Mccarty [facility] POCT URINALYSIS 2019-04-09 16:42:00 Melyssa Mccarty [facility] POCT URINALYSIS 2019-03-29 19:40:00 Melyssa Mccarty [facility] US OB TRANSVAGINAL 2019-03-21 19:44:41 Vani Sullivan [facility] POCT URINALYSIS 2019-03-12 17:18:00 Melyssa Mccarty [facility] POCT URINALYSIS W/O 2019-03-06 16:01:00 Gabby Florian [facility] SPECIFIC GRAVITY [facility] POCT TEST 2019-03-06 15:58:00 Gabby Florian [facility] ASSIGNMENT OF BENEFITS 2019-03-06 15:11:41 [facility], [facility] [place] [facility] non-stress test 2018-04-02 00:00:00 [facility] US, obstetric, limited 2018-03-29 00:00:00 [facility] non-stress test 2018-02-28 00:00:00 [facility] US, obstetric, limited 2018-02-23 00:00:00 [facility] ULTRASOUND REPEAT 2018-01-26 00:00:00 [facility] Plan of Care Planned Activity Planned Date Details Comments Source Diagnostic Test 2020-05-11 urinalysis, [facility] Pending 00:00:00 dipstick [code = Group urinalysis, dipstick] Diagnostic Test 2020-05-11 [place], vaginal [facility] Pending 00:00:00 [code = [place], Group vaginal] Encounters Start End Encounter Admission Attending Care Care Encounter Source Date/Time Date/Time Type Type Clinicians Facility Department ID 2021-08-12 Outpatient [facility] [id number] [place] 15:01:02 [id number] Health 2020-06-10 2020-06-10 Outpatient [facility] [id number] [facility] 03:45:00 03:45:00 0421 [facility] 2020-05-11 2020-05-11 Kartik G_[place] MMG [place] - [id number] 1 [facility] 00:00:00 00:00:00 Discovery Arvind 0322 tavia CABRERA: [facility] [address], [place] [address] , Ph. [phone] 2020-05-05 2020-05-05 Outpatient [facility] [id number] [facility] 01:33:00 01:33:00 0316 [facility] 2020-03-23 2020-03-23 Outpatient [facility] [id number] [facility] 01:05:00 01:05:00 0201 [facility] 2020-02-17 2020-02-17 Outpatient [facility] [id number] [facility] 01:05:00 01:05:00 1228 [facility] 2020-01-13 2020-01-13 Outpatient [facility] [id number] [facility] 01:06:00 01:06:00 1123 [facility] 2020-01-08 2020-01-08 Outpatient [facility] [id number] [facility] 02:30:00 02:30:00 1118 [facility] 2019-12-27 2019-12-27 Kartik G_[place] MMG [place] - [id number] 0 [facility] 00:00:00 00:00:00 Discovery Arvind 1106 tavia MD: [address] [place] [address] , Ph. [phone] 2019-12-18 2019-12-18 Outpatient [facility] [id number] [facility] 10:30:00 10:30:00 1028 [facility] 2019-12-13 2019-12-13 Kartik G_[place] MMG [place] - [id number] 0 [facility] 00:00:00 00:00:00 Discovery Arvind 1023 tavia MD: [address] [address] , Ph. [phone] 2019-12-06 2019-12-06 Outpatient [facility] MM[facility] [id number] [facility] 05:58:00 05:58:00 1016 [facility] 2019-11-28 2019-11-28 Kartik G_[place]appas MMG [place] - [id number] 0 [facility] 00:00:00 00:00:00 Discovery Arvind 1008 da MD: [address] [place] [address] , Ph. [phone] 2019-11-01 2019-11-01 Outpatient G_[facility]G MMG [id number] [place] 09:08:00 09:08:00 0911 da [facility] 2019-10-31 2019-10-31 Kartik G_[place]appas MMG [place] - [id number] 0 [facility] 00:00:00 00:00:00 Discovery Arvind 0910 da MD: [address] [place] [address] , Ph. [phone] 2019-10-24 2019-10-24 Kartik G_[place]app[place] MMG [place] - [id number] 0 [facility] 00:00:00 00:00:00 Discovery Arvind 0903 da MD: [address] [place] [address] , Ph. [phone] 2019-10-14 2019-10-14 Kartik G_Pappas MMG [place] - [id number] 0 [facility] 00:00:00 00:00:00 Discovery Arvind 0824 da MD: [address] [place] [address] , Ph. [phone] 2019-10-09 2019-10-09 Jena Loaiza [facility] [place] - [id number] [facility] 00:00:00 00:00:00 Discovery Giovany 0819 da NP: [address] [place] [address] , Ph. [phone] 2019-10-06 2019-10-06 Outpatient G_[facility] MMG [id number] [facility] 09:39:00 09:39:00 0816 tavia [facility] 2019-10-04 2019-10-04 Kartik G_Pappas MMG [place] - [id number] 0 [facility] 00:00:00 00:00:00 Discovery Arvind 0814 tavia MD: [address] [place] [address] , Ph. [phone] 2019-09-17 2019-09-17 Kartik G_[place]appas MMG [place] - [id number] 0 [facility] 00:00:00 00:00:00 Discovery Arvind 0728 tavia MD: [address] [place] [address] , Ph. [phone] 2019-08-27 2019-08-27 Kartik G_[place]appas MMG [place] - [id number] 0 [facility] 00:00:00 00:00:00 Discovery Arvind 0707 tavia MD: [address] [place] [address] , Ph. [phone] 2019-08-15 2019-08-15 Outpatient [facility] MMG [id number] [facility] 06:16:00 06:16:00 0625 da [facility] 2019-07-29 2019-07-29 Outpatient G_[facility] MMG [id number] [facility] 12:56:00 12:56:00 0608 tavia [facility] 2019-07-26 2019-07-26 Kartik G_[place]app[place] MMG [place] - [id number] 0 [facility] 00:00:00 00:00:00 Discovery Arvind 0605 tavia MD: [address] [place] [address] , Ph. [phone] 2019-07-18 2019-07-18 Kartik [place] MM[place] - [id number] 0 [facility] 00:00:00 00:00:00 Discovery Arvind 0528 tavia MD: [address] [place] [address] , Ph. [phone] 2019-07-02 2019-07-02 Kartik G_[place]app[place] MMG [place] - [id number] 0 [facility] 00:00:00 00:00:00 Discovery Arvind 0512 da MD: [address] [place] [address] , Ph. [phone] 2019-06-04 2019-06-04 Kartik G_[place]appas MMG [place] - [id number] 0 [facility] 00:00:00 00:00:00 Discovery Arvind 0414 da MD: [address] [place] [address] , Ph. [phone] 2019-05-31 2019-05-31 Outpatient [facility] [id number] [facility] 11:44:00 11:44:00 0410 da [facility] 2019-05-30 2019-05-30 [place] - [id number] [facility] 00:00:00 00:00:00 Discovery Arvind 0409 da MD: [address] [place] [address] , Ph. [phone] 2019-05-28 2019-05-28 Outpatient [facility] [id number] [facility] 09:09:00 09:09:00 0407 da [facility] 2019-05-07 2019-05-07 Telephone [facility] 1.2.840.114 [id number] [facility] 00:00:00 00:00:00 Melyssa C LONG WALL SHEAR OPERATOR 350.1.13.10 ity of REGIONAL 4.2.7.2.686 Dewayne as MATERNAL [id number] Med ical & CHILD 107 [facility] 2019-05-07 2019-05-07 Telephone [facility] 1.2.840.114 [id number] 00:00:00 00:00:00 Melyssa C LONG WALL SHEAR OPERATOR 350.1.13.10 REGIONAL 4.2.7.2.686 MATERNAL [id number] & CHILD 107 [facility] 2019-05-05 2019-05-05 Outpatient [facility] G 2019 [facility] 01:01:00 01:01:00 0315 Medical Group 2019-05-02 2019-05-02 Jena Loaiza [facility] 2019 [facility] 00:00:00 00:00:00 Discovery Giovany 311 da NP: 600 [facility] [address], [place] [address] , Ph. [phone] 2019-04-30 2019-04-30 Outpatient Maria E ARTEMIO, [facility] [id number] Univers 11:00:00 11:00:00 OSCAR [facility] 2019-04-19 2019-04-19 Outpatient G_[facility] MMG 2019 [facility] 10:48:00 10:48:00 0228 Medical Group 2019-04-17 2019-04-17 Orders Doctor GWEN Smallwood2.840.114 [id number] Univers 00:00:00 00:00:00 Only Unassigned, DAVON 350.1.13.10 ity of [place] [facility] 4.2.7.2.686 Dewayne as [phone] [address] 2019-04-17 2019-04-17 Jena Fadia [facility] 2019 [facility] 00:00:00 00:00:00 Discovery Giovany 0226 da WHNP: 600 [facility] [address], [place] [address] , Ph. [phone] 2019-04-17 2019-04-17 Orders Doctor GWEN Smallwood2.840.114 [id number] 00:00:00 00:00:00 Only Unassigned, DAVON 350.1.13.10 [place] [facility] 4.2.7.2.686 [id number] 009 2019-04-11 2019-04-11 Outpatient G_[facility] G [id number] [facility] 10:46:00 10:46:00 0220 Medical Group 2019-04-10 2019-04-10 Outpatient G_[facility] MMG [id number] [facility] 11:46:00 11:46:00 0219 Medical Group 2019-04-09 2019-04-09 Routine Akinsipe, MIMB 1.2.911.005 [id number] Univers 10:20:53 11:14:02 Melyssa C LONG WALL SHEAR OPERATOR 350.1.13.10 ity of Visit REGIONAL 4.2.7.2.686 Dewayne as MATERNAL [id number] Med ical & CHILD [address] [place] [address] 2019-04-09 2019-04-09 Routine Akinsipe, [facility] 1.2.878.594 [id number] 10:20:53 11:14:02 Melyssa C LONG WALL SHEAR OPERATOR 350.1.13.10 Visit REGIONAL 4.2.7.2.686 MATERNAL [id number] & CHILD [address] [place] [address] 2019-04-09 2019-04-09 Telephone [facility] 1.2.840.114 [id number] [facility] 00:00:00 00:00:00 Melyssa C LONG WALL SHEAR OPERATOR 350.1.13.10 ity of REGIONAL 4.2.7.2.686 Dewayne as MATERNAL [id number] Med ical & CHILD [address] [place] [address] 2019-04-09 2019-04-09 Telephone [facility] 1.2.840.114 [id number] 00:00:00 00:00:00 Melyssa C LONG WALL SHEAR OPERATOR 350.1.13.10 REGIONAL 4.2.7.2.686 MATERNAL [id number] & CHILD [address] [place] [address] 2019-04-02 2019-04-02 Abstract [facility] 1.2.840.114 [id number] 00:00:00 00:00:00 Melyssa C LONG WALL SHEAR OPERATOR 350.1.13.10 REGIONAL 4.2.7.2.686 MATERNAL [id number] & CHILD [address] [place] [address] 2019-04-02 2019-04-02 Abstract Akinsipe, [facility] 1.2.840.114 [id number] Univers 00:00:00 00:00:00 Melyssa C LONG WALL SHEAR OPERATOR 350.1.13.10 ity of REGIONAL 4.2.7.2.686 Dewayne as MATERNAL [id number] [facility] ical & CHILD [address] [place] [address] 2019-03-29 2019-03-29 Routine Akinsipe, MIMB 1.2.295.831 [id number] 13:15:49 13:58:15 Melyssa C LONG WALL SHEAR OPERATOR 350.1.13.10 Visit REGIONAL 4.2.7.2.686 MATERNAL [id number] & CHILD 107 [facility] 2019-03-29 2019-03-29 Routine Akinsipe, MIMB 1.2.878.451 [id number] Univers 13:15:49 13:58:15 Melyssa C LONG WALL SHEAR OPERATOR 350.1.13.10 ity of Visit REGIONAL 4.2.7.2.686 Dewayne as MATERNAL [id number] [facility] ical & CHILD [address] [place] [address] 2019-03-25 2019-03-25 Patient Biggpe, [facility] 1.2.557.089 [id number] 00:00:00 00:00:00 Secure Msg Melyssa C LONG WALL SHEAR OPERATOR 350.1.13.10 REGIONAL 4.2.7.2.686 MATERNAL [id number] & CHILD [address] [place] [address] 2019-03-25 2019-03-25 Patient Akinpe, [facility] 1.2.618.842 [id number] [facility] 00:00:00 00:00:00 Secure Msg Melyssa C LONG WALL SHEAR OPERATOR 350.1.13.10 ity of REGIONAL 4.2.7.2.686 Dewayne as MATERNAL [id number] [facility] ical & CHILD [address] [place] [address] 2019-03-23 2019-03-23 Patient Doctor GWEN 1.2.840.114 [id number] Univers 00:00:00 00:00:00 Secure Msg Unassigned, DAVON 350.1.13.10 [facility] 4.2.7.2.686 Dewayne as [phone] [address] 2019-03-23 2019-03-23 Patient Doctor GWEN 1.2.840.114 [id number] 00:00:00 00:00:00 Secure Msg Unassigned, DAVON 350.1.13.10 [facility] 4.2.7.2.686 [id number] 019 2019-03-22 2019-03-22 Outpatient G_Pappas MMG MMG [id number] [place] 03:31:00 03:31:00 0131 Medical Group 2019-03-21 2019-03-21 Routine Trimester, [facility] Res-1st UNIVERSIT 1.2.840.114 [id number] [facility] 10:37:46 12:13:44 Cain Pereyra HEALTH 350.1.13.1 0 ity of Visit CLINICS 4[place]2.7.2.[place] [id number] [address] 2019-03-21 2019-03-21 Routine Trimester, UNIVERSIT 1.2.840.114 [id number] 10:37:46 12:13:44 [facility] HEALTH 350.1.13.10 Visit Res-1st CLINICS 4.2.7.2.686 [id number] [facility] 2019-03-14 2019-03-14 Epic Director Lab, [facility] 1.2.840. 114 [id number] [facility] 08:59:20 09:14:20 Visit Akinsipe, Melyssa C LONG WALL SHEAR OPERATOR 350.1.13. 10 ity of REGIONAL 4.2.7.2.686 Dewayne as MATERNAL [id number] Med ical & CHILD [address] [place] [address] 2019-03-14 2019-03-14 Epic Director Lab, [facility] 1.2.840.114 [id number] 08:59:20 09:14:20 Visit [facility] LONG WALL SHEAR OPERATOR 350.1.13.10 REGIONAL 4.2.7.2.686 MATERNAL [id number] & CHILD [address] [place] [address] 2019-03-12 2019-03-12 Routine Akinsipe, [facility] 1.2.469.141 [id number] Univers 10:45:27 11:26:38 Melyssa C LONG WALL SHEAR OPERATOR 350.1.13.10 ity of Visit REGIONAL 4.2.7.2.686 Dewayne as MATERNAL [id number] Med ical & CHILD [address] [place] [address] 2019-03-12 2019-03-12 Routine Akinsipe, [facility] 1.2.404.514 [id number] 10:45:27 11:26:38 Melyssa C LONG WALL SHEAR OPERATOR 350.1.13.10 Visit REGIONAL 4.2.7.2.686 MATERNAL [id number] & CHILD [address] [place] [address] 2019-03-12 2019-03-12 Telephone Lul, [facility] 1.2.840.114 [id number] Univers 00:00:00 00:00:00 Melyssa C LONG WALL SHEAR OPERATOR 350.1.13.10 ity of REGIONAL 4.2.7.2.686 Dewayne as MATERNAL [id number] Med ical & CHILD [address] [place] [address] 2019-03-08 2019-03-08 Patient Biggpe, [facility] 1.2.991.338 [id number] Univers 00:00:00 00:00:00 Secure Msg Melyssa C LONG WALL SHEAR OPERATOR 350.1.13.10 ity of REGIONAL 4.2.7.2.686 Dewayne as MATERNAL [id number] Med ical & CHILD [address] [place] [address] 2019-03-08 2019-03-08 Patient [facility] 1.2.591.029 [id number] 00:00:00 00:00:00 Secure Msg Melyssa C LONG WALL SHEAR OPERATOR 350.1.13.10 REGIONAL 4.2.7.2.686 MATERNAL [id number] & CHILD [address] [place] [address] 2019-03-07 2019-03-07 Telephone [facility] 1.2.840.114 [id number] Univers 00:00:00 00:00:00 Melyssa C LONG WALL SHEAR OPERATOR 350.1.13.10 ity of REGIONAL 4.2.7.2.686 Dewayne as MATERNAL [id number] Med ical & CHILD [address] [place] [address] 2019-03-06 2019-03-06 Initial Biggpe, [facility] 1.2.796.190 [id number] Univers 09:42:06 11:08:11 Melyssa C LONG WALL SHEAR OPERATOR 350.1.13.10 ity of Visit REGIONAL 4.2.7.2.686 Dewayne as MATERNAL [id number] Med ical & CHILD [address] [place] [address] 2019-03-06 2019-03-06 Orders Doctor GWEN 1.2.840.114 [id number] Univers 00:00:00 00:00:00 Only Unassigned, DAVON 350.1.13.10 ity of [place] [facility] 4.2.7.2.686 Dewayne as [id number] [place] [address] Branch 2018-11-10 2018-11-10 Outpatient G_Pappas [facility] [id number] [place] 11:17:00 11:17:00 0921 tavia Medical [facility] 2018-10-26 2018-10-26 Grant [facility] [place] [place] - [id number] [place] 00:00:00 00:00:00 Maximilian Tesfaye 0906 Maicol Malave MD: [address] [place] [address] , Ph. [phone] 2018-07-26 2018-07-26 [place] - [id number] 019 [place] 00:00:00 00:00:00 Discovery Giovany 0606 da WHNP: [address] [place] [address] , Ph. [phone] 2018-04-26 2018-04-26 Jena Loaiza [facility] [place] - [id number] [place] 00:00:00 00:00:00 Discovery Giovany 0307 da WHNP: [address] [place] [address] , Ph. [phone] 2018-04-02 2018-04-02 [place] - [address] [place] 00:00:00 00:00:00 Discovery Arvind 0211 tavia CABRERA: [address] [place] [address] , Ph. [phone] 2018-03-29 2018-03-29 Jena Loaiza [facility] [place] [place] - [id number] 019 [place] 00:00:00 00:00:00 Discovery Giovany 0207 da WHNP: [address] [place] [address] , Ph. [phone] 2018-03-09 2018-03-09 [place] - [address] [place] 00:00:00 00:00:00 Discovery Arvind 0118 tavia MD: [address] [place] [address] , Ph. [phone] 2018-02-28 2018-02-28 [place] - [id number] 019 [place] 00:00:00 00:00:00 Discovery Giovany 0109 da WHNP: [address] [place] [address] , Ph. [phone] 2018-02-23 2018-02-23 [place] - [id number] 019 [place] 00:00:00 00:00:00 Discovery Giovany 0104 da WHNP: [address] [place] [address] , Ph. [phone] 2018-01-26 2018-01-26 [place] - [address] [place] 00:00:00 00:00:00 Discovery Arvind 1207 da MD: [address] [place] [address] Arvind [address] , Ph. [phone] Results Test Description Test Time Test Comments [...] Blood (test code = Blood) Moderate Specific [place] (test code = Specific [place]) 1.020 Ketone (test code = Ketone) Negative Bilirubin (test code = Bilirubin) Negative Glucose (test code = Glucose) Negative Appearance (test code = Appearance) Clear Color (test code = Color) Yellow [facility]dipstick) panel - [id number] 14:51:51 Test Item Value Reference Range Interpretation Comments Leukocytes (test code = Leukocytes) Negative Nitrite (test code = Nitrite) negative Urobilinogen (test code = .2 Urobilinogen) Protein (test code = Protein) Negative pH (test code = pH) 7.0 Blood (test code = Blood) Negative Specific [place] (test code = 1.020 Specific [place]) Ketone (test code = Ketone) Negative Bilirubin (test code = Bilirubin) Negative Glucose (test code = Glucose) Negative Appearance (test code = Appearance) Clear Color (test code = Color) Yellow [facility] macro (dipstick) panel - [id number] 10:06:00 Test Item Value Reference Range Interpretation Comments Leukocytes (test code = Leukocytes) Trace Nitrite (test code = Nitrite) negative Urobilinogen (test code = .2 Urobilinogen) Protein (test code = Protein) Negative pH (test code = pH) 7.0 Blood (test code = Blood) Negative Specific [place] (test code = 1.025 Specific [place]) Ketone (test code = Ketone) Negative Bilirubin (test code = Bilirubin) Negative Glucose (test code = Glucose) Negative Appearance (test code = Appearance) Clear Color (test code = Color) Yellow [facility] macro (dipstick) panel - [id number] 10:06:00 Test Item Value Reference Range Interpretation Comments Leukocytes (test code = Leukocytes) Trace Nitrite (test code = Nitrite) negative Urobilinogen (test code = .2 Urobilinogen) Protein (test code = Protein) Negative pH (test code = pH) 7.0 Blood (test code = Blood) Negative Specific [place] (test code = 1.025 Specific [place]) Ketone (test code = Ketone) Negative Bilirubin (test code = Bilirubin) Negative Glucose (test code = Glucose) Negative Appearance (test code = Appearance) Clear Color (test code = Color) Yellow [facility], [id number] 09:33:09 Test Item Value Reference Range Interpretation Comments Test (test code = negative Test) [facility], [id number] 09:33:09 Test Item Value Reference Range Interpretation Comments Test (test code = negative Test) [facility] W Auto Differential panel - [id number] 08:59:00 Test Item Value Reference Range Interpretation Comments white blood count (test code = 6.0 K/uL 4.0-11.5 white blood count) red blood count (test code = red 5.01 M/uL 3.80-5.20 blood count) hemoglobin (test code = 13.5 g/dL 10.5-15.7 hemoglobin) hematocrit (test code = 43.1 % 34.0-50.0 hematocrit) MCV [Entitic volume] (test code = 86.0 fL 86-100 23748-5) mean corpuscular hemoglobin (test 26.9 pg 26.2-33.4 [...] 44.4-80.1 leukocytes in Blood (test code = 53448-3) Immature granulocytes [#/volume] 0.0 K/uL 0.0-0.03 in Blood (test code = 54273-6) lymphocyte% (test code = 43.9 % 10.0-50.0 lymphocyte%) mono % (test code = mono %) 4.2 % 3.6-12.0 eos % (test code = eos %) 1.8 % 0.0-5.4 Basophils/100 leukocytes in 0.7 % 0.1-1.2 Unspecified specimen (test code = 95779-0) Band form neutrophils [#/volume] 2.96 K/uL 1.56-6.13 in Blood (test code = 03093-9) Lymphocytes [#/volume] in 2.6 K/uL 1.18-3.74 Unspecified specimen by Automated count (test code = 16787-9) mono # (test code = mono #) 0.25 K/uL 0.24-0.86 eos # (test code = eos #) 0.11 K/uL 0.04-0.36 basophil # (test code = basophil 0.04 K/uL 0.01-0.08 #) NRBC% (test code = NRBC%) 0 /100 WBC 0-0.2 NRBC# (test code = NRBC#) 0 K/uL [facility] W Auto Differential panel - [id number] 08:59:00 Test Item Value Reference Range Interpretation Comments white blood count (test code = 6.0 K/uL 4.0-11.5 white blood count) red blood count (test code = red 5.01 M/uL 3.80-5.20 blood count) hemoglobin (test code = 13.5 g/dL 10.5-15.7 hemoglobin) hematocrit (test code = 43.1 % 34.0-50.0 hematocrit) MCV [Entitic volume] (test code = 86.0 fL 86-100 04014-9) mean corpuscular hemoglobin (test 26.9 pg 26.2-33.4 [...] 44.4-80.1 leukocytes in Blood (test code = 83856-2) Immature granulocytes [#/volume] 0.0 K/uL 0.0-0.03 in Blood (test code = 34798-0) lymphocyte% (test code = 43.9 % 10.0-50.0 lymphocyte%) mono % (test code = mono %) 4.2 % 3.6-12.0 eos % (test code = eos %) 1.8 % 0.0-5.4 Basophils/100 leukocytes in 0.7 % 0.1-1.2 Unspecified specimen (test code = 01304-1) Band form neutrophils [#/volume] 2.96 K/uL 1.56-6.13 in Blood (test code = 88096-0) Lymphocytes [#/volume] in 2.6 K/uL 1.18-3.74 Unspecified specimen by Automated count (test code = 66600-4) mono # (test code = mono #) 0.25 K/uL 0.24-0.86 eos # (test code = eos #) 0.11 K/uL 0.04-0.36 basophil # (test code = basophil 0.04 K/uL 0.01-0.08 #) NRBC% (test code = NRBC%) 0 /100 WBC 0-0.2 NRBC# (test code = NRBC#) 0 K/uL [facility] HospitalUrinal[facility] macro (dipstick) panel - [id number] 13:38:11 Test Item Value Reference Range Interpretation Comments Leukocytes (test code = Leukocytes) Small Nitrite (test code = Nitrite) negative Urobilinogen (test code = .2 Urobilinogen) Protein (test code = Protein) Negative pH (test code = pH) 7.0 Blood (test code = Blood) Moderate Specific [place] (test code = 1.020 Specific [place]) Ketone (test code = Ketone) Negative Bilirubin (test code = Bilirubin) Negative Glucose (test code = Glucose) Negative Appearance (test code = Appearance) Clear Color (test code = Color) Yellow [facility] HospitalUr[facility] macro (dipstick) panel - [id number] 13:38:11 Test Item Value Reference Range Interpretation Comments Leukocytes (test code = Leukocytes) Small Nitrite (test code = Nitrite) negative Urobilinogen (test code = .2 Urobilinogen) Protein (test code = Protein) Negative pH (test code = pH) 7.0 Blood (test code = Blood) Moderate Specific [place] (test code = 1.020 Specific [place]) Ketone (test code = Ketone) Negative Bilirubin (test code = Bilirubin) Negative Glucose (test code = Glucose) Negative Appearance (test code = Appearance) Clear Color (test code = Color) Yellow [facility]Ur[facility] (dipstick) panel - [id number] 13:38:11 Test Item Value Reference Range Interpretation Comments Leukocytes (test code = Leukocytes) Small Nitrite (test code = Nitrite) negative Urobilinogen (test code = .2 Urobilinogen) Protein (test code = Protein) Negative pH (test code = pH) 7.0 Blood (test code = Blood) Moderate Specific [place] (test code = 1.020 Specific [place]) Ketone (test code = Ketone) Negative Bilirubin (test code = Bilirubin) Negative Glucose (test code = Glucose) Negative Appearance (test code = Appearance) Clear Color (test code = Color) Yellow [facility] Auto Differential panel - [id number] 08:05:00 Test Item Value Reference Range Interpretation Comments white blood count (test code = 10.1 K/uL 4.0-11.5 white blood count) red blood count (test code = red 3.40 M/uL 3.80-5.20 L blood count) hemoglobin (test code = 9.6 g/dL 10.5-15.7 L hemoglobin) hematocrit (test code = 29.8 % 34.0-50.0 L hematocrit) MCV [Entitic volume] (test code = 87.6 fL 86-100 96414-3) mean corpuscular hemoglobin (test 28.2 pg 26.2-33.4 [...] 44.4-80.1 leukocytes in Blood (test code = 20254-3) Immature granulocytes [#/volume] 0.1 K/uL 0.0-0.03 H in Blood (test code = 13895-7) lymphocyte% (test code = 27.2 % 10.0-50.0 lymphocyte%) mono % (test code = mono %) 5.2 % 3.6-12.0 eos % (test code = eos %) 0.7 % 0.0-5.4 Basophils/100 leukocytes in 0.5 % 0.1-1.2 Unspecified specimen (test code = 39955-3) Band form neutrophils [#/volume] 6.61 K/uL 1.56-6.13 H in Blood (test code = 09585-1) Lymphocytes [#/volume] in 2.7 K/uL 1.18-3.74 Unspecified specimen by Automated count (test code = 93893-6) mono # (test code = mono #) 0.52 K/uL 0.24-0.86 eos # (test code = eos #) 0.07 K/uL 0.04-0.36 basophil # (test code = basophil 0.05 K/uL 0.01-0.08 #) NRBC% (test code = NRBC%) 0 /100 WBC 0-0.2 NRBC# (test code = NRBC#) 0 K/uL [facility] W Auto Differential panel - [id number] 04:18:00 Test Item Value Reference Range Interpretation Comments white blood count (test code = 8.2 K/uL 4.0-11.5 white blood count) red blood count (test code = red 3.42 M/uL 3.80-5.20 L blood count) hemoglobin (test code = 9.6 g/dL 10.5-15.7 L hemoglobin) hematocrit (test code = 30.3 % 34.0-50.0 L hematocrit) MCV [Entitic volume] (test code = 88.6 fL 86-100 12140-6) mean corpuscular hemoglobin (test 28.1 pg 26.2-33.4 [...] 44.4-80.1 leukocytes in Blood (test code = 78304-1) Immature granulocytes [#/volume] 0.1 K/uL 0.0-0.03 H in Blood (test code = 81109-1) lymphocyte% (test code = 32.6 % 10.0-50.0 lymphocyte%) mono % (test code = mono %) 6.2 % 3.6-12.0 eos % (test code = eos %) 1.1 % 0.0-5.4 Basophils/100 leukocytes in 0.5 % 0.1-1.2 Unspecified specimen (test code = 92656-0) Band form neutrophils [#/volume] 4.81 K/uL 1.56-6.13 in Blood (test code = 21852-0) Lymphocytes [#/volume] in 2.7 K/uL 1.18-3.74 Unspecified specimen by Automated count (test code = 25372-1) mono # (test code = mono #) 0.51 K/uL 0.24-0.86 eos # (test code = eos #) 0.09 K/uL 0.04-0.36 basophil # (test code = basophil 0.04 K/uL 0.01-0.08 #) NRBC% (test code = NRBC%) 0 /100 WBC 0-0.2 NRBC# (test code = NRBC#) 0 K/uL [facility] HospitalBlood type and Indirect antibody screen panel - Blood 2019-11-07 04:18:00 Test Item Value Reference Range Interpretation Comments Rh [Type] in Blood (test code = 4+ 10420-6) ABO and Rh group panel - Blood A positive (test code = 97972-5) [facility] HospitalHepatitis B virus surface Ag [Presence] in Serum 2019-11-07 04:18:00 Test Item Value Reference Range Interpretation Comments .hepatitis B surface antigen (test negative negative code = .hepatitis B surface antigen) [facility] HospitalReagin Ab [Presence] in Serum by [id number] 04:18:00 Test Item Value Reference Range Interpretation Comments Reagin Ab [Presence] in Serum by nonreactive nonreactive RPR (test code = 38628-0) [facility] HospitalUrinalysis macro (dipstick) panel - [id number] 08:55:00 Test Item Value Reference Range Interpretation Comments Leukocytes (test code = Large Leukocytes) Nitrite (test code = negative Nitrite) Urobilinogen (test code = .2 Urobilinogen) Protein (test code = Negative Protein) pH (test code = pH) 7.0 Blood (test code = Blood) Hemolyzed: Trace Specific [place] (test code 1.025 = Specific [place]) Ketone (test code = Ketone) Negative Bilirubin (test code = Negative Bilirubin) Glucose (test code = Negative Glucose) Appearance (test code = Clear Appearance) Color (test code = Color) Yellow [facility] HospitalUrinalysis macro (dipstick) panel - [id number] 11:15:00 Test Item Value Reference Range Interpretation Comments Leukocytes (test code = Large Leukocytes) Nitrite (test code = negative Nitrite) Urobilinogen (test code = .2 Urobilinogen) Protein (test code = Negative Protein) pH (test code = pH) 7.0 Blood (test code = Blood) Non-Hemolyzed: Trace Specific [place] (test 1.020 code = Specific [place]) Ketone (test code = Negative Ketone) Bilirubin (test code = Negative Bilirubin) Glucose (test code = Negative Glucose) Appearance (test code = Clear Appearance) Color (test code = Color) Yellow [facility] HospitalUrinalysis macro (dipstick) panel - [id number] 11:15:00 Test Item Value Reference Range Interpretation Comments Leukocytes (test code = Large Leukocytes) Nitrite (test code = negative Nitrite) Urobilinogen (test code = .2 Urobilinogen) Protein (test code = Negative Protein) pH (test code = pH) 7.0 Blood (test code = Blood) Non-Hemolyzed: Trace Specific [place] (test 1.020 code = Specific [place]) Ketone (test code = Negative Ketone) Bilirubin (test code = Negative Bilirubin) Glucose (test code = Negative Glucose) Appearance (test code = Clear Appearance) Color (test code = Color) Yellow [facility]non[facility]stress [id number] 18:40:53 Test Item Value Reference Range Interpretation Comments Reactive (test code = Reactive) Yes Contractions (test code = Contractions) No [facility]non[facility] [id number] 18:40:53 Test Item Value Reference Range Interpretation Comments Reactive (test code = Reactive) Yes Contractions (test code = Contractions) No [facility]non[facility] [id number] 18:40:53 Test Item Value Reference Range Interpretation Comments Reactive (test code = Reactive) Yes Contractions (test code = Contractions) No [facility] HospitalUrinalysis complete panel - [id number] 05:54:00 Test Item Value Reference Range Interpretation Comments Color of Urine by Auto (test light yellow code = 84132-0) Appearance of Urine (test code = SL cloudy clear A 5767-9) Glucose [Presence] in Urine by negative negative Automated test strip (test code = 38226-8) Bilirubin.total [Mass/volume] in negative negative Urine (test code = 1978-6) Ketones [Mass/volume] in Urine negative negative by Automated test strip (test code = 68717-8) Specific gravity of Urine by 1.017 1.003-1.030 Automated test strip (test code = 98605-0) blood urine (test code = blood negative negative urine) pH of Urine (test code = 2756-5) 7.000 5-9 protein urine (UA) (test code = trace negative protein urine (UA)) Urobilinogen [Presence] in Urine normal 0.2-1.0 (test code = 33547-7) Nitrite [Presence] in Urine by negative negative Test strip (test code = 5802-4) Leukocyte esterase [Presence] in =4 negative H Urine by Automated test strip (test code = 96796-6) Erythrocytes [#/volume] in Urine =1-5 0-5 by Automated count (test code = 798-9) Leukocytes [#/area] in Urine =30-49 0-5 H sediment by Automated count (test code = 79209-0) Epithelial cells [Presence] in =11-14 0-5 Urine sediment by Light microscopy (test code = 63706-6) Bacteria identified in Urine by moderate (2 none detect H Culture (test code = 630-4) Casts [#/area] in Urine sediment =2-5 none detect by Automated count (test code = 01743-8) urine culture added? (test code yes = urine culture added?) [facility] HospitalUwuaqNdenc-2-Zxnkvxqwqfjgl.placental [Presence] in Vaginal [id number] 05:54:00 Test Item Value Reference Range Interpretation Comments Ucehb-7-Elafkdhwyhekb.placental negative neg [Presence] in Vaginal fluid (test code = 44143-1) [facility] GroupBacteria identified in Urine by [id number] 05:54:00 Test Item Value Reference Range Interpretation Comments Bacteria identified in no growth at 2 days. Urine by Culture (test code = 630-4) [facility] HospitalUrinalysis complete panel - [id number] 05:54:00 Test Item Value Reference Range Interpretation Comments Color of Urine by Auto (test light yellow code = 17951-6) Appearance of Urine (test code = SL cloudy clear A 5767-9) Glucose [Presence] in Urine by negative negative Automated test strip (test code = 96989-6) Bilirubin.total [Mass/volume] in negative negative Urine (test code = 1978-6) Ketones [Mass/volume] in Urine negative negative by Automated test strip (test code = 82948-2) Specific gravity of Urine by 1.017 1.003-1.030 Automated test strip (test code = 79270-5) blood urine (test code = blood negative negative urine) pH of Urine (test code = 2756-5) 7.000 5-9 protein urine (UA) (test code = trace negative protein urine (UA)) Urobilinogen [Presence] in Urine normal 0.2-1.0 (test code = 58530-6) Nitrite [Presence] in Urine by negative negative Test strip (test code = 5802-4) Leukocyte esterase [Presence] in =4 negative H Urine by Automated test strip (test code = 27879-9) Erythrocytes [#/volume] in Urine =1-5 0-5 by Automated count (test code = 798-9) Leukocytes [#/area] in Urine =30-49 0-5 H sediment by Automated count (test code = 77575-8) Epithelial cells [Presence] in =11-14 0-5 Urine sediment by Light microscopy (test code = 93557-2) Bacteria identified in Urine by moderate (2 none detect H Culture (test code = 630-4) Casts [#/area] in Urine sediment =2-5 none detect by Automated count (test code = 10061-6) urine culture added? (test code yes = urine culture added?) [facility]uxMcbmw-7-Smegkolcogplo.placental [Presence] in Vaginal [id number] 05:54:00 Test Item Value Reference Range Interpretation Comments Cjddl-7-Afuovibmksuue.placental negative neg [Presence] in Vaginal fluid (test code = 74745-4) [facility] HospitalBacteria identified in Urine by [id number] 05:54:00 Test Item Value Reference Range Interpretation Comments Bacteria identified in no growth at 2 days. Urine by Culture (test code = 630-4) [facility] GroupUrinalysis complete panel - [id number] 05:54:00 Test Item Value Reference Range Interpretation Comments Color of Urine by Auto (test light yellow code = 41383-0) Appearance of Urine (test code = SL cloudy clear A 5767-9) Glucose [Presence] in Urine by negative negative Automated test strip (test code = 13082-2) Bilirubin.total [Mass/volume] in negative negative Urine (test code = 1978-6) Ketones [Mass/volume] in Urine negative negative by Automated test strip (test code = 63514-1) Specific gravity of Urine by 1.017 1.003-1.030 Automated test strip (test code = 34225-2) blood urine (test code = blood negative negative urine) pH of Urine (test code = 2756-5) 7.000 5-9 protein urine (UA) (test code = trace negative protein urine (UA)) Urobilinogen [Presence] in Urine normal 0.2-1.0 (test code = 22697-9) Nitrite [Presence] in Urine by negative negative Test strip (test code = 5802-4) Leukocyte esterase [Presence] in =4 negative H Urine by Automated test strip (test code = 51691-2) Erythrocytes [#/volume] in Urine =1-5 0-5 by Automated count (test code = 798-9) Leukocytes [#/area] in Urine =30-49 0-5 H sediment by Automated count (test code = 81971-7) Epithelial cells [Presence] in =11-14 0-5 Urine sediment by Light microscopy (test code = 46602-8) Bacteria identified in Urine by moderate (2 none detect H Culture (test code = 630-4) Casts [#/area] in Urine sediment =2-5 none detect by Automated count (test code = 88903-8) urine culture added? (test code yes = urine culture added?) [facility] AejzuNsiwb-5-Zyiyforpassam.placental [Presence] in Vaginal [id number] 05:54:00 Test Item Value Reference Range Interpretation Comments Zephl-5-Wrkjeibazoxcq.placental negative neg [Presence] in Vaginal fluid (test code = 61261-6) [facility] GroupBacteria identified in Urine by [id number] 05:54:00 Test Item Value Reference Range Interpretation Comments Bacteria identified in no growth at 2 days. Urine by Culture (test code = 630-4) [facility]/rectal, streptococcus group [id number] 00:00:00 Test Item Value Reference Range Interpretation Comments group B strep (test code = group B normal strep) [facility] vaginal/rectal, streptococcus group [id number] 00:00:00 Test Item Value Reference Range Interpretation Comments group B strep (test code = group B normal strep) [facility] vaginal/rectal, streptococcus group [id number] 00:00:00 Test Item Value Reference Range Interpretation Comments group B strep (test code = group B normal strep) [facility] Groupculture, vaginal/rectal, streptococcus group [id number] 00:00:00 Test Item Value Reference Range Interpretation Comments group B strep (test code = group B normal strep) [facility] GroupUrinalysis macro (dipstick) panel - [id number] 14:59:26 Test Item Value Reference Range Interpretation Comments Leukocytes (test code = Large Leukocytes) Nitrite (test code = negative Nitrite) Urobilinogen (test code = .2 Urobilinogen) Protein (test code = Negative Protein) pH (test code = pH) 7.5 Blood (test code = Blood) Non-Hemolyzed: Trace Specific [place] (test 1.020 code = Specific [place]) Ketone (test code = Negative Ketone) Bilirubin (test code = Negative Bilirubin) Glucose (test code = Negative Glucose) Appearance (test code = Clear Appearance) Color (test code = Color) Yellow [facility] GroupUrinalysis macro (dipstick) panel - [id number] 14:59:26 Test Item Value Reference Range Interpretation Comments Leukocytes (test code = Large Leukocytes) Nitrite (test code = negative Nitrite) Urobilinogen (test code = .2 Urobilinogen) Protein (test code = Negative Protein) pH (test code = pH) 7.5 Blood (test code = Blood) Non-Hemolyzed: Trace Specific [place] (test 1.020 code = Specific [place]) Ketone (test code = Negative Ketone) Bilirubin (test code = Negative Bilirubin) Glucose (test code = Negative Glucose) Appearance (test code = Clear Appearance) Color (test code = Color) Yellow [facility]Ur[facility] macro (dipstick) panel - [id number] 14:59:26 Test Item Value Reference Range Interpretation Comments Leukocytes (test code = Large Leukocytes) Nitrite (test code = negative Nitrite) Urobilinogen (test code = .2 Urobilinogen) Protein (test code = Negative Protein) pH (test code = pH) 7.5 Blood (test code = Blood) Non-Hemolyzed: Trace Specific [place] (test 1.020 code = Specific [place]) Ketone (test code = Negative Ketone) Bilirubin (test code = Negative Bilirubin) Glucose (test code = Negative Glucose) Appearance (test code = Clear Appearance) Color (test code = Color) Yellow [facility]Ur[facility] macro (dipstick) panel - [id number] 14:59:26 Test Item Value Reference Range Interpretation Comments Leukocytes (test code = Large Leukocytes) Nitrite (test code = negative Nitrite) Urobilinogen (test code = .2 Urobilinogen) Protein (test code = Negative Protein) pH (test code = pH) 7.5 Blood (test code = Blood) Non-Hemolyzed: Trace Specific [place] (test 1.020 code = Specific [place]) Ketone (test code = Negative Ketone) Bilirubin (test code = Negative Bilirubin) Glucose (test code = Negative Glucose) Appearance (test code = Clear Appearance) Color (test code = Color) Yellow [facility]Ur[facility] (dipstick) panel - [id number] 14:59:26 Test Item Value Reference Range Interpretation Comments Leukocytes (test code = Large Leukocytes) Nitrite (test code = negative Nitrite) Urobilinogen (test code = .2 Urobilinogen) Protein (test code = Negative Protein) pH (test code = pH) 7.5 Blood (test code = Blood) Non-Hemolyzed: Trace Specific [place] (test 1.020 code = Specific [place]) Ketone (test code = Negative Ketone) Bilirubin (test code = Negative Bilirubin) Glucose (test code = Negative Glucose) Appearance (test code = Clear Appearance) Color (test code = Color) Yellow [facility] W Auto Differential panel - [id number] 06:30:00 Test Item Value Reference Range Interpretation Comments white blood count (test code = 11.5 K/uL 4.0-11.5 white blood count) red blood count (test code = red 3.26 M/uL 3.80-5.20 L blood count) hemoglobin (test code = 9.9 g/dL 10.5-15.7 L hemoglobin) hematocrit (test code = 29.7 % 34.0-50.0 L hematocrit) MCV [Entitic volume] (test code = 91.1 fL 86-100 64547-8) mean corpuscular hemoglobin (test 30.4 pg 26.2-33.4 [...] 44.4-80.1 leukocytes in Blood (test code = 15602-9) Immature granulocytes [#/volume] 0.3 K/uL 0.0-0.03 H in Blood (test code = 26942-0) lymphocyte% (test code = 21.8 % 10.0-50.0 lymphocyte%) mono % (test code = mono %) 6.4 % 3.6-12.0 eos % (test code = eos %) 0.5 % 0.0-5.4 Basophils/100 leukocytes in 0.3 % 0.1-1.2 Unspecified specimen (test code = 76090-9) Band form neutrophils [#/volume] 7.85 K/uL 1.56-6.13 H in Blood (test code = 86186-6) Lymphocytes [#/volume] in 2.5 K/uL 1.18-3.74 Unspecified specimen by Automated count (test code = 60618-7) mono # (test code = mono #) 0.73 K/uL 0.24-0.86 eos # (test code = eos #) 0.06 K/uL 0.04-0.36 basophil # (test code = basophil 0.04 K/uL 0.01-0.08 #) NRBC% (test code = NRBC%) 0 /100 WBC 0-0.2 NRBC# (test code = NRBC#) 0 K/uL [facility] W Auto Differential panel - [id number] 06:30:00 Test Item Value Reference Range Interpretation Comments white blood count (test code = 11.5 K/uL 4.0-11.5 white blood count) red blood count (test code = red 3.26 M/uL 3.80-5.20 L blood count) hemoglobin (test code = 9.9 g/dL 10.5-15.7 L hemoglobin) hematocrit (test code = 29.7 % 34.0-50.0 L hematocrit) MCV [Entitic volume] (test code = 91.1 fL 86-100 08027-8) mean corpuscular hemoglobin (test 30.4 pg 26.2-33.4 [...] 44.4-80.1 leukocytes in Blood (test code = 58145-5) Immature granulocytes [#/volume] 0.3 K/uL 0.0-0.03 H in Blood (test code = 77481-2) lymphocyte% (test code = 21.8 % 10.0-50.0 lymphocyte%) mono % (test code = mono %) 6.4 % 3.6-12.0 eos % (test code = eos %) 0.5 % 0.0-5.4 Basophils/100 leukocytes in 0.3 % 0.1-1.2 Unspecified specimen (test code = 17959-6) Band form neutrophils [#/volume] 7.85 K/uL 1.56-6.13 H in Blood (test code = 84631-7) Lymphocytes [#/volume] in 2.5 K/uL 1.18-3.74 Unspecified specimen by Automated count (test code = 32814-6) mono # (test code = mono #) 0.73 K/uL 0.24-0.86 eos # (test code = eos #) 0.06 K/uL 0.04-0.36 basophil # (test code = basophil 0.04 K/uL 0.01-0.08 #) NRBC% (test code = NRBC%) 0 /100 WBC 0-0.2 NRBC# (test code = NRBC#) 0 K/uL [facility] W Auto Differential panel - [id number] 06:30:00 Test Item Value Reference Range Interpretation Comments white blood count (test code = 11.5 K/uL 4.0-11.5 white blood count) red blood count (test code = red 3.26 M/uL 3.80-5.20 L blood count) hemoglobin (test code = 9.9 g/dL 10.5-15.7 L hemoglobin) hematocrit (test code = 29.7 % 34.0-50.0 L hematocrit) MCV [Entitic volume] (test code = 91.1 fL 86-100 90067-2) mean corpuscular hemoglobin (test 30.4 pg 26.2-33.4 [...] 44.4-80.1 leukocytes in Blood (test code = 31026-4) Immature granulocytes [#/volume] 0.3 K/uL 0.0-0.03 H in Blood (test code = 55314-7) lymphocyte% (test code = 21.8 % 10.0-50.0 lymphocyte%) mono % (test code = mono %) 6.4 % 3.6-12.0 eos % (test code = eos %) 0.5 % 0.0-5.4 Basophils/100 leukocytes in 0.3 % 0.1-1.2 Unspecified specimen (test code = 43264-3) Band form neutrophils [#/volume] 7.85 K/uL 1.56-6.13 H in Blood (test code = 89245-4) Lymphocytes [#/volume] in 2.5 K/uL 1.18-3.74 Unspecified specimen by Automated count (test code = 66984-2) mono # (test code = mono #) 0.73 K/uL 0.24-0.86 eos # (test code = eos #) 0.06 K/uL 0.04-0.36 basophil # (test code = basophil 0.04 K/uL 0.01-0.08 #) NRBC% (test code = NRBC%) 0 /100 WBC 0-0.2 NRBC# (test code = NRBC#) 0 K/uL [facility] W Auto Differential panel - [id number] 06:30:00 Test Item Value Reference Range Interpretation Comments white blood count (test code = 11.5 K/uL 4.0-11.5 white blood count) red blood count (test code = red 3.26 M/uL 3.80-5.20 L blood count) hemoglobin (test code = 9.9 g/dL 10.5-15.7 L hemoglobin) hematocrit (test code = 29.7 % 34.0-50.0 L hematocrit) MCV [Entitic volume] (test code = 91.1 fL 86-100 21636-5) mean corpuscular hemoglobin (test 30.4 pg 26.2-33.4 [...] 44.4-80.1 leukocytes in Blood (test code = 68121-3) Immature granulocytes [#/volume] 0.3 K/uL 0.0-0.03 H in Blood (test code = 90027-4) lymphocyte% (test code = 21.8 % 10.0-50.0 lymphocyte%) mono % (test code = mono %) 6.4 % 3.6-12.0 eos % (test code = eos %) 0.5 % 0.0-5.4 Basophils/100 leukocytes in 0.3 % 0.1-1.2 Unspecified specimen (test code = 63356-9) Band form neutrophils [#/volume] 7.85 K/uL 1.56-6.13 H in Blood (test code = 80000-1) Lymphocytes [#/volume] in 2.5 K/uL 1.18-3.74 Unspecified specimen by Automated count (test code = 36785-7) mono # (test code = mono #) 0.73 K/uL 0.24-0.86 eos # (test code = eos #) 0.06 K/uL 0.04-0.36 basophil # (test code = basophil 0.04 K/uL 0.01-0.08 #) NRBC% (test code = NRBC%) 0 /100 WBC 0-0.2 NRBC# (test code = NRBC#) 0 K/uL [facility] W Auto Differential panel - [id number] 06:30:00 Test Item Value Reference Range Interpretation Comments white blood count (test code = 11.5 K/uL 4.0-11.5 white blood count) red blood count (test code = red 3.26 M/uL 3.80-5.20 L blood count) hemoglobin (test code = 9.9 g/dL 10.5-15.7 L hemoglobin) hematocrit (test code = 29.7 % 34.0-50.0 L hematocrit) MCV [Entitic volume] (test code = 91.1 fL 86-100 06297-1) mean corpuscular hemoglobin (test 30.4 pg 26.2-33.4 [...] 44.4-80.1 leukocytes in Blood (test code = 46007-0) Immature granulocytes [#/volume] 0.3 K/uL 0.0-0.03 H in Blood (test code = 21019-0) lymphocyte% (test code = 21.8 % 10.0-50.0 lymphocyte%) mono % (test code = mono %) 6.4 % 3.6-12.0 eos % (test code = eos %) 0.5 % 0.0-5.4 Basophils/100 leukocytes in 0.3 % 0.1-1.2 Unspecified specimen (test code = 76307-1) Band form neutrophils [#/volume] 7.85 K/uL 1.56-6.13 H in Blood (test code = 26896-7) Lymphocytes [#/volume] in 2.5 K/uL 1.18-3.74 Unspecified specimen by Automated count (test code = 42704-3) mono # (test code = mono #) 0.73 K/uL 0.24-0.86 eos # (test code = eos #) 0.06 K/uL 0.04-0.36 basophil # (test code = basophil 0.04 K/uL 0.01-0.08 #) NRBC% (test code = NRBC%) 0 /100 WBC 0-0.2 NRBC# (test code = NRBC#) 0 K[facility]uL [facility] complete panel - [id number] 06:07:00 Test Item Value Reference Range Interpretation Comments Color of Urine by Auto (test light yellow code = 01759-1) Appearance of Urine (test code clear clear = 5767-9) Glucose [Presence] in Urine by trace (30 negative Automated test strip (test code = 39751-0) Bilirubin.total [Mass/volume] negative negative in Urine (test code = 1977-07) Ketones [Mass/volume] in Urine negative negative by Automated test strip (test code = 38987-5) Specific gravity of Urine by 1.016 1.003-1.030 Automated test strip (test code = 84609-4) blood urine (test code = blood negative negative urine) pH of Urine (test code = 7.000 5-9 2756-5) protein urine (UA) (test code = trace negative protein urine (UA)) Urobilinogen [Presence] in normal 0.2-1.0 Urine (test code = 63792-1) Nitrite [Presence] in Urine by negative negative Test strip (test code = 5802-4) Leukocyte esterase [Presence] =1 negative H in Urine by Automated test strip (test code = 04044-0) Erythrocytes [#/volume] in =1-5 0-5 Urine by Automated count (test code = 798-9) Leukocytes [#/area] in Urine =1-5 0-5 sediment by Automated count (test code = 96610-5) Epithelial cells [Presence] in =6-10 0-5 Urine sediment by Light microscopy (test code = 44604-8) Bacteria identified in Urine by small(1 none detect Culture (test code = 630-4) Casts [#/area] in Urine none detected none detect sediment by Automated count (test code = 17472-0) urine culture added? (test code yes = urine culture added?) [facility] complete panel - [id number] 06:07:00 Test Item Value Reference Range Interpretation Comments Color of Urine by Auto (test light yellow code = 46048-8) Appearance of Urine (test code clear clear = 5767-9) Glucose [Presence] in Urine by trace (30 negative Automated test strip (test code = 05234-8) Bilirubin.total [Mass/volume] negative negative in Urine (test code = 1977-07) Ketones [Mass/volume] in Urine negative negative by Automated test strip (test code = 44189-9) Specific gravity of Urine by 1.016 1.003-1.030 Automated test strip (test code = 84434-8) blood urine (test code = blood negative negative urine) pH of Urine (test code = 7.000 5-9 2756-5) protein urine (UA) (test code = trace negative protein urine (UA)) Urobilinogen [Presence] in normal 0.2-1.0 Urine (test code = 31483-1) Nitrite [Presence] in Urine by negative negative Test strip (test code = 5802-4) Leukocyte esterase [Presence] =1 negative H in Urine by Automated test strip (test code = 64113-1) Erythrocytes [#/volume] in =1-5 0-5 Urine by Automated count (test code = 798-9) Leukocytes [#/area] in Urine =1-5 0-5 sediment by Automated count (test code = 55188-8) Epithelial cells [Presence] in =6-10 0-5 Urine sediment by Light microscopy (test code = 05640-8) Bacteria identified in Urine by small(1 none detect Culture (test code = 630-4) Casts [#/area] in Urine none detected none detect sediment by Automated count (test code = 98382-4) urine culture added? (test code yes = urine culture added?) [facility] GroupUr[facility] complete panel - [id number] 06:07:00 Test Item Value Reference Range Interpretation Comments Color of Urine by Auto (test light yellow code = 55353-8) Appearance of Urine (test code clear clear = 5767-9) Glucose [Presence] in Urine by trace (30 negative Automated test strip (test code = 50117-7) Bilirubin.total [Mass/volume] negative negative in Urine (test code = 1977-) Ketones [Mass/volume] in Urine negative negative by Automated test strip (test code = 27022-4) Specific gravity of Urine by 1.016 1.003-1.030 Automated test strip (test code = 91549-8) blood urine (test code = blood negative negative urine) pH of Urine (test code = 7.000 5-9 2756-5) protein urine (UA) (test code = trace negative protein urine (UA)) Urobilinogen [Presence] in normal 0.2-1.0 Urine (test code = 25943-8) Nitrite [Presence] in Urine by negative negative Test strip (test code = 5802-4) Leukocyte esterase [Presence] =1 negative H in Urine by Automated test strip (test code = 10626-7) Erythrocytes [#/volume] in =1-5 0-5 Urine by Automated count (test code = 798-9) Leukocytes [#/area] in Urine =1-5 0-5 sediment by Automated count (test code = 19988-9) Epithelial cells [Presence] in =6-10 0-5 Urine sediment by Light microscopy (test code = 13937-1) Bacteria identified in Urine by small(1 none detect Culture (test code = 630-4) Casts [#/area] in Urine none detected none detect sediment by Automated count (test code = 66937-3) urine culture added? (test code yes = urine culture added?) [facility] by [id number] 06:07:00 Test Item Value Reference Range Interpretation Comments Bacteria identified in no growth after 2 Urine by Culture (test days code = 630-4) [facility] complete [facility] - [id number] 06:07:00 Test Item Value Reference Range Interpretation Comments Color of Urine by Auto (test light yellow code = 18215-4) Appearance of Urine (test code clear clear = 5767-9) Glucose [Presence] in Urine by trace (30 negative Automated test strip (test code = 76465-2) Bilirubin.total [Mass/volume] negative negative in Urine (test code = 1978-6) Ketones [Mass/volume] in Urine negative negative by Automated test strip (test code = 27902-4) Specific gravity of Urine by 1.016 1.003-1.030 Automated test strip (test code = 70561-3) blood urine (test code = blood negative negative urine) pH of Urine (test code = 7.000 5-9 2756-5) protein urine (UA) (test code = trace negative protein urine (UA)) Urobilinogen [Presence] in normal 0.2-1.0 Urine (test code = 67594-9) Nitrite [Presence] in Urine by negative negative Test strip (test code = 5802-4) Leukocyte esterase [Presence] =1 negative H in Urine by Automated test strip (test code = 28801-1) Erythrocytes [#/volume] in =1-5 0-5 Urine by Automated count (test code = 798-9) Leukocytes [#/area] in Urine =1-5 0-5 sediment by Automated count (test code = 20314-3) Epithelial cells [Presence] in =6-10 0-5 Urine sediment by Light microscopy (test code = 83963-9) Bacteria identified in Urine by small(1 none detect Culture (test code = 630-4) Casts [#/area] in Urine none detected none detect sediment by Automated count (test code = 01491-5) urine culture added? (test code yes = urine culture added?) [facility] identified [facility] Urine by [id number] 06:07:00 Test Item Value Reference Range Interpretation Comments Bacteria identified in no growth after 2 Urine by Culture (test days code = 630-4) [facility]Ur[facility] complete panel - [id number] 06:07:00 Test Item Value Reference Range Interpretation Comments Color of Urine by Auto (test light yellow code = 20245-8) Appearance of Urine (test code clear clear = 5767-9) Glucose [Presence] in Urine by trace (30 negative Automated test strip (test code = 82719-2) Bilirubin.total [Mass/volume] negative negative in Urine (test code = 1978-6) Ketones [Mass/volume] in Urine negative negative by Automated test strip (test code = 44903-7) Specific gravity of Urine by 1.016 1.003-1.030 Automated test strip (test code = 89840-1) blood urine (test code = blood negative negative urine) pH of Urine (test code = 7.000 5-9 2756-5) protein urine (UA) (test code = trace negative protein urine (UA)) Urobilinogen [Presence] in normal 0.2-1.0 Urine (test code = 04782-8) Nitrite [Presence] in Urine by negative negative Test strip (test code = 5802-4) Leukocyte esterase [Presence] =1 negative H in Urine by Automated test strip (test code = 70480-0) Erythrocytes [#/volume] in =1-5 0-5 Urine by Automated count (test code = 798-9) Leukocytes [#/area] in Urine =1-5 0-5 sediment by Automated count (test code = 11042-7) Epithelial cells [Presence] in =6-10 0-5 Urine sediment by Light microscopy (test code = 30391-5) Bacteria identified in Urine by small(1 none detect Culture (test code = 630-4) Casts [#/area] in Urine none detected none detect sediment by Automated count (test code = 57822-9) urine culture added? (test code yes = urine culture added?) [facility] GroupBacteria identified in Urine by [id number] 06:07:00 Test Item Value Reference Range Interpretation Comments Bacteria identified in no growth after 2 Urine by Culture (test days code = 630-4) [facility] GroupUrinalysis macro (dipstick) panel - [id number] 09:25:26 Test Item Value Reference Range Interpretation Comments Leukocytes (test code = Leukocytes) Large Nitrite (test code = Nitrite) negative Urobilinogen (test code = .2 Urobilinogen) Protein (test code = Protein) Negative pH (test code = pH) 7.0 Blood (test code = Blood) Negative Specific [place] (test code = 1.015 Specific [place]) Ketone (test code = Ketone) Negative Bilirubin (test code = Bilirubin) Negative Glucose (test code = Glucose) Negative Appearance (test code = Appearance) Clear Color (test code = Color) Yellow [facility] GroupUrinalysis macro (dipstick) panel - [id number] 09:25:26 Test Item Value Reference Range Interpretation Comments Leukocytes (test code = Leukocytes) Large Nitrite (test code = Nitrite) negative Urobilinogen (test code = .2 Urobilinogen) Protein (test code = Protein) Negative pH (test code = pH) 7.0 Blood (test code = Blood) Negative Specific [place] (test code = 1.015 Specific [place]) Ketone (test code = Ketone) Negative Bilirubin (test code = Bilirubin) Negative Glucose (test code = Glucose) Negative Appearance (test code = Appearance) Clear Color (test code = Color) Yellow [facility] GroupUrinalysis macro (dipstick) panel - [id number] 09:25:26 Test Item Value Reference Range Interpretation Comments Leukocytes (test code = Leukocytes) Large Nitrite (test code = Nitrite) negative Urobilinogen (test code = .2 Urobilinogen) Protein (test code = Protein) Negative pH (test code = pH) 7.0 Blood (test code = Blood) Negative Specific [place] (test code = 1.015 Specific [place]) Ketone (test code = Ketone) Negative Bilirubin (test code = Bilirubin) Negative Glucose (test code = Glucose) Negative Appearance (test code = Appearance) Clear Color (test code = Color) Yellow [facility] GroupUrinalysis macro (dipstick) panel - [id number] 09:25:26 Test Item Value Reference Range Interpretation Comments Leukocytes (test code = Leukocytes) Large Nitrite (test code = Nitrite) negative Urobilinogen (test code = .2 Urobilinogen) Protein (test code = Protein) Negative pH (test code = pH) 7.0 Blood (test code = Blood) Negative Specific [place] (test code = 1.015 Specific [place]) Ketone (test code = Ketone) Negative Bilirubin (test code = Bilirubin) Negative Glucose (test code = Glucose) Negative Appearance (test code = Appearance) Clear Color (test code = Color) Yellow [facility] HospitalGlucose [Mass/volume] in Serum or Plasma --1 hour post dose [id number] 09:49:00 Test Item Value Reference Range Interpretation Comments Results (test code = Results) 121 [facility] HospitalGlucose [Mass/volume] in Serum or Plasma --1 hour post dose [id number] 09:49:00 Test Item Value Reference Range Interpretation Comments Results (test code = Results) 121 [facility] HospitalUrinalysis macro (dipstick) panel - [id number] 08:47:35 Test Item Value Reference Range Interpretation Comments Leukocytes (test code = Large Leukocytes) Nitrite (test code = negative Nitrite) Urobilinogen (test code = .2 Urobilinogen) Protein (test code = Negative Protein) pH (test code = pH) 7.0 Blood (test code = Blood) Non-Hemolyzed: Trace Specific [place] (test 1.020 code = Specific [place]) Ketone (test code = Negative Ketone) Bilirubin (test code = Negative Bilirubin) Glucose (test code = Negative Glucose) Appearance (test code = Slightly Cloudy Appearance) Color (test code = Color) Yellow [facility] HospitalUrinalysis macro (dipstick) panel - [id number] 08:47:35 Test Item Value Reference Range Interpretation Comments Leukocytes (test code = Large Leukocytes) Nitrite (test code = negative Nitrite) Urobilinogen (test code = .2 Urobilinogen) Protein (test code = Negative Protein) pH (test code = pH) 7.0 Blood (test code = Blood) Non-Hemolyzed: Trace Specific [place] (test 1.020 code = Specific [place]) Ketone (test code = Negative Ketone) Bilirubin (test code = Negative Bilirubin) Glucose (test code = Negative Glucose) Appearance (test code = Slightly Cloudy Appearance) Color (test code = Color) Yellow [facility] Hospitalquest [id number] 07:41:00 Test Item Value Reference Range Interpretation Comments quest collection (test code = quest quest collection) [facility] HospitalMicroscopic observation [Identifier] in Unspecified specimen by Wet [id number] 06:57:00 Test Item Value Reference Range Interpretation Comments Microscopic observation no trichomonas, [Identifier] in yeast or clue cell Unspecified specimen by observed. Wet preparation (test code = 680-9) [facility] HospitalMicroscopic observation [Identifier] in Unspecified specimen by Wet [id number] 06:57:00 Test Item Value Reference Range Interpretation Comments Microscopic observation no trichomonas, [Identifier] in yeast or clue cell Unspecified specimen by observed. Wet preparation (test code = 680-9) [facility] HospitalVfkzyHgtwt-0-Wvklmpjelddfa.placental [Presence] in Vaginal [id number] 05:33:00 Test Item Value Reference Range Interpretation Comments Azeew-3-Vutfkgyfliefa.placental negative neg [Presence] in Vaginal fluid (test code = 15355-4) [facility] HospitalUrinalysis complete panel - [id number] 05:33:00 Test Item Value Reference Range Interpretation Comments Color of Urine by Auto (test light yellow code = 13513-5) Appearance of Urine (test code = SL cloudy clear A 5767-9) Glucose [Presence] in Urine by trace (50 negative Automated test strip (test code = 27258-3) Bilirubin.total [Mass/volume] in negative negative Urine (test code = 1978-6) Ketones [Mass/volume] in Urine negative negative by Automated test strip (test code = 77912-4) Specific gravity of Urine by 1.016 1.003-1.030 Automated test strip (test code = 69629-2) blood urine (test code = blood negative negative urine) pH of Urine (test code = 2756-5) 7.000 5-9 protein urine (UA) (test code = trace negative protein urine (UA)) Urobilinogen [Presence] in Urine normal 0.2-1.0 (test code = 20967-2) Nitrite [Presence] in Urine by negative negative Test strip (test code = 5802-4) Leukocyte esterase [Presence] in =2 negative H Urine by Automated test strip (test code = 71004-5) Erythrocytes [#/volume] in Urine =1-5 0-5 by Automated count (test code = 798-9) Leukocytes [#/area] in Urine =11-14 0-5 H sediment by Automated count (test code = 84034-7) Epithelial cells [Presence] in =11-14 0-5 Urine sediment by Light microscopy (test code = 69346-5) Bacteria identified in Urine by small(1 none detect Culture (test code = 630-4) Casts [#/area] in Urine sediment =2-5 none detect by Automated count (test code = 88445-0) urine culture added? (test code yes = urine culture added?) [facility] identified in Urine by [id number] 05:33:00Bacteria Ur [facility] IytypRuuvn-5-Evglnkxoeijji.placental [Presence] in Vaginal [id number] 05:33:00 Test Item Value Reference Range Interpretation Comments Azyvj-8-Ltvhjdvlvhzzf.placental negative neg [Presence] in Vaginal fluid (test code = 91913-9) [facility] HospitalUrinalysis complete panel - [id number] 05:33:00 Test Item Value Reference Range Interpretation Comments Color of Urine by Auto (test light yellow code = 97868-5) Appearance of Urine (test code = SL cloudy clear A 5767-9) Glucose [Presence] in Urine by trace (50 negative Automated test strip (test code = 85593-6) Bilirubin.total [Mass/volume] in negative negative Urine (test code = 1978-6) Ketones [Mass/volume] in Urine negative negative by Automated test strip (test code = 74927-6) Specific gravity of Urine by 1.016 1.003-1.030 Automated test strip (test code = 31856-5) blood urine (test code = blood negative negative urine) pH of Urine (test code = 2756-5) 7.000 5-9 protein urine (UA) (test code = trace negative protein urine (UA)) Urobilinogen [Presence] in Urine normal 0.2-1.0 (test code = 30218-3) Nitrite [Presence] in Urine by negative negative Test strip (test code = 5802-4) Leukocyte esterase [Presence] in =2 negative H Urine by Automated test strip (test code = 75113-2) Erythrocytes [#/volume] in Urine =1-5 0-5 by Automated count (test code = 798-9) Leukocytes [#/area] in Urine =11-14 0-5 H sediment by Automated count (test code = 61237-3) Epithelial cells [Presence] in =11-14 0-5 Urine sediment by Light microscopy (test code = 00058-1) Bacteria identified in Urine by small(1 none detect Culture (test code = 630-4) Casts [#/area] in Urine sediment =2-5 none detect by Automated count (test code = 77478-1) urine culture added? (test code yes = urine culture added?) [facility] GroupBacteria identified in Urine by [id number] 05:33:00Bacteria Ur CultNctanorwalk hospitala [facility] GroupUrinalysis macro (dipstick) panel - [id number] 15:17:12 Test Item Value Reference Range Interpretation Comments Leukocytes (test code = Small Leukocytes) Nitrite (test code = negative Nitrite) Urobilinogen (test code = .2 Urobilinogen) Protein (test code = Negative Protein) pH (test code = pH) 7.0 Blood (test code = Blood) Non-Hemolyzed: Trace Specific [place] (test 1.025 code = Specific [place]) Ketone (test code = Negative Ketone) Bilirubin (test code = Negative Bilirubin) Glucose (test code = Negative Glucose) Appearance (test code = Clear Appearance) Color (test code = Color) Yellow [facility] HospitalUrinalysis macro (dipstick) panel - [id number] 09:42:47 Test Item Value Reference Range Interpretation Comments Leukocytes (test code = Leukocytes) Large Nitrite (test code = Nitrite) negative Urobilinogen (test code = .2 Urobilinogen) Protein (test code = Protein) Negative pH (test code = pH) 7.0 Blood (test code = Blood) Negative Specific [place] (test code = 1.020 Specific [place]) Ketone (test code = Ketone) Negative Bilirubin (test code = Bilirubin) Negative Glucose (test code = Glucose) Negative Appearance (test code = Appearance) Cloudy Color (test code = Color) Yellow [facility] HospitalUrinalysis macro (dipstick) panel - [id number] 09:42:47 Test Item Value Reference Range Interpretation Comments Leukocytes (test code = Leukocytes) Large Nitrite (test code = Nitrite) negative Urobilinogen (test code = .2 Urobilinogen) Protein (test code = Protein) Negative pH (test code = pH) 7.0 Blood (test code = Blood) Negative Specific [place] (test code = 1.020 Specific [place]) Ketone (test code = Ketone) Negative Bilirubin (test code = Bilirubin) Negative Glucose (test code = Glucose) Negative Appearance (test code = Appearance) Cloudy Color (test code = Color) Yellow [facility] HospitalUrinalysis macro (dipstick) panel - [id number] 09:54:00 Test Item Value Reference Range Interpretation Comments Leukocytes (test code = Leukocytes) Small Nitrite (test code = Nitrite) negative Urobilinogen (test code = .2 Urobilinogen) Protein (test code = Protein) Negative pH (test code = pH) 7.0 Blood (test code = Blood) Negative Specific [place] (test code = 1.020 Specific [place]) Ketone (test code = Ketone) Negative Bilirubin (test code = Bilirubin) Negative Glucose (test code = Glucose) Negative Appearance (test code = Appearance) Clear Color (test code = Color) Yellow [facility] HospitalUrinalysis macro (dipstick) panel - [id number] 09:54:00 Test Item Value Reference Range Interpretation Comments Leukocytes (test code = Leukocytes) Small Nitrite (test code = Nitrite) negative Urobilinogen (test code = .2 Urobilinogen) Protein (test code = Protein) Negative pH (test code = pH) 7.0 Blood (test code = Blood) Negative Specific [place] (test code = 1.020 Specific [place]) Ketone (test code = Ketone) Negative Bilirubin (test code = Bilirubin) Negative Glucose (test code = Glucose) Negative Appearance (test code = Appearance) Clear Color (test code = Color) Yellow [facility] HospitalUr[facility]ysis macro (dipstick) panel - [id number] 09:54:00 Test Item Value Reference Range Interpretation Comments Leukocytes (test code = Leukocytes) Small Nitrite (test code = Nitrite) negative Urobilinogen (test code = .2 Urobilinogen) Protein (test code = Protein) Negative pH (test code = pH) 7.0 Blood (test code = Blood) Negative Specific [place] (test code = 1.020 Specific [place]) Ketone (test code = Ketone) Negative Bilirubin (test code = Bilirubin) Negative Glucose (test code = Glucose) Negative Appearance (test code = Appearance) Clear Color (test code = Color) Yellow [facility], LB + reflex to HR HPV if [id number] 00:00:00 Test Item Value Reference Range Interpretation Comments liquid Pap test with reflex to HPV normal type-detect 3.0 if ASCUS or greater (test code = liquid Pap test with reflex to HPV type-detect 3.0 if ASCUS or greater) [facility] HospitalBacteria identified in Urine by [id number] 03:30:00Bacteria Ur [facility] GroupChromosome 13+18+21+X+Y aneuploidy in Blood by Molecular genetics method [id number] 00:00:00 Test Item Value Reference Range Interpretation Comments report summary (test code = see notes report summary) report note (test code = see notes report note) trisomy 13 age-based risk score (test code = trisomy 13 age-based risk score) trisomy 13 risk score (test code = trisomy 13 risk score) trisomy 13 age-based risk 1,621 (0.02%) text (test code = trisomy 13 [...] 18 risk score) trisomy 18 age-based risk 1/,765 (0.06%) text (test code = trisomy 18 [...] syndrome population-based risk score) 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.2 deletion syndrome 2,000 population-based risk text (test code = 22Q11.2 deletion syndrome population-based risk text) 22Q11.2 deletion syndrome risk score (test code = 22Q11.2 deletion syndrome risk score) 22Q11.2 deletion syndrome 02/28,000 risk score text (test code = 22Q11.2 deletion syndrome risk score text) 22Q11.2 deletion syndrome low risk result text (test code = 22Q11.2 deletion syndrome result text) 22Q11.2 deletion syndrome see notes result interpretation (test code = 22Q11.2 deletion syndrome result interpretation) prader-willi syndrome population-based risk score (test code = prader-willi syndrome population-based risk score) prader-willi syndrome 10,000 population-based risk text (test code = prader-willi [...] angelman syndrome population-based risk score) angelman syndrome 12,000 population-based risk text (test code = angelman [...] cri-du-chat syndrome population-based risk score) cri-du-chat syndrome 1/20,000 population-based risk text (test code = cri-du-chat [...] syndrome population-based risk score) 1P36 deletion syndrome /5,000 population-based risk text (test code = 1P36 deletion syndrome population-based risk text) 1P36 deletion syndrome risk score (test code = 1P36 deletion syndrome risk score) 1P36 deletion syndrome risk 03/03,400 score text (test code = 1P36 deletion [...] contacts (test code = see notes contacts) [facility] RAPID FLU A AND B [id number] 17:18:00 Test Item Value Reference Range Interpretation Comments POCT INFLUENZA A (test code = Negative Negative - Negative 3840) POCT INFLUENZA B (test code = Negative Negative - Negative 3841) [facility] SPECIFIC [id number] 16:43:00 Test Item Value Reference Range Interpretation [...] POCT U APPEAR (test code = 3267) [facility] URINALYSIS W SPECIFIC [id number] 19:40:00 Test Item Value Reference Range Interpretation [...] POCT U APPEAR (test code = 3267) [facility] URINALYSIS W SPECIFIC [id number] 17:18:00 Test Item Value Reference Range Interpretation [...] POCT U APPEAR (test code = 3267) [facility] URINALYSIS W SPECIFIC [id number] 17:18:00 Test Item Value Reference Range Interpretation [...] POCT U APPEAR (test code = 3267) [facility] URINALYSIS W/O SPECIFIC [id number] 16:01:00 Test Item Value Reference Range Interpretation [...] code = 3257) Neg Negative - Negative [facility] URINALYSIS W/O SPECIFIC [id number] 16:01:00 Test Item Value Reference Range Interpretation [...] code = 3257) Neg Negative - Negative [facility] [id number] 15:58:00 Test Item Value Reference Range Interpretation Comments POCT PREG (test code = 1605) Positive On board controls acceptable with C Yes Line (test code = 3574) POCT PREG LOT # (test code = 3575) POCT PREG TEST DATE (test code = 3576) Lab Interpretation (test code = Abnormal 31217-1) [facility] [id number] 15:58:00 Test Item Value Reference Range Interpretation Comments POCT PREG (test code = 1605) Positive On board controls acceptable with C Yes Line (test code = 3574) POCT PREG LOT # (test code = 3575) POCT PREG TEST DATE (test code = 3576) Lab Interpretation (test code = Abnormal 09680-4) [facility], [id number] 13:36:04 Test Item Value Reference Range Interpretation Comments Test (test code = negative Test) [facility]Ur[facility]ysis macro (dipstick) panel - [id number] 13:27:27 Test Item Value Reference Range Interpretation Comments Leukocytes (test code = Leukocytes) Trace Nitrite (test code = Nitrite) negative Urobilinogen (test code = .2 Urobilinogen) Protein (test code = Protein) Negative pH (test code = pH) 6.0 Blood (test code = Blood) Small Specific [place] (test code = 1.010 Specific [place]) Ketone (test code = Ketone) Negative Bilirubin (test code = Bilirubin) Negative Glucose (test code = Glucose) Negative Appearance (test code = Appearance) Clear Color (test code = Color) Yellow [facility] HospitalCB W Auto Differential panel - [id number] 09:04:00 Test Item Value Reference Range Interpretation [...] fL 78-98 [Entitic volume] (test code = 14282-9) Erythrocyte mean corpuscular 30.2 pg 26.2-33.4 hemoglobin [Entitic mass] (test code = 32347-9) mean corpuscular HGB conc (test 32.3 g/dL 31.5-36.2 code = mean corpuscular HGB conc) red cell distribution width (test 12.7 % 11.5-15.5 code = red cell distribution width) Platelets [#/volume] in Blood (test 188 K/uL 137-338 code = 20076-8) Platelet mean volume [Entitic 9.2 fL 8.4-11.8 volume] in Blood (test code = 73538-1) Neutrophils.band form/100 67.1 % 44.4-80.1 leukocytes in Blood (test code = 49446-7) Lymphocytes/100 leukocytes in Body 26.9 % 10.0-50.0 fluid (test code = 45519-6) Monocytes/100 leukocytes in Blood 4.6 % 3.6-12.04 by Automated count (test code = 5905-5) Eosinophils/100 leukocytes in Blood 0.7 % 0.0-5.41 by Automated count (test code = 713-8) Basophils/100 leukocytes in Blood 0.7 % 0.0-0.79 by Automated count (test code = 706-2) [facility] W Auto Differential panel - [id number] 04:43:00 Test Item Value Reference Range Interpretation [...] fL 78-98 [Entitic volume] (test code = 17871-1) Erythrocyte mean corpuscular 30.4 pg 26.2-33.4 hemoglobin [Entitic mass] (test code = 77160-7) mean corpuscular HGB conc (test 32.7 g/dL 31.5-36.2 code = mean corpuscular HGB conc) red cell distribution width (test 12.8 % 11.5-15.5 code = red cell distribution width) Platelets [#/volume] in Blood (test 218 K/uL 137-338 code = 23818-5) Platelet mean volume [Entitic 9.2 fL 8.4-11.8 volume] in Blood (test code = 78126-9) Neutrophils.band form/100 54.5 % 44.4-80.1 leukocytes in Blood (test code = 23095-3) Lymphocytes/100 leukocytes in Body 38.2 % 10.0-50.0 fluid (test code = 49734-8) Monocytes/100 leukocytes in Blood 5.6 % 3.6-12.04 by Automated count (test code = 5905-5) Eosinophils/100 leukocytes in Blood 0.9 % 0.0-5.41 by Automated count (test code = 713-8) Basophils/100 leukocytes in Blood 0.8 % 0.0-0.79 H by Automated count (test code = 706-2) [facility] HospitalComprehensive [facility] 2000 panel - Serum or Plasma [...] Serum or Plasma (test code = 6768-6) [facility] GroupUrate [Mass/volume] in [id number] 04:43:00 Test Item Value Reference Range Interpretation Comments uric acid (test code = uric acid) 6.3 mg/dL 2.4-5.7 H [facility] GroupD-Lactate [Moles/volume] in Serum or [id number] 04:43:00 Test Item Value Reference Range Interpretation Comments LDH (test code = LDH) 177 U/L 135-214 [facility] HospitalReagin Ab [Presence] in Serum by [id number] 04:43:00 Test Item Value Reference Range Interpretation Comments Reagin Ab [Presence] in Serum by nonreactive nonreactive RPR (test code = 34505-2) [facility] HospitalHepatitis B virus surface Ag [Presence] in Serum 2018-04-05 04:43:00 Test Item Value Reference Range Interpretation Comments .hepatitis B surface antigen (test negative negative code = .hepatitis B surface antigen) [facility] HospitalUrinalysis macro (dipstick) panel - [id number] 14:37:39 Test Item Value Reference Range Interpretation Comments Leukocytes (test code = Small Leukocytes) Nitrite (test code = negative Nitrite) Urobilinogen (test code = .2 Urobilinogen) Protein (test code = 30 Protein) pH (test code = pH) 7.0 Blood (test code = Blood) Non-Hemolyzed: Moderate Specific [place] (test 1.020 code = Specific [place]) Ketone (test code = Negative Ketone) Bilirubin (test code = Negative Bilirubin) Glucose (test code = Negative Glucose) Appearance (test code = Clear Appearance) Color (test code = Color) Yellow [facility] HospitalUrinalysis macro (dipstick) panel - [id number] 14:37:39 Test Item Value Reference Range Interpretation Comments Leukocytes (test code = Small Leukocytes) Nitrite (test code = negative Nitrite) Urobilinogen (test code = .2 Urobilinogen) Protein (test code = 30 Protein) pH (test code = pH) 7.0 Blood (test code = Blood) Non-Hemolyzed: Moderate Specific [place] (test 1.020 code = Specific [place]) Ketone (test code = Negative Ketone) Bilirubin (test code = Negative Bilirubin) Glucose (test code = Negative Glucose) Appearance (test code = Clear Appearance) Color (test code = Color) Yellow [facility] HospitalUrinalysis macro (dipstick) panel - [id number] 14:37:39 Test Item Value Reference Range Interpretation Comments Leukocytes (test code = Small Leukocytes) Nitrite (test code = negative Nitrite) Urobilinogen (test code = .2 Urobilinogen) Protein (test code = 30 Protein) pH (test code = pH) 7.0 Blood (test code = Blood) Non-Hemolyzed: Moderate Specific [place] (test 1.020 code = Specific [place]) Ketone (test code = Negative Ketone) Bilirubin (test code = Negative Bilirubin) Glucose (test code = Negative Glucose) Appearance (test code = Clear Appearance) Color (test code = Color) Yellow [facility] GroupUrinalysis complete panel - [id number] 06:37:00 Test Item Value Reference Range Interpretation Comments Color of Urine by Auto (test yellow code = 81723-4) Appearance of Urine (test code SL cloudy clear A = 5767-9) Glucose [Presence] in Urine by =4+ (1000 negative H Automated test strip (test code = 86503-9) Bilirubin.total [Mass/volume] negative negative in Urine (test code = 1978-6) Ketones [Mass/volume] in Urine negative negative by Automated test strip (test code = 91764-7) Specific gravity of Urine by 1.021 1.003-1.030 Automated test strip (test code = 56347-5) blood urine (test code = blood negative negative urine) pH of Urine (test code = 6.500 5-9 2756-5) protein urine (UA) (test code = negative negative protein urine (UA)) Urobilinogen [Presence] in normal 0.2-1.0 Urine (test code = 08548-1) Nitrite [Presence] in Urine by negative negative Test strip (test code = 5802-4) Leukocyte esterase [Presence] =3 negative H in Urine by Automated test strip (test code = 02783-9) Erythrocytes [#/volume] in =1-5 0-5 Urine by Automated count (test code = 798-9) Leukocytes [#/area] in Urine =11-14 0-5 H sediment by Automated count (test code = 40663-7) Epithelial cells [Presence] in =6-10 0-5 Urine sediment by Light microscopy (test code = 86562-0) Bacteria identified in Urine by small(1 none detect Culture (test code = 630-4) Casts [#/area] in Urine none detected none detect sediment by Automated count (test code = 60763-8) urine culture added? (test code yes = urine culture added?) [facility] HospitalBacteria identified in Urine by [id number] 06:37:00Bacteria Ur CultNctaThe [facility] MeridianUrinalysis complete panel - Urine 2018-03-20 06:37:00 Test Item Value Reference Range Interpretation Comments Color of Urine by Auto (test yellow code = 68677-1) Appearance of Urine (test code SL cloudy clear A = 5767-9) Glucose [Presence] in Urine by =4+ (1000 negative H Automated test strip (test code = 82044-6) Bilirubin.total [Mass/volume] negative negative in Urine (test code = 1978-6) Ketones [Mass/volume] in Urine negative negative by Automated test strip (test code = 83830-4) Specific gravity of Urine by 1.021 1.003-1.030 Automated test strip (test code = 34349-4) blood urine (test code = blood negative negative urine) pH of Urine (test code = 6.500 5-9 2756-5) protein urine (UA) (test code = negative negative protein urine (UA)) Urobilinogen [Presence] in normal 0.2-1.0 Urine (test code = 74584-2) Nitrite [Presence] in Urine by negative negative Test strip (test code = 5802-4) Leukocyte esterase [Presence] =3 negative H in Urine by Automated test strip (test code = 33114-0) Erythrocytes [#/volume] in =1-5 0-5 Urine by Automated count (test code = 798-9) Leukocytes [#/area] in Urine =11-14 0-5 H sediment by Automated count (test code = 19487-4) Epithelial cells [Presence] in =6-10 0-5 Urine sediment by Light microscopy (test code = 25949-0) Bacteria identified in Urine by small(1 none detect Culture (test code = 630-4) Casts [#/area] in Urine none detected none detect sediment by Automated count (test code = 59357-0) urine culture added? (test code yes = urine culture added?) [facility] GroupBacteria identified in Urine by [id number] 06:37:00Bacteria Ur CultMatagorda Medical GroupUrinalysis macro (dipstick) panel - [id number] 10:47:01 Test Item Value Reference Range Interpretation Comments Leukocytes (test code = Leukocytes) Trace Nitrite (test code = Nitrite) negative Urobilinogen (test code = .2 Urobilinogen) Protein (test code = Protein) Negative pH (test code = pH) 7.0 Blood (test code = Blood) Negative Specific [place] (test code = 1.015 Specific [place]) Ketone (test code = Ketone) Negative Bilirubin (test code = Bilirubin) Negative Glucose (test code = Glucose) Negative Appearance (test code = Appearance) Clear Color (test code = Color) Yellow [facility] HospitalUrinalysis macro (dipstick) panel - [id number] 10:47:01 Test Item Value Reference Range Interpretation Comments Leukocytes (test code = Leukocytes) Trace Nitrite (test code = Nitrite) negative Urobilinogen (test code = .2 Urobilinogen) Protein (test code = Protein) Negative pH (test code = pH) 7.0 Blood (test code = Blood) Negative Specific [place] (test code = 1.015 Specific [place]) Ketone (test code = Ketone) Negative Bilirubin (test code = Bilirubin) Negative Glucose (test code = Glucose) Negative Appearance (test code = Appearance) Clear Color (test code = Color) Yellow [facility] HospitalUrinalysis macro (dipstick) panel - [id number] 10:47:01 Test Item Value Reference Range Interpretation Comments Leukocytes (test code = Leukocytes) Trace Nitrite (test code = Nitrite) negative Urobilinogen (test code = .2 Urobilinogen) Protein (test code = Protein) Negative pH (test code = pH) 7.0 Blood (test code = Blood) Negative Specific [place] (test code = 1.015 Specific [place]) Ketone (test code = Ketone) Negative Bilirubin (test code = Bilirubin) Negative Glucose (test code = Glucose) Negative Appearance (test code = Appearance) Clear Color (test code = Color) Yellow [facility] Hospitalnon-stress [id number] 14:04:00 Test Item Value Reference Range Interpretation Comments Reactive (test code = Reactive) Yes Contractions (test code = Contractions) No [facility]non-stress [id number] 14:04:00 Test Item Value Reference Range Interpretation Comments Reactive (test code = Reactive) Yes Contractions (test code = Contractions) No [facility] HospitalUrinalysis macro (dipstick) panel - [id number] 13:10:36 Test Item Value Reference Range Interpretation Comments Leukocytes (test code = Leukocytes) Large Nitrite (test code = Nitrite) negative Urobilinogen (test code = .2 Urobilinogen) Protein (test code = Protein) Negative pH (test code = pH) 7.0 Blood (test code = Blood) Negative Specific [place] (test code = 1.015 Specific [place]) Ketone (test code = Ketone) Negative Bilirubin (test code = Bilirubin) Negative Glucose (test code = Glucose) Negative Appearance (test code = Appearance) Clear Color (test code = Color) Yellow [facility] HospitalUrinalysis macro (dipstick) panel - [id number] 13:10:36 Test Item Value Reference Range Interpretation Comments Leukocytes (test code = Leukocytes) Large Nitrite (test code = Nitrite) negative Urobilinogen (test code = .2 Urobilinogen) Protein (test code = Protein) Negative pH (test code = pH) 7.0 Blood (test code = Blood) Negative Specific [place] (test code = 1.015 Specific [place]) Ketone (test code = Ketone) Negative Bilirubin (test code = Bilirubin) Negative Glucose (test code = Glucose) Negative Appearance (test code = Appearance) Clear Color (test code = Color) [facility] (dipstick) panel - [id number] 13:10:36 Test Item Value Reference Range Interpretation Comments Leukocytes (test code = Leukocytes) Large Nitrite (test code = Nitrite) negative Urobilinogen (test code = .2 Urobilinogen) Protein (test code = Protein) Negative pH (test code = pH) 7.0 Blood (test code = Blood) Negative Specific [place] (test code = 1.015 Specific [place]) Ketone (test code = Ketone) Negative Bilirubin (test code = Bilirubin) Negative Glucose (test code = Glucose) Negative Appearance (test code = Appearance) Clear Color (test code = Color) Yellow [facility] HospitalUrinalysis macro (dipstick) panel - [id number] 09:37:36 Test Item Value Reference Range Interpretation Comments Leukocytes (test code = Leukocytes) Small Nitrite (test code = Nitrite) negative Urobilinogen (test code = .2 Urobilinogen) Protein (test code = Protein) Trace pH (test code = pH) 7.0 Blood (test code = Blood) Negative Specific [place] (test code = 1.020 Specific [place]) Ketone (test code = Ketone) Negative Bilirubin (test code = Bilirubin) Negative Glucose (test code = Glucose) Negative Appearance (test code = Appearance) Clear Color (test code = Color) Yellow [facility] HospitalUrinalysis macro (dipstick) panel - [id number] 09:37:36 Test Item Value Reference Range Interpretation Comments Leukocytes (test code = Leukocytes) Small Nitrite (test code = Nitrite) negative Urobilinogen (test code = .2 Urobilinogen) Protein (test code = Protein) Trace pH (test code = pH) 7.0 Blood (test code = Blood) Negative Specific [place] (test code = 1.020 Specific [place]) Ketone (test code = Ketone) Negative Bilirubin (test code = Bilirubin) Negative Glucose (test code = Glucose) Negative Appearance (test code = Appearance) Clear Color (test code = Color) Yellow [facility] HospitalUrinalysis macro (dipstick) panel - [id number] 09:37:36 Test Item Value Reference Range Interpretation Comments Leukocytes (test code = Leukocytes) Small Nitrite (test code = Nitrite) negative Urobilinogen (test code = .2 Urobilinogen) Protein (test code = Protein) Trace pH (test code = pH) 7.0 Blood (test code = Blood) Negative Specific [place] (test code = 1.020 Specific [place]) Ketone (test code = Ketone) Negative Bilirubin (test code = Bilirubin) Negative Glucose (test code = Glucose) Negative Appearance (test code = Appearance) Clear Color (test code = Color) [facility] MississippiGlucose [Mass/volume] in Serum or Plasma --1 hour post dose [id number] 13:44:00 Test Item Value Reference Range Interpretation Comments Results (test code = Results) 104 [facility] HospitalUrinalysis macro (dipstick) panel - [id number] 08:53:48 Test Item Value Reference Range Interpretation Comments Leukocytes (test code = Leukocytes) Negative Nitrite (test code = Nitrite) negative Urobilinogen (test code = .2 Urobilinogen) Protein (test code = Protein) Negative pH (test code = pH) 7.0 Blood (test code = Blood) Negative Specific [place] (test code = 1.010 Specific [place]) Ketone (test code = Ketone) Negative Bilirubin (test code = Bilirubin) Negative Glucose (test code = Glucose) Negative Appearance (test code = Appearance) Clear Color (test code = Color) [facility]
[2021-12-27] MEDS ORDERED: IBUPROFEN 200 MG TAB PO ONE (08:19)
--- NOTE | 2021-12-27 08:58 | ER ---
Nurse's Notes [facility] Name: Ricarda Moya Age: 26 yrs Sex: Female : 1995 Arrival Date: 12/27/2021 Time: 08:07 Bed IW1 Private MD: Diagnosis: Streptococcal pharyngitis Presentation: 12/27 08:14 Chief complaint: Patient states: headache, sore throat, earache since . mb8 Coronavirus screen: Vaccine status: Patient reports being unvaccinated. Ebola Screen: Patient negative for fever greater than or equal to 101.5 degrees Fahrenheit, and additional compatible Ebola Virus Disease symptoms Patient denies exposure to infectious person. Patient denies travel to an Ebola-affected area in the 21 days before illness onset. Initial Sepsis Screen: Does the patient meet any 2 criteria? No. Patient's initial sepsis screen is negative. Does the patient have a suspected source of infection? No. Patient's initial sepsis screen is negative. Risk Assessment: Do you want to hurt yourself or someone else? Patient reports no desire to harm self or others. Onset of symptoms was December 23, 2021. 08:14 Method Of Arrival: Ambulatory mb8 08:14 Acuity: CATALINO 4 mb8 Triage Assessment: 08:16 General: Appears uncomfortable, Behavior is calm, cooperative, appropriate for age. mb8 Pain: Complains of pain in throat. EENT: Throat is reddened. Historical: - Allergies: 08:16 No Known Allergies; mb8 - Home Meds: 08:16 None [Active]; mb8 - PMHx: 08:16 pericarditis; mb8 - Social history:: Smoking status: Patient reports the use of cigarette tobacco products. Screenin:20 Abuse screen: Denies threats or abuse. Denies injuries from another. Nutritional mb8 screening: No deficits noted. Tuberculosis screening: No symptoms or risk factors identified. Fall Risk None identified. Assessment: 08:20 Respiratory: Airway is patent Respiratory effort is even, unlabored, Breath sounds are mb8 clear. Vital Signs: 08:14 BP 115 / 79; Pulse 107; Resp 18; Temp 97.5; Pulse Ox 100% ; Weight 58.97 kg; Height 5 mb8 ft. 3 in. (160.02 cm); Pain 8/10; 08:14 Body Mass Index 23.03 (58.97 kg, 160.02 cm) mb8 ED Course: 08:07 Patient arrived in ED. am2 08:07 Yaneth Mckeon FNP is [facility]. jh7 08:07 Lance Landa MD is Attending Physician. jh7 08:16 Triage completed. mb8 08:17 Arm band placed on right wrist. mb8 08:20 Patient has correct armband on for positive identification. mb8 08:20 No provider procedures requiring assistance completed. Patient did not have IV access mb8 during this emergency room visit. Administered Medications: 08:21 Drug: Motrin (ibuprofen) 600 mg Route: PO; mb8 09:00 Follow up: Response: No adverse reaction; Pain is decreased mb8 Medication: 08:20 VIS not applicable for this client. mb8 Outcome: 08:57 Discharge ordered by . jh7 09:13 Discharged to home ambulatory. mb8 09:13 Condition: stable 09:13 Discharge instructions given to patient, Instructed on discharge instructions, follow up and referral plans. medication usage, Demonstrated understanding of instructions, follow-up care, medications, Prescriptions given X 1. 09:14 Patient left the ED. mb8 Signatures: Rona Holloway am2 Yaneth Mckeon FNP FNP [facility] Cristhian Warren, RN RN mb8
--- NOTE | 2021-12-27 08:58 | EDPHYS ---
Physician Documentation [facility] Name: Ricarda Moya Age: 26 yrs Sex: Female : 1995 Arrival Date: 12/27/2021 Time: 08:07 Bed IW1 Private MD: ED Physician Lance Landa HPI: 12/27 08:16 This 26 yrs old Female presents to ER via Ambulatory with complaints of Sore Throat, jh7 Difficulty Swallowing, Headache, bodyaches. 08:16 The patient presents with sore throat. The patient describes throat pain as burning. jh7 Onset: The symptoms/episode began/occurred 4 day(s) ago. Patient reports sore throat, cough, headache, and right earache since . Reports that her kids are also sick at home.. Historical: - Allergies: 08:16 No Known Allergies; mb8 - Home Meds: 08:16 None [Active]; mb8 - PMHx: 08:16 pericarditis; mb8 - Social history:: Smoking status: Patient reports the use of cigarette tobacco products. ROS: 08:16 Constitutional: Negative for fever, chills, and weight loss, Eyes: Negative for injury, jh7 pain, redness, and discharge, Neck: Negative for injury, pain, and swelling, Cardiovascular: Negative for chest pain, palpitations, and edema, Respiratory: Negative for shortness of breath, cough, wheezing, and pleuritic chest pain, Abdomen/GI: Negative for abdominal pain, nausea, vomiting, diarrhea, and constipation, Skin: Negative for injury, rash, and discoloration. 08:16 ENT: Positive for ear pain, sore throat. 08:16 Neuro: Positive for headache, Negative for dizziness, syncope, visual changes, weakness. 08:16 All other systems are negative. Exam: 08:16 Constitutional: This is a well developed, well nourished patient who is awake, alert, jh7 and in no acute distress. Head/Face: Normocephalic, atraumatic. Neck: Trachea midline, no thyromegaly or masses palpated, and no cervical lymphadenopathy. Supple, full range of motion without nuchal rigidity, or vertebral point tenderness. No Meningismus. Cardiovascular: Regular rate and rhythm with a normal S1 and S2. No gallops, murmurs, or rubs. Normal PMI, no JVD. No pulse deficits. Respiratory: Lungs have equal breath sounds bilaterally, clear to auscultation and percussion. No rales, rhonchi or wheezes noted. No increased work of breathing, no retractions or nasal flaring. Abdomen/GI: Soft, non-tender, with normal bowel sounds. No distension or tympany. No guarding or rebound. No evidence of tenderness throughout. Back: No spinal tenderness. No costovertebral tenderness. Full range of motion. Skin: Warm, dry with normal turgor. Normal color with no rashes, no lesions, and no evidence of cellulitis. MS/ Extremity: Pulses equal, no cyanosis. Neurovascular intact. Full, normal range of motion. Neuro: Awake and alert, GCS 15, oriented to person, place, time, and situation. Normal gait. 08:16 ENT: Ear canal(s): are normal, TM's: are normal, Posterior pharynx: Tonsils: bilaterally enlarged, with erythema, with exudate, Uvula: normal, swelling, that is mild, erythema, that is moderate, exudate, that is moderate. Vital Signs: 08:14 BP 115 / 79; Pulse 107; Resp 18; Temp 97.5; Pulse Ox 100% ; Weight 58.97 kg; Height 5 mb8 ft. 3 in. (160.02 cm); Pain 8/10; 08:14 Body Mass Index 23.03 (58.97 kg, 160.02 cm) 8 MDM: 08:25 Patient medically screened. [facility] 09:00 Differential diagnosis: group A strep tonsillitis, pharyngitis, tonsillitis, upper 7 respiratory infection, viral syndrome. Data reviewed: vital signs, nurses notes. Data interpreted: Pulse oximetry: is 100 %. Interpretation: normal. Counseling: I had a detailed discussion with the patient and/or guardian regarding: the historical points, exam findings, and any diagnostic results supporting the discharge/admit diagnosis, to return to the emergency department if symptoms worsen or persist or if there are any questions or concerns that arise at home. 12/27 08:16 Order name: Strep; Complete Time: :57 [facility] 12/27 08:16 Order name: Flu; Complete Time: 57 [facility] Administered Medications: 08:21 Drug: Motrin (ibuprofen) 600 mg Route: PO; mb8 09:00 Follow up: Response: No adverse reaction; Pain is decreased mb8 Disposition: 14:57 Co-signature as Attending Physician, Lance Landa MD. rn Disposition Summary: 12/27/21 08:57 Discharge Ordered Location: Home [facility] Problem: new [facility] Symptoms: have improved [facility] Condition: Stable [facility] Diagnosis - Streptococcal pharyngitis [facility] Followup: [facility] - With: Private Physician - When: 2 - 3 days - Reason: Recheck today's complaints Discharge Instructions: - Discharge Summary Sheet [facility] - Strep Throat, Adult [facility] Forms: - Medication Reconciliation Form [facility] - Thank You Letter [facility] - Antibiotic Education [facility] Prescriptions: - Amoxicillin 500 mg Oral Capsule - take 1 capsule by ORAL route 2 times per day for 10 days; 20 tablet; Refills: [facility] 0, Product Selection Permitted Signatures: Dispatcher [employer] EDLance Keyes MD MD rn Hadash, Jennifer, [employer]ER [employer]OM [employer]ER [facility] Cristhian Warren, RN RN mb8
[2021-12-27 10:41] VITALS: BP 115/79; TEMP 97.5; O2SAT 100
== END 2021-12-27 09:14 | disposition home or self-care (01) ==
LOC: ER 08:06
DX: J02.0 Streptococcal pharyngitis (principal)
CPT/HCPCS: 87081; 87804; 99283

== ENCOUNTER → 2023-03-13 | Emergency (ER) | payer SELFPAY ==
[~2023-03-13] MED LIST: FAMOTIDINE 20 MG/2 ML VIAL IV ONE; KETOROLAC 30 MG/ML INJ ONE; NA CHLORIDE 0.9% 1,000 ML ONE
--- NOTE | 2023-03-13 08:42 | RAD REPORT ---
EXAM DESCRIPTION: RAD - Chest Single View - 03/13/2023 8:24 am CLINICAL HISTORY: CHEST PAIN Chest pain. COMPARISON: Chest Single View dated 07/26/2017; CHEST PA AND LAT 2 VIEW dated 08/23/2014 FINDINGS: Portable technique limits examination quality. The lungs are grossly clear. The heart is normal in size. No displaced fractures. IMPRESSION: No acute intrathoracic process suspected.
[2023-03-13 08:54] LABS: Absolute Lymphocytes (CBC) 2.1 K/uL (0.7-4.9); MPV 7.2 fL (7.6-11.3); Platelets 342 thou/uL (152-406)
[2023-03-13 09:11] LABS: Specific Gravity 1.027 (1.005-1.030)
[2023-03-13 09:12] LABS: Specific Gravity 1.027 (1.005-1.030); Urine Bacteria None Seen /HPF (<20); Urine Bilirubin NEGATIVE (Negative); Urine Blood Trace (Negative); Urine Clarity Turbid (Clear); Urine Color Yellow (Yellow); Urine Glucose NEGATIVE (Negative); Urine Mucus Slight /HPF (None Seen); Urine Protein NEGATIVE (Negative); Urine Urobilinogen Normal (Normal); Urine pH 5.5 (5.0-7.0)
[2023-03-13 09:18] LABS: BUN Blood Urea Nitrogen 14 mg/dL (7-18); Bicarbonate 27 mEq/L (21-32); Glomerular Filtration Rate 97 ml/min (=/>90); Glucose Level 92 mg/dL (74-106); Magnesium 2.2 mg/dL (1.6-2.4); Potassium 3.7 mEq/L (3.5-5.1); Sodium Level 139 mEq/L (136-145); Thyroid Stimulating Hormone 0.995 uIU/mL (0.358-3.740)
[2023-03-13 09:19] LABS: Barbiturates NEGATIVE (NEGATIVE); Benzodiazepines NEGATIVE (NEGATIVE); Cocaine NEGATIVE (NEGATIVE); METHAMPHETAM NEGATIVE (NEGATIVE); Methadone NEGATIVE (NEGATIVE); Opiates NEGATIVE (NEGATIVE); Phencyclidine NEGATIVE (NEGATIVE); THC Cannibis NEGATIVE (NEGATIVE)
[2023-03-13 09:26] LABS: Troponin High Sensitivity < 3.0 pg/mL (<58.9)
[2023-03-13 09:34] LABS: SARS-CoV-2 Antigen Rapid Res Negative (Negative)
--- NOTE | 2023-03-13 09:42 | ER ---
Nurse's Notes [facility] Name: Ricarda Moya Age: 27 yrs Sex: Female : 1995 Arrival Date: 03/13/2023 Time: 07:25 Bed 17 Private MD: Diagnosis: Acute bronchitis, unspecified Presentation: 03/13 07:43 Chief complaint: Patient states: cough X 4 months, started having chest pains and iw difficulty breathing since yesterday. Coronavirus screen: Client presents with at least one sign or symptom that may indicate coronavirus-19. Ebola Screen: Patient negative for fever greater than or equal to 101.5 degrees Fahrenheit, and additional compatible Ebola Virus Disease symptoms Patient denies exposure to infectious person. Patient denies travel to an Ebola-affected area in the 21 days before illness onset. No symptoms or risks identified at this time. Initial Sepsis Screen: Does the patient meet any 2 criteria? No. Patient's initial sepsis screen is negative. Does the patient have a suspected source of infection? No. Patient's initial sepsis screen is negative. Risk Assessment: Do you want to hurt yourself or someone else? Patient reports no desire to harm self or others. Onset of symptoms was March 12, 2023. 07:43 Method Of Arrival: Ambulatory iw 07:43 Acuity: CATALINO 3 iw Historical: - Allergies: 07:44 No Known Allergies; iw - Home Meds: 07:44 None [Active]; iw - PMHx: 07:44 pericarditis; iw - PSHx: 07:44 tubal ligation; iw - Immunization history:: Adult Immunizations not up to date. - Social history:: Smoking status: Reported history of juuling and/or vaping. Screenin:00 [facility] ED Fall Risk Assessment (Adult) History of falling in the last 3 months, rs5 including since admission No falls in past 3 months (0 pts) Confusion or Disorientation No (0 pts) Intoxicated or Sedated No (0 pts) Impaired Gait No (0 pts) Mobility Assist Device Used No (0 pt) Altered Elimination No (0 pt) Score/Fall Risk Level 0 - 2 = Low Risk Oriented to surroundings, Maintained a safe environment. Abuse screen: Denies threats or abuse. Nutritional screening: No deficits noted. Tuberculosis screening: No symptoms or risk factors identified. Assessment: 07:50 General: Appears in no apparent distress. comfortable, Behavior is calm, cooperative. rs5 Pain: Complains of pain in back and chest Pain does not radiate. Pain currently is 5 out of 10 on a pain scale. Quality of pain is described as aching, Pain began 2-3 days ago. Is intermittent. 07:50 Neuro: Level of Consciousness is awake, alert, obeys commands, Oriented to person, rs5 place, time, situation. Cardiovascular: Heart tones S1 S2 present Patient's skin is warm and dry. Rhythm is regular. Respiratory: Airway is patent Respiratory effort is even, unlabored, Respiratory pattern is regular, symmetrical, Breath sounds are clear bilaterally. Parent/caregiver reports the patient having cough that is productive, pain with cough. GI: Abdomen is round non-distended, Bowel sounds present X 4 quads. Abd is soft and non tender X 4 quads. Patient currently denies nausea, vomiting. : No signs and/or symptoms were reported regarding the genitourinary system. EENT: No signs and/or symptoms were reported regarding the EENT system. Derm: Skin is intact, Skin is pink, warm \\T\\ dry. Musculoskeletal: Range of motion: intact in all extremities. 08:40 Reassessment: Patient and/or family updated on plan of care and expected duration. Pain rs5 level reassessed. Patient is alert, oriented x 3, equal unlabored respirations, skin warm/dry/pink. pt states "my chest hurts a lot when I cough, can I get something for pain?" provider notified. Pain: Complains of pain in chest and back Pain does not radiate. Pain currently is 6 out of 10 on a pain scale. Quality of pain is described as aching, Is intermittent. 09:34 Reassessment: Patient and/or family updated on plan of care and expected duration. Pain rs5 level reassessed. Patient is alert, oriented x 3, equal unlabored respirations, skin warm/dry/pink. Patient states feeling better. Patient states symptoms have improved. Vital Signs: 07:43 BP 119 / 83; Pulse 78; Resp 16; Temp 97.5; Pulse Ox 97% on R/A; Weight 68.04 kg; Height iw 5 ft. 3 in. ; Pain 8/10; 08:05 BP 101 / 75; Pulse 71; Resp 17; Temp 97.6(O); Pulse Ox 99% on R/A; rs5 08:20 BP 100 / 65; Pulse 74; Resp 18; Pulse Ox 99% on R/A; rs5 09:36 BP 102 / 65; Pulse 75; Resp 18; Pulse Ox 99% on R/A; rs5 07:43 Body Mass Index 26.57 (68.04 kg, 160.02 cm) iw 07:43 Pain Scale: Adult iw ED Course: 07:27 Patient arrived in ED. rg4 07:44 Triage completed. iw 07:45 Arm band placed on. iw 07:47 Client placed on continuous cardiac and pulse oximetry monitoring. NIBP monitoring rs5 applied. classroom monitor on. Pulse ox on. NIBP on. 07:59 Vane White PA-C is PHCP. sb4 07:59 Donis Plunkett MD is Attending Physician. sb4 08:00 Patient has correct armband on for positive identification. Bed in low position. Call rs5 light in reach. Side rails up X2. 08:00 No provider procedures requiring assistance completed. Patient maintains SpO2 rs5 saturation greater than 95% on room air. 08:15 Inserted saline lock: 20 gauge in right antecubital area, using aseptic technique. rs5 Blood collected. 08:26 XRAY Chest (1 view) In Process Unspecified. EDMS 08:32 Jose Koch, RN is Primary Nurse. rs5 09:50 IV discontinued, intact, bleeding controlled, No redness/swelling at site. Pressure rs5 dressing applied. Administered Medications: 08:25 Drug: NS 0.9% IV 1000 ml IV at 1 bolus Per protocol; 1000 mL bolus Route: IV; Rate: 1 rs5 bolus; Site: right antecubital; 09:35 Follow up: Response: No adverse reaction rs5 08:33 Drug: Famotidine IVP 20 mg IVP once; dilute with 10 mL 0.9% NaCl; give over 2 minutes ld1 Route: IVP; Site: left antecubital; 09:35 Follow up: Response: No adverse reaction rs5 09:06 Drug: Ketorolac IVP 30 mg IVP once Route: IVP; Site: right antecubital; rs5 09:34 Follow up: Response: No adverse reaction; Pain is decreased rs5 Medication: 09:37 VIS not applicable for this client. rs5 Outcome: 09:42 Discharge ordered by . sb4 09:50 Discharged to home ambulatory, rs5 09:50 Condition: stable 09:50 Discharge instructions given to patient, family, Instructed on discharge instructions, follow up and referral plans. medication usage, Demonstrated understanding of instructions, follow-up care, medications, Prescriptions given X 2, 09:52 Patient left the ED. ld1 Signatures: Dispatcher [employer] EDBronwyn Ivy, RN Emilie Mason rg4 Sheridan Lindsay RN RN ld1 Vane White, PA-C PA-C sb4 Jose Koch RN RN rs5 Corrections: (The following items were deleted from the chart) 09:34 07:50 Pain: Complains of pain in back and chest Pain does not radiate. Pain currently rs5 is 5 out of 10 on a pain scale. Quality of pain is described as aching, Pain began 2-3 days ago. Is continuous, rs5
--- NOTE | 2023-03-13 09:42 | EDPHYS ---
Physician Documentation [facility] Name: Ricarda Moya Age: 27 yrs Sex: Female : 1995 Arrival Date: 03/13/2023 Time: 07:25 Bed 17 Private MD: ED Physician Donis Plunkett HPI: 03/13 08:20 This 27 yrs old Female presents to ER via Ambulatory with complaints of Chest Pain, sb4 Breathing Difficulty. 08:20 The patient or guardian reports chest pain that is located primarily in the epigastric sb4 area. The pain does not radiate. Associated signs and symptoms: Pertinent positives: cough, shortness of breath. The chest pain is described as a heaviness. Modifying factors: The symptoms are alleviated by nothing. the symptoms are aggravated by nothing. The patient has not experienced similar symptoms in the past. The patient has not recently seen a physician. cough for several months, was exposed to flu a few weeks ago, started experiencing CP and SOB last night. Historical: - Allergies: 07:44 No Known Allergies; iw - Home Meds: 07:44 None [Active]; iw - PMHx: 07:44 pericarditis; iw - PSHx: 07:44 tubal ligation; iw - Immunization history:: Adult Immunizations not up to date. - Social history:: Smoking status: Reported history of juuling and/or vaping. ROS: 08:20 Constitutional: Negative for fever, chills, and weight loss, sb4 08:20 Cardiovascular: Positive for chest pain, 08:20 Respiratory: Positive for shortness of breath, 08:20 All other systems are negative, 08:20 Respiratory: Positive for cough, sb4 Exam: 08:20 Constitutional: This is a well developed, well nourished patient who is awake, alert, sb4 and in no acute distress. Head/Face: Normocephalic, atraumatic. Eyes: Extra-ocular motions intact. Periorbital areas with no swelling, redness, or edema. ENT: Mucous membranes moist. Cardiovascular: Regular rate and rhythm with a normal S1 and S2. Respiratory: Lungs have equal breath sounds bilaterally, clear to auscultation and percussion. No rales, rhonchi or wheezes noted. No increased work of breathing, no retractions or nasal flaring. Abdomen/GI: Soft, non-tender, no distension. Skin: Warm, dry with normal turgor. Normal color with no rashes, no lesions, and no evidence of cellulitis. MS/ Extremity: Pulses equal, no cyanosis. Neurovascular intact. Full, normal range of motion. Neuro: Awake and alert, GCS 15, oriented to person, place, time, and situation. Motor strength 5/5 in all extremities. Sensory grossly intact. Vital Signs: 07:43 BP 119 / 83; Pulse 78; Resp 16; Temp 97.5; Pulse Ox 97% on R/A; Weight 68.04 kg; Height iw 5 ft. 3 in. ; Pain 8/10; 08:05 BP 101 / 75; Pulse 71; Resp 17; Temp 97.6(O); Pulse Ox 99% on R/A; rs5 08:20 BP 100 / 65; Pulse 74; Resp 18; Pulse Ox 99% on R/A; rs5 09:36 BP 102 / 65; Pulse 75; Resp 18; Pulse Ox 99% on R/A; rs5 07:43 Body Mass Index 26.57 (68.04 kg, 160.02 cm) iw 07:43 Pain Scale: Adult iw MDM: 07:59 Patient medically screened. sb4 08:20 Differential diagnosis: abnormal EKG, anxiety, chest wall pain, esophagitis, sb4 pericarditis, pleurisy, pneumonia, covid, flu, bronchitis, PNA. 09:40 Data reviewed: vital signs, nurses notes, lab test result(s), EKG, radiologic studies, sb4 and as a result, I will discharge patient. Counseling: I had a detailed discussion with the patient and/or guardian regarding the historical points, exam findings, and any diagnostic results supporting the discharge/admit diagnosis, lab results, radiology results, to return to the emergency department if symptoms worsen or persist or if there are any questions or concerns that arise at home. 03/13 08:07 Order name: Basic Metabolic Panel; Complete Time: :27 sb4 03/13 08:07 Order name: CBC with Diff; Complete Time: 09:05 sb4 03/13 08:07 Order name: D-Dimer; Complete Time: 09:14 sb4 03/13 08:07 Order name: Magnesium; Complete Time: : sb4 03/13 08:07 Order name: Troponin HS; Complete Time: 09:27 sb4 03/13 08:07 Order name: TSH; Complete Time: 09:27 sb4 03/13 08:07 Order name: Test, Urine; Complete Time: 09:14 sb4 03/13 08:07 Order name: UAM; Complete Time: 09:14 sb4 03/13 08:07 Order name: UDS; Complete Time: 09:22 sb4 03/13 08:07 Order name: SARS RAPID; Complete Time: 09:38 sb4 03/13 08:07 Order name: Flu; Complete Time: 09:38 sb4 03/13 08:07 Order name: XRAY Chest (1 view); Complete Time: 08:44 sb4 03/13 08:07 Order name: EKG; Complete Time: 08:07 sb4 03/13 08:07 Order name: Cardiac monitoring; Complete Time: 08:23 sb4 03/13 08:07 Order name: EKG - Nurse/Tech; Complete Time: 08:23 sb4 03/13 08:07 Order name: IV Saline Lock; Complete Time: 09:35 sb4 03/13 08:07 Order name: Labs collected and sent; Complete Time: 09:35 sb4 03/13 08:07 Order name: O2 Per Protocol; Complete Time: 08:23 sb4 03/13 08:07 Order name: O2 Sat Monitoring; Complete Time: 08:23 sb4 Administered Medications: 08:25 Drug: NS 0.9% IV 1000 ml IV at 1 bolus Per protocol; 1000 mL bolus Route: IV; Rate: 1 rs5 bolus; Site: right antecubital; 09:35 Follow up: Response: No adverse reaction rs5 08:33 Drug: Famotidine IVP 20 mg IVP once; dilute with 10 mL 0.9% NaCl; give over 2 minutes ld1 Route: IVP; Site: left antecubital; 09:35 Follow up: Response: No adverse reaction rs5 09:06 Drug: Ketorolac IVP 30 mg IVP once Route: IVP; Site: right antecubital; rs5 09:34 Follow up: Response: No adverse reaction; Pain is decreased rs5 Disposition Summary: 03/13/23 09:42 Discharge Ordered Notes: Location: Home sb4 Problem: new sb4 Symptoms: have improved sb4 Condition: Stable sb4 Diagnosis - Acute bronchitis, unspecified sb4 Followup: sb4 - With: Emergency Department - When: As needed - Reason: Trouble breathing, Worsening of condition Discharge Instructions: - Discharge Summary Sheet sb4 - Acute Bronchitis, Adult sb4 Forms: - Work release form sb4 - Medication Reconciliation Form sb4 - Thank You Letter sb4 - Antibiotic Education sb4 - Prescription Opioid Use sb4 - Patient Portal Instructions sb4 - Leadership Thank You Letter sb4 Prescriptions: - albuterol sulfate 90 mcg/actuation Inhalation HFA Aerosol Inhaler - inhale 2 puff INHALATION route every 4 to 6 hours as needed for shortness of sb4 breath or wheezing; 1 Applicator; Refills: 0, Product Selection Permitted - Medrol (Anthony) 4 mg Oral Tablets, Dose Pack - take 1 tablet ORAL route as directed - follow package instructions; 1 packet; sb4 Refills: 0, Product Selection Permitted Addendum: 03/14/2023 10:38 I was immediately available for consultation during this patient's visit. I did not e c2 personally see the patient or discuss the patient with the SELENE. . Signatures: Dispatcher [employer] Bronwyn Desai, SAIMA LANDAVERDE iw Sheridan Lindsay RN RN ld1 Vane White PA-C PAKeven sb4 Jose Koch RN RN rs5 Donis Plunkett MD MD ec2
[2023-03-13 10:18] VITALS: BP 102/65; TEMP 97.6; O2SAT 99
--- NOTE | 2023-03-14 17:53 | EKG ---
Test Date: 2023-03-13 Test Time: 07:51:21 Senior Administrative Services Officer: ANIVAL MEASUREMENT RESULTS: Intervals: Rate: 71 OH: 128 QRSD: 82 QT: 394 QTc: 428 [place]: P: 55 OH: 128 QRS: 69 T: 27 INTERPRETIVE STATEMENTS: Normal sinus rhythm with sinus arrhythmia Normal ECG Compared to ECG 12/07/2017 13:57:59 No significant changes Electronically Signed On 03-14-23 17:50:45 LABOR UTILIZATION SUPERINTENDENT by Adrian Hinton
== END ==
LOC: ER 07:25
DX: J20.9 Acute bronchitis, unspecified (principal)
CPT/HCPCS: 36415; 71045; 80048; 80307; 81001; 81025; 83735; 84443; 84484; 85025; 85379; 87804; 87811; 93005; 99285; J7030

== ENCOUNTER → 2023-03-15 | Emergency (ER) | payer OTHER, SELFPAY ==
[~2023-03-15] MED LIST changes: +AMOX/K CLAV 875 MG TAB ONE; +AZITHROMYCIN 250 MG TAB ONE; +CEFTRIAXONE 1000 MG/VIAL ONE; -FAMOTIDINE 20 MG/2 ML VIAL IV ONE; -NA CHLORIDE 0.9% 1,000 ML ONE; +dexAMETHasone 10 MG/ML VIAL ONE
--- OUTSIDE RECORDS SUMMARY | 2023-03-15 08:17 | XMS REPORT | Continuity of Care Document ---
Author Name Unknown Address [address] [place] [address] [facility] thconnect Address [address] [place] [address] Care Team Providers Care Timber Girdler Name Role Phone Melyssa Stout Primary Care Physicia n Zara Attending Clinician Unavailable Felton Attending Clinician Unavailable ROBBIE HENRIQUEZ Attending Clinician Unavailable G_Pappadawit Attending Clinician Unavailable Doctor Unassigned, [place] Attending Clinician U Kartik Leach Attending Clinician UnavailAngie Rosales Attending Clinician UnavailOscar Rodgers Attending Clinician Unavailable Melyssa Stout Attending Clinician + OSCAR ULLOA Attending Clinician Unavailable JENA ADAIR Attending Clinician Unavailable Trimester, [facility] Attending Clinician Unavailable Cain Pereyra MD Attending Clinician [phone] Lab, [facility] Attending Clinician Unavailable ROSCOE MONTE Attending Clinician Unavailable BIMAL ALMONTE Attending Clinician Unavailable Young_J Admitting Clinician Unavailable Koudela_A Admitting Clinician Unavailable G_Papjanes Admitting Clinician Unavailable Kartik Samuels Admitting Clinician Unavailabl e Payers Payer Name Policy Type Policy Number Effective Date Expirati on Date Source [facility] (MEDICAID HMO) [id number] 2019 00:00:00 [place] [id number] 2019 00:00:00 [place] [facility] [id number] Problems Condition Name Condition Details Condition Category Status Onset Date Resolution Date Last Treatment Date Treating Clinician Comments Source depression Depression Problem Active 2019-02 0-08 00:00: 00 [facility] Sterilizat ion requested Sterilizat ion Requested Problem Active 2019-02 0-08 00:00: 00 [facility] Gastroesop hageal reflux disease without esophagiti s Gastroesop hageal Reflux Disease without Esophagiti s Problem Active 6-05 00:00: 00 [facility] Tachycardi a Tachycardi a Problem Active 5-12 00:00: 00 [facility] Dyspnea on exertion Dyspnea on Exertion Problem Active 5-12 00:00: 00 [facility] Folliculit is Folliculit is Problem Active 2-26 00:00: 00 [facility] History of pre-eclamp leoncio History of Pre-eclamp leoncio Problem Active 2-26 00:00: 00 [facility] Over weight Over weight Disease Active 2-18 00:00: 00 [facility] Acute nasopharyn gitis (common cold) Acute nasopharyn gitis (common cold) Disease Active 2-18 00:00: 00 [facility] Multiparit y Multiparit y Disease Active 2020-0 1-15 00:00: 00 [facility] History of pre-eclamp leoncio History of pre-eclamp leoncio Disease Active 03-06 00:00: 00 Overview: Formattin g of this note might be different from the original. Reports delivery at 37w5d [facility] Rubella non-immune status, antepartum Rubella non-immune status, antepartum Disease Active 09-01 00:00: 00 [facility] Tobacco use in , antepartum Tobacco use in , antepartum Disease Active 08-29 00:00: 00 Overview: Formattin g of this note might be different from the original. Reports quit 2 days ago 03/04/19 [facility] History of pericardit is History of pericardit is Disease Active 08-29 00:00: 00 Overview: Formattin g of this note might be different from the original. Questiona ble. External records received and reviewed. All labs (ESR and CRP) were normal, CXR was normal. No EKG received. Pt was tx with kenalog 40mg. EKG from 11/28/16 received (see external records) noted to be NSR [facility] Supervisio n of high risk , antepartum Supervisio n of high risk , antepartum Disease Active 08-29 00:00: 00 [facility] Breast lump on right side at 11 o'clock position Breast lump on right side at 11 o'clock position Disease Active 08-29 00:00: 00 [facility] History of breast lump History of breast lump Disease Active 08-29 00:00: 00 Overview: Formattin g of this note might be different from the original. Reports benign no issues [facility] Allergies, Adverse Reactions, Alerts Allergy Name Allergy Type Status Severity Reaction(s) Onset Date Inactive Date Treating Clinician Comments Source LATEX DRUG INGREDI Active Low Rash 08-29 00:00: 00 [facility] Latex Propensi ty to adverse reaction s Active Rash 08-29 00:00: 00 [facility] Latex Allergy to substanc e Active Rash [facility] Social History Social Habit Start Date Stop Date Quantity Comments Source ASSERTION 2019-02-22 00:00:00 [facility] intake 2020-02-07 00:00:00 2020-02-07 00:00:00 Ex-drinker (finding) [facility] History of Social function 2019-09-26 00:00:00 2019-09-26 00:00:00 [facility] Alcohol Comment 2019-03-06 00:00:00 2019-03-06 00:00:00 last drank 03/04/2019 [facility] Tobacco use and exposure 2019-03-06 00:00:00 2019-03-06 00:00:00 Smokeless tobacco non-user [facility] Cigarettes smoked current (pack per day) - Reported 2019-03-06 00:00:00 2019-03-06 00:00:00 [facility] Cigarette pack-years 2019-03-06 00:00:00 2019-03-06 00:00:00 [facility] History of tobacco use 2019-03-04 00:00:00 Cigarette Smoker [facility] Tobacco Comment 2017-08-29 00:00:00 2017-08-29 00:00:00 information provided [facility] Sex Assigned At 1995 00:00:00 1995 00:00:00 [facility] Smoking Status Start Date Stop Date Source Former Smoker [facility] Medications Ordered Medication Name Filled Medication Name Start Date Stop Date Current Medication? Ordering Clinician Indication Dosage Frequency Signature (SIG) Comments Components Source proMETHazin e 12.5 mg tablet 03-06 16:18: 36 Yes 12.5mg Take 12.5 mg by mouth every 4 (four) hours as needed. [facility] proMETHazin e 12.5 mg tablet 03-06 16:18: 36 Yes 12.5mg Take 12.5 mg by mouth every 4 (four) hours as needed. [facility] proMETHazin e 12.5 mg tablet 03-06 16:18: 36 Yes 12.5mg Take 12.5 mg by mouth every 4 (four) hours as needed. [facility] proMETHazin e 12.5 mg tablet 2020-0 1-15 16:18: 36 Yes 12.5mg Take 12.5 mg by mouth every 4 (four) hours as needed. [facility] 12.5 mg tablet 2020-0 1-15 16:18: 36 Yes 12.5mg Take 12.5 mg by mouth every 4 (four) hours as needed. [facility] proMETHazin [facility] 12.5 mg tablet 2020-0 1-15 16:18: 36 Yes 12.5mg Take 12.5 mg by mouth every 4 (four) hours as needed. [facility] proMETHazin e 12.5 mg tablet 2020-0 1-15 16:18: 36 Yes 12.5mg Take 12.5 mg by mouth every 4 (four) hours as needed. [facility] proMETHazin e 12.5 mg tablet 2020-0 1-15 16:18: 36 Yes 12.5mg Take 12.5 mg by mouth every 4 (four) hours as needed. [facility] proMETHazin e 12.5 mg tablet 2020-0 115 16:18: 36 Yes 12.5mg Take 12.5 mg by mouth every 4 (four) hours as needed. [facility] proMETHazin e 12.5 mg tablet 2020-0 1-15 16:18: 36 Yes 12.5mg Take 12.5 mg by mouth every 4 (four) hours as needed. [facility] proMETHazin e 12.5 mg tablet 2020-0 1-15 16:18: 36 Yes 12.5mg Take 12.5 mg by mouth every 4 (four) hours as needed. [facility] proMETHazin e 12.5 mg tablet 2020-0 115 16:18: 36 Yes 12.5mg Take 12.5 mg by mouth every 4 (four) hours as needed. [facility] proMETHazin e 12.5 mg tablet 2020-0 1-15 16:18: 36 Yes 12.5mg Take 12.5 mg by mouth every 4 (four) hours as needed. [facility] proMETHazin e 12.5 mg tablet 2020-0 1-15 16:18: 36 Yes 12.5mg Take 12.5 mg by mouth every 4 (four) hours as needed. [facility] proMETHazin e 12.5 mg tablet 03-06 16:18: 36 Yes 12.5mg Take 12.5 mg by mouth every 4 (four) hours as needed. [facility] proMETHazin e 12.5 mg tablet 03-06 16:18: 36 Yes 12.5mg Take 12.5 mg by mouth every 4 (four) hours as needed. [facility] proMETHazin e 12.5 mg tablet 03-06 16:18: 36 Yes 12.5mg Take 12.5 mg by mouth every 4 (four) hours as needed. [facility] proMETHazin e 12.5 mg tablet 03-06 10:18: 36 Yes 12.5mg Take 12.5 mg by mouth every 4 (four) hours as needed. [facility] multivitami n ( VITAMIN) tablet 03-06 00:00: 00 Yes [id number] 1{tbl} Take 1 tablet by mouth daily. [facility] multivitami n ( VITAMIN) tablet 03-06 00:00: 00 Yes [id number] 1{tbl} Take 1 tablet by mouth daily. [facility] multivitami n ( VITAMIN) tablet 03-06 00:00: 00 Yes [id number] 1{tbl} Take 1 tablet by mouth daily. [facility] multivitami n ( VITAMIN) tablet 03-06 00:00: 00 Yes [id number] 1{tbl} Take 1 tablet by mouth daily. [facility] multivitami n ( VITAMIN) tablet 03-06 00:00: 00 Yes [id number] 1{tbl} Take 1 tablet by mouth daily. [facility] multivitami n ( VITAMIN) tablet 03-06 00:00: 00 Yes [id number] 1{tbl} Take 1 tablet by mouth daily. [facility] multivitami n ( VITAMIN) tablet 03-06 00:00: 00 Yes [id number] 1{tbl} Take 1 tablet by mouth daily. [facility] multivitami n ( VITAMIN) tablet 03-06 00:00: 00 Yes [id number] 1{tbl} Take 1 tablet by mouth daily. [facility] multivitami n ( VITAMIN) tablet 03-06 00:00: 00 Yes [id number] 1{tbl} Take 1 tablet by mouth daily. [facility] multivitami n ( VITAMIN) tablet 03-06 00:00: 00 Yes [id number] 1{tbl} Take 1 tablet by mouth daily. [facility] multivitami n ( VITAMIN) tablet 03-06 00:00: 00 Yes [id number] 1{tbl} Take 1 tablet by mouth daily. [facility] multivitami n ( VITAMIN) tablet 03-06 00:00: 00 Yes [id number] 1{tbl} Take 1 tablet by mouth daily. [facility] multivitami n ( VITAMIN) tablet 03-06 00:00: 00 Yes [id number] 1{tbl} Take 1 tablet by mouth daily. [facility] multivitami n ( VITAMIN) tablet 03-06 00:00: 00 Yes [id number] 1{tbl} Take 1 tablet by mouth daily. [facility] multivitami n ( VITAMIN) tablet 03-06 00:00: 00 Yes [id number] 1{tbl} Take 1 tablet by mouth daily. [facility] multivitami n ( VITAMIN) tablet 03-06 00:00: 00 Yes [id number] 1{tbl} Take 1 tablet by mouth daily. [facility] multivitami n ( VITAMIN) tablet 03-06 00:00: 00 Yes [id number] 1{tbl} Take 1 tablet by mouth daily. [facility] multivitami n ( VITAMIN) tablet 03-06 00:00: 00 Yes [id number] 1{tbl} Take 1 tablet by mouth daily. [facility] proMETHazin e 12.5 mg tablet 09-29 17:49: 27 Yes 12.5mg Take 12.5 mg by mouth every 4 (four) hours as needed. [facility] [id number]- iron-folic- docusate (CITRANATAL , DUAL-IRON,) 27 mg iron-1 mg -50 mg Tab 08-29 00:00: 00 Yes 1{tbl} Take 1 tablet by mouth daily. [facility] [id number]- iron-folic- docusate (CITRANATAL , DUAL-IRON,) 27 mg iron-1 mg -50 mg Tab 08-29 00:00: 00 Yes 1{tbl} Take 1 tablet by mouth daily. [facility] [id number]- iron-folic- docusate (CITRANATAL , DUAL-IRON,) 27 mg iron-1 mg -50 mg Tab 08-29 00:00: 00 Yes 1{tbl} Take 1 tablet by mouth daily. [facility] [id number]- iron-folic- docusate (CITRANATAL , DUAL-IRON,) 27 mg iron-1 mg -50 mg Tab 08-29 00:00: 00 Yes 1{tbl} Take 1 tablet by mouth daily. [facility] [id number]- iron-folic- docusate (CITRANATAL , DUAL-IRON,) 27 mg iron-1 mg -50 mg Tab 08-29 00:00: 00 Yes 1{tbl} Take 1 tablet by mouth daily. [facility] [id number]- iron-folic- docusate (CITRANATAL , DUAL-IRON,) 27 mg iron-1 mg -50 mg Tab 08-29 00:00: 00 Yes 1{tbl} Take 1 tablet by mouth daily. [facility] [id number]- iron-folic- docusate (CITRANATAL , DUAL-IRON,) 27 mg iron-1 mg -50 mg Tab 08-29 00:00: 00 Yes 1{tbl} Take 1 tablet by mouth daily. [facility] [id number]- iron-folic- docusate (CITRANATAL , DUAL-IRON,) 27 mg iron-1 mg -50 mg Tab 08-29 00:00: 00 Yes 1{tbl} Take 1 tablet by mouth daily. [facility] [id number]- iron-folic- docusate (CITRANATAL , DUAL-IRON,) 27 mg iron-1 mg -50 mg Tab 08-29 00:00: 00 Yes 1{tbl} Take 1 tablet by mouth daily. [facility] - iron-folic- docusate (CITRANATAL , DUAL-IRON,) 27 mg iron-1 mg -50 mg Tab 08-29 00:00: 00 Yes 1{tbl} Take 1 tablet by mouth daily. [facility] [id number]- iron-folic- docusate (CITRANATAL , DUAL-IRON,) 27 mg iron-1 mg -50 mg Tab 08-29 00:00: 00 Yes 1{tbl} Take 1 tablet by mouth daily. [facility] [id number]- iron-folic- docusate (CITRANATAL , DUAL-IRON,) 27 mg iron-1 mg -50 mg Tab 08-29 00:00: 00 Yes 1{tbl} Take 1 tablet by mouth daily. [facility] [id number]- iron-folic- docusate (CITRANATAL , DUAL-IRON,) 27 mg iron-1 mg -50 mg Tab 08-29 00:00: 00 Yes 1{tbl} Take 1 tablet by mouth daily. [facility] [id number]- iron-folic- docusate (CITRANATAL , DUAL-IRON,) 27 mg iron-1 mg -50 mg Tab 08-29 00:00: 00 Yes 1{tbl} Take 1 tablet by mouth daily. [facility] [id number]- iron-folic- docusate (CITRANATAL , DUAL-IRON,) 27 mg iron-1 mg -50 mg Tab 08-29 00:00: 00 Yes 1{tbl} Take 1 tablet by mouth daily. [facility] [id number]- iron-folic- docusate (CITRANATAL , DUAL-IRON,) 27 mg iron-1 mg -50 mg Tab 08-29 00:00: 00 Yes 1{tbl} Take 1 tablet by mouth daily. [facility] - iron-folic- docusate (CITRANATAL , DUAL-IRON,) 27 mg iron-1 mg -50 mg Tab 08-29 00:00: 00 Yes 1{tbl} Take 1 tablet by mouth daily. [facility] [id number]- iron-folic- docusate (CITRANATAL , DUAL-IRON,) 27 mg iron-1 mg -50 mg Tab 08-29 00:00: 00 Yes 1{tbl} Take 1 tablet by mouth daily. [facility] [id number]- iron-folic- docusate (CITRANATAL , DUAL-IRON,) 27 mg iron-1 mg -50 mg Tab 08-29 00:00: 00 Yes 1{tbl} Take 1 tablet by mouth daily. [facility] Wellbutrin XL 150 mg 24 hr tablet, extended release Take 1 tablet every day by oral route for 30 days. Wellbutrin XL 150 mg 24 hr tablet, extended release Take 1 tablet every day by oral route for 30 days. No 1 Q1D Wellbutrin XL 150 mg 24 hr tablet, extended release Take 1 tablet every day by oral route for 30 days. [facility] bupropion HCl 75 mg tablet Take 1 tablet every day by oral route. bupropion HCl 75 mg tablet Take 1 tablet every day by oral route. No 1 Q1D bupropion HCl 75 mg tablet Take 1 tablet every day by oral route. [facility] bupropion HCl XL 150 mg 24 hr tablet, extended release Take 1 tablet every day by oral route for 30 days. bupropion HCl XL 150 mg 24 hr tablet, extended release Take 1 tablet every day by oral route for 30 days. No bupropion HCl XL 150 mg 24 hr tablet, extended release Take 1 tablet every day by oral route for 30 days. [facility] bupropion HCl 75 mg tablet Take 1 tablet every day by oral route. bupropion HCl 75 mg tablet Take 1 tablet every day by oral route. No bupropion HCl 75 mg tablet Take 1 tablet every day by oral route. [facility] bupropion HCl XL 150 mg 24 hr tablet, extended release Take 1 tablet every day by oral route for 30 days. bupropion HCl XL 150 mg 24 hr tablet, extended release Take 1 tablet every day by oral route for 30 days. No bupropion HCl XL 150 mg 24 hr tablet, extended release Take 1 tablet every day by oral route for 30 days. [facility] acetaminoph en 300 mg-codeine 30 mg tablet 1-2 p.o. q 6 hrs PRN pain acetaminoph en 300 mg-codeine 30 mg tablet 1-2 p.o. q 6 hrs PRN pain No acetaminop hen 300 mg-codeine 30 mg tablet 1-2 p.o. q 6 hrs PRN pain [facility] citalopram 20 mg tablet Take 1 tablet every day by oral route. citalopram 20 mg tablet Take 1 tablet every day by oral route. No citalopram 20 mg tablet Take 1 tablet every day by oral route. [facility] doxycycline monohydrate 100 mg capsule Take 1 capsule twice a day by oral route for 7 days. doxycycline monohydrate 100 mg capsule Take 1 capsule twice a day by oral route for 7 days. No 1capsul e(s) BID doxycyclin e monohydrat e 100 mg capsule Take 1 capsule twice a day by oral route for 7 days. [facility] Flagyl 500 mg tablet Take 1 tablet twice a day by oral route for 7 days. Flagyl 500 mg tablet Take 1 tablet twice a day by oral route for 7 days. No 1 BID Flagyl 500 mg tablet Take 1 tablet twice a day by oral route for 7 days. [facility] ibuprofen 800 mg tablet Take 1 tablet every 6 hours by oral route as needed. ibuprofen 800 mg tablet Take 1 tablet every 6 hours by oral route as needed. No ibuprofen 800 mg tablet Take 1 tablet every 6 hours by oral route as needed. [facility] Sprintec (28) 0.25 mg-35 mcg tablet Take 1 tablet every day by oral route. Sprintec (28) 0.25 mg-35 mcg tablet Take 1 tablet every day by oral route. No 1 Q1D Sprintec (28) 0.25 mg-35 mcg tablet Take 1 tablet every day by oral route. [facility] Vital Signs Vital Name Observation Time Observation Value Comments S ource BP Diastolic 2022-07-15 00:00:00 65 mm[Hg] [facility] Height 2022-07-15 00:00:00 63 [in_i] [facility] BMI (Body Mass Index) 2022-07-15 00:00:00 28 kg/m2 [facility] BP Systolic 2022-07-15 00:00:00 95 mm[Hg] [facility] Body Weight 2022-07-15 00:00:00 157.8 [lb_av] [facility] BP Diastolic 2022-07-01 00:00:00 73 mm[Hg] [facility] Height 2022-07-01 00:00:00 63 [in_i] [facility] BMI (Body Mass Index) 2022-07-01 00:00:00 28 kg/m2 [facility] BP Systolic 2022-07-01 00:00:00 109 mm[Hg] [facility] Body Weight 2022-07-01 00:00:00 2528 [oz_av] [facility] BP Diastolic 2022-04-28 00:00:00 73 mm[Hg] [facility] Height 2022-04-28 00:00:00 63 [in_i] [facility] BMI (Body Mass Index) 2022-04-28 00:00:00 27.1 kg/m2 [facility] BP Systolic 2022-04-28 00:00:00 109 mm[Hg] [facility] Body Weight 2022-04-28 00:00:00 2444.8 [oz_av] [facility] BP Diastolic 2020-05-11 00:00:00 71 mm[Hg] [facility] Height 2020-05-11 00:00:00 63 [in_i] [facility] BMI (Body Mass Index) 2020-05-11 00:00:00 29.3 kg/m2 [facility] BP Systolic 2020-05-11 00:00:00 105 mm[Hg] [facility] Body Weight 2020-05-11 00:00:00 165.6 [lb_av] [facility] BP Diastolic 2019-12-27 00:00:00 63 mm[Hg] [facility] Height 2019-12-27 00:00:00 63 [in_i] [facility] BMI (Body Mass Index) 2019-12-27 00:00:00 27 kg/m2 [facility] BP Systolic 2019-12-27 00:00:00 107 mm[Hg] [facility] Body Weight 2019-12-27 00:00:00 152.6 [lb_av] [facility] BP Diastolic 2019-12-13 00:00:00 76 mm[Hg] [facility] Height 2019-12-13 00:00:00 63 [in_i] [facility] BMI (Body Mass Index) 2019-12-13 00:00:00 27.1 kg/m2 [facility] BP Systolic 2019-12-13 00:00:00 112 mm[Hg] [facility] Body Weight 2019-12-13 00:00:00 153 [lb_av] [facility] BP Diastolic 2019-11-28 00:00:00 72 mm[Hg] [facility] Height 2019-11-28 00:00:00 63 [in_i] [facility] BMI (Body Mass Index) 2019-11-28 00:00:00 27.1 kg/m2 [facility] BP Systolic 2019-11-28 00:00:00 113 mm[Hg] [facility] Body Weight 2019-11-28 00:00:00 153 [lb_av] [facility] BP Diastolic 2019-10-31 00:00:00 81 mm[Hg] [facility] Height 2019-10-31 00:00:00 63 [in_i] [facility] BMI (Body Mass Index) 2019-10-31 00:00:00 31.4 kg/m2 [facility] BP Systolic 2019-10-31 00:00:00 123 mm[Hg] [facility] Body Weight 2019-10-31 00:00:00 177.3 [lb_av] [facility] BP Diastolic 2019-10-24 00:00:00 78 mm[Hg] [facility] Height 2019-10-24 00:00:00 63 [in_i] [facility] BMI (Body Mass Index) 2019-10-24 00:00:00 31.2 kg/m2 [facility] BP Systolic 2019-10-24 00:00:00 121 mm[Hg] [facility] Body Weight 2019-10-24 00:00:00 176 [lb_av] [facility] BP Diastolic 2019-10-14 00:00:00 70 mm[Hg] [facility] Height 2019-10-14 00:00:00 63 [in_i] [facility] BMI (Body Mass Index) 2019-10-14 00:00:00 30.6 kg/m2 [facility] BP Systolic 2019-10-14 00:00:00 106 mm[Hg] [facility] Body Weight 2019-10-14 00:00:00 173 [lb_av] [facility] BP Diastolic 2019-10-09 00:00:00 72 mm[Hg] [facility] Height 2019-10-09 00:00:00 63 [in_i] [facility] BMI (Body Mass Index) 2019-10-09 00:00:00 30.5 kg/m2 [facility] BP Systolic 2019-10-09 00:00:00 112 mm[Hg] [facility] Body Weight 2019-10-09 00:00:00 172.3 [lb_av] [facility] BP Diastolic 2019-10-04 00:00:00 78 mm[Hg] [facility] Height 2019-10-04 00:00:00 63 [in_i] [facility] BMI (Body Mass Index) 2019-10-04 00:00:00 30.5 kg/m2 [facility] BP Systolic 2019-10-04 00:00:00 116 mm[Hg] [facility] Body Weight 2019-10-04 00:00:00 171.9 [lb_av] [facility] BP Diastolic 2019-09-17 00:00:00 71 mm[Hg] [facility] Height 2019-09-17 00:00:00 63 [in_i] [facility] BMI (Body Mass Index) 2019-09-17 00:00:00 30 kg/m2 [facility] BP Systolic 2019-09-17 00:00:00 112 mm[Hg] [facility] Body Weight 2019-09-17 00:00:00 169.4 [lb_av] [facility] BP Diastolic 2019-08-27 00:00:00 71 mm[Hg] [facility] Height 2019-08-27 00:00:00 63 [in_i] [facility] BMI (Body Mass Index) 2019-08-27 00:00:00 29.4 kg/m2 [facility] BP Systolic 2019-08-27 00:00:00 114 mm[Hg] [facility] Body Weight 2019-08-27 00:00:00 166 [lb_av] [facility] BP Diastolic 2019-07-26 00:00:00 63 mm[Hg] [facility] Height 2019-07-26 00:00:00 63 [in_i] [facility] BMI (Body Mass Index) 2019-07-26 00:00:00 29.1 kg/m2 [facility] BP Systolic 2019-07-26 00:00:00 102 mm[Hg] [facility] Body Weight 2019-07-26 00:00:00 164 [lb_av] [facility] BP Diastolic 2019-07-18 00:00:00 63 mm[Hg] [facility] Height 2019-07-18 00:00:00 63 [in_i] [facility] BMI (Body Mass Index) 2019-07-18 00:00:00 29.1 kg/m2 [facility] BP Systolic 2019-07-18 00:00:00 102 mm[Hg] [facility] Body Weight 2019-07-18 00:00:00 164.3 [lb_av] [facility] BP Diastolic 2019-07-02 00:00:00 70 mm[Hg] [facility] Height 2019-07-02 00:00:00 63 [in_i] [facility] BMI (Body Mass Index) 2019-07-02 00:00:00 28.6 kg/m2 [facility] BP Systolic 2019-07-02 00:00:00 117 mm[Hg] [facility] Body Weight 2019-07-02 00:00:00 161.2 [lb_av] [facility] BP Diastolic 2019-06-04 00:00:00 60 mm[Hg] [facility] Height 2019-06-04 00:00:00 63 [in_i] [facility] BMI (Body Mass Index) 2019-06-04 00:00:00 28.1 kg/m2 [facility] BP Systolic 2019-06-04 00:00:00 107 mm[Hg] [facility] Body Weight 2019-06-04 00:00:00 158.8 [lb_av] [facility] BP Diastolic 2019-05-02 00:00:00 58 mm[Hg] [facility] Height 2019-05-02 00:00:00 63 [in_i] [facility] BMI (Body Mass Index) 2019-05-02 00:00:00 27.9 kg/m2 [facility] BP Systolic 2019-05-02 00:00:00 107 mm[Hg] [facility] Body Weight 2019-05-02 00:00:00 157.3 [lb_av] [facility] BP Diastolic 2019-04-17 00:00:00 67 mm[Hg] [facility] Height 2019-04-17 00:00:00 63 [in_i] [facility] BMI (Body Mass Index) 2019-04-17 00:00:00 28.4 kg/m2 [facility] BP Systolic 2019-04-17 00:00:00 111 mm[Hg] [facility] Body Weight 2019-04-17 00:00:00 160.2 [lb_av] [facility] Systolic blood pressure 2019-04-09 16:28:00 111 mm[Hg] [facility] Diastolic blood pressure 2019-04-09 16:28:00 65 mm[Hg] [facility] Heart rate 2019-04-09 16:28:00 92 /min [facility] Body temperature 2019-04-09 16:28:00 36.39 [facility] Respiratory rate 2019-04-09 16:28:00 16 /min [facility] Body height 2019-04-09 16:28:00 160 cm [facility] Body weight 2019-04-09 16:28:00 72.15 kg [facility] BMI 2019-04-09 16:28:00 28.18 kg/m2 [facility] Systolic blood pressure 2019-04-09 16:28:00 111 mm[Hg] [facility] Diastolic blood pressure 2019-04-09 16:28:00 65 mm[Hg] [facility] Heart rate 2019-04-09 16:28:00 92 /min [facility] Body temperature 2019-04-09 16:28:00 36.39 Jacki [facility] Respiratory rate 2019-04-09 16:28:00 16 /min [facility] Body height 2019-04-09 16:28:00 160 cm [facility] Body weight 2019-04-09 16:28:00 72.15 kg [facility] BMI 2019-04-09 16:28:00 28.18 kg/m2 [facility] Systolic blood pressure 2019-03-29 19:36:00 113 mm[Hg] [facility] Diastolic blood pressure 2019-03-29 19:36:00 72 mm[Hg] [facility] Heart rate 2019-03-29 19:36:00 82 /min [facility] Body temperature 2019-03-29 19:36:00 36.11 Jack[facility] Respiratory rate 2019-03-29 19:36:00 16 /min [facility] Body height 2019-03-29 19:36:00 160 cm [facility] Body weight 2019-03-29 19:36:00 72.632 kg [facility] BMI 2019-03-29 19:36:00 28.36 kg/m2 [facility] Systolic blood pressure 2019-03-29 19:36:00 113 mm[Hg] [facility] Diastolic blood pressure 2019-03-29 19:36:00 72 mm[Hg] [facility] Heart rate 2019-03-29 19:36:00 82 /min [facility] Body temperature 2019-03-29 19:36:00 36.11 Jacki [facility] Respiratory rate 2019-03-29 19:36:00 16 /min [facility] Body height 2019-03-29 19:36:00 160 cm [facility] Body weight 2019-03-29 19:36:00 72.632 kg [facility] BMI 2019-03-29 19:36:00 28.36 kg/m2 [facility] Heart rate 2019-03-21 16:56:00 59 /min [facility] Body temperature 2019-03-21 16:56:00 36.39 Jacki [facility] Respiratory rate 2019-03-21 16:56:00 16 /min [facility] Body height 2019-03-21 16:56:00 160 cm [facility] Body weight 2019-03-21 16:56:00 73.029 kg [facility] BMI 2019-03-21 16:56:00 28.52 kg/m2 [facility] Systolic blood pressure 2019-03-21 16:56:00 112 mm[Hg] [facility] Diastolic blood pressure 2019-03-21 16:56:00 62 mm[Hg] [place] [facility] Heart rate 2019-03-21 16:56:00 59 /min [facility] Body temperature 2019-03-21 16:56:00 36.39 Jacki [facility] Respiratory rate 2019-03-21 16:56:00 16 /min [facility] Body height 2019-03-21 16:56:00 160 cm [facility] Body weight 2019-03-21 16:56:00 73.029 kg [facility] BMI 2019-03-21 16:56:00 28.52 kg/m2 [facility] Systolic blood pressure 2019-03-21 16:56:00 112 mm[Hg] [facility] Diastolic blood pressure 2019-03-21 16:56:00 62 mm[Hg] [facility] Systolic blood pressure 2019-03-12 16:59:00 123 mm[Hg] [facility] Diastolic blood pressure 2019-03-12 16:59:00 71 mm[Hg] [facility] Heart rate 2019-03-12 16:59:00 76 /min [facility] Body temperature 2019-03-12 16:59:00 36.28 Jacki [facility] Respiratory rate 2019-03-12 16:59:00 16 /min [facility] Body height 2019-03-12 16:59:00 160 cm [facility] Body weight 2019-03-12 16:59:00 73.738 kg [facility] BMI 2019-03-12 16:59:00 28.80 kg/m2 [facility] Systolic blood pressure 2019-03-12 16:59:00 123 mm[Hg] [facility] Diastolic blood pressure 2019-03-12 16:59:00 71 mm[Hg] [facility] Heart rate 2019-03-12 16:59:00 76 /min [facility] Body temperature 2019-03-12 16:59:00 36.28 Jacki [facility] Respiratory rate 2019-03-12 16:59:00 16 /min [facility] Body height 2019-03-12 16:59:00 160 cm [facility] Body weight 2019-03-12 16:59:00 73.738 kg [facility] BMI 2019-03-12 16:59:00 28.80 kg/m2 [facility] Systolic blood pressure 2019-03-06 15:53:00 127 mm[Hg] [facility] Diastolic blood pressure 2019-03-06 15:53:00 80 mm[Hg] [facility] Heart rate 2019-03-06 15:53:00 79 /min [facility] Body temperature 2019-03-06 15:53:00 36.22 Jacki [facility] Respiratory rate 2019-03-06 15:53:00 16 /min [facility] Body height 2019-03-06 15:53:00 170.2 cm [facility] Body weight 2019-03-06 15:53:00 72.576 kg [facility] BMI 2019-03-06 15:53:00 25.06 kg/m2 [facility] Height 2018-10-26 00:00:00 63 [in_i] [facility] BMI (Body Mass Index) 2018-10-26 00:00:00 27.6 kg/m2 [facility] Body Weight 2018-10-26 00:00:00 156 [lb_av] [facility] BP Diastolic 2018-07-26 00:00:00 73 mm[Hg] [facility] Height 2018-07-26 00:00:00 63 [in_i] [facility] BMI (Body Mass Index) 2018-07-26 00:00:00 26.6 kg/m2 [facility] BP Systolic 2018-07-26 00:00:00 121 mm[Hg] [facility] Body Weight 2018-07-26 00:00:00 150.2 [lb_av] [facility] BP Diastolic 2018-04-26 00:00:00 69 mm[Hg] [facility] Height 2018-04-26 00:00:00 63 [in_i] [facility] BMI (Body Mass Index) 2018-04-26 00:00:00 25.7 kg/m2 [facility] BP Systolic 2018-04-26 00:00:00 97 mm[Hg] [facility] Body Weight 2018-04-26 00:00:00 145 [lb_av] [facility] BP Diastolic 2018-04-02 00:00:00 85 mm[Hg] [facility] Height 2018-04-02 00:00:00 63 [in_i] [facility] BMI (Body Mass Index) 2018-04-02 00:00:00 29.5 kg/m2 [facility] BP Systolic 2018-04-02 00:00:00 145 mm[Hg] [facility] Body Weight 2018-04-02 00:00:00 166.5 [lb_av] [facility] BP Diastolic 2018-03-29 00:00:00 79 mm[Hg] [facility] Height 2018-03-29 00:00:00 63 [in_i] [facility] BMI (Body Mass Index) 2018-03-29 00:00:00 29.6 kg/m2 [facility] BP Systolic 2018-03-29 00:00:00 118 mm[Hg] [facility] Body Weight 2018-03-29 00:00:00 166.9 [lb_av] [facility] BP Diastolic 2018-03-09 00:00:00 75 mm[Hg] [facility] Height 2018-03-09 00:00:00 63 [in_i] [facility] BMI (Body Mass Index) 2018-03-09 00:00:00 28 kg/m2 [facility] BP Systolic 2018-03-09 00:00:00 120 mm[Hg] [facility] Body Weight 2018-03-09 00:00:00 158 [lb_av] [facility] BP Diastolic 2018-02-28 00:00:00 72 mm[Hg] [facility] Height 2018-02-28 00:00:00 63 [in_i] [facility] BMI (Body Mass Index) 2018-02-28 00:00:00 27.6 kg/m2 [facility] BP Systolic 2018-02-28 00:00:00 115 mm[Hg] [facility] Body Weight 2018-02-28 00:00:00 156 [lb_av] [facility] BP Diastolic 2018-02-23 00:00:00 69 mm[Hg] [facility] Height 2018-02-23 00:00:00 63 [in_i] [facility] BMI (Body Mass Index) 2018-02-23 00:00:00 27.5 kg/m2 [facility] BP Systolic 2018-02-23 00:00:00 107 mm[Hg] [facility] Body Weight 2018-02-23 00:00:00 155 [lb_av] [facility] Procedures Procedure Date / Time Performed Performing Clinician Source US, abdomen, limited 2022-07-01 00:00:00 [facility] unlisted imaging order 2019-12-27 00:00:00 [facility] Bilateral Tubal Ligation 2019-12-18 00:00:00 [facility] Ligation of Bilateral Fallopian Tubes 2019-12-18 00:00:00 [facility] non-stress test 2019-10-31 00:00:00 [facility] US, obstetric, limited 2019-10-14 00:00:00 [facility] non-stress test 2019-10-14 00:00:00 [facility] non-stress test 2019-10-09 00:00:00 [facility] US, obstetric, limited 2019-09-17 00:00:00 [facility] ULTRASOUND REPEAT 2019-08-27 00:00:00 [facility] US, obstetric, limited 2019-07-26 00:00:00 [facility] ULTRASOUND, UTERUS REAL TIME WITH IMAGE DOC, AND MATERNAL EVAL PLUS DETAILED ANATOMIC EXAMINATION, TRANSABDOMINAL APPROACH; SINGLE OR FIRST GESTATION 2019-06-27 00:00:00 [facility] US, obstetric, limited 2019-06-04 00:00:00 [facility] ULTRASOUND, UTERUS REAL TIME WITH IMAGE DOC, AND MATERNAL EVAL PLUS DETAILED ANATOMIC EXAMINATION, TRANSABDOMINAL APPROACH; SINGLE OR FIRST GESTATION 2019-05-30 00:00:00 [facility] US, obstetric, limited 2019-05-02 00:00:00 [facility] AUTHORIZATION FOR RELEASE OF PHI 2019-04-17 06:01:00 Doctor Unassigned, [place] [facility] US, obstetric, limited 2019-04-17 00:00:00 [facility] POCT RAPID FLU A AND B TEST 2019-04-09 17:08:00 Melyssa Mccarty [facility] POCT URINALYSIS 2019-04-09 16:42:00 Melyssa Mccarty [facility] POCT URINALYSIS 2019-03-29 19:40:00 Melyssa Mccarty [facility] US OB TRANSVAGINAL 2019-03-21 19:44:41 Vani Sullivan [facility] POCT URINALYSIS 2019-03-12 17:18:00 Melyssa Mccarty [facility] POCT URINALYSIS W/O SPECIFIC GRAVITY 2019-03-06 16:01:00 Gabby Florian [facility] POCT TEST 2019-03-06 15:58:00 Elizabeth Florian [facility] ASSIGNMENT OF BENEFITS 2019-03-06 15:11:41 Docto r Unassigned, [place] [facility] non-stress test 2018-04-02 00:00:00 [facility] US, obstetric, limited 2018-03-29 00:00:00 [facility] non-stress test 2018-02-28 00:00:00 [facility] US, obstetric, limited 2018-02-23 00:00:00 [facility] ULTRASOUND REPEAT 2018-01-26 00:00:00 [facility] Plan of Care Planned Activity Planned Date Details Comments Source Diagnostic Test Pending 2022-04-28 00:00:00 CMP, serum or plasma [code = CMP, serum or plasma] [facility] Diagnostic Test Pending 2022-04-28 00:00:00 lipid panel, serum [code = lipid panel, serum] [facility] Diagnostic Test Pending 2022-04-28 00:00:00 CBC w/ auto diff [code = CBC w/ auto diff] [facility] Diagnostic Test Pending 2022-04-28 00:00:00 urinalysis complete, reflex culture [code = urinalysis complete, reflex culture] [facility] Diagnostic Test Pending 2022-04-28 00:00:00 TSH, serum or plasma [code = TSH, serum or plasma] [facility] Diagnostic Test Pending 2022-04-28 00:00:00 hemoglobin A1c, QN, blood [code = hemoglobin A1c, QN, blood] [facility] Diagnostic Test Pending 2022-04-28 00:00:00 TP53 gene deletion+duplicatio n and full mutation analysis, blood or tissue [code = TP53 gene deletion+duplicatio n and full mutation analysis, blood or tissue] [facility] Instructions [facility] Encounters Start Date/Time End Date/Time Encounter Type Admission Type Attending [facility] Facility Care Department Encounter ID Source 2021-08-12 15:01:02 Outpatient [facility] [id number] [facility] 2022-07-15 00:00:00 2022-07-15 00:00:00 Outpatient Young_J MMG MMG [id number] [facility] 2022-07-15 00:00:00 2022-07-15 00:00:00 Outpatient Young_J MMG MMG [id number] [facility] 2022-07-15 00:00:00 2022-07-15 00:00:00 Gerardo Nicole DO: [address], [address], [place] [address] , Ph. [phone] MMG [facility] surgery [id number] [facility] 2022-07-11 00:00:00 2022-07-11 00:00:00 Outpatient Martinez_A MMG MMG [id number] [facility] 2022-07-05 10:17:00 2022-07-05 10:17:00 Outpatient ROBBIE JAY [facility] [id number] [facility] 2022-07-01 00:00:00 2022-07-01 00:00:00 Robbie Henriquez PA-C: [address], [address], [place] [address] , Ph. MMG [facility] [id number] [facility] 2022-04-29 00:00:00 2022-04-29 00:00:00 Outpatient Koudela_A MMG MMG [id number] [facility] 2022-04-29 00:00:00 2022-04-29 00:00:00 Outpatient Koudela_A MMG MMG [id number] [facility] 2022-04-28 10:18:00 2022-04-28 10:18:00 Outpatient TYE ROBBIE HENRIQUEZ [facility] [id number] [facility] 2022-04-28 00:00:00 2022-04-28 00:00:00 Outpatient Koudela_A MMG MMG [id number] [facility] 2022-04-28 00:00:00 2022-04-28 00:00:00 Robbie Henriquez PA-C: [address], [address], [place] [address] , Ph. MMG [facility] [id number] [facility] 2022-04-27 00:00:00 2022-04-27 00:00:00 Outpatient G_Pappas MMG MMG [id number] [facility] 2020-06-10 03:45:00 2020-06-10 03:45:00 Outpatient G_Pappas MMG MMG [id number] [facility] 2020-05-11 00:00:00 2020-05-11 00:00:00 Kartik Samuels MD: [address], [place] [address] , Ph. [phone] G_[facility]appas MMG [facility] [id number] [facility] 2020-05-05 01:33:00 2020-05-05 01:33:00 Outpatient G_Pappas MMG MMG [id number] [facility] 2020-03-23 01:05:00 2020-03-23 01:05:00 Outpatient G_Pappas MMG MMG [id number] [facility] 2020-02-17 01:05:00 2020-02-17 01:05:00 Outpatient G_Pappas MMG MMG [id number] [facility] 2020-02-07 00:00:00 2020-02-07 00:00:00 Patient Secure Msg Doctor Unassigned, [place] [facility]ERRERO [id number] [facility] 2020-01-13 01:06:00 2020-01-13 01:06:00 Outpatient G_Pappas MMG MMG [id number] [facility] 2020-01-08 02:30:00 2020-01-08 02:30:00 Outpatient G_Pappas MMG MMG [id number] [facility] 2019-12-27 00:00:00 2019-12-27 00:00:00 Kartik Samuels MD: [address] [place] [address] , Ph. [phone] G_Pappas MMG [facility] [id number] [facility] 2019-12-18 10:30:00 2019-12-18 10:30:00 Outpatient G_Pappas MMG MMG [id number] [facility] 2019-12-18 06:14:00 2019-12-18 06:14:00 Outpatient Kartik Preciado [facility] [id number] [facility] 2019-12-13 00:00:00 2019-12-13 00:00:00 Kartik Samuels MD: [address] [place] [address] , Ph. [phone] G_Pappas MMG [facility] [id number] [facility] 2019-12-06 05:58:00 2019-12-06 05:58:00 Outpatient G_Pappas MMG MMG [id number] [facility] 2019-11-28 00:00:00 2019-11-28 00:00:00 Kartik Samuels MD: [address] [place] [address] , Ph. [phone] G_[facility]appas MMG [facility] [id number] [facility] 2019-11-07 05:38:00 2019-11-08 09:48:00 Inpatient TYE Samuels Kartik [facility] [id number] [facility] 2019-11-04 12:27:00 2019-11-04 12:27:00 Outpatient TYE Samuels Kartik [facility] [id number] [facility] 2019-11-01 11:39:00 2019-11-01 15:15:00 Emergency ER Angie Chase [facility] [id number] [facility] 2019-11-01 09:08:00 2019-11-01 09:08:00 Outpatient G_Pappas MMG [facility] [id number] [facility] 2019-10-31 00:00:00 2019-10-31 00:00:00 Kartik Samuels MD: [address] [address] , Ph. [phone] G_[facility]appas MMG [facility] [id number] [facility] 2019-10-24 00:00:00 2019-10-24 00:00:00 Kartik Samuels MD: [address], [place] [address] , Ph. [phone] G_Pappas MMG [facility] [id number] [facility] 2019-10-14 00:00:00 2019-10-14 00:00:00 Kartik Samuels MD: [address], [place] [address] , Ph. [phone] G_Pappas MMG [facility] [facility] [id number] [facility] 2019-10-10 19:42:00 2019-10-10 21:30:00 Emergency ER Arvind Kartik [facility] [id number] [facility] 2019-10-09 14:54:00 2019-10-09 17:40:00 Emergency ER Arvind Kartik [facility] [id number] [facility] 2019-10-09 00:00:00 2019-10-09 00:00:00 Jena Adair [facility]: [address], [place] [address] , Ph. [phone] [facility] [id number] 2019-10-06 09:39:00 2019-10-06 09:39:00 Outpatient G_Pappas MMG [facility] [id number] [facility] 2019-10-04 00:00:00 2019-10-04 00:00:00 Kartik Samuels MD: [address], [place] [address] , Ph. [phone] G[facility]appas MM[facility] [id number] [facility] 2019-10-02 19:44:00 2019-10-02 22:44:00 Emergency ER Angie Chase [facility] [id number] [facility] 2019-09-17 00:00:00 2019-09-17 00:00:00 Kartik Samuels MD: [address], [place] [address] , Ph. [phone] G_[facility]appas MM[facility] [id number] [facility] 2019-08-27 09:31:00 2019-08-27 09:31:00 Outpatient Kartik Preciado [facility] [id number] [facility] 2019-08-27 00:00:00 2019-08-27 00:00:00 Kartik Samuels MD: [address], [place] [address] , Ph. [phone] [facility] [id number] [facility] 2019-08-19 19:27:00 2019-08-19 21:52:00 Emergency ER Jessica Angie [facility] [id number] [facility] 2019-08-15 06:16:00 2019-08-15 06:16:00 Outpatient G_Pappas MMG G [id number] [facility] 2019-07-29 12:56:00 2019-07-29 12:56:00 Outpatient G_Pappas MMG G [id number] [facility] 2019-07-26 00:00:00 2019-07-26 00:00:00 Kartik Samuels MD: [address] [place] [address] , Ph. [phone] [facility] [id number] [facility] 2019-07-18 08:53:00 2019-07-18 08:53:00 Outpatient Oscar Jessica [facility] [id number] [facility] 2019-07-18 00:00:00 2019-07-18 00:00:00 Kartik Samuels MD: [address], [place] [address] , Ph. [phone] G_Pappas MMG [facility] [id number] [facility] 2019-07-02 00:00:00 2019-07-02 00:00:00 Kartik Samuels MD: [address] [place] [address] , Ph. [phone] G_Pappas MMG [facility] [place] [facility] [id number] [facility] 2019-06-04 00:00:00 2019-06-04 00:00:00 Kartik Samuels MD: [address] [address] , Ph. [phone] [facility] [id number] [facility] 2019-05-31 11:44:00 2019-05-31 11:44:00 Outpatient G_Pappas MMG G [id number] [facility] 2019-05-30 00:00:00 2019-05-30 00:00:00 Kartik Samuels MD: [address] [address] , Ph. [phone] MMG [facility] [id number] [facility] 2019-05-28 09:09:00 2019-05-28 09:09:00 Outpatient G_Pappas MMG MMG [id number] [facility] 2019-05-07 00:00:00 2019-05-07 00:00:00 Telephone Melyssa Mccarty [facility] METER TESTER [facility] MATERNAL & CHILD [facility] ..[id number] [facility] 2019-05-07 00:00:00 2019-05-07 00:00:00 Telephone Melyssa Mccarty [facility] METER TESTER [facility] MATERNAL & CHILD [facility] ..[id number] 2019-05-05 01:01:00 2019-05-05 01:01:00 Outpatient G_Pappas MMG [facility] [id number] [facility] 2019-05-02 00:00:00 2019-05-02 00:00:00 Jena Adair CLARISSA: [address], [place] [address] , Ph. [phone] [facility] [id number] [facility] 2019-04-30 11:00:00 2019-04-30 11:00:00 Outpatient OSCAR CHAPIN [facility] [id number] [facility] 2019-04-19 10:48:00 2019-04-19 10:48:00 Outpatient G_Pappas MMG [facility] 227 [facility] 2019-04-17 16:23:00 2019-04-17 16:23:00 Outpatient JENA MICHAEL [facility] [id number] [facility] 2019-04-17 00:00:00 2019-04-17 00:00:00 Orders Only Doctor Unassigned, [place] [address]840.114 350.1.13.10 4.2.7.2.686 [id number] [facility] 2019-04-17 00:00:00 2019-04-17 00:00:00 Orders Only Doctor Unassigned, [place] [facility] 1.2.840.114 350.1.13.10 4.2.7.2.686 [id number] 2019-04-17 00:00:00 2019-04-17 00:00:00 Jena Adair, CLARISSA: [address] [address] , Ph. [phone] [facility] 225 [facility] 2019-04-11 10:46:00 2019-04-11 10:46:00 Outpatient G[facility]as [facility] 2019-04-10 11:46:00 2019-04-10 11:46:00 Outpatient G_Pappas [facility] 218 [facility] 2019-04-09 10:20:53 2019-04-09 11:14:02 Routine Visit ShylabrennaMelyssa Ashlie [facility] METER TESTER [facility] MATERNAL & CHILD HEALTH [facility] 1.2.840.114 350.1.13.10 4.2.7.2.686 [id number] [facility] 2019-04-09 10:20:53 2019-04-09 11:14:02 Routine Visit BigggeoffreyMelyssa [facility] METER TESTER [facility] & CHILD [facility] 1.2.840.114 350.1.13.10 4.2.7.2.686 [id number] 2019-04-09 00:00:00 2019-04-09 00:00:00 Telephone Melyssa Mccarty [facility] METER TESTER [facility] & CHILD [facility] 1.2.840.114 350.1.13.10 4.2.7.2.686 [id number] [facility] 2019-04-09 00:00:00 2019-04-09 00:00:00 Telephone Melyssa Mccarty [facility] METER TESTER [facility] MATERNAL & CHILD [facility] 1.2.840.114 350.1.13.10 4.2.7.2.686 [id number] 2019-04-02 00:00:00 2019-04-02 00:00:00 Abstract Melyssa Mccarty [facility] METER TESTER [facility] MATERNAL & CHILD [facility] 1.2.840.114 350.1.13.10 4.2.7.2.686 [id number] [facility] 2019-04-02 00:00:00 2019-04-02 00:00:00 Abstract Melyssa Mccarty [facility] METER TESTER [facility] & CHILD [facility] 1.2.840.114 350.1.13.10 4.2.7.2.686 [id number] 2019-03-29 13:15:49 2019-03-29 13:58:15 Routine Visit Melyssa Mccarty [facility] METER TESTER [facility] & [facility]ILD [facility] 1.2.840.114 350.1.13.10 4.2.7.2.686 [id number] [facility] 2019-03-29 13:15:49 2019-03-29 13:58:15 Routine Visit Melyssa Mccarty [facility] METER TESTER [facility] & [facility]ILD [facility] 1.2.840.114 350.1.13.10 4.2.7.2.686 [id number] 2019-03-25 00:00:00 2019-03-25 00:00:00 Patient Secure Msg Melyssa Mccarty [facility] 1.2.840.114 350.1.13.10 4.2.7.2.686 [id number] 107 [id number] [facility] 2019-03-25 00:00:00 2019-03-25 00:00:00 Patient Secure Msg Melyssa Mccarty [facility] METER TESTER [facility] CHILD [facility] 1.2.840.114 350.1.13.10 4.2.7.2.686 [id number] 2019-03-23 00:00:00 2019-03-23 00:00:00 Patient Secure Msg Doctor Unassigned, [place] [facility] 1.2.840.114 350.1.13.10 4.2.7.2.686 [id number] [facility] 2019-03-23 00:00:00 2019-03-23 00:00:00 Patient Secure Msg Doctor Unassigned, [place] [facility] 1.2.840.114 350.1.13.10 4.2.7.2.686 [id number] 2019-03-22 03:31:00 2019-03-22 03:31:00 Outpatient G_Pappas [facility] [id number] 0131 [facility] 2019-03-21 10:37:46 2019-03-21 12:13:44 Routine Visit Trimester, [facility] Cain Pereyra [facility] 1.2.840.114 350.1.13.10 4.2.7.2.686 [id number] [facility] 2019-03-21 10:37:46 2019-03-21 12:13:44 Routine Visit Trimester, [address] 1.2.840.114 350.1.13.10 4.2.7.2.686 [id number] 2019-03-14 08:59:20 2019-03-14 09:14:20 Drawer In Dobby Loom Visit Lab, [facility] Melyssa Mccarty [facility] METER TESTER [facility] & CHILD [facility] 1.2.840.114 350.1.13.10 4.2.7.2.686 [id number] [facility] 2019-03-14 08:59:20 2019-03-14 09:14:20 Drawer In Dobby Loom Visit Lab, [facility] METER TESTER [facility] & CHILD [facility] 1.2.840.114 350.1.13.10 4.2.7.2.686 [id number] 107 [id number] 2019-03-12 10:45:27 2019-03-12 11:26:38 Routine Visit Melyssa Mccarty [facility] METER TESTER [facility]ILD [facility] 1.2.840.114 350.1.13.10 4.2.7.2.686 [id number] 107 [id number] [facility] 2019-03-12 10:45:27 2019-03-12 11:26:38 Routine Visit Melyssa Mccarty [facility] METER TESTER [facility] MATERNAL & CHILD [facility] 1.2.840.114 350.1.13.10 4.2.7.2.686 [id number] 107 [id number] 2019-03-12 00:00:00 2019-03-12 00:00:00 Telephone Melyssa Mccarty [facility] METER TESTER [facility] 1.2.840.114 350.1.13.10 4.2.7.2.686 [id number] [facility] 2019-03-08 00:00:00 2019-03-08 00:00:00 Patient Secure Msg Melyssa Mccarty [facility] METER TESTER [facility]ILD [facility] 1.2.840.114 350.1.13.10 4.2.7.2.686 [id number] 107 [id number] [facility] 2019-03-08 00:00:00 2019-03-08 00:00:00 Patient Secure Msg Melyssa Mccarty [facility] METER TESTER [facility]ILD [facility] 1.2.840.114 350.1.13.10 4.2.7.2.686 [id number] 107 [id number] 2019-03-07 00:00:00 2019-03-07 00:00:00 Telephone Melyssa Mccarty [facility] METER TESTER [facility] 1.2.840.114 350.1.13.10 4.2.7.2.686 [id number] 107 [id number] [facility] 2019-03-06 09:42:06 2019-03-06 11:08:11 Initial Visit Melyssa Mccarty [facility] METER TESTER [facility] 1.2.840.114 350.1.13.10 4.2.7.2.686 [id number] 107 [id number] [facility] 2019-03-06 00:00:00 2019-03-06 00:00:00 Orders Only Doctor Unassigned, [place] [facility] 1.2.840.114 350.1.13.10 4.2.7.2.686 [id number] [facility] 2018-11-10 11:17:00 2018-11-10 11:17:00 Outpatient Sindhu [facility] [id number] 0921 [facility] 2018-10-26 00:00:00 2018-10-26 00:00:00 Angie Chase MD: [address], [address], [place] [address] , Ph. [phone] [facility] - OBGYN [id number] 0906 [facility] 2018-07-26 00:00:00 2018-07-26 00:00:00 JUAN Seymour: [address], [address], [place] [address] , Ph. [phone] [facility] [id number] 0606 [facility] 2018-04-26 00:00:00 2018-04-26 00:00:00 JUAN Seymour: [address], [place] [address] , Ph. [phone] [facility] [id number] 0307 [facility] 2018-04-07 19:14:00 2018-04-07 21:48:00 Emergency ER ROSCOE MONTE [facility] [id number] [facility] 2018-04-05 05:11:00 2018-04-06 11:30:00 Inpatient Kartik Preciado [facility] [id number] [facility] 2018-04-02 00:00:00 2018-04-02 00:00:00 Kartik Samuels MD: [address], [place] [address] , Ph. [phone] [facility] [id number] 0211 [facility] 2018-03-29 00:00:00 2018-03-29 00:00:00 ZAID SeymourNP: [address], [address], [place] [address] , Ph. [phone] [facility] [id number] 0207 [facility] 2018-03-20 19:22:00 2018-03-20 21:45:00 Emergency ER Kartik Samuels [facility] [id number] [facility] 2018-03-09 11:06:00 2018-03-09 11:06:00 Outpatient Kartik Preciado [facility] [id number] [facility] 2018-03-09 00:00:00 2018-03-09 00:00:00 Kartik Samuels MD: [address] [facility], [address], [place] [address] , Ph. [phone] [facility] [id number] 0118 [facility] 2018-02-28 00:00:00 2018-02-28 00:00:00 ZAID SeymourNP: [address] [facility], [address], [place] [address] , Ph. [phone] [facility] - [facility] [id number] 0109 [facility] 2018-02-23 00:00:00 2018-02-23 00:00:00 JUAN Seymour: [address] [place] [address] , Ph. [phone] [facility] [id number] 0104 [facility] 2018-01-26 09:39:00 2018-01-26 09:39:00 Outpatient Kartik Preciado [facility] [id number] [facility] 2018-01-26 00:00:00 2018-01-26 00:00:00 Kartik Samuels MD: [address] [place] [address] , Ph. [phone] [facility] [id number] 1207 [facility] 2017-12-29 18:12:00 2017-12-29 21:56:00 Emergency ER Cortez Samuelsory [facility] [id number] [facility] 2017-11-24 09:00:00 2017-11-24 09:00:00 Outpatient TYE ADAIR JENA [facility] [id number] [facility] 2017-11-15 16:02:00 2017-11-15 16:02:00 Outpatient JENA MICHAEL [facility] [id number] [facility] 2017-10-05 11:03:00 2017-10-05 17:50:00 Emergency ER BIMAL ALMONTE [facility] [id number] [facility] Results Test Description Test Time Test Comments Results Result Co mments Source [facility] - [id number] 14:51:51* Test Item Value Reference Range Interpretation Comme nts Leukocytes (test code = Leukocytes) Negative Nitrite (test code = Nitrite) negative Urobilinogen (test code = Urobilinogen) .2 Protein (test code = Protein) Negative pH (test code = pH) 7.0 Blood (test code = Blood) Negative Specific [place] (test code = Specific [place]) 1.020 Ketone (test code = Ketone) Negative Bilirubin (test code = Bilirubin) Negative Glucose (test code = Glucose) Negative Appearance (test code = Appearance) Clear Color (test code = Color) Yellow [facility]) panel - [id number] 10:06:00* Test Item Value Reference Range Interpretation Comme nts Leukocytes (test code = Leukocytes) Trace Nitrite (test code = Nitrite) negative Urobilinogen (test code = Urobilinogen) .2 Protein (test code = Protein) Negative pH (test code = pH) 7.0 Blood (test code = Blood) Negative Specific [place] (test code = Specific [place]) 1.025 Ketone (test code = Ketone) Negative Bilirubin (test code = Bilirubin) Negative Glucose (test code = Glucose) Negative Appearance (test code = Appearance) Clear Color (test code = Color) Yellow [facility]dipstick) panel - [id number] 10:06:00* Test Item Value Reference Range Interpretation Comme nts Leukocytes (test code = Leukocytes) Trace Nitrite (test code = Nitrite) negative Urobilinogen (test code = Urobilinogen) .2 Protein (test code = Protein) Negative pH (test code = pH) 7.0 Blood (test code = Blood) Negative Specific [place] (test code = Specific [place]) 1.025 Ketone (test code = Ketone) Negative Bilirubin (test code = Bilirubin) Negative Glucose (test code = Glucose) Negative Appearance (test code = Appearance) Clear Color (test code = Color) Yellow [facility], [id number] 09:33:09* Test Item Value Reference Range Interpretation Comme [facility] Test (test code = Test) negative [facility], [id number] 09:33:09* Test Item Value Reference Range Interpretation Comme [facility] Test (test code = Test) negative [facility] Auto Differential panel - [id number] 08:59:00 * Test Item Value Reference Range Interpretation Comme [facility] white blood count (test code = white blood count) 6.0 K/uL 4.0-11.5 red blood count (test code = red blood count) 5.01 M/uL 3.80-5.20 hemoglobin (test code = hemoglobin) 13.5 g/dL 10.5-15.7 hematocrit (test code = hematocrit) 43.1 % 34.0-50.0 MCV [Entitic volume] (test c ode = 00510-0) 86.0 fL 86-100 mean corpuscular hemoglobin (test code = mean corpuscular hemoglobin) 26.9 pg 26.2-33.4 mean corpuscular HGB conc (t est code = mean corpuscular HGB conc) 31.3 g/dL 30-34 red cell distribution width (test code = red cell distribution width) 15.5 % 12.0-15.5 platelet count (test code = platelet count) 280 K/uL 165-450 mean platelet volume (test c ode = mean platelet volume) 9.1 fL 9.4-12.6 L Segmented neutrophils/100 leukocytes in Blood (test code = 06920-5) 49.2 % 44.4-80.1 Immature granulocytes [#/vol ume] in Blood (test code = 96471-1) 0.0 K/uL 0.0-0.03 lymphocyte% (test code = lymphocyte%) 43.9 % 10.0-50.0 mono % (test code = mono %) 4.2 % 3.6-12.0 eos % (test code = eos %) 1.8 % 0.0-5.4 Basophils/100 leukocytes in Unspecified specimen (test code = 46338-1) 0.7 % 0.1-1.2 Band form neutrophils [#/vol ume] in Blood (test code = 66343-8) 2.96 K/uL 1.56-6.13 Lymphocytes [#/volume] in Unspecified specimen by Automated count (test code = 04475-9) 2.6 K/uL 1.18-3.74 mono # (test code = mono #) 0.25 K/uL 0.24-0.86 eos # (test code = eos #) 0.11 K/uL 0.04-0.36 basophil # (test code = baso miguel #) 0.04 K/uL 0.01-0.08 NRBC% (test code = NRBC%) 0 /100 WBC 0-0.2 NRBC# (test code = NRBC#) 0 K/uL [facility] W Auto Differential panel - [id number] 08:59:00 * Test Item Value Reference Range Interpretation Comme nts white blood count (test code = white blood count) 6.0 K/uL 4.0-11.5 red blood count (test code = red blood count) 5.01 M/uL 3.80-5.20 hemoglobin (test code = hemoglobin) 13.5 g/dL 10.5-15.7 hematocrit (test code = hematocrit) 43.1 % 34.0-50.0 MCV [Entitic volume] (test c ode = 85750-5) 86.0 fL 86-100 mean corpuscular hemoglobin (test code = mean corpuscular hemoglobin) 26.9 pg 26.2-33.4 mean corpuscular HGB conc (t est code = mean corpuscular HGB conc) 31.3 g/dL 30-34 red cell distribution width (test code = red cell distribution width) 15.5 % 12.0-15.5 platelet count (test code = platelet count) 280 K/uL 165-450 mean platelet volume (test c ode = mean platelet volume) 9.1 fL 9.4-12.6 L Segmented neutrophils/100 leukocytes in Blood (test code = 30307-7) 49.2 % 44.4-80.1 Immature granulocytes [#/vol ume] in Blood (test code = 45009-6) 0.0 K/uL 0.0-0.03 lymphocyte% (test code = lymphocyte%) 43.9 % 10.0-50.0 mono % (test code = mono %) 4.2 % 3.6-12.0 eos % (test code = eos %) 1.8 % 0.0-5.4 Basophils/100 leukocytes in Unspecified specimen (test code = 79959-2) 0.7 % 0.1-1.2 Band form neutrophils [#/vol ume] in Blood (test code = 67732-2) 2.96 K/uL 1.56-6.13 Lymphocytes [#/volume] in Unspecified specimen by Automated count (test code = 38192-0) 2.6 K/uL 1.18-3.74 mono # (test code = mono #) 0.25 K/uL 0.24-0.86 eos # (test code = eos #) 0.11 K/uL 0.04-0.36 basophil # (test code = baso miguel #) 0.04 K/uL 0.01-0.08 NRBC% (test code = NRBC%) 0 /100 WBC 0-0.2 NRBC# (test code = NRBC#) 0 K/uL [facility]dip[facility]) panel - [id number] 13:38:11* Test Item Value Reference Range Interpretation Comme nts Leukocytes (test code = Leukocytes) Small Nitrite (test code = Nitrite) negative Urobilinogen (test code = Urobilinogen) .2 Protein (test code = Protein) Negative pH (test code = pH) 7.0 Blood (test code = Blood) Moderate Specific [place] (test code = Specific [place]) 1.020 Ketone (test code = Ketone) Negative Bilirubin (test code = Bilirubin) Negative Glucose (test code = Glucose) Negative Appearance (test code = Appearance) Clear Color (test code = Color) Yellow [facility] (dipstick) panel - [id number] 13:38:11* Test Item Value Reference Range Interpretation Comme nts Leukocytes (test code = Leukocytes) Small Nitrite (test code = Nitrite) negative Urobilinogen (test code = Urobilinogen) .2 Protein (test code = Protein) Negative pH (test code = pH) 7.0 Blood (test code = Blood) Moderate Specific [place] (test code = Specific [place]) 1.020 Ketone (test code = Ketone) Negative Bilirubin (test code = Bilirubin) Negative Glucose (test code = Glucose) Negative Appearance (test code = Appearance) Clear Color (test code = Color) Yellow [facility] (dipstick) panel - [id number] 13:38:11* Test Item Value Reference Range Interpretation Comme nts Leukocytes (test code = Leukocytes) Small Nitrite (test code = Nitrite) negative Urobilinogen (test code = Urobilinogen) .2 Protein (test code = Protein) Negative pH (test code = pH) 7.0 Blood (test code = Blood) Moderate Specific [place] (test code = Specific [place]) 1.020 Ketone (test code = Ketone) Negative Bilirubin (test code = Bilirubin) Negative Glucose (test code = Glucose) Negative Appearance (test code = Appearance) Clear Color (test code = Color) Yellow [facility] Differential panel - [id number] 08:05:00 * Test Item Value Reference Range Interpretation Comme nts white blood count (test code = white blood count) 10.1 K/uL 4.0-11.5 red blood count (test code = red blood count) 3.40 M/uL 3.80-5.20 L hemoglobin (test code = hemoglobin) 9.6 g/dL 10.5-15.7 L hematocrit (test code = hematocrit) 29.8 % 34.0-50.0 L MCV [Entitic volume] (test c ode = 94515-5) 87.6 fL 86-100 mean corpuscular hemoglobin (test code = mean corpuscular hemoglobin) 28.2 pg 26.2-33.4 mean corpuscular HGB conc (t est code = mean corpuscular HGB conc) 32.2 g/dL 30-34 red cell distribution width (test code = red cell distribution width) 14.1 % 12.0-15.5 platelet count (test code = platelet count) 245 K/uL 165-450 mean platelet volume (test c ode = mean platelet volume) 11.0 fL 9.4-12.6 Segmented neutrophils/100 leukocytes in Blood (test code = 34581-2) 65.7 % 44.4-80.1 Immature granulocytes [#/vol ume] in Blood (test code = 83074-2) 0.1 K/uL 0.0-0.03 H lymphocyte% (test code = lymphocyte%) 27.2 % 10.0-50.0 mono % (test code = mono %) 5.2 % 3.6-12.0 eos % (test code = eos %) 0.7 % 0.0-5.4 Basophils/100 leukocytes in Unspecified specimen (test code = 37295-6) 0.5 % 0.1-1.2 Band form neutrophils [#/vol ume] in Blood (test code = 27672-2) 6.61 K/uL 1.56-6.13 H Lymphocytes [#/volume] in Unspecified specimen by Automated count (test code = 73343-6) 2.7 K/uL 1.18-3.74 mono # (test code = mono #) 0.52 K/uL 0.24-0.86 eos # (test code = eos #) 0.07 K/uL 0.04-0.36 basophil # (test code = baso miguel #) 0.05 K/uL 0.01-0.08 NRBC% (test code = NRBC%) 0 /100 WBC 0-0.2 NRBC# (test code = NRBC#) 0 K/uL [facility] W Auto Differential panel - [id number] 04:18:00 * Test Item Value Reference Range Interpretation Comme nts white blood count (test code = white blood count) 8.2 K/uL 4.0-11.5 red blood count (test code = red blood count) 3.42 M/uL 3.80-5.20 L hemoglobin (test code = hemoglobin) 9.6 g/dL 10.5-15.7 L hematocrit (test code = hematocrit) 30.3 % 34.0-50.0 L MCV [Entitic volume] (test c ode = 04367-7) 88.6 fL 86-100 mean corpuscular hemoglobin (test code = mean corpuscular hemoglobin) 28.1 pg 26.2-33.4 mean corpuscular HGB conc (t est code = mean corpuscular HGB conc) 31.7 g/dL 30-34 red cell distribution width (test code = red cell distribution width) 14.3 % 12.0-15.5 platelet count (test code = platelet count) 288 K/uL 165-450 mean platelet volume (test c ode = mean platelet volume) 10.5 fL 9.4-12.6 Segmented neutrophils/100 leukocytes in Blood (test code = 80495-4) 58.7 % 44.4-80.1 Immature granulocytes [#/vol ume] in Blood (test code = 03617-4) 0.1 K/uL 0.0-0.03 H lymphocyte% (test code = lymphocyte%) 32.6 % 10.0-50.0 mono % (test code = mono %) 6.2 % 3.6-12.0 eos % (test code = eos %) 1.1 % 0.0-5.4 Basophils/100 leukocytes in Unspecified specimen (test code = 68103-6) 0.5 % 0.1-1.2 Band form neutrophils [#/vol ume] in Blood (test code = 03258-4) 4.81 K/uL 1.56-6.13 Lymphocytes [#/volume] in Unspecified specimen by Automated count (test code = 01992-3) 2.7 K/uL 1.18-3.74 mono # (test code = mono #) 0.51 K/uL 0.24-0.86 eos # (test code = eos #) 0.09 K/uL 0.04-0.36 basophil # (test code = baso miguel #) 0.04 K/uL 0.01-0.08 NRBC% (test code = NRBC%) 0 /100 WBC 0-0.2 NRBC# (test code = NRBC#) 0 K/uL [facility] - Blood 2019-11-07 04:18:00* Test Item Value Reference Range Interpretation Comme nts Rh [Type] in Blood (test cod e = 39397-7) 4+ ABO and Rh group panel - Blo od (test code = 34513-3) A positive [facility] GroupHepatitis B virus surface Ag [Presence] in Serum 2019-11-07 04:18:00* Test Item Value Reference Range Interpretation Comme nts .hepatitis B surface antigen (test code = .hepatitis B surface antigen) negative negative [facility] GroupReagin Ab [Presence] in Serum by [id number] 04:18:00* Test Item Value Reference Range Interpretation Comme nts Reagin Ab [Presence] in Seru m by RPR (test code = 24052-5) nonreactive nonreactive [facility] Group[facility]inalysis macro (dipstick) panel - [id number] 08:55:00* Test Item Value Reference Range Interpretation Comme nts Leukocytes (test code = Leukocytes) Large Nitrite (test code = Nitrite) negative Urobilinogen (test code = Urobilinogen) .2 Protein (test code = Protein) Negative pH (test code = pH) 7.0 Blood (test code = Blood) Hemolyzed: Trace Specific [place] (test code = Specific [place]) 1.025 Ketone (test code = Ketone) Negative Bilirubin (test code = Bilirubin) Negative Glucose (test code = Glucose) Negative Appearance (test code = Appearance) Clear Color (test code = Color) Yellow [facility] Group[facility]inalysis macro (dipstick) panel - [id number] 11:15:00* Test Item Value Reference Range Interpretation Comme nts Leukocytes (test code = Leukocytes) Large Nitrite (test code = Nitrite) negative Urobilinogen (test code = Urobilinogen) .2 Protein (test code = Protein) Negative pH (test code = pH) 7.0 Blood (test code = Blood) Non-Hemolyzed: Trace Specific [place] (test code = Specific [place]) 1.020 Ketone (test code = Ketone) Negative Bilirubin (test code = Bilirubin) Negative Glucose (test code = Glucose) Negative Appearance (test code = Appearance) Clear Color (test code = Color) Yellow [facility] - [id number] 11:15:00* Test Item Value Reference Range Interpretation Comme nts Leukocytes (test code = Leukocytes) Large Nitrite (test code = Nitrite) negative Urobilinogen (test code = Urobilinogen) .2 Protein (test code = Protein) Negative pH (test code = pH) 7.0 Blood (test code = Blood) Non-Hemolyzed: Trace Specific [place] (test code = Specific [place]) 1.020 Ketone (test code = Ketone) Negative Bilirubin (test code = Bilirubin) Negative Glucose (test code = Glucose) Negative Appearance (test code = Appearance) Clear Color (test code = Color) Yellow [facility] [id number] 18:40:53* Test Item Value Reference Range Interpretation Comme nts Reactive (test code = Reactive) Yes Contractions (test code = Contractions) No [facility] [id number] 18:40:53* Test Item Value Reference Range Interpretation Comme nts Reactive (test code = Reactive) Yes Contractions (test code = Contractions) No [facility] [id number] 18:40:53* Test Item Value Reference Range Interpretation Comme nts Reactive (test code = Reactive) Yes Contractions (test code = Contractions) No [facility] [id number] 05:54:00* Test Item Value Reference Range Interpretation Comme nts Color of Urine by Auto (test code = 49015-3) light yellow Appearance of Urine (test co de = 5767-9) SL cloudy clear A Glucose [Presence] in Urine by Automated test strip (test code = 70467-6) negative negative Bilirubin.total [Mass/volume ] in Urine (test code = 1978-6) negative negative Ketones [Mass/volume] in Uri ne by Automated test strip (test code = 54486-1) negative negative Specific gravity of Urine by Automated test strip (test code = 63167-1) 1.017 1.003-1.030 blood urine (test code = blo od urine) negative negative pH of Urine (test code = 2756-5) 7.000 5-9 protein urine (UA) (test cod e = protein urine (UA)) trace negative Urobilinogen [Presence] in U rine (test code = 49736-3) normal 0.2-1.0 Nitrite [Presence] in Urine by Test strip (test code = 5802-4) negative negative Leukocyte esterase [Presence ] in Urine by Automated test strip (test code = 59487-5) =4 negative H Erythrocytes [#/volume] in U rine by Automated count (test code = 798-9) =1-5 0-5 Leukocytes [#/area] in Urine sediment by Automated count (test code = 55120-0) =30-49 0-5 H Epithelial cells [Presence] in Urine sediment by Light microscopy (test code = 55760-4) =11-14 0-5 Bacteria identified in Urine by Culture (test code = 630-4) moderate (2 none detect H Casts [#/area] in Urine sedi ment by Automated count (test code = 88525-7) =2-5 none detect urine culture added? (test c ode = urine culture added?) yes [facility] BzsxlDxmuo-0-Jvkmnsndkrwkc.placental [Presence] in Vaginal [id number] 05:54:00* Test Item Value Reference Range Interpretation Comme nts Odrua-2-Msutzaffsfwhq.placen anjana [Presence] in Vaginal fluid (test code = 56507-6) negative neg [facility] GroupBacteria identified in Urine by [id number] 05:54:00* Test Item Value Reference Range Interpretation Comme nts Bacteria identified in Urine by Culture (test code = 630-4) no growth at 2 days. [facility] GroupUrinalysis complete panel - [id number] 05:54:00* Test Item Value Reference Range Interpretation Comme nts Color of Urine by Auto (test code = 10465-2) light yellow Appearance of Urine (test co de = 5767-9) SL cloudy clear A Glucose [Presence] in Urine by Automated test strip (test code = 14459-9) negative negative Bilirubin.total [Mass/volume ] in Urine (test code = 1978-6) negative negative Ketones [Mass/volume] in Uri ne by Automated test strip (test code = 87705-5) negative negative Specific gravity of Urine by Automated test strip (test code = 99344-7) 1.017 1.003-1.030 blood urine (test code = blo od urine) negative negative pH of Urine (test code = 2756-5) 7.000 5-9 protein urine (UA) (test cod e = protein urine (UA)) trace negative Urobilinogen [Presence] in U rine (test code = 87057-1) normal 0.2-1.0 Nitrite [Presence] in Urine by Test strip (test code = 5802-4) negative negative Leukocyte esterase [Presence ] in Urine by Automated test strip (test code = 07142-6) =4 negative H Erythrocytes [#/volume] in U rine by Automated count (test code = 798-9) =1-5 0-5 Leukocytes [#/area] in Urine sediment by Automated count (test code = 06968-6) =30-49 0-5 H Epithelial cells [Presence] in Urine sediment by Light microscopy (test code = 59650-6) =11-14 0-5 Bacteria identified in Urine by Culture (test code = 630-4) moderate (2 none detect H Casts [#/area] in Urine sedi ment by Automated count (test code = 95697-9) =2-5 none detect urine culture added? (test c ode = urine culture added?) yes [facility]hzzaRhvyn-[facility]-Eqmjtkzpgccuf.placental [Presence] in Vaginal [id number] 05:54:00* Test Item Value Reference Range Interpretation Comme nts Wwxcz-7-Nmukrfdbkgmft.placen anjana [Presence] in Vaginal fluid (test code = 26996-2) negative neg [facility] GroupBacteria identified in Urine by [id number] 05:54:00* Test Item Value Reference Range Interpretation Comme nts Bacteria identified in Urine by Culture (test code = 630-4) no growth at 2 days. [facility] GroupUrinalysis complete panel - [id number] 05:54:00* Test Item Value Reference Range Interpretation Comme nts Color of Urine by Auto (test code = 32034-4) light yellow Appearance of Urine (test co de = 5767-9) SL cloudy clear A Glucose [Presence] in Urine by Automated test strip (test code = 76372-2) negative negative Bilirubin.total [Mass/volume ] in Urine (test code = 1978-6) negative negative Ketones [Mass/volume] in Uri ne by Automated test strip (test code = 74665-3) negative negative Specific gravity of Urine by Automated test strip (test code = 34118-3) 1.017 1.003-1.030 blood urine (test code = blo od urine) negative negative pH of Urine (test code = 2756-5) 7.000 5-9 protein urine (UA) (test cod e = protein urine (UA)) trace negative Urobilinogen [Presence] in U rine (test code = 22691-9) normal 0.2-1.0 Nitrite [Presence] in Urine by Test strip (test code = 5802-4) negative negative Leukocyte esterase [Presence ] in Urine by Automated test strip (test code = 63007-8) =4 negative H Erythrocytes [#/volume] in U rine by Automated count (test code = 798-9) =1-5 0-5 Leukocytes [#/area] in Urine sediment by Automated count (test code = 28632-6) =30-49 0-5 H Epithelial cells [Presence] in Urine sediment by Light microscopy (test code = 26279-4) =11-14 0-5 Bacteria identified in Urine by Culture (test code = 630-4) moderate (2 none detect H Casts [#/area] in Urine sedi ment by Automated count (test code = 03040-8) =2-5 none detect urine culture added? (test c ode = urine culture added?) yes [facility] IcchhGmspj-5-Nxbaorhryuzvk.placental [Presence] in Vaginal [id number] 05:54:00* Test Item Value Reference Range Interpretation Comme nts Joxkl-5-Wtzsvdzmuzjsl.placen anjana [Presence] in Vaginal fluid (test code = 55176-7) negative neg [facility] GroupBacteria identified in Urine by [id number] 05:54:00* Test Item Value Reference Range Interpretation Comme nts Bacteria identified in Urine by Culture (test code = 630-4) no growth at 2 days. [facility] Groupculture, vaginal/rectal, streptococcus group [id number] 00:00:00* Test Item Value Reference Range Interpretation Comme nts group B strep (test code = g roup B strep) normal [facility] Groupculture, vaginal/rectal, streptococcus group [id number] 00:00:00* Test Item Value Reference Range Interpretation Comme nts group B strep (test code = g roup B strep) normal [facility] Groupculture, vaginal/rectal, streptococcus group [id number] 00:00:00* Test Item Value Reference Range Interpretation Comme nts group B strep (test code = g roup B strep) normal [facility] Groupculture, vaginal/rectal, streptococcus group [id number] 00:00:00* Test Item Value Reference Range Interpretation Comme nts group B strep (test code = g roup B strep) normal [facility] GroupUrinalysis macro (dipstick) panel - [id number] 14:59:26* Test Item Value Reference Range Interpretation Comme nts Leukocytes (test code = Leukocytes) Large Nitrite (test code = Nitrite) negative Urobilinogen (test code = Urobilinogen) .2 Protein (test code = Protein) Negative pH (test code = pH) 7.5 Blood (test code = Blood) Non-Hemolyzed: Trace Specific [place] (test code = Specific [place]) 1.020 Ketone (test code = Ketone) Negative Bilirubin (test code = Bilirubin) Negative Glucose (test code = Glucose) Negative Appearance (test code = Appearance) Clear Color (test code = Color) Yellow [facility] GroupUrinalysis macro (dipstick) panel - [id number] 14:59:26* Test Item Value Reference Range Interpretation Comme nts Leukocytes (test code = Leukocytes) Large Nitrite (test code = Nitrite) negative Urobilinogen (test code = Urobilinogen) .2 Protein (test code = Protein) Negative pH (test code = pH) 7.5 Blood (test code = Blood) Non-Hemolyzed: Trace Specific [place] (test code = Specific [place]) 1.020 Ketone (test code = Ketone) Negative Bilirubin (test code = Bilirubin) Negative Glucose (test code = Glucose) Negative Appearance (test code = Appearance) Clear Color (test code = Color) Yellow [facility]stick[facility] panel - [id number] 14:59:26* Test Item Value Reference Range Interpretation Comme nts Leukocytes (test code = Leukocytes) Large Nitrite (test code = Nitrite) negative Urobilinogen (test code = Urobilinogen) .2 Protein (test code = Protein) Negative pH (test code = pH) 7.5 Blood (test code = Blood) Non-Hemolyzed: Trace Specific [place] (test code = Specific [place]) 1.020 Ketone (test code = Ketone) Negative Bilirubin (test code = Bilirubin) Negative Glucose (test code = Glucose) Negative Appearance (test code = Appearance) Clear Color (test code = Color) Yellow [facility]dipstick[facility] panel - [id number] 14:59:26* Test Item Value Reference Range Interpretation Comme nts Leukocytes (test code = Leukocytes) Large Nitrite (test code = Nitrite) negative Urobilinogen (test code = Urobilinogen) .2 Protein (test code = Protein) Negative pH (test code = pH) 7.5 Blood (test code = Blood) Non-Hemolyzed: Trace Specific [place] (test code = Specific [place]) 1.020 Ketone (test code = Ketone) Negative Bilirubin (test code = Bilirubin) Negative Glucose (test code = Glucose) Negative Appearance (test code = Appearance) Clear Color (test code = Color) Yellow [facility]dipstick[facility] panel - [id number] 14:59:26* Test Item Value Reference Range Interpretation Comme nts Leukocytes (test code = Leukocytes) Large Nitrite (test code = Nitrite) negative Urobilinogen (test code = Urobilinogen) .2 Protein (test code = Protein) Negative pH (test code = pH) 7.5 Blood (test code = Blood) Non-Hemolyzed: Trace Specific [place] (test code = Specific [place]) 1.020 Ketone (test code = Ketone) Negative Bilirubin (test code = Bilirubin) Negative Glucose (test code = Glucose) Negative Appearance (test code = Appearance) Clear Color (test code = Color) Yellow [facility] Auto Differential panel - [id number] 06:30:00 * Test Item Value Reference Range Interpretation Comme nts white blood count (test code = white blood count) 11.5 K/uL 4.0-11.5 red blood count (test code = red blood count) 3.26 M/uL 3.80-5.20 L hemoglobin (test code = hemoglobin) 9.9 g/dL 10.5-15.7 L hematocrit (test code = hematocrit) 29.7 % 34.0-50.0 L MCV [Entitic volume] (test c ode = 63820-5) 91.1 fL 86-100 mean corpuscular hemoglobin (test code = mean corpuscular hemoglobin) 30.4 pg 26.2-33.4 mean corpuscular HGB conc (t est code = mean corpuscular HGB conc) 33.3 g/dL 30-34 red cell distribution width (test code = red cell distribution width) 13.2 % 12.0-15.5 platelet count (test code = platelet count) 310 K/uL 165-450 mean platelet volume (test c ode = mean platelet volume) 9.5 fL 9.4-12.6 Segmented neutrophils/100 leukocytes in Blood (test code = 27537-4) 68.5 % 44.4-80.1 Immature granulocytes [#/vol ume] in Blood (test code = 56460-9) 0.3 K/uL 0.0-0.03 H lymphocyte% (test code = lymphocyte%) 21.8 % 10.0-50.0 mono % (test code = mono %) 6.4 % 3.6-12.0 eos % (test code = eos %) 0.5 % 0.0-5.4 Basophils/100 leukocytes in Unspecified specimen (test code = 84074-3) 0.3 % 0.1-1.2 Band form neutrophils [#/vol ume] in Blood (test code = 34692-9) 7.85 K/uL 1.56-6.13 H Lymphocytes [#/volume] in Unspecified specimen by Automated count (test code = 93966-2) 2.5 K/uL 1.18-3.74 mono # (test code = mono #) 0.73 K/uL 0.24-0.86 eos # (test code = eos #) 0.06 K/uL 0.04-0.36 basophil # (test code = baso miguel #) 0.04 K/uL 0.01-0.08 NRBC% (test code = NRBC%) 0 /100 WBC 0-0.2 NRBC# (test code = NRBC#) 0 K/uL [facility] Auto Differential panel - [id number] 06:30:00 * Test Item Value Reference Range Interpretation Comme nts white blood count (test code = white blood count) 11.5 K/uL 4.0-11.5 red blood count (test code = red blood count) 3.26 M/uL 3.80-5.20 L hemoglobin (test code = hemoglobin) 9.9 g/dL 10.5-15.7 L hematocrit (test code = hematocrit) 29.7 % 34.0-50.0 L MCV [Entitic volume] (test c ode = 75143-7) 91.1 fL 86-100 mean corpuscular hemoglobin (test code = mean corpuscular hemoglobin) 30.4 pg 26.2-33.4 mean corpuscular HGB conc (t est code = mean corpuscular HGB conc) 33.3 g/dL 30-34 red cell distribution width (test code = red cell distribution width) 13.2 % 12.0-15.5 platelet count (test code = platelet count) 310 K/uL 165-450 mean platelet volume (test c ode = mean platelet volume) 9.5 fL 9.4-12.6 Segmented neutrophils/100 leukocytes in Blood (test code = 42553-0) 68.5 % 44.4-80.1 Immature granulocytes [#/vol ume] in Blood (test code = 57511-9) 0.3 K/uL 0.0-0.03 H lymphocyte% (test code = lymphocyte%) 21.8 % 10.0-50.0 mono % (test code = mono %) 6.4 % 3.6-12.0 eos % (test code = eos %) 0.5 % 0.0-5.4 Basophils/100 leukocytes in Unspecified specimen (test code = 02467-1) 0.3 % 0.1-1.2 Band form neutrophils [#/vol ume] in Blood (test code = 71320-2) 7.85 K/uL 1.56-6.13 H Lymphocytes [#/volume] in Unspecified specimen by Automated count (test code = 12102-5) 2.5 K/uL 1.18-3.74 mono # (test code = mono #) 0.73 K/uL 0.24-0.86 eos # (test code = eos #) 0.06 K/uL 0.04-0.36 basophil # (test code = baso miguel #) 0.04 K/uL 0.01-0.08 NRBC% (test code = NRBC%) 0 /100 WBC 0-0.2 NRBC# (test code = NRBC#) 0 K/uL [facility] Auto Differential panel - [id number] 06:30:00 * Test Item Value Reference Range Interpretation Comme nts white blood count (test code = white blood count) 11.5 K/uL 4.0-11.5 red blood count (test code = red blood count) 3.26 M/uL 3.80-5.20 L hemoglobin (test code = hemoglobin) 9.9 g/dL 10.5-15.7 L hematocrit (test code = hematocrit) 29.7 % 34.0-50.0 L MCV [Entitic volume] (test c ode = 70726-1) 91.1 fL 86-100 mean corpuscular hemoglobin (test code = mean corpuscular hemoglobin) 30.4 pg 26.2-33.4 mean corpuscular HGB conc (t est code = mean corpuscular HGB conc) 33.3 g/dL 30-34 red cell distribution width (test code = red cell distribution width) 13.2 % 12.0-15.5 platelet count (test code = platelet count) 310 K/uL 165-450 mean platelet volume (test c ode = mean platelet volume) 9.5 fL 9.4-12.6 Segmented neutrophils/100 leukocytes in Blood (test code = 14592-9) 68.5 % 44.4-80.1 Immature granulocytes [#/vol ume] in Blood (test code = 59438-7) 0.3 K/uL 0.0-0.03 H lymphocyte% (test code = lymphocyte%) 21.8 % 10.0-50.0 mono % (test code = mono %) 6.4 % 3.6-12.0 eos % (test code = eos %) 0.5 % 0.0-5.4 Basophils/100 leukocytes in Unspecified specimen (test code = 88599-8) 0.3 % 0.1-1.2 Band form neutrophils [#/vol ume] in Blood (test code = 95383-0) 7.85 K/uL 1.56-6.13 H Lymphocytes [#/volume] in Unspecified specimen by Automated count (test code = 65576-7) 2.5 K/uL 1.18-3.74 mono # (test code = mono #) 0.73 K/uL 0.24-0.86 eos # (test code = eos #) 0.06 K/uL 0.04-0.36 basophil # (test code = baso miguel #) 0.04 K/uL 0.01-0.08 NRBC% (test code = NRBC%) 0 /100 WBC 0-0.2 NRBC# (test code = NRBC#) 0 K/uL [facility] Auto Differential panel - [id number] 06:30:00 * Test Item Value Reference Range Interpretation Comme nts white blood count (test code = white blood count) 11.5 K/uL 4.0-11.5 red blood count (test code = red blood count) 3.26 M/uL 3.80-5.20 L hemoglobin (test code = hemoglobin) 9.9 g/dL 10.5-15.7 L hematocrit (test code = hematocrit) 29.7 % 34.0-50.0 L MCV [Entitic volume] (test c ode = 61147-8) 91.1 fL 86-100 mean corpuscular hemoglobin (test code = mean corpuscular hemoglobin) 30.4 pg 26.2-33.4 mean corpuscular HGB conc (t est code = mean corpuscular HGB conc) 33.3 g/dL 30-34 red cell distribution width (test code = red cell distribution width) 13.2 % 12.0-15.5 platelet count (test code = platelet count) 310 K/uL 165-450 mean platelet volume (test c ode = mean platelet volume) 9.5 fL 9.4-12.6 Segmented neutrophils/100 leukocytes in Blood (test code = 95035-2) 68.5 % 44.4-80.1 Immature granulocytes [#/vol ume] in Blood (test code = 14049-0) 0.3 K/uL 0.0-0.03 H lymphocyte% (test code = lymphocyte%) 21.8 % 10.0-50.0 mono % (test code = mono %) 6.4 % 3.6-12.0 eos % (test code = eos %) 0.5 % 0.0-5.4 Basophils/100 leukocytes in Unspecified specimen (test code = 06211-2) 0.3 % 0.1-1.2 Band form neutrophils [#/vol ume] in Blood (test code = 07292-6) 7.85 K/uL 1.56-6.13 H Lymphocytes [#/volume] in Unspecified specimen by Automated count (test code = 00685-1) 2.5 K/uL 1.18-3.74 mono # (test code = mono #) 0.73 K/uL 0.24-0.86 eos # (test code = eos #) 0.06 K/uL 0.04-0.36 basophil # (test code = baso miguel #) 0.04 K/uL 0.01-0.08 NRBC% (test code = NRBC%) 0 /100 WBC 0-0.2 NRBC# (test code = NRBC#) 0 K/uL [facility] Auto Differential panel - [id number] 06:30:00 * Test Item Value Reference Range Interpretation Comme nts white blood count (test code = white blood count) 11.5 K/uL 4.0-11.5 red blood count (test code = red blood count) 3.26 M/uL 3.80-5.20 L hemoglobin (test code = hemoglobin) 9.9 g/dL 10.5-15.7 L hematocrit (test code = hematocrit) 29.7 % 34.0-50.0 L MCV [Entitic volume] (test c ode = 62662-1) 91.1 fL 86-100 mean corpuscular hemoglobin (test code = mean corpuscular hemoglobin) 30.4 pg 26.2-33.4 mean corpuscular HGB conc (t est code = mean corpuscular HGB conc) 33.3 g/dL 30-34 red cell distribution width (test code = red cell distribution width) 13.2 % 12.0-15.5 platelet count (test code = platelet count) 310 K/uL 165-450 mean platelet volume (test c ode = mean platelet volume) 9.5 fL 9.4-12.6 Segmented neutrophils/100 leukocytes in Blood (test code = 71446-8) 68.5 % 44.4-80.1 Immature granulocytes [#/vol ume] in Blood (test code = 68693-1) 0.3 K/uL 0.0-0.03 H lymphocyte% (test code = lymphocyte%) 21.8 % 10.0-50.0 mono % (test code = mono %) 6.4 % 3.6-12.0 eos % (test code = eos %) 0.5 % 0.0-5.4 Basophils/100 leukocytes in Unspecified specimen (test code = 86057-8) 0.3 % 0.1-1.2 Band form neutrophils [#/vol ume] in Blood (test code = 52473-2) 7.85 K/uL 1.56-6.13 H Lymphocytes [#/volume] in Unspecified specimen by Automated count (test code = 43888-3) 2.5 K/uL 1.18-3.74 mono # (test code = mono #) 0.73 K/uL 0.24-0.86 eos # (test code = eos #) 0.06 K/uL 0.04-0.36 basophil # (test code = baso miguel #) 0.04 K/uL 0.01-0.08 NRBC% (test code = NRBC%) 0 /100 WBC 0-0.2 NRBC# (test code = NRBC#) 0 K[facility]uL [facility] [id number] 06:07:00* Test Item Value Reference Range Interpretation Comme nts Color of Urine by Auto (test code = 69009-2) light yellow Appearance of Urine (test co de = 5767-9) clear clear Glucose [Presence] in Urine by Automated test strip (test code = 72723-0) trace (30 negative Bilirubin.total [Mass/volume ] in Urine (test code = 1978-6) negative negative Ketones [Mass/volume] in Uri ne by Automated test strip (test code = 21219-9) negative negative Specific gravity of Urine by Automated test strip (test code = 81383-5) 1.016 1.003-1.030 blood urine (test code = blo od urine) negative negative pH of Urine (test code = 2756-5) 7.000 5-9 protein urine (UA) (test cod e = protein urine (UA)) trace negative Urobilinogen [Presence] in Urine (test code = 98174-6) normal 0.2-1.0 Nitrite [Presence] in Urine by Test strip (test code = 5802-4) negative negative Leukocyte esterase [Presence ] in Urine by Automated test strip (test code = 41452-7) =1 negative H Erythrocytes [#/volume] in Urine by Automated count (test code = 798-9) =1-5 0-5 Leukocytes [#/area] in Urine sediment by Automated count (test code = 66009-0) =1-5 0-5 Epithelial cells [Presence] in Urine sediment by Light microscopy (test code = 07465-9) =6-10 0-5 Bacteria identified in Urine by Culture (test code = 630-4) small(1 none detect Casts [#/area] in Urine sediment by Automated count (test code = 39885-0) none detected none detect urine culture added? (test c ode = urine culture added?) yes [facility] complete panel - [id number] 06:07:00* Test Item Value Reference Range Interpretation Comme nts Color of Urine by Auto (test code = 27594-5) light yellow Appearance of Urine (test co de = 5767-9) clear clear Glucose [Presence] in Urine by Automated test strip (test code = 42935-9) trace (30 negative Bilirubin.total [Mass/volume ] in Urine (test code = 1978-6) negative negative Ketones [Mass/volume] in Uri ne by Automated test strip (test code = 20979-8) negative negative Specific gravity of Urine by Automated test strip (test code = 40695-0) 1.016 1.003-1.030 blood urine (test code = blo od urine) negative negative pH of Urine (test code = 2756-5) 7.000 5-9 protein urine (UA) (test cod e = protein urine (UA)) trace negative Urobilinogen [Presence] in Urine (test code = 94476-5) normal 0.2-1.0 Nitrite [Presence] in Urine by Test strip (test code = 5802-4) negative negative Leukocyte esterase [Presence ] in Urine by Automated test strip (test code = 81016-4) =1 negative H Erythrocytes [#/volume] in Urine by Automated count (test code = 798-9) =1-5 0-5 Leukocytes [#/area] in Urine sediment by Automated count (test code = 58495-7) =1-5 0-5 Epithelial cells [Presence] in Urine sediment by Light microscopy (test code = 04708-5) =6-10 0-5 Bacteria identified in Urine by Culture (test code = 630-4) small(1 none detect Casts [#/area] in Urine sediment by Automated count (test code = 99315-6) none detected none detect urine culture added? (test c ode = urine culture added?) yes [facility] complete panel - [id number] 06:07:00* Test Item Value Reference Range Interpretation Comme nts Color of Urine by Auto (test code = 22366-9) light yellow Appearance of Urine (test co de = 5767-9) clear clear Glucose [Presence] in Urine by Automated test strip (test code = 01385-2) trace (30 negative Bilirubin.total [Mass/volume ] in Urine (test code = 1977-07) negative negative Ketones [Mass/volume] in Uri ne by Automated test strip (test code = 10075-6) negative negative Specific gravity of Urine by Automated test strip (test code = 14497-9) 1.016 1.003-1.030 blood urine (test code = blo od urine) negative negative pH of Urine (test code = 2756-5) 7.000 5-9 protein urine (UA) (test cod e = protein urine (UA)) trace negative Urobilinogen [Presence] in Urine (test code = 81254-9) normal 0.2-1.0 Nitrite [Presence] in Urine by Test strip (test code = 5802-4) negative negative Leukocyte esterase [Presence ] in Urine by Automated test strip (test code = 45887-6) =1 negative H Erythrocytes [#/volume] in Urine by Automated count (test code = 798-9) =1-5 0-5 Leukocytes [#/area] in Urine sediment by Automated count (test code = 69116-1) =1-5 0-5 Epithelial cells [Presence] in Urine sediment by Light microscopy (test code = 12700-0) =6-10 0-5 Bacteria identified in Urine by Culture (test code = 630-4) small(1 none detect Casts [#/area] in Urine sediment by Automated count (test code = 62152-5) none detected none detect urine culture added? (test c ode = urine culture added?) yes [facility]rine by [id number] 06:07:00* Test Item Value Reference Range Interpretation Comme nts Bacteria identified in Urine by Culture (test code = 630-4) no growth after 2 days [facility] GroupUrinal[facility] complete [facility] - [id number] 06:07:00* Test Item Value Reference Range Interpretation Comme nts Color of Urine by Auto (test code = 51963-8) light yellow Appearance of Urine (test co de = 5767-9) clear clear Glucose [Presence] in Urine by Automated test strip (test code = 80933-1) trace (30 negative Bilirubin.total [Mass/volume ] in Urine (test code = 1977-07) negative negative Ketones [Mass/volume] in Uri ne by Automated test strip (test code = 53110-1) negative negative Specific gravity of Urine by Automated test strip (test code = 23465-0) 1.016 1.003-1.030 blood urine (test code = blo od urine) negative negative pH of Urine (test code = 2756-5) 7.000 5-9 protein urine (UA) (test cod e = protein urine (UA)) trace negative Urobilinogen [Presence] in Urine (test code = 97801-2) normal 0.2-1.0 Nitrite [Presence] in Urine by Test strip (test code = 5802-4) negative negative Leukocyte esterase [Presence ] in Urine by Automated test strip (test code = 42326-8) =1 negative H Erythrocytes [#/volume] in Urine by Automated count (test code = 798-9) =1-5 0-5 Leukocytes [#/area] in Urine sediment by Automated count (test code = 38926-6) =1-5 0-5 Epithelial cells [Presence] in Urine sediment by Light microscopy (test code = 80887-4) =6-10 0-5 Bacteria identified in Urine by Culture (test code = 630-4) small(1 none detect Casts [#/area] in Urine sediment by Automated count (test code = 96527-6) none detected none detect urine culture added? (test c ode = urine culture added?) yes [facility] identified in Urine by [id number] 06:07:00* Test Item Value Reference Range Interpretation Comme nts Bacteria identified in Urine by Culture (test code = 630-4) no growth after 2 days [facility] complete [facility] - [id number] 06:07:00* Test Item Value Reference Range Interpretation Comme nts Color of Urine by Auto (test code = 50414-4) light yellow Appearance of Urine (test co de = 5767-9) clear clear Glucose [Presence] in Urine by Automated test strip (test code = 26390-4) trace (30 negative Bilirubin.total [Mass/volume ] in Urine (test code = 1978-6) negative negative Ketones [Mass/volume] in Uri ne by Automated test strip (test code = 64657-1) negative negative Specific gravity of Urine by Automated test strip (test code = 45959-9) 1.016 1.003-1.030 blood urine (test code = blo od urine) negative negative pH of Urine (test code = 2756-5) 7.000 5-9 protein urine (UA) (test cod e = protein urine (UA)) trace negative Urobilinogen [Presence] in Urine (test code = 53891-0) normal 0.2-1.0 Nitrite [Presence] in Urine by Test strip (test code = 5802-4) negative negative Leukocyte esterase [Presence ] in Urine by Automated test strip (test code = 23460-7) =1 negative H Erythrocytes [#/volume] in Urine by Automated count (test code = 798-9) =1-5 0-5 Leukocytes [#/area] in Urine sediment by Automated count (test code = 18677-9) =1-5 0-5 Epithelial cells [Presence] in Urine sediment by Light microscopy (test code = 79205-7) =6-10 0-5 Bacteria identified in Urine by Culture (test code = 630-4) small(1 none detect Casts [#/area] in Urine sediment by Automated count (test code = 20631-0) none detected none detect urine culture added? (test c ode = urine culture added?) yes [facility] GroupB[facility] identified in Urine by [id number] 06:07:00* Test Item Value Reference Range Interpretation Comme nts Bacteria identified in Urine by Culture (test code = 630-4) no growth after 2 days [facility] macro (dipstick) panel - [id number] 09:25:26* Test Item Value Reference Range Interpretation Comme nts Leukocytes (test code = Leukocytes) Large Nitrite (test code = Nitrite) negative Urobilinogen (test code = Urobilinogen) .2 Protein (test code = Protein) Negative pH (test code = pH) 7.0 Blood (test code = Blood) Negative Specific [place] (test code = Specific [place]) 1.015 Ketone (test code = Ketone) Negative Bilirubin (test code = Bilirubin) Negative Glucose (test code = Glucose) Negative Appearance (test code = Appearance) Clear Color (test code = Color) Yellow [facility] GroupUrinalysis macro (dipstick) panel - [id number] 09:25:26* Test Item Value Reference Range Interpretation Comme nts Leukocytes (test code = Leukocytes) Large Nitrite (test code = Nitrite) negative Urobilinogen (test code = Urobilinogen) .2 Protein (test code = Protein) Negative pH (test code = pH) 7.0 Blood (test code = Blood) Negative Specific [place] (test code = Specific [place]) 1.015 Ketone (test code = Ketone) Negative Bilirubin (test code = Bilirubin) Negative Glucose (test code = Glucose) Negative Appearance (test code = Appearance) Clear Color (test code = Color) Yellow [facility] GroupUrinalysis macro (dipstick) panel - [id number] 09:25:26* Test Item Value Reference Range Interpretation Comme nts Leukocytes (test code = Leukocytes) Large Nitrite (test code = Nitrite) negative Urobilinogen (test code = Urobilinogen) .2 Protein (test code = Protein) Negative pH (test code = pH) 7.0 Blood (test code = Blood) Negative Specific [place] (test code = Specific [place]) 1.015 Ketone (test code = Ketone) Negative Bilirubin (test code = Bilirubin) Negative Glucose (test code = Glucose) Negative Appearance (test code = Appearance) Clear Color (test code = Color) Yellow [facility] GroupUrinalysis macro (dipstick) panel - [id number] 09:25:26* Test Item Value Reference Range Interpretation Comme nts Leukocytes (test code = Leukocytes) Large Nitrite (test code = Nitrite) negative Urobilinogen (test code = Urobilinogen) .2 Protein (test code = Protein) Negative pH (test code = pH) 7.0 Blood (test code = Blood) Negative Specific [place] (test code = Specific [place]) 1.015 Ketone (test code = Ketone) Negative Bilirubin (test code = Bilirubin) Negative Glucose (test code = Glucose) Negative Appearance (test code = Appearance) Clear Color (test code = Color) Yellow [facility] GroupGlucose [Mass/volume] in Serum or Plasma --1 hour post dose [id number] 09:49:00* Test Item Value Reference Range Interpretation Comme nts Results (test code = Results) 121 [facility] GroupGlucose [Mass/volume] in Serum or Plasma --1 hour post dose [id number] 09:49:00* Test Item Value Reference Range Interpretation Comme nts Results (test code = Results) 121 [facility] - [id number] 08:47:35* Test Item Value Reference Range Interpretation Comme nts Leukocytes (test code = Leukocytes) Large Nitrite (test code = Nitrite) negative Urobilinogen (test code = Urobilinogen) .2 Protein (test code = Protein) Negative pH (test code = pH) 7.0 Blood (test code = Blood) Non-Hemolyzed: Trace Specific [place] (test code = Specific [place]) 1.020 Ketone (test code = Ketone) Negative Bilirubin (test code = Bilirubin) Negative Glucose (test code = Glucose) Negative Appearance (test code = Appearance) Slightly Cloudy Color (test code = Color) Yellow [facility]dipstick) panel - [id number] 08:47:35* Test Item Value Reference Range Interpretation Comme nts Leukocytes (test code = Leukocytes) Large Nitrite (test code = Nitrite) negative Urobilinogen (test code = Urobilinogen) .2 Protein (test code = Protein) Negative pH (test code = pH) 7.0 Blood (test code = Blood) Non-Hemolyzed: Trace Specific [place] (test code = Specific [place]) 1.020 Ketone (test code = Ketone) Negative Bilirubin (test code = Bilirubin) Negative Glucose (test code = Glucose) Negative Appearance (test code = Appearance) Slightly Cloudy Color (test code = Color) Yellow [facility] Hospitalquest [id number] 07:41:00* Test Item Value Reference Range Interpretation Comme nts quest collection (test code = quest collection) quest [facility] HospitalMicroscopic observation [Identifier] in Unspecified specimen by Wet [id number] 06:57:00* Test Item Value Reference Range Interpretation Comme nts Microscopic observation [Identifier] in Unspecified specimen by Wet preparation (test code = 680-9) no trichomonas, yeast or clue cell observed. [facility] HospitalMicrosc[facility] observation [Identifier] in Unspecified specimen by Wet [id number] 06:57:00* Test Item Value Reference Range Interpretation Comme nts Microscopic observation [Identifier] in Unspecified specimen by Wet preparation (test code = 680-9) no trichomonas, yeast or clue cell observed. [facility] HospitalGhxcjKnwwz-1-Szztepqddvlqv.placental [Presence] in Vaginal [id number] 05:33:00* Test Item Value Reference Range Interpretation Comme nts Fwavo-6-Yohrebiczzamv.placen anjana [Presence] in Vaginal fluid (test code = 34170-6) negative neg [facility] HospitalUrinalysis complete panel - [id number] 05:33:00* Test Item Value Reference Range Interpretation Comme nts Color of Urine by Auto (test code = 49771-3) light yellow Appearance of Urine (test co de = 5767-9) SL cloudy clear A Glucose [Presence] in Urine by Automated test strip (test code = 48416-8) trace (50 negative Bilirubin.total [Mass/volume ] in Urine (test code = 1978-6) negative negative Ketones [Mass/volume] in Uri ne by Automated test strip (test code = 40855-5) negative negative Specific gravity of Urine by Automated test strip (test code = 21284-8) 1.016 1.003-1.030 blood urine (test code = blo od urine) negative negative pH of Urine (test code = 2756-5) 7.000 5-9 protein urine (UA) (test cod e = protein urine (UA)) trace negative Urobilinogen [Presence] in U rine (test code = 12845-9) normal 0.2-1.0 Nitrite [Presence] in Urine by Test strip (test code = 5802-4) negative negative Leukocyte esterase [Presence ] in Urine by Automated test strip (test code = 55614-0) =2 negative H Erythrocytes [#/volume] in U rine by Automated count (test code = 798-9) =1-5 0-5 Leukocytes [#/area] in Urine sediment by Automated count (test code = 36358-7) =11-14 0-5 H Epithelial cells [Presence] in Urine sediment by Light microscopy (test code = 03114-1) =11-14 0-5 Bacteria identified in Urine by Culture (test code = 630-4) small(1 none detect Casts [#/area] in Urine sedi ment by Automated count (test code = 57464-9) =2-5 none detect urine culture added? (test c ode = urine culture added?) yes [facility] GroupBacteria identified in Urine by Wrjwzww2220-25-97 05:33:00Bacteria Ur [facility] DtanbAnglj-1-Pgpwsunffolsv.placental [Presence] in Vaginal [id number] 05:33:00* Test Item Value Reference Range Interpretation Comme nts Mtijh-3-Sapwchagnysgq.placen anjana [Presence] in Vaginal fluid (test code = 63636-3) negative neg [facility] GroupUrinalysis complete panel - [id number] 05:33:00* Test Item Value Reference Range Interpretation Comme nts Color of Urine by Auto (test code = 91352-2) light yellow Appearance of Urine (test co de = 5767-9) SL cloudy clear A Glucose [Presence] in Urine by Automated test strip (test code = 83936-1) trace (50 negative Bilirubin.total [Mass/volume ] in Urine (test code = 1978-6) negative negative Ketones [Mass/volume] in Uri ne by Automated test strip (test code = 93108-5) negative negative Specific gravity of Urine by Automated test strip (test code = 74043-6) 1.016 1.003-1.030 blood urine (test code = blo od urine) negative negative pH of Urine (test code = 2756-5) 7.000 5-9 protein urine (UA) (test cod e = protein urine (UA)) trace negative Urobilinogen [Presence] in U rine (test code = 30695-9) normal 0.2-1.0 Nitrite [Presence] in Urine by Test strip (test code = 5802-4) negative negative Leukocyte esterase [Presence ] in Urine by Automated test strip (test code = 93015-4) =2 negative H Erythrocytes [#/volume] in U rine by Automated count (test code = 798-9) =1-5 0-5 Leukocytes [#/area] in Urine sediment by Automated count (test code = 97573-8) =11-14 0-5 H Epithelial cells [Presence] in Urine sediment by Light microscopy (test code = 93830-9) =11-14 0-5 Bacteria identified in Urine by Culture (test code = 630-4) small(1 none detect Casts [#/area] in Urine sedi ment by Automated count (test code = 79521-2) =2-5 none detect urine culture added? (test c ode = urine culture added?) yes [facility] identified in Urine by Oipkjvm0947-20-84 05:33:00Bacteria Ur [facility] GroupUrinalysis macro (dipstick) panel - [id number] 15:17:12* Test Item Value Reference Range Interpretation Comme nts Leukocytes (test code = Leukocytes) Small Nitrite (test code = Nitrite) negative Urobilinogen (test code = Urobilinogen) .2 Protein (test code = Protein) Negative pH (test code = pH) 7.0 Blood (test code = Blood) Non-Hemolyzed: Trace Specific [place] (test code = Specific [place]) 1.025 Ketone (test code = Ketone) Negative Bilirubin (test code = Bilirubin) Negative Glucose (test code = Glucose) Negative Appearance (test code = Appearance) Clear Color (test code = Color) Yellow [facility]Ur[facility] (dipstick) panel - [id number] 09:42:47* Test Item Value Reference Range Interpretation Comme nts Leukocytes (test code = Leukocytes) Large Nitrite (test code = Nitrite) negative Urobilinogen (test code = Urobilinogen) .2 Protein (test code = Protein) Negative pH (test code = pH) 7.0 Blood (test code = Blood) Negative Specific [place] (test code = Specific [place]) 1.020 Ketone (test code = Ketone) Negative Bilirubin (test code = Bilirubin) Negative Glucose (test code = Glucose) Negative Appearance (test code = Appearance) Cloudy Color (test code = Color) Yellow [facility]Ur[facility] (dipstick) panel - [id number] 09:42:47* Test Item Value Reference Range Interpretation Comme nts Leukocytes (test code = Leukocytes) Large Nitrite (test code = Nitrite) negative Urobilinogen (test code = Urobilinogen) .2 Protein (test code = Protein) Negative pH (test code = pH) 7.0 Blood (test code = Blood) Negative Specific [place] (test code = Specific [place]) 1.020 Ketone (test code = Ketone) Negative Bilirubin (test code = Bilirubin) Negative Glucose (test code = Glucose) Negative Appearance (test code = Appearance) Cloudy Color (test code = Color) Yellow [facility]Ur[facility] (dipstick) panel - [id number] 09:54:00* Test Item Value Reference Range Interpretation Comme nts Leukocytes (test code = Leukocytes) Small Nitrite (test code = Nitrite) negative Urobilinogen (test code = Urobilinogen) .2 Protein (test code = Protein) Negative pH (test code = pH) 7.0 Blood (test code = Blood) Negative Specific [place] (test code = Specific [place]) 1.020 Ketone (test code = Ketone) Negative Bilirubin (test code = Bilirubin) Negative Glucose (test code = Glucose) Negative Appearance (test code = Appearance) Clear Color (test code = Color) Yellow [facility] (dipstick) panel - [id number] 09:54:00* Test Item Value Reference Range Interpretation Comme nts Leukocytes (test code = Leukocytes) Small Nitrite (test code = Nitrite) negative Urobilinogen (test code = Urobilinogen) .2 Protein (test code = Protein) Negative pH (test code = pH) 7.0 Blood (test code = Blood) Negative Specific [place] (test code = Specific [place]) 1.020 Ketone (test code = Ketone) Negative Bilirubin (test code = Bilirubin) Negative Glucose (test code = Glucose) Negative Appearance (test code = Appearance) Clear Color (test code = Color) Yellow [facility] (dipstick) panel - [id number] 09:54:00* Test Item Value Reference Range Interpretation Comme nts Leukocytes (test code = Leukocytes) Small Nitrite (test code = Nitrite) negative Urobilinogen (test code = Urobilinogen) .2 Protein (test code = Protein) Negative pH (test code = pH) 7.0 Blood (test code = Blood) Negative Specific [place] (test code = Specific [place]) 1.020 Ketone (test code = Ketone) Negative Bilirubin (test code = Bilirubin) Negative Glucose (test code = Glucose) Negative Appearance (test code = Appearance) Clear Color (test code = Color) Yellow [facility]pp[facility], LB + reflex to HR HPV if [id number] 00:00:00* Test Item Value Reference Range Interpretation Comme nts liquid Pap test with reflex to HPV type-detect 3.0 if ASCUS or greater (test code = liquid Pap test with reflex to HPV type-detect 3.0 if ASCUS or greater) normal [facility] U[facility] by [id number] 03:30:00Bacteria Ur [facility]18+21[facility]Y aneuploid[facility] in Blood by Molecular genetics method [id number] 00:00:00* Test Item Value Reference Range Interpretation Comme nts report summary (test code = report summary) see notes report note (test code = report note) see notes trisomy 13 age-based risk score (test code = trisomy 13 age-based risk score) trisomy 13 risk score (test code = trisomy 13 risk score) trisomy 13 age-based risk text (test code = trisomy 13 age-based risk text) 1/5,621 (0.02%) trisomy 13 risk score text (test code = trisomy 13 risk score text) <1/10,000 (<0.01%) trisomy 13 age-based risk fraction (test code = trisomy 13 age-based risk fraction) trisomy 13 risk score fraction (test code = trisomy 13 risk score fraction) trisomy 13 result text (test code = trisomy 13 result text) low risk trisomy 13 result comments (test code = trisomy 13 result comments) see notes trisomy 18 age-based risk score (test code = trisomy 18 age-based risk score) trisomy 18 risk score (test code = trisomy 18 risk score) trisomy 18 age-based risk text (test code = trisomy 18 age-based risk text) 1/1,765 (0.06%) trisomy 18 risk score text (test code = trisomy 18 risk score text) <1/10,000 (<0.01%) trisomy 18 age-based risk fraction (test code = trisomy 18 age-based risk fraction) trisomy 18 risk score fraction (test code = trisomy 18 risk score fraction) trisomy 18 result text (test code = trisomy 18 result text) low risk trisomy 18 result comments (test code = trisomy 18 result comments) see notes trisomy 21 age-based risk score (test code = trisomy 21 age-based risk score) trisomy 21 risk score (test code = trisomy 21 risk score) trisomy 21 age-based risk text (test code = trisomy 21 age-based risk text) 1/870 (0.11%) trisomy 21 risk score text (test code = trisomy 21 risk score text) <1/10,000 (<0.01%) trisomy 21 age-based risk fraction (test code = trisomy 21 age-based risk fraction) trisomy 21 risk score fraction (test code = trisomy 21 risk score fraction) trisomy 21 result text (test code = trisomy 21 result text) low risk trisomy 21 result comments (test code = trisomy 21 result comments) see notes monosomy X age-based risk score (test code = monosomy X age-based risk score) monosomy X risk score (test code = monosomy X risk score) monosomy X age-based risk text (test code = monosomy X age-based risk text) 1/255 (0.39%) monosomy X risk score text (test code = monosomy X risk score text) <1/10,000 (<0.01%) monosomy X age-based risk fraction (test code = monosomy X age-based risk fraction) monosomy X risk score fraction (test code = monosomy X risk score fraction) monosomy X result text (test code = monosomy X result text) low risk monosomy X result comments (test code = monosomy X result comments) see notes 22Q11.2 deletion syndrome population-based risk score (test code = 22Q11.2 deletion syndrome population-based risk score) 22Q11.2 deletion syndrome population-based risk text (test code = 22Q11.2 deletion syndrome population-based risk text) 1/2,000 22Q11.2 deletion syndrome risk score (test code = 22Q11.2 deletion syndrome risk score) 22Q11.2 deletion syndrome risk score text (test code = 22Q11.2 deletion syndrome risk score text) 19,000 22Q11.2 deletion syndrome result text (test code = 22Q11.2 deletion syndrome result text) low risk 22Q11.2 deletion syndrome result interpretation (test code = 22Q11.2 deletion syndrome result interpretation) see notes prader-willi syndrome population-based risk score (test code = prader-willi syndrome population-based risk score) prader-willi syndrome population-based risk text (test code = prader-willi syndrome population-based risk text) 1/10,000 prader-willi syndrome risk score (test code = prader-willi syndrome risk score) prader-willi syndrome risk score text (test code = prader-willi syndrome risk score text) 13,800 prader-willi syndrome result text (test code = prader-willi syndrome result text) low risk prader-willi syndrome result interpretation (test code = prader-willi syndrome result interpretation) see notes angelman syndrome population-based risk score (test code = angelman syndrome population-based risk score) angelman syndrome population-based risk text (test code = angelman syndrome population-based risk text) 112,000 angelman syndrome risk score (test code = angelman syndrome risk score) angelman syndrome risk score text (test code = angelman syndrome risk score text) 16,600 angelman syndrome result text (test code = angelman syndrome result text) low risk angelman syndrome result interpretation (test code = angelman syndrome result interpretation) see notes cri-du-chat syndrome population-based risk score (test code = cri-du-chat syndrome population-based risk score) cri-du-chat syndrome population-based risk text (test code = cri-du-chat syndrome population-based risk text) 120,000 cri-du-chat syndrome risk score (test code = cri-du-chat syndrome risk score) cri-du-chat syndrome risk score text (test code = cri-du-chat syndrome risk score text) 57,100 cri-du-chat syndrome result text (test code = cri-du-chat syndrome result text) low risk cri-du-chat syndrome result interpretation (test code = cri-du-chat syndrome result interpretation) see notes 1P36 deletion syndrome population-based risk score (test code = 1P36 deletion syndrome population-based risk score) 1P36 deletion syndrome population-based risk text (test code = 1P36 deletion syndrome population-based risk text) 15,000 1P36 deletion syndrome risk score (test code = 1P36 deletion syndrome risk score) 1P36 deletion syndrome risk score text (test code = 1P36 deletion syndrome risk score text) 03/03,400 1P36 deletion syndrome result text (test code = 1P36 deletion syndrome result text) low risk 1P36 deletion syndrome result interpretation (test code = 1P36 deletion syndrome result interpretation) see notes triploidy result text (test code = triploidy result text) low risk triploidy result comments (test code = triploidy result comments) see notes gender of fetus (test code = gender of fetus) female fraction (in %) (test code = fraction (in %)) 6.8 % fraction (test code = fraction) 6.8% footnotes (test code = footnotes) see notes boiler plate text (test code = boiler plate text) see notes references (test code = references) see notes approvals (test code = approvals) see notes contacts (test code = contacts) see notes [facility] RAPID FLU A AND B [id number] 17:18:00* Test Item Value Reference Range Interpretation Comme nts POCT INFLUENZA A (test code = 3840) Negative Negative - Negative POCT INFLUENZA B (test code = 3841) Negative Negative - Negative [facility] URINALYSIS W SPECIFIC [id number] 16:43:00* Test Item Value Reference Range Interpretation Comme nts POCT U SP GRAV (test code = 3255) . 1.005-1.025 POCT PH U (test code = 3254) . 5-8 POCT U LEUK EST (test code = 3263) . Negative - N egative POCT U NIT (test code = 3262) . Negative - Negati ve POCT U PROT (test code = 3259) Trace Negative - Negat ghazala POCT U GLU (test code = 3256) Neg Negative - Negati ve POCT U KETONE (test code = 3258) . Negative - Neg ative POCT U UROBILI (test code = 3260) . 0.2-1 POCT U BILI (test code = 3261) . Negative - Negat ghazala POCT U BLD (test code = 3257) . Negative - Negati ve POCT U COLOR (test code = 3266) POCT U APPEAR (test code = 3267) [facility] [id number] 19:40:00* Test Item Value Reference Range Interpretation Comme nts POCT U SP GRAV (test code = 3255) . 1.005-1.025 POCT PH U (test code = 3254) . 5-8 POCT U LEUK EST (test code = 3263) . Negative - N egative POCT U NIT (test code = 3262) . Negative - Negati ve POCT U PROT (test code = 3259) Trace Negative - Negat ghazala POCT U GLU (test code = 3256) Neg Negative - Negati ve POCT U KETONE (test code = 3258) . Negative - Neg ative POCT U UROBILI (test code = 3260) . 0.2-1 POCT U BILI (test code = 3261) . Negative - Negat ghazala POCT U BLD (test code = 3257) . Negative - Negati ve POCT U COLOR (test code = 3266) POCT U APPEAR (test code = 3267) [facility] URINALYSIS W SPECIFIC [id number] 17:18:00* Test Item Value Reference Range Interpretation Comme nts POCT U SP GRAV (test code = 3255) . 1.005-1.025 POCT PH U (test code = 3254) . 5-8 POCT U LEUK EST (test code = 3263) . Negative - N egative POCT U NIT (test code = 3262) . Negative - Negati ve POCT U PROT (test code = 3259) Trace Negative - Negat ghazala POCT U GLU (test code = 3256) Neg Negative - Negati ve POCT U KETONE (test code = 3258) . Negative - Neg ative POCT U UROBILI (test code = 3260) . 0.2-1 POCT U BILI (test code = 3261) . Negative - Negat ghazala POCT U BLD (test code = 3257) . Negative - Negati ve POCT U COLOR (test code = 3266) POCT U APPEAR (test code = 3267) [facility] URINALYSIS W SPECIFIC [id number] 17:18:00* Test Item Value Reference Range Interpretation Comme nts POCT U SP GRAV (test code = 3255) . 1.005-1.025 POCT PH U (test code = 3254) . 5-8 POCT U LEUK EST (test code = 3263) . Negative - N egative POCT U NIT (test code = 3262) . Negative - Negati ve POCT U PROT (test code = 3259) Trace Negative - Negat ghazala POCT U GLU (test code = 3256) Neg Negative - Negati ve POCT U KETONE (test code = 3258) . Negative - Neg ative POCT U UROBILI (test code = 3260) . 0.2-1 POCT U BILI (test code = 3261) . Negative - Negat ghazala POCT U BLD (test code = 3257) . Negative - Negati ve POCT U COLOR (test code = 3266) POCT U APPEAR (test code = 3267) [facility] URINALYSIS W/O SPECIFIC [id number] 16:01:00* Test Item Value Reference Range Interpretation Comme nts POCT PH U (test code = 3254) 5 mg/dl 5-8 POCT U LEUK EST (test code = 3263) Trace Negative - Negative POCT U NIT (test code = 3262) Neg Negative - Negati ve POCT U PROT (test code = 3259) Trace Negative - Negat ghazala POCT U GLU (test code = 3256) Neg Negative - Negati ve POCT U KETONE (test code = 3258) None Negative - Neg ative POCT U BLD (test code = 3257) Neg Negative - Negati ve [facility] URINALYSIS W/O SPECIFIC [id number] 16:01:00* Test Item Value Reference Range Interpretation Comme nts POCT PH U (test code = 3254) 5 mg/dl 5-8 POCT U LEUK EST (test code = 3263) Trace Negative - Negative POCT U NIT (test code = 3262) Neg Negative - Negati ve POCT U PROT (test code = 3259) Trace Negative - Negat ghazala POCT U GLU (test code = 3256) Neg Negative - Negati ve POCT U KETONE (test code = 3258) None Negative - Neg ative POCT U BLD (test code = 3257) Neg Negative - Negati ve [facility] [id number] 15:58:00* Test Item Value Reference Range Interpretation Comme nts POCT PREG (test code = 1605) Positive On board controls acceptable with C Line (test code = 3574) Yes POCT PREG LOT # (test code = 3575) POCT PREG TEST DATE ( test code = 3576) Lab Interpretation (test cod e = 69853-1) [id number] 15:58:00* Test Item Value Reference Range Interpretation Comme nts POCT PREG (test code = 1605) Positive On board controls acceptable with C Line (test code = 3574) Yes POCT PREG LOT # (test code = 3575) POCT PREG TEST DATE ( test code = 3576) Lab Interpretation (test cod e = 30016-5) [facility], [id number] 13:36:04* Test Item Value Reference Range Interpretation Comme nts Test (test code = Test) negative [facility] - [id number] 13:27:27* Test Item Value Reference Range Interpretation Comme nts Leukocytes (test code = Leukocytes) Trace Nitrite (test code = Nitrite) negative Urobilinogen (test code = Urobilinogen) .2 Protein (test code = Protein) Negative pH (test code = pH) 6.0 Blood (test code = Blood) Small Specific [place] (test code = Specific [place]) 1.010 Ketone (test code = Ketone) Negative Bilirubin (test code = Bilirubin) Negative Glucose (test code = Glucose) Negative Appearance (test code = Appearance) Clear Color (test code = Color) Yellow [facility] Auto Differential panel - [id number] 09:04:00 * Test Item Value Reference Range Interpretation Comme nts white blood count (test code = white blood count) 9.4 K/uL 4.0-11.5 red blood count (test code = red blood count) 3.47 M/uL 3.80-5.20 L Hemoglobin [Mass/volume] in Blood (test code = 718-7) 10.5 g/dL 10.5-15.7 hematocrit (test code = hematocrit) 32.4 % 34.0-50.0 L Erythrocyte mean corpuscular volume [Entitic volume] (test code = 55529-8) 93.2 fL 78-98 Erythrocyte mean corpuscular hemoglobin [Entitic mass] (test code = 39451-4) 30.2 pg 26.2-33.4 mean corpuscular HGB conc (t est code = mean corpuscular HGB conc) 32.3 g/dL 31.5-36.2 red cell distribution width (test code = red cell distribution width) 12.7 % 11.5-15.5 Platelets [#/volume] in Bloo d (test code = 87504-9) 188 K/uL 137-338 Platelet mean volume [Entiti c volume] in Blood (test code = 29493-9) 9.2 fL 8.4-11.8 Neutrophils.band form/100 leukocytes in Blood (test code = 80843-0) 67.1 % 44.4-80.1 Lymphocytes/100 leukocytes i n Body fluid (test code = 33727-5) 26.9 % 10.0-50.0 Monocytes/100 leukocytes in Blood by Automated count (test code = 5905-5) 4.6 % 3.6-12.04 Eosinophils/100 leukocytes i n Blood by Automated count (test code = 713-8) 0.7 % 0.0-5.41 Basophils/100 leukocytes in Blood by Automated count (test code = 706-2) 0.7 % 0.0-0.79 [facility] W Auto Differential panel - [id number] 04:43:00 * Test Item Value Reference Range Interpretation Comme nts white blood count (test code = white blood count) 8.6 K/uL 4.0-11.5 red blood count (test code = red blood count) 3.65 M/uL 3.80-5.20 L Hemoglobin [Mass/volume] in Blood (test code = 718-7) 11.1 g/dL 10.5-15.7 hematocrit (test code = hematocrit) 34.0 % 34.0-50.0 Erythrocyte mean corpuscular volume [Entitic volume] (test code = 05742-8) 93.0 fL 78-98 Erythrocyte mean corpuscular hemoglobin [Entitic mass] (test code = 58269-0) 30.4 pg 26.2-33.4 mean corpuscular HGB conc (t est code = mean corpuscular HGB conc) 32.7 g/dL 31.5-36.2 red cell distribution width (test code = red cell distribution width) 12.8 % 11.5-15.5 Platelets [#/volume] in Bloo d (test code = 06875-7) 218 K/uL 137-338 Platelet mean volume [Entiti c volume] in Blood (test code = 06128-7) 9.2 fL 8.4-11.8 Neutrophils.band form/100 leukocytes in Blood (test code = 10975-6) 54.5 % 44.4-80.1 Lymphocytes/100 leukocytes i n Body fluid (test code = 33617-4) 38.2 % 10.0-50.0 Monocytes/100 leukocytes in Blood by Automated count (test code = 5905-5) 5.6 % 3.6-12.04 Eosinophils/100 leukocytes i n Blood by Automated count (test code = 713-8) 0.9 % 0.0-5.41 Basophils/100 leukocytes in Blood by Automated count (test code = 706-2) 0.8 % 0.0-0.79 H [facility] 2000 [facility] - Serum or Plasma 2018-04-05 04:43:00* Test Item Value Reference Range Interpretation Comme nts glucose (test code = glucose) 80 mg/dL 74-106 Urea nitrogen [Mass/volume] in Serum or Plasma (test code = 3094-0) 11 mg/dL 6-20 Osmolality of Serum or Plasm a (test code = 2692-2) 265 280-300 L creatinine (test code = creatinine) 0.8 mg/dL 0.50-0.90 glomerular filtration rate ( test code = glomerular filtration rate) >60.00 Urea nitrogen/Creatinine [Ma ss Ratio] in Serum or Plasma (test code = 3097-3) 13.8 12-20 sodium level (test code = so dium level) 133 mmol/L 135-145 L Potassium [Moles/volume] in Body fluid (test code = 2821-7) 4.1 mmol/L 3.5-5.2 chloride level (test code = chloride level) 102 mmol/L 98-108 CO2 (test code = CO2) 19 mmol/L 21-32 L anion gap (test code = anion gap) 16.1 mEq/L 12-20 calcium level (test code = c alcium level) 9.3 mg/dL 8.6-10.0 total protein (test code = t otal protein) 6.5 g/dL 6.6-8.7 L albumin (test code = albumin) 3.1 g/dL 3.5-5.2 L globulin (test code = globulin) 3.4 gm/dL A/G ratio (test code = A/G ratio) 0.9 >1.0 bilirubin,total (test code = bilirubin,total) <0.3 0.0-1.2 AST/SGOT (test code = AST/SGOT) 15 U/L 15-32 Alanine aminotransferase [Enzymatic activity/volume] in Serum or Plasma (test code = 1742-6) 10 U/L 0-33 Alkaline phosphatase [Enzyma tic activity/volume] in Serum or Plasma (test code = 6768-6) 166 U/L 35-105 H [facility] GroupUrate [Mass/volume] in [id number] 04:43:00* Test Item Value Reference Range Interpretation Comme nts uric acid (test code = uric acid) 6.3 mg/dL 2.4-5.7 H [facility]-Lactate [Moles/volume] in Serum or [id number] 04:43:00* Test Item Value Reference Range Interpretation Comme nts LDH (test code = LDH) 177 U/L 135-214 [facility] GroupReagin Ab [Presence] in Serum by [id number] 04:43:00* Test Item Value Reference Range Interpretation Comme nts Reagin Ab [Presence] in Seru m by RPR (test code = 16099-9) nonreactive nonreactive [facility] GroupHepatitis B virus surface Ag [Presence] in Serum 2018-04-05 04:43:00* Test Item Value Reference Range Interpretation Comme nts .hepatitis B surface antigen (test code = .hepatitis B surface antigen) negative negative [facility] GroupUrinalysis macro (dipstick) panel - [id number] 14:37:39* Test Item Value Reference Range Interpretation Comme nts Leukocytes (test code = Leukocytes) Small Nitrite (test code = Nitrite) negative Urobilinogen (test code = Urobilinogen) .2 Protein (test code = Protein) 30 pH (test code = pH) 7.0 Blood (test code = Blood) Non-Hemolyzed: Moderate Specific [place] (test code = Specific [place]) 1.020 Ketone (test code = Ketone) Negative Bilirubin (test code = Bilirubin) Negative Glucose (test code = Glucose) Negative Appearance (test code = Appearance) Clear Color (test code = Color) Yellow [facility]Ur[facility] macro (dipstick) panel - [id number] 14:37:39* Test Item Value Reference Range Interpretation Comme nts Leukocytes (test code = Leukocytes) Small Nitrite (test code = Nitrite) negative Urobilinogen (test code = Urobilinogen) .2 Protein (test code = Protein) 30 pH (test code = pH) 7.0 Blood (test code = Blood) Non-Hemolyzed: Moderate Specific [place] (test code = Specific [place]) 1.020 Ketone (test code = Ketone) Negative Bilirubin (test code = Bilirubin) Negative Glucose (test code = Glucose) Negative Appearance (test code = Appearance) Clear Color (test code = Color) Yellow [facility]Ur[facility]ysis macro (dipstick) panel - [id number] 14:37:39* Test Item Value Reference Range Interpretation Comme nts Leukocytes (test code = Leukocytes) Small Nitrite (test code = Nitrite) negative Urobilinogen (test code = Urobilinogen) .2 Protein (test code = Protein) 30 pH (test code = pH) 7.0 Blood (test code = Blood) Non-Hemolyzed: Moderate Specific [place] (test code = Specific [place]) 1.020 Ketone (test code = Ketone) Negative Bilirubin (test code = Bilirubin) Negative Glucose (test code = Glucose) Negative Appearance (test code = Appearance) Clear Color (test code = Color) Yellow [facility] HospitalUrinalysis complete panel - [id number] 06:37:00* Test Item Value Reference Range Interpretation Comme nts Color of Urine by Auto (test code = 37168-0) yellow Appearance of Urine (test co de = 5767-9) SL cloudy clear A Glucose [Presence] in Urine by Automated test strip (test code = 18626-0) =4+ (1000 negative H Bilirubin.total [Mass/volume ] in Urine (test code = 1977-) negative negative Ketones [Mass/volume] in Uri ne by Automated test strip (test code = 09302-4) negative negative Specific gravity of Urine by Automated test strip (test code = 03745-2) 1.021 1.003-1.030 blood urine (test code = blo od urine) negative negative pH of Urine (test code = 2756-5) 6.500 5-9 protein urine (UA) (test cod e = protein urine (UA)) negative negative Urobilinogen [Presence] in Urine (test code = 88950-3) normal 0.2-1.0 Nitrite [Presence] in Urine by Test strip (test code = 5802-4) negative negative Leukocyte esterase [Presence ] in Urine by Automated test strip (test code = 06689-4) =3 negative H Erythrocytes [#/volume] in Urine by Automated count (test code = 798-9) =1-5 0-5 Leukocytes [#/area] in Urine sediment by Automated count (test code = 19349-8) =11-14 0-5 H Epithelial cells [Presence] in Urine sediment by Light microscopy (test code = 20380-9) =6-10 0-5 Bacteria identified in Urine by Culture (test code = 630-4) small(1 none detect Casts [#/area] in Urine sediment by Automated count (test code = 77609-4) none detected none detect urine culture added? (test c ode = urine culture added?) yes [facility] GroupBacteria identified in Urine by [id number] 06:37:00Bacteria Ur CultHitaveterans administration medical center Medical GroupUrinalysis complete panel - Urine 2018-03-20 06:37:00* Test Item Value Reference Range Interpretation Comme nts Color of Urine by Auto (test code = 75141-1) yellow Appearance of Urine (test co de = 5767-9) SL cloudy clear A Glucose [Presence] in Urine by Automated test strip (test code = 08395-7) =4+ (1000 negative H Bilirubin.total [Mass/volume ] in Urine (test code = 1977-07) negative negative Ketones [Mass/volume] in Uri ne by Automated test strip (test code = 43739-3) negative negative Specific gravity of Urine by Automated test strip (test code = 31627-9) 1.021 1.003-1.030 blood urine (test code = blo od urine) negative negative pH of Urine (test code = 2756-5) 6.500 5-9 protein urine (UA) (test cod e = protein urine (UA)) negative negative Urobilinogen [Presence] in Urine (test code = 46808-8) normal 0.2-1.0 Nitrite [Presence] in Urine by Test strip (test code = 5802-4) negative negative Leukocyte esterase [Presence ] in Urine by Automated test strip (test code = 99281-5) =3 negative H Erythrocytes [#/volume] in Urine by Automated count (test code = 798-9) =1-5 0-5 Leukocytes [#/area] in Urine sediment by Automated count (test code = 03519-9) =11-14 0-5 H Epithelial cells [Presence] in Urine sediment by Light microscopy (test code = 84925-7) =6-10 0-5 Bacteria identified in Urine by Culture (test code = 630-4) small(1 none detect Casts [#/area] in Urine sediment by Automated count (test code = 77407-9) none detected none detect urine culture added? (test c ode = urine culture added?) yes [facility] HospitalBacteria identified in Urine by [id number] 06:37:00Bacteria Ur CultHitaSelect Specialty HospitalUrinalysis macro (dipstick) panel - [id number] 10:47:01* Test Item Value Reference Range Interpretation Comme nts Leukocytes (test code = Leukocytes) Trace Nitrite (test code = Nitrite) negative Urobilinogen (test code = Urobilinogen) .2 Protein (test code = Protein) Negative pH (test code = pH) 7.0 Blood (test code = Blood) Negative Specific [place] (test code = Specific [place]) 1.015 Ketone (test code = Ketone) Negative Bilirubin (test code = Bilirubin) Negative Glucose (test code = Glucose) Negative Appearance (test code = Appearance) Clear Color (test code = Color) Yellow [facility] HospitalUrinalysis macro (dipstick) panel - [id number] 10:47:01* Test Item Value Reference Range Interpretation Comme nts Leukocytes (test code = Leukocytes) Trace Nitrite (test code = Nitrite) negative Urobilinogen (test code = Urobilinogen) .2 Protein (test code = Protein) Negative pH (test code = pH) 7.0 Blood (test code = Blood) Negative Specific [place] (test code = Specific [place]) 1.015 Ketone (test code = Ketone) Negative Bilirubin (test code = Bilirubin) Negative Glucose (test code = Glucose) Negative Appearance (test code = Appearance) Clear Color (test code = Color) Yellow [facility] HospitalUrinalysis macro (dipstick) panel - [id number] 10:47:01* Test Item Value Reference Range Interpretation Comme nts Leukocytes (test code = Leukocytes) Trace Nitrite (test code = Nitrite) negative Urobilinogen (test code = Urobilinogen) .2 Protein (test code = Protein) Negative pH (test code = pH) 7.0 Blood (test code = Blood) Negative Specific [place] (test code = Specific [place]) 1.015 Ketone (test code = Ketone) Negative Bilirubin (test code = Bilirubin) Negative Glucose (test code = Glucose) Negative Appearance (test code = Appearance) Clear Color (test code = Color) Yellow [facility]non-stress [id number] 14:04:00* Test Item Value Reference Range Interpretation Comme nts Reactive (test code = Reactive) Yes Contractions (test code = Contractions) No [facility] [id number] 14:04:00* Test Item Value Reference Range Interpretation Comme nts Reactive (test code = Reactive) Yes Contractions (test code = Contractions) No [facility] HospitalUrinalysis macro (dipstick) panel - [id number] 13:10:36* Test Item Value Reference Range Interpretation Comme nts Leukocytes (test code = Leukocytes) Large Nitrite (test code = Nitrite) negative Urobilinogen (test code = Urobilinogen) .2 Protein (test code = Protein) Negative pH (test code = pH) 7.0 Blood (test code = Blood) Negative Specific [place] (test code = Specific [place]) 1.015 Ketone (test code = Ketone) Negative Bilirubin (test code = Bilirubin) Negative Glucose (test code = Glucose) Negative Appearance (test code = Appearance) Clear Color (test code = Color) Yellow [facility] HospitalUrinalysis macro (dipstick) panel - [id number] 13:10:36* Test Item Value Reference Range Interpretation Comme nts Leukocytes (test code = Leukocytes) Large Nitrite (test code = Nitrite) negative Urobilinogen (test code = Urobilinogen) .2 Protein (test code = Protein) Negative pH (test code = pH) 7.0 Blood (test code = Blood) Negative Specific [place] (test code = Specific [place]) 1.015 Ketone (test code = Ketone) Negative Bilirubin (test code = Bilirubin) Negative Glucose (test code = Glucose) Negative Appearance (test code = Appearance) Clear Color (test code = Color) Yellow [facility] HospitalUrinalysis macro (dipstick) panel - [id number] 13:10:36* Test Item Value Reference Range Interpretation Comme nts Leukocytes (test code = Leukocytes) Large Nitrite (test code = Nitrite) negative Urobilinogen (test code = Urobilinogen) .2 Protein (test code = Protein) Negative pH (test code = pH) 7.0 Blood (test code = Blood) Negative Specific [place] (test code = Specific [place]) 1.015 Ketone (test code = Ketone) Negative Bilirubin (test code = Bilirubin) Negative Glucose (test code = Glucose) Negative Appearance (test code = Appearance) Clear Color (test code = Color) Yellow [facility] HospitalUrinalysis macro (dipstick) panel - [id number] 09:37:36* Test Item Value Reference Range Interpretation Comme nts Leukocytes (test code = Leukocytes) Small Nitrite (test code = Nitrite) negative Urobilinogen (test code = Urobilinogen) .2 Protein (test code = Protein) Trace pH (test code = pH) 7.0 Blood (test code = Blood) Negative Specific [place] (test code = Specific [place]) 1.020 Ketone (test code = Ketone) Negative Bilirubin (test code = Bilirubin) Negative Glucose (test code = Glucose) Negative Appearance (test code = Appearance) Clear Color (test code = Color) Yellow [facility] HospitalUrinalysis macro (dipstick) panel - [id number] 09:37:36* Test Item Value Reference Range Interpretation Comme nts Leukocytes (test code = Leukocytes) Small Nitrite (test code = Nitrite) negative Urobilinogen (test code = Urobilinogen) .2 Protein (test code = Protein) Trace pH (test code = pH) 7.0 Blood (test code = Blood) Negative Specific [place] (test code = Specific [place]) 1.020 Ketone (test code = Ketone) Negative Bilirubin (test code = Bilirubin) Negative Glucose (test code = Glucose) Negative Appearance (test code = Appearance) Clear Color (test code = Color) Yellow [facility]Urinalysis macro (dipstick) panel - [id number] 09:37:36* Test Item Value Reference Range Interpretation Comme nts Leukocytes (test code = Leukocytes) Small Nitrite (test code = Nitrite) negative Urobilinogen (test code = Urobilinogen) .2 Protein (test code = Protein) Trace pH (test code = pH) 7.0 Blood (test code = Blood) Negative Specific [place] (test code = Specific [place]) 1.020 Ketone (test code = Ketone) Negative Bilirubin (test code = Bilirubin) Negative Glucose (test code = Glucose) Negative Appearance (test code = Appearance) Clear Color (test code = Color) [facility]Gl[facility] [Mass/volume] in Serum or Plasma --1 hour post dose [id number] 13:44:00* Test Item Value Reference Range Interpretation Comme nts Results (test code = Results) 104 [facility] HospitalUrinalysis macro (dipstick) panel - [id number] 08:53:48* Test Item Value Reference Range Interpretation Comme nts Leukocytes (test code = Leukocytes) Negative Nitrite (test code = Nitrite) negative Urobilinogen (test code = Urobilinogen) .2 Protein (test code = Protein) Negative pH (test code = pH) 7.0 Blood (test code = Blood) Negative Specific [place] (test code = Specific [place]) 1.010 Ketone (test code = Ketone) Negative Bilirubin (test code = Bilirubin) Negative Glucose (test code = Glucose) Negative Appearance (test code = Appearance) Clear Color (test code = Color) Yellow [facility]
--- NOTE | 2023-03-15 08:51 | RAD REPORT ---
EXAM DESCRIPTION: Maryann Almazan (2 Views)03/15/2023 8:43 am CLINICAL HISTORY: Chest pain COMPARISON: March 13, 2023 FINDINGS: The lungs appear clear of acute infiltrate. The heart is normal size IMPRESSION: No acute abnormalities displayed
[2023-03-15 09:49] LABS: Absolute Lymphocytes (CBC) 1.7 K/uL (0.7-4.9); Hematocrit 41.4 % (36.0-45.0); Lymphocytes % 14.2 % (15.3-44.8); MCV 93.1 fL (80-100); MPV 7.1 fL (7.6-11.3); Platelets 343 thou/uL (152-406); RBC Red Blood Cell Count 4.45 M/uL (3.86-4.86)
[2023-03-15 10:09] LABS: ALT/SGPT 30 U/L (13-56); AST/SGOT 14 U/L (15-37); Albumin 3.9 g/dL (3.4-5.0); Alkaline Phosphatase 73 U/L (45-117); BUN Blood Urea Nitrogen 13 mg/dL (7-18); Bicarbonate 25 mEq/L (21-32); Bilirubin Total 0.9 mg/dL (0.2-1.0); Glomerular Filtration Rate 113 ml/min (=/>90); Glucose Level 105 mg/dL (74-106); Protein, Total 7.9 g/dL (6.4-8.2); Sodium Level 137 mEq/L (136-145)
[2023-03-15 10:11] LABS: Troponin High Sensitivity < 3.0 pg/mL (<58.9)
[2023-03-15 10:29] LABS: SARS-CoV-2 Antigen Rapid Res Negative (Negative)
--- NOTE | 2023-03-15 10:43 | EDPHYS ---
Physician Documentation [facility] Name: Ricarda Marin Age: 27 yrs Sex: Female : 1995 Arrival Date: 03/15/2023 Time: 08:11 Bed 6 Private MD: ED Physician Cristiano Jenkins HPI: 03/15 10:30 This 27 yrs old Female presents to ER via Ambulatory with complaints of vernon Shortness Of Breath, Chest Pain. 10:30 The patient has shortness of breath at rest, with light activity. Onset: The vernon symptoms/episode began/occurred 2 day(s) ago. Duration: The symptoms are continuous, and are unchanged since they started. The patient's shortness of breath has no apparent modifying factors. Associated signs and symptoms: Pertinent positives: non-productive cough. Severity of symptoms: At their worst the symptoms were moderate in the emergency department the symptoms have improved moderately. The patient has experienced similar episodes in the past, several times. 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 - Social history:: Smoking status: Reported history of juuling and/or vaping. - Family history:: not pertinent. ROS: 10:30 Constitutional: Negative for fever, chills, and weight loss, Eyes: Negative for injury, vernon pain, redness, and discharge, ENT: Negative for injury, pain, and discharge, Neck: Negative for injury, pain, and swelling, Cardiovascular: Negative for chest pain, palpitations, and edema, Abdomen/GI: Negative for abdominal pain, nausea, vomiting, diarrhea, and constipation, Back: Negative for injury and pain, : Negative for injury, bleeding, discharge, and swelling, MS/Extremity: Negative for injury and deformity, Skin: Negative for injury, rash, and discoloration, Neuro: Negative for headache, weakness, numbness, tingling, and seizure, Psych: Negative for depression, anxiety, suicide ideation, homicidal ideation, and hallucinations, Allergy/Immunology: Negative for hives, rash, and allergies, Endocrine: Negative for neck swelling, polydipsia, polyuria, polyphagia, and marked weight changes, Hematologic/Lymphatic: Negative for swollen nodes, abnormal bleeding, and unusual bruising, 10:30 Respiratory: Positive for shortness of breath, Exam: 10:30 Constitutional: This is a well developed, well nourished patient who is awake, alert, vernon and in no acute distress. Head/Face: Normocephalic, atraumatic. Eyes: Pupils equal round and reactive to light, extra-ocular motions intact. Lids and lashes normal. Conjunctiva and sclera are non-icteric and not injected. Cornea within normal limits. Periorbital areas with no swelling, redness, or edema. ENT: Nares patent. No nasal discharge, no septal abnormalities noted. Tympanic membranes are normal and external auditory canals are clear. Oropharynx with no redness, swelling, or masses, exudates, or evidence of obstruction, uvula midline. Mucous membranes moist. Neck: Trachea midline, no thyromegaly or masses palpated, and no cervical lymphadenopathy. Supple, full range of motion without nuchal rigidity, or vertebral point tenderness. No Meningismus. Chest/axilla: Normal chest wall appearance and motion. Nontender with no deformity. No lesions are appreciated. Cardiovascular: Regular rate and rhythm with a normal S1 and S2. No gallops, murmurs, or rubs. Normal PMI, no JVD. No pulse deficits. Respiratory: Lungs have equal breath sounds bilaterally, clear to auscultation and percussion. No rales, rhonchi or wheezes noted. No increased work of breathing, no retractions or nasal flaring. Abdomen/GI: Soft, non-tender, with normal bowel sounds. No distension or tympany. No guarding or rebound. No evidence of tenderness throughout. Back: No spinal tenderness. No costovertebral tenderness. Full range of motion. Skin: Warm, dry with normal turgor. Normal color with no rashes, no lesions, and no evidence of cellulitis. MS/ Extremity: Pulses equal, no cyanosis. Neurovascular intact. Full, normal range of motion. Neuro: Awake and alert, GCS 15, oriented to person, place, time, and situation. Cranial nerves II-XII grossly intact. Motor strength 5/5 in all extremities. Sensory grossly intact. Cerebellar exam normal. Normal gait. Psych: Awake, alert, with orientation to person, place and time. Behavior, mood, and affect are within normal limits. 10:30 ECG was reviewed by the Attending Physician. 10:30 Musculoskeletal/extremity: DVT Exam: No signs of deep vein thrombosis. no pain, no swelling, no tenderness, negative Homans' sign noted on exam, no appreciated bluish discoloration, no erythema, no increased warmth, Vital Signs: 08:28 BP 116 / 77; Pulse 88; Resp 18; Temp 98.2; Pulse Ox 99% ; Weight 68.04 kg; Height 5 ft. ll1 3 in. ; Pain 8/10; 09:50 BP 108 / 70; Pulse 66; Resp 18; Pulse Ox 99% on R/A; Pain 7/10; nj1 11:00 BP 103 / 69; Pulse 70; Resp 16; Pulse Ox 100% on R/A; Pain 7/10; nj1 08:28 Body Mass Index 26.57 (68.04 kg, 160.02 cm) ll1 08:28 Pain Scale: Adult ll1 09:50 Pain Scale: Adult nj1 11:00 Pain Scale: Adult nj1 MDM: 08:21 Patient medically screened. vernon 10:39 Differential diagnosis: Bronchitis Myocardial Infarction pneumonia, Pneumothorax vernon pulmonary edema, Pulmonary Embolism reactive airway disease, Sepsis Unstable Angina. Antibiotic administration: The patient is discharged and will get outpatient antibiotics, Amoxicillin. Immunization status:. Data reviewed: vital signs, nurses notes, lab test result(s), EKG, radiologic studies, plain films. I considered the following discharge prescriptions or medication management in the emergency department Medications were administered in the Emergency Department. See MAR. Independent interpretation of the following test(s) in the Emergency Department EKG: See my EKG interpretation above. Test considered but Not performed: CT: NO CT CHEST RO PE. 03/15 08:22 Order name: CBC with Diff; Complete Time: 10:20 03/15 08:22 Order name: Comprehensive Metabolic Panel; Complete Time: 10:20 03/15 08:22 Order name: Strep; Complete Time: 10:38 03/15 08:22 Order name: SARS RAPID; Complete Time: 10:38 03/15 08:22 Order name: Flu; Complete Time: 10:38 03/15 08:22 Order name: Troponin HS; Complete Time: 10:20 03/15 08:22 Order name: D-Dimer; Complete Time: 10: [facility] 03/15 08:22 Order name: Chest Pa And Lat (2 Views) XRAY; Complete Time: : [facility] 03/15 08:22 Order name: EKG; Complete Time: 08: [facility] 03/15 08:22 Order name: EKG - Nurse/Tech; Complete Time: 10:02 [facility] EC:30 Rate is 71 beats/min. Rhythm is regular. QRS Allen is Normal. VA interval is normal. QRS vernon interval is normal. QT interval is normal. No Q waves. T waves are Normal. No ST changes noted. Clinical impression: Normal ECG and No evidence of ischemia. Interpreted by me. Reviewed by me. Administered Medications: 10:41 Not Given (Duplicate Order): [id number] mg PO once vernon 10:43 Drug: Decadron - Dexamethasone IVP 10 mg IVP once Route: IVP; Site: right antecubital; nj1 11:00 Follow up: Response: No adverse reaction nj1 10:43 Drug: AZITHromycin PO 500 mg PO once Route: PO; nj1 11:31 Follow up: Response: No adverse reaction nj1 11:04 Drug: Ketorolac IVP 30 mg IVP once Route: IVP; Site: right antecubital; nj1 11:31 Follow up: Response: No adverse reaction nj1 11:05 Drug: Rocephin IV 1 grams IV at per protocol once; Given slow IV push per pharmacy nj1 instructions Route: IV; Rate: per protocol; Site: right antecubital; 11:09 Follow up: Response: No adverse reaction; IV Status: Completed infusion; IV Intake: [id number] 11:06 Drug: Amoxicillin-Clavulanate PO 875 mg PO once Route: PO; nj1 11:31 Follow up: Response: No adverse reaction nj1 Disposition Summary: 03/15/23 10:42 Discharge Ordered Notes: Location: Home vernon Problem: new vernon Symptoms: have improved vernon Condition: Stable vernon Diagnosis - Chest pain, unspecified vernon - Tobacco abuse counseling vernon - Tobacco use vernon - Acute streptococcal tonsillitis, unspecified vernon - Streptococcal pharyngitis vernon Followup: vernon - With: Private Physician - When: 2 - 3 days - Reason: Recheck today's complaints, Continuance of care, Re-evaluation by your physician Followup: vernon - With: Adrian Hinton MD - When: 2 - 3 days - Reason: Recheck today's complaints, Re-evaluation by your physician Discharge Instructions: - Discharge Summary Sheet vernon - Nonspecific Chest Pain, Adult vernon - Chest Wall Pain vernon - Pharyngitis vernon - Steps to Quit Smoking vernon - Health Risks of Smoking vernon - Strep Throat, Adult vernon - Tonsillitis vernon - Tonsillitis, Rjpq-ge-Vcct vernon - Chest Wall Pain, Ipfh-kj-Bhrh vernon - Strep Throat, Adult, Oejy-vk-Swve venron - Nonspecific Chest Pain, Adult, Uzhf-tb-Pxnk vernon - Steps to Quit Smoking, Niqb-np-Glfk vernon - Aspirin and Your Heart [facility] Forms: - Medication Reconciliation Form [facility] - Thank You Letter vernon - Antibiotic Education [facility] - Prescription Opioid Use vernon - Patient Portal Instructions vernon - Leadership Thank You Letter [facility] - Work release form nj1 Prescriptions: - albuterol sulfate 90 mcg/actuation Inhalation HFA Aerosol Inhaler - inhale 2 puff INHALATION route every 6-8 hours as needed for bronchospasm; vernon administer via ventilator; 1 unit; Refills: 0, Product Selection Permitted - Augmentin 875-125 mg Oral Tablet - take 1 tablet ORAL route every 12 hours for 10 days; 20 tablet; Refills: 0, [facility] Product Selection Permitted - Ibuprofen 600 mg Oral Tablet - take 1 tablet ORAL route every 6 hours As needed take with food; 30 tablet; [facility] Refills: 0, Product Selection Permitted - Medrol (Anthony) 4 mg Oral Tablets, Dose Pack - take 1 tablet ORAL route as directed - follow package instructions; 1 packet; [facility] Refills: 0, Product Selection Permitted Signatures: Dispatcher [employer] Cristiano Nayak MD MD cha Lewis, Lynsay, RN RN ll1 Leonor Tong RN RN nj1
--- NOTE | 2023-03-15 10:43 | ER ---
Nurse's Notes [facility] Name: Ricarda Marin Age: 27 yrs Sex: Female : 1995 Arrival Date: 03/15/2023 Time: 08:11 Bed 6 Private MD: Diagnosis: Chest pain, unspecified;Tobacco abuse counseling;Tobacco use;Acute streptococcal tonsillitis, unspecified;Streptococcal pharyngitis Presentation: 03/15 08:28 Chief complaint: Patient states: Diagnosed with bronchitis. Meds given aren't helping. ll1 Feels dizzy, weak, and has chest pressure since her visit here on Monday. Coronavirus screen: Vaccine status: Patient reports being unvaccinated. Client denies travel out of the [place] in the last 14 days. cough unrelated to allergies, difficulty breathing, fatigue, muscle pain, shaking with chills, shortness of breath, Client presents with at least one sign or symptom that may indicate coronavirus-19. Standard/surgical mask placed on the client. Ebola Screen: Patient denies travel to an Ebola-affected area in the 21 days before illness onset. Initial Sepsis Screen: Does the patient meet any 2 criteria? No. Patient's initial sepsis screen is negative. Does the patient have a suspected source of infection? Yes: Productive cough/pneumonia. Risk Assessment: Do you want to hurt yourself or someone else? Patient reports no desire to harm self or others. Onset of symptoms was March 10, 2023. 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 - Social history:: Smoking status: Reported history of juuling and/or vaping. - Family history:: not pertinent. Screenin:[address] [facility] ED Fall Risk Assessment (Adult) Score/Fall Risk Level 0 - 2 = Low Risk nj1 Oriented to surroundings, Maintained a safe environment, Hourly rounding (assess needs \T\ fall precautionary measures) done. Abuse screen: Denies threats or abuse. Denies injuries from another. Nutritional screening: No deficits noted. Tuberculosis screening: No symptoms or risk factors identified. Assessment: 09:40 General: Appears in no apparent distress. uncomfortable, Behavior is calm, cooperative, nj1 appropriate for age. 09:40 Pain: Complains of pain in chest Pain currently is 7 out of 10 on a pain scale. Neuro: nj1 Level of Consciousness is awake, alert, obeys commands, Oriented to person, place, time, situation. Cardiovascular: Reports chest pain, since dizziness upon standing Patient's skin is warm and dry. Rhythm is regular. Respiratory: Reports shortness of breath on exertion cough that is Airway is patent Respiratory effort is even, unlabored. Vital Signs: 08:28 BP 116 / 77; Pulse 88; Resp 18; Temp 98.2; Pulse Ox 99% ; Weight 68.04 kg; Height 5 ft. ll1 3 in. ; Pain 8/10; 09:50 BP 108 / 70; Pulse 66; Resp 18; Pulse Ox 99% on R/A; Pain 7/10; nj1 11:00 BP 103 / 69; Pulse 70; Resp 16; Pulse Ox 100% on R/A; Pain 7/10; nj1 08:28 Body Mass Index 26.57 (68.04 kg, 160.02 cm) ll1 08:28 Pain Scale: Adult ll1 09:50 Pain Scale: Adult nj1 11:00 Pain Scale: Adult nj1 ED Course: 08:14 Patient arrived in ED. kb3 08:21 Cristiano Jenkins MD is Attending Physician. vernon 08:30 Triage completed. ll1 08:30 Arm band placed on. ll1 08:45 Chest Pa And Lat (2 Views) XRAY In Process Unspecified. EDMS 09:04 Leonor Tong, SAIMA is Primary Nurse. nj1 09:46 Patient has correct armband on for positive identification. Bed in low position. Call nj1 light in reach. Provided Education on: call light, fall precautions. 10:42 Adrian Hinton MD is Referral Physician. vernon 11:12 No provider procedures requiring assistance completed. nj1 11:30 IV discontinued, intact, bleeding controlled. nj1 Administered Medications: 10:41 Not Given (Duplicate Order): [id number] mg PO once vernon 10:43 Drug: Decadron - Dexamethasone IVP 10 mg IVP once Route: IVP; Site: right antecubital; nj1 11:00 Follow up: Response: No adverse reaction nj1 10:43 Drug: AZITHromycin PO 500 mg PO once Route: PO; nj1 11:31 Follow up: Response: No adverse reaction nj1 11:04 Drug: Ketorolac IVP 30 mg IVP once Route: IVP; Site: right antecubital; nj1 11:31 Follow up: Response: No adverse reaction nj1 11:05 Drug: Rocephin IV 1 grams IV at per protocol once; Given slow IV push per pharmacy nj1 instructions Route: IV; Rate: per protocol; Site: right antecubital; 11:09 Follow up: Response: No adverse reaction; IV Status: Completed infusion; IV Intake: [id number] 11:06 Drug: Amoxicillin-Clavulanate PO 875 mg PO once Route: PO; nj1 11:31 Follow up: Response: No adverse reaction nj1 Medication: 11:12 VIS not applicable for this client. nj1 Intake: 11:09 IV: 10ml; Total: 10ml. nj1 Outcome: 10:42 Discharge ordered by . vernon 11:29 Discharged to home ambulatory, nj1 11:29 Condition: stable 11:29 Discharge instructions given to patient, Instructed on discharge instructions, follow up and referral plans. medication usage, Demonstrated understanding of instructions, follow-up care, medications, Prescriptions given X 4, 11:31 Patient left the ED. nj1 Signatures: Dispatcher [employer] EDCristiano Mello MD MD cha Lewis, Lynsay, RN RN ll1 Ricarda Pimentel RN RN kb3 Leonor Tong RN RN nj1
[2023-03-15 12:07] VITALS: BP 103/69; TEMP 98.2; O2SAT 100
--- NOTE | 2023-03-16 16:30 | EKG ---
Test Date: 2023-03-15 Test Time: 09:48:12 [employer]: ANIVAL MEASUREMENT RESULTS: Intervals: Rate: 71 LA: 130 QRSD: 82 QT: 388 QTc: 421 Donnelly: P: 60 LA: 130 QRS: 53 T: 28 INTERPRETIVE STATEMENTS: Normal sinus rhythm Normal ECG No previous ECG available for comparison Electronically Signed On 03-16-23 16:26:19 [employer]URNACE INSTALL[employer] by Adrian Hinton
== END ==
LOC: ER 08:11
DX: R07.89 Other chest pain (principal); J03.00 Acute streptococcal tonsillitis, unspecified; Z72.0 Tobacco use; Z71.6 Tobacco abuse counseling; Z11.52 Encounter for screening for COVID-19; Z28.310 Unvaccinated for COVID-19
CPT/HCPCS: 93005; 85025; 36415; 85379; 87081; 84484; 80053; 87804 ×2; 71046; 96375; 96374; 99284; 87811; J1100; J0696

== ENCOUNTER 2023-06-19 22:32 | Emergency (ER) | payer SELFPAY ==
--- OUTSIDE RECORDS SUMMARY | 2023-06-19 22:38 | XMS REPORT | Continuity of Care Document ---
Author Name Unknown Address [address] [facility] [address] [place] [address] [facility] Address [address] 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 Role Phone Melyssa Stout Primary Care Physicia n Zara Attending Clinician Unavailable Felton Attending Clinician Unavailable ROBBIE HENRIQUEZ Attending Clinician Unavailable G_Papivania Attending Clinician Unavailable Doctor Unassigned, [place] Attending Clinician U Kartik Leach Attending Clinician UnavailAngie Rosales Attending Clinician UnavailOscar Rodgers Attending Clinician Unavailable Melyssa Stout Attending Clinician + OSCAR ULLOA Attending Clinician Unavailable JENA ADAIR Attending Clinician Unavailable Trimester, [facility] Attending Clinician Unavailable Cain Pereyra MD Attending Clinician Lab, [facility] Attending Clinician Unavailable ROSCOE MONTE Attending Clinician Unavailable BIMAL ALMONTE Attending Clinician Unavailable Young_J Admitting Clinician Unavailable Koudela_A Admitting Clinician Unavailable G_Papjanes Admitting Clinician Unavailable Kartik Samuels Admitting Clinician Unavailabl e Payers Payer Name Policy Type Policy Number Effective Date Expirati on Date Source [facility] (MEDICAID HMO) [id number] 2019 00:00:00 [place] [id number] 2019 00:00:00 [place] [facility] [id number] Problems Condition Name Condition Details Condition Category Status Onset Date Resolution Date Last Treatment Date Treating Clinician Comments Source depression Depression Problem Active 2019-02 0-08 00:00: 00 [facility] Sterilizat ion requested Sterilizat ion Requested Problem Active 2019-02 0-08 00:00: 00 [facility] Gastroesop hageal reflux disease without esophagiti s Gastroesop hageal Reflux Disease without Esophagiti s Problem Active 6-05 00:00: 00 [facility] Tachycardi a Tachycardi a Problem Active 5-12 00:00: 00 [facility] Dyspnea on exertion Dyspnea on Exertion Problem Active 5-12 00:00: 00 [facility] Folliculit is Folliculit is Problem Active 2-26 00:00: 00 [facility] History of pre-eclamp leoncio History of Pre-eclamp leoncio Problem Active 2-26 00:00: 00 [facility] Over weight Over weight Disease Active 2-18 00:00: 00 [facility] Acute nasopharyn gitis (common cold) Acute nasopharyn gitis (common cold) Disease Active 2-18 00:00: 00 [facility] Multiparit y Multiparit y Disease Active 2020-0 1-15 00:00: 00 [facility] History of pre-eclamp leoncio History of pre-eclamp leoncio Disease Active 03-06 00:00: 00 Overview: Formattin g of this note might be different from the original. Reports delivery at 37w5d [facility] Rubella non-immune status, antepartum Rubella non-immune status, antepartum Disease Active 09-01 00:00: 00 [facility] Tobacco use in , antepartum Tobacco use in , antepartum Disease Active 08-29 00:00: 00 Overview: Formattin g of this note might be different from the original. Reports quit 2 days ago 03/04/19 [facility] History of pericardit is History of pericardit is Disease Active 08-29 00:00: 00 Overview: Formattin g of this note might be different from the original. Questiona ble. External records received and reviewed. All labs (ESR and CRP) were normal, CXR was normal. No EKG received. Pt was tx with kenalog 40mg. EKG from 11/28/16 received (see external records) noted to be NSR [facility] Supervisio n of high risk , antepartum Supervisio n of high risk , antepartum Disease Active 08-29 00:00: 00 [facility] Breast lump on right side at 11 o'clock position Breast lump on right side at 11 o'clock position Disease Active 08-29 00:00: 00 [facility] History of breast lump History of breast lump Disease Active 08-29 00:00: 00 Overview: Formattin g of this note might be different from the original. Reports benign no issues [facility] Allergies, Adverse Reactions, Alerts Allergy Name Allergy Type Status Severity Reaction(s) Onset Date Inactive Date Treating Clinician Comments Source LATEX DRUG INGREDI Active Low Rash 08-29 00:00: 00 [facility] Latex Propensi ty to adverse reaction s Active Rash 08-29 00:00: 00 [facility] Latex Allergy to substanc e Active Rash [facility] Social History Social Habit Start Date Stop Date Quantity Comments Source ASSERTION 2019-02-22 00:00:00 [facility] Alcohol intake 2020-02-07 00:00:00 2020-02-07 00:00:00 Ex-drinker (finding) [facility] History of Social function 2019-09-26 00:00:00 2019-09-26 00:00:00 [facility] Alcohol Comment 2019-03-06 00:00:00 2019-03-06 00:00:00 last drank 03/04/2019 [facility] Tobacco use and exposure 2019-03-06 00:00:00 2019-03-06 00:00:00 Smokeless tobacco non-user [facility] Cigarettes smoked current (pack per day) - Reported 2019-03-06 00:00:00 2019-03-06 00:00:00 [facility] Cigarette pack-years 2019-03-06 00:00:00 2019-03-06 00:00:00 [facility] History of tobacco use 2019-03-04 00:00:00 Cigarette Smoker [facility] Tobacco Comment 2017-08-29 00:00:00 2017-08-29 00:00:00 information provided [facility] Sex Assigned At 1995 00:00:00 1995 00:00:00 [facility] Smoking Status Start Date Stop Date Source Former Smoker [facility] Medications Ordered Medication Name Filled Medication Name Start Date Stop Date Current Medication? Ordering Clinician Indication Dosage Frequency Signature (SIG) Comments Components Source proMETHazin e 12.5 mg tablet 03-06 16:18: 36 Yes 12.5mg Take 12.5 mg by mouth every 4 (four) hours as needed. [facility] proMETHazin e 12.5 mg tablet 03-06 10:18: 36 Yes 12.5mg Take 12.5 mg by mouth every 4 (four) hours as needed. [facility] multivitami n ( VITAMIN) tablet 03-06 00:00: 00 Yes [id number] 1{tbl} Take 1 tablet by mouth daily. [facility] multivitami n ( VITAMIN) tablet 15 00:00: 00 Yes [id number] 1{tbl} Take 1 tablet by mouth daily. [facility] proMETHazin e 12.5 mg tablet 09-29 17:49: 27 Yes 12.5mg Take 12.5 mg by mouth every 4 (four) hours as needed. [facility] [id number]- iron-folic- docusate (CITRANATAL , DUAL-IRON,) 27 mg iron-1 mg -50 mg Tab 08-29 00:00: 00 Yes 1{tbl} Take 1 tablet by mouth daily. [facility] [id number]- iron-folic- docusate (CITRANATAL , DUAL-IRON,) 27 mg iron-1 mg -50 mg Tab 08-29 00:00: 00 Yes 1{tbl} Take 1 tablet by mouth daily. [facility] Wellbutrin XL 150 mg 24 hr tablet, extended release Take 1 tablet every day by oral route for 30 days. Wellbutrin XL 150 mg 24 hr tablet, extended release Take 1 tablet every day by oral route for 30 days. No 1 Q1D Wellbutrin XL 150 mg 24 hr tablet, extended release Take 1 tablet every day by oral route for 30 days. [facility] bupropion HCl 75 mg tablet Take 1 tablet every day by oral route. bupropion HCl 75 mg tablet Take 1 tablet every day by oral route. No 1 Q1D bupropion HCl 75 mg tablet Take 1 tablet every day by oral route. [facility] bupropion HCl XL 150 mg 24 hr [...] day by oral route for 30 days. [facility] bupropion HCl 75 mg tablet Take 1 tablet every day by oral route. bupropion HCl 75 mg tablet Take 1 tablet every day by oral route. No bupropion HCl 75 mg tablet Take 1 tablet every day by oral route. [facility] bupropion HCl XL 150 mg 24 hr [...] day by oral route for 30 days. [facility] acetaminoph en 300 mg-codeine 30 mg tablet 1-2 p.o. q 6 hrs PRN pain acetaminoph en 300 mg-codeine 30 mg tablet 1-2 p.o. q 6 hrs PRN pain No acetaminop hen 300 mg-codeine 30 mg tablet 1-2 p.o. q 6 hrs PRN pain [facility] citalopram 20 mg tablet Take 1 tablet every day by oral route. citalopram 20 mg tablet Take 1 tablet every day by oral route. No citalopram 20 mg tablet Take 1 tablet every day by oral route. [facility] doxycycline monohydrate 100 mg capsule Take 1 capsule twice a day by oral route for 7 days. doxycycline monohydrate 100 mg capsule Take 1 capsule twice a day by oral route for 7 days. No 1capsul e(s) BID doxycyclin e monohydrat e 100 mg capsule Take 1 capsule twice a day by oral route for 7 days. [facility] Flagyl 500 mg tablet Take 1 tablet twice a day by oral route for 7 days. Flagyl 500 mg tablet Take 1 tablet twice a day by oral route for 7 days. No 1 BID Flagyl 500 mg tablet Take 1 tablet twice a day by oral route for 7 days. [facility] ibuprofen 800 mg tablet Take 1 tablet every 6 hours by oral route as needed. ibuprofen 800 mg tablet Take 1 tablet every 6 hours by oral route as needed. No ibuprofen 800 mg tablet Take 1 tablet every 6 hours by oral route as needed. [facility] Sprintec (28) 0.25 mg-35 mcg tablet Take 1 tablet every day by oral route. Sprintec (28) 0.25 mg-35 mcg tablet Take 1 tablet every day by oral route. No 1 Q1D Sprintec (28) 0.25 mg-35 mcg tablet Take 1 tablet every day by oral route. [facility] Vital Signs Vital Name Observation Time Observation Value Comments S ource BP Diastolic 2022-07-15 00:00:00 65 mm[Hg] [facility] Height 2022-07-15 00:00:00 63 [in_i] [facility] BMI (Body Mass Index) 2022-07-15 00:00:00 28 kg/m2 [facility] BP Systolic 2022-07-15 00:00:00 95 mm[Hg] [facility] Body Weight 2022-07-15 00:00:00 157.8 [lb_av] [facility] BP Diastolic 2022-07-01 00:00:00 73 mm[Hg] [facility] Height 2022-07-01 00:00:00 63 [in_i] [facility] BMI (Body Mass Index) 2022-07-01 00:00:00 28 kg/m2 [facility] BP Systolic 2022-07-01 00:00:00 109 mm[Hg] [facility] Body Weight 2022-07-01 00:00:00 2528 [oz_av] [facility] BP Diastolic 2022-04-28 00:00:00 73 mm[Hg] [facility] Height 2022-04-28 00:00:00 63 [in_i] [facility] BMI (Body Mass Index) 2022-04-28 00:00:00 27.1 kg/m2 [facility] BP Systolic 2022-04-28 00:00:00 109 mm[Hg] [facility] Body Weight 2022-04-28 00:00:00 2444.8 [oz_av] [facility] BP Diastolic 2020-05-11 00:00:00 71 mm[Hg] [facility] Height 2020-05-11 00:00:00 63 [in_i] [facility] BMI (Body Mass Index) 2020-05-11 00:00:00 29.3 kg/m2 [facility] BP Systolic 2020-05-11 00:00:00 105 mm[Hg] [facility] Body Weight 2020-05-11 00:00:00 165.6 [lb_av] [facility] BP Diastolic 2019-12-27 00:00:00 63 mm[Hg] [facility] Height 2019-12-27 00:00:00 63 [in_i] [facility] BMI (Body Mass Index) 2019-12-27 00:00:00 27 kg/m2 [facility] BP Systolic 2019-12-27 00:00:00 107 mm[Hg] [facility] Body Weight 2019-12-27 00:00:00 152.6 [lb_av] [facility] BP Diastolic 2019-12-13 00:00:00 76 mm[Hg] [facility] Height 2019-12-13 00:00:00 63 [in_i] [facility] BMI (Body Mass Index) 2019-12-13 00:00:00 27.1 kg/m2 [facility] BP Systolic 2019-12-13 00:00:00 112 mm[Hg] [facility] Body Weight 2019-12-13 00:00:00 153 [lb_av] [facility] BP Diastolic 2019-11-28 00:00:00 72 mm[Hg] [facility] Height 2019-11-28 00:00:00 63 [in_i] [facility] BMI (Body Mass Index) 2019-11-28 00:00:00 27.1 kg/m2 [facility] BP Systolic 2019-11-28 00:00:00 113 mm[Hg] [facility] Body Weight 2019-11-28 00:00:00 153 [lb_av] [facility] BP Diastolic 2019-10-31 00:00:00 81 mm[Hg] [facility] Height 2019-10-31 00:00:00 63 [in_i] [facility] BMI (Body Mass Index) 2019-10-31 00:00:00 31.4 kg/m2 [facility] BP Systolic 2019-10-31 00:00:00 123 mm[Hg] [facility] Body Weight 2019-10-31 00:00:00 177.3 [lb_av] [facility] BP Diastolic 2019-10-24 00:00:00 78 mm[Hg] [facility] Height 2019-10-24 00:00:00 63 [in_i] [facility] BMI (Body Mass Index) 2019-10-24 00:00:00 31.2 kg/m2 [facility] BP Systolic 2019-10-24 00:00:00 121 mm[Hg] [facility] Body Weight 2019-10-24 00:00:00 176 [lb_av] [facility] BP Diastolic 2019-10-14 00:00:00 70 mm[Hg] [facility] Height 2019-10-14 00:00:00 63 [in_i] [facility] BMI (Body Mass Index) 2019-10-14 00:00:00 30.6 kg/m2 [facility] BP Systolic 2019-10-14 00:00:00 106 mm[Hg] [facility] Body Weight 2019-10-14 00:00:00 173 [lb_av] [facility] BP Diastolic 2019-10-09 00:00:00 72 mm[Hg] [facility] Height 2019-10-09 00:00:00 63 [in_i] [facility] BMI (Body Mass Index) 2019-10-09 00:00:00 30.5 kg/m2 [facility] BP Systolic 2019-10-09 00:00:00 112 mm[Hg] [facility] Body Weight 2019-10-09 00:00:00 172.3 [lb_av] [facility] BP Diastolic 2019-10-04 00:00:00 78 mm[Hg] [facility] Height 2019-10-04 00:00:00 63 [in_i] [facility] BMI (Body Mass Index) 2019-10-04 00:00:00 30.5 kg/m2 [facility] BP Systolic 2019-10-04 00:00:00 116 mm[Hg] [facility] Body Weight 2019-10-04 00:00:00 171.9 [lb_av] [facility] BP Diastolic 2019-09-17 00:00:00 71 mm[Hg] [facility] Height 2019-09-17 00:00:00 63 [in_i] [facility] BMI (Body Mass Index) 2019-09-17 00:00:00 30 kg/m2 [facility] BP Systolic 2019-09-17 00:00:00 112 mm[Hg] [facility] Body Weight 2019-09-17 00:00:00 169.4 [lb_av] [facility] BP Diastolic 2019-08-27 00:00:00 71 mm[Hg] [facility] Height 2019-08-27 00:00:00 63 [in_i] [facility] BMI (Body Mass Index) 2019-08-27 00:00:00 29.4 kg/m2 [facility] BP Systolic 2019-08-27 00:00:00 114 mm[Hg] [facility] Body Weight 2019-08-27 00:00:00 166 [lb_av] [facility] BP Diastolic 2019-07-26 00:00:00 63 mm[Hg] [facility] Height 2019-07-26 00:00:00 63 [in_i] [facility] BMI (Body Mass Index) 2019-07-26 00:00:00 29.1 kg/m2 [facility] BP Systolic 2019-07-26 00:00:00 102 mm[Hg] [facility] Body Weight 2019-07-26 00:00:00 164 [lb_av] [facility] BP Diastolic 2019-07-18 00:00:00 63 mm[Hg] [facility] Height 2019-07-18 00:00:00 63 [in_i] [facility] BMI (Body Mass Index) 2019-07-18 00:00:00 29.1 kg/m2 [facility] BP Systolic 2019-07-18 00:00:00 102 mm[Hg] [facility] Body Weight 2019-07-18 00:00:00 164.3 [lb_av] [facility] BP Diastolic 2019-07-02 00:00:00 70 mm[Hg] [facility] Height 2019-07-02 00:00:00 63 [in_i] [facility] BMI (Body Mass Index) 2019-07-02 00:00:00 28.6 kg/m2 [facility] BP Systolic 2019-07-02 00:00:00 117 mm[Hg] [facility] Body Weight 2019-07-02 00:00:00 161.2 [lb_av] [facility] BP Diastolic 2019-06-04 00:00:00 60 mm[Hg] [facility] Height 2019-06-04 00:00:00 63 [in_i] [facility] BMI (Body Mass Index) 2019-06-04 00:00:00 28.1 kg/m2 [facility] BP Systolic 2019-06-04 00:00:00 107 mm[Hg] [facility] Body Weight 2019-06-04 00:00:00 158.8 [lb_av] [facility] BP Diastolic 2019-05-02 00:00:00 58 mm[Hg] [facility] Height 2019-05-02 00:00:00 63 [in_i] [facility] BMI (Body Mass Index) 2019-05-02 00:00:00 27.9 kg/m2 [facility] BP Systolic 2019-05-02 00:00:00 107 mm[Hg] [facility] Body Weight 2019-05-02 00:00:00 157.3 [lb_av] [facility] BP Diastolic 2019-04-17 00:00:00 67 mm[Hg] [facility] Height 2019-04-17 00:00:00 63 [in_i] [facility] BMI (Body Mass Index) 2019-04-17 00:00:00 28.4 kg/m2 [facility] BP Systolic 2019-04-17 00:00:00 111 mm[Hg] [facility] Body Weight 2019-04-17 00:00:00 160.2 [lb_av] [facility] Systolic blood pressure 2019-04-09 16:28:00 111 mm[Hg] [place] [facility] Diastolic blood pressure 2019-04-09 16:28:00 65 mm[Hg] [place] [facility] Heart rate 2019-04-09 16:28:00 92 /min [facility] Body temperature 2019-04-09 16:28:00 36.39 Jacki [facility] Respiratory rate 2019-04-09 16:28:00 16 /min [facility] Body height 2019-04-09 16:28:00 160 cm [facility] Body weight 2019-04-09 16:28:00 72.15 kg [facility] BMI 2019-04-09 16:28:00 28.18 kg/m2 [facility] Systolic blood pressure 2019-04-09 16:28:00 111 mm[Hg] [facility] Diastolic blood pressure 2019-04-09 16:28:00 65 mm[Hg] [facility] Heart rate 2019-04-09 16:28:00 92 /min [facility] Body temperature 2019-04-09 16:28:00 36.39 Jacki [facility] Respiratory rate 2019-04-09 16:28:00 16 /min [facility] Body height 2019-04-09 16:28:00 160 cm [facility] Body weight 2019-04-09 16:28:00 72.15 kg [facility] BMI 2019-04-09 16:28:00 28.18 kg/m2 [facility] Systolic blood pressure 2019-03-29 19:36:00 113 mm[Hg] [facility] Diastolic blood pressure 2019-03-29 19:36:00 72 mm[Hg] [facility] Heart rate 2019-03-29 19:36:00 82 /min [facility] Body temperature 2019-03-29 19:36:00 36.11 Jacki [facility] Respiratory rate 2019-03-29 19:36:00 16 /min [facility] Body height 2019-03-29 19:36:00 160 cm [facility] Body weight 2019-03-29 19:36:00 72.632 kg [facility] BMI 2019-03-29 19:36:00 28.36 kg/m2 [facility] Systolic blood pressure 2019-03-29 19:36:00 113 mm[Hg] [facility] Diastolic blood pressure 2019-03-29 19:36:00 72 mm[Hg] [facility] Heart rate 2019-03-29 19:36:00 82 /min [facility] Body temperature 2019-03-29 19:36:00 36.11 Jacki [facility] Respiratory rate 2019-03-29 19:36:00 16 /min [facility] Body height 2019-03-29 19:36:00 160 cm [facility] Body weight 2019-03-29 19:36:00 72.632 kg [facility] BMI 2019-03-29 19:36:00 28.36 kg/m2 [facility] Heart rate 2019-03-21 16:56:00 59 /min [facility] Body temperature 2019-03-21 16:56:00 36.39 Jacki [facility] Respiratory rate 2019-03-21 16:56:00 16 /min [facility] Body height 2019-03-21 16:56:00 160 cm [facility] Body weight 2019-03-21 16:56:00 73.029 kg [facility] BMI 2019-03-21 16:56:00 28.52 kg/m2 [facility] Systolic blood pressure 2019-03-21 16:56:00 112 mm[Hg] [facility] Diastolic blood pressure 2019-03-21 16:56:00 62 mm[Hg] [facility] Heart rate 2019-03-21 16:56:00 59 /min [facility] Body temperature 2019-03-21 16:56:00 36.39 Jacki [facility] Respiratory rate 2019-03-21 16:56:00 16 /min [facility] Body height 2019-03-21 16:56:00 160 cm [facility] Body weight 2019-03-21 16:56:00 73.029 kg [facility] BMI 2019-03-21 16:56:00 28.52 kg/m2 [facility] Systolic blood pressure 2019-03-21 16:56:00 112 mm[Hg] [facility] Diastolic blood pressure 2019-03-21 16:56:00 62 mm[Hg] [facility] Systolic blood pressure 2019-03-12 16:59:00 123 mm[Hg] [facility] Diastolic blood pressure 2019-03-12 16:59:00 71 mm[Hg] [facility] Heart rate 2019-03-12 16:59:00 76 /min [facility] Body temperature 2019-03-12 16:59:00 36.28 Jacki [facility] Respiratory rate 2019-03-12 16:59:00 16 /min [facility] Body height 2019-03-12 16:59:00 160 cm [facility] Body weight 2019-03-12 16:59:00 73.738 kg [facility] BMI 2019-03-12 16:59:00 28.80 kg/m2 [facility] Systolic blood pressure 2019-03-12 16:59:00 123 mm[Hg] [facility] Diastolic blood pressure 2019-03-12 16:59:00 71 mm[Hg] [facility] Heart rate 2019-03-12 16:59:00 76 /min [facility] Body temperature 2019-03-12 16:59:00 36.28 Jacki [facility] Respiratory rate 2019-03-12 16:59:00 16 /min [facility] Body height 2019-03-12 16:59:00 160 cm [facility] Body weight 2019-03-12 16:59:00 73.738 kg [facility] BMI 2019-03-12 16:59:00 28.80 kg/m2 [facility] Systolic blood pressure 2019-03-06 15:53:00 127 mm[Hg] [facility] Diastolic blood pressure 2019-03-06 15:53:00 80 mm[Hg] [facility] Heart rate 2019-03-06 15:53:00 79 /min [facility] Body temperature 2019-03-06 15:53:00 36.22 Jacki [facility] Respiratory rate 2019-03-06 15:53:00 16 /min [facility] Body height 2019-03-06 15:53:00 170.2 cm [facility] Body weight 2019-03-06 15:53:00 72.576 kg [facility] BMI 2019-03-06 15:53:00 25.06 kg/m2 [facility] Height 2018-10-26 00:00:00 63 [in_i] [facility] BMI (Body Mass Index) 2018-10-26 00:00:00 27.6 kg/m2 [facility] Body Weight 2018-10-26 00:00:00 156 [lb_av] [facility] BP Diastolic 2018-07-26 00:00:00 73 mm[Hg] [facility] Height 2018-07-26 00:00:00 63 [in_i] [facility] BMI (Body Mass Index) 2018-07-26 00:00:00 26.6 kg/m2 [facility] BP Systolic 2018-07-26 00:00:00 121 mm[Hg] [facility] Body Weight 2018-07-26 00:00:00 150.2 [lb_av] [facility] BP Diastolic 2018-04-26 00:00:00 69 mm[Hg] [facility] Height 2018-04-26 00:00:00 63 [in_i] [facility] BMI (Body Mass Index) 2018-04-26 00:00:00 25.7 kg/m2 [facility] BP Systolic 2018-04-26 00:00:00 97 mm[Hg] [facility] Body Weight 2018-04-26 00:00:00 145 [lb_av] [facility] BP Diastolic 2018-04-02 00:00:00 85 mm[Hg] [facility] Height 2018-04-02 00:00:00 63 [in_i] [facility] BMI (Body Mass Index) 2018-04-02 00:00:00 29.5 kg/m2 [facility] BP Systolic 2018-04-02 00:00:00 145 mm[Hg] [facility] Body Weight 2018-04-02 00:00:00 166.5 [lb_av] [facility] BP Diastolic 2018-03-29 00:00:00 79 mm[Hg] [facility] Height 2018-03-29 00:00:00 63 [in_i] [facility] BMI (Body Mass Index) 2018-03-29 00:00:00 29.6 kg/m2 [facility] BP Systolic 2018-03-29 00:00:00 118 mm[Hg] [facility] Body Weight 2018-03-29 00:00:00 166.9 [lb_av] [facility] BP Diastolic 2018-03-09 00:00:00 75 mm[Hg] [facility] Height 2018-03-09 00:00:00 63 [in_i] [facility] BMI (Body Mass Index) 2018-03-09 00:00:00 28 kg/m2 [facility] BP Systolic 2018-03-09 00:00:00 120 mm[Hg] [facility] Body Weight 2018-03-09 00:00:00 158 [lb_av] [facility] BP Diastolic 2018-02-28 00:00:00 72 mm[Hg] [facility] Height 2018-02-28 00:00:00 63 [in_i] [facility] BMI (Body Mass Index) 2018-02-28 00:00:00 27.6 kg/m2 [facility] BP Systolic 2018-02-28 00:00:00 115 mm[Hg] [facility] Body Weight 2018-02-28 00:00:00 156 [lb_av] [facility] BP Diastolic 2018-02-23 00:00:00 69 mm[Hg] [facility] Height 2018-02-23 00:00:00 63 [in_i] [facility] BMI (Body Mass Index) 2018-02-23 00:00:00 27.5 kg/m2 [facility] dical Group BP Systolic 2018-02-23 00:00:00 107 mm[Hg] [facility] Body Weight 2018-02-23 00:00:00 155 [lb_av] [facility] Procedures Procedure Date / Time Performed Performing Clinician Source US, abdomen, limited 2022-07-01 00:00:00 [facility] unlisted imaging order 2019-12-27 00:00:00 [facility] Bilateral Tubal Ligation 2019-12-18 00:00:00 [facility] Ligation of Bilateral Fallopian Tubes 2019-12-18 00:00:00 [facility] non-stress test 2019-10-31 00:00:00 [facility] US, obstetric, limited 2019-10-14 00:00:00 [facility] non-stress test 2019-10-14 00:00:00 [facility] non-stress test 2019-10-09 00:00:00 [facility] US, obstetric, limited 2019-09-17 00:00:00 [facility] ULTRASOUND REPEAT 2019-08-27 00:00:00 [facility] US, obstetric, limited 2019-07-26 00:00:00 [facility] ULTRASOUND, UTERUS REAL TIME WITH IMAGE DOC, AND MATERNAL EVAL PLUS DETAILED ANATOMIC EXAMINATION, TRANSABDOMINAL APPROACH; SINGLE OR FIRST GESTATION 2019-06-27 00:00:00 [facility] US, obstetric, limited 2019-06-04 00:00:00 [facility] ULTRASOUND, UTERUS REAL TIME WITH IMAGE DOC, AND MATERNAL EVAL PLUS DETAILED ANATOMIC EXAMINATION, TRANSABDOMINAL APPROACH; SINGLE OR FIRST GESTATION 2019-05-30 00:00:00 [facility] US, obstetric, limited 2019-05-02 00:00:00 [facility] AUTHORIZATION FOR RELEASE OF PHI 2019-04-17 06:01:00 Doctor Unassigned, [place] [facility] US, obstetric, limited 2019-04-17 00:00:00 [facility] POCT RAPID FLU A AND B TEST 2019-04-09 17:08:00 Melyssa Mccarty [facility] POCT URINALYSIS 2019-04-09 16:42:00 Melyssa Mccarty [facility] POCT URINALYSIS 2019-03-29 19:40:00 Melyssa Mccarty [facility] US OB TRANSVAGINAL 2019-03-21 19:44:41 Vani Sullivan [facility] POCT URINALYSIS 2019-03-12 17:18:00 Melyssa Mccarty [facility] POCT URINALYSIS W/O SPECIFIC GRAVITY 2019-03-06 16:01:00 Gabby Florian [facility] POCT TEST 2019-03-06 15:58:00 Elizabeth Florian [facility] ASSIGNMENT OF BENEFITS 2019-03-06 15:11:41 Docto r Unassigned, [place] [facility] non-stress test 2018-04-02 00:00:00 [facility] US, obstetric, limited 2018-03-29 00:00:00 [facility] non-stress test 2018-02-28 00:00:00 [facility] US, obstetric, limited 2018-02-23 00:00:00 [facility] ULTRASOUND REPEAT 2018-01-26 00:00:00 [facility] Plan of Care Planned Activity Planned Date Details Comments Source Diagnostic Test Pending 2022-04-28 00:00:00 CMP, serum or plasma [code = CMP, serum or plasma] [facility] Diagnostic Test Pending 2022-04-28 00:00:00 lipid panel, serum [code = lipid panel, serum] [facility] Diagnostic Test Pending 2022-04-28 00:00:00 CBC w/ auto diff [code = CBC w/ auto diff] [facility] Diagnostic Test Pending 2022-04-28 00:00:00 urinalysis complete, reflex culture [code = urinalysis complete, reflex culture] [facility] Diagnostic Test Pending 2022-04-28 00:00:00 TSH, serum or plasma [code = TSH, serum or plasma] [facility] Diagnostic Test Pending 2022-04-28 00:00:00 hemoglobin A1c, QN, blood [code = hemoglobin A1c, QN, blood] [facility] Diagnostic Test Pending 2022-04-28 00:00:00 TP53 gene deletion+duplicatio n and full mutation analysis, blood or tissue [code = TP53 gene deletion+duplicatio n and full mutation analysis, blood or tissue] [facility] Instructions [facility] Encounters Start Date/Time End Date/Time Encounter Type Admission Type Attending [facility] Facility Care Department Encounter ID Source 2021-08-12 15:01:02 Outpatient [facility] [id number] [facility] 2022-07-15 00:00:00 2022-07-15 00:00:00 Outpatient Young_J MMG MMG [id number] [facility] 2022-07-15 00:00:00 2022-07-15 00:00:00 Outpatient Young_J MMG MMG [id number] [facility] 2022-07-15 00:00:00 2022-07-15 00:00:00 Gerardo Nicole DO: [address] [facility], [address], [place] [address] , Ph. [phone] MM[facility] [id number] [facility] 2022-07-11 00:00:00 2022-07-11 00:00:00 Outpatient Martinez_A MMG MMG [id number] [facility] 2022-07-05 10:17:00 2022-07-05 10:17:00 Outpatient ROBBIE JAY [facility] [id number] [facility] 2022-07-01 00:00:00 2022-07-01 00:00:00 Robbie Henriquez PA-C: [address] [facility], [address], [place] [address] , Ph. MMG [facility] [id number] [facility] 2022-04-29 00:00:00 2022-04-29 00:00:00 Outpatient Koudela_A MMG MMG [id number] [facility] 2022-04-29 00:00:00 2022-04-29 00:00:00 Outpatient Koudela_A MMG MMG [id number] [facility] 2022-04-28 10:18:00 2022-04-28 10:18:00 Outpatient TYE ROBBIE HENRIQUEZ [facility] [id number] [facility] 2022-04-28 00:00:00 2022-04-28 00:00:00 Outpatient Koudela_A MMG [facility] [id number] [facility] 2022-04-28 00:00:00 2022-04-28 00:00:00 Robbie Henriquez PA-C: [address] [facility], [address], [place] [address] , Ph. MMG [facility] [id number] [facility] 2022-04-27 00:00:00 2022-04-27 00:00:00 Outpatient G_Pappas MMG [facility] [id number] [facility] 2020-06-10 03:45:00 2020-06-10 03:45:00 [facility] [id number] [facility] 2020-05-11 00:00:00 2020-05-11 00:00:00 Kartik Samuels MD: [address] [facility] [address], [place] [address] , Ph. [phone] G_Pappas MMG [facility] [id number] [facility] 2020-05-05 01:33:00 2020-05-05 01:33:00 Outpatient G_Pappas MMG [facility] [id number] [facility] 2020-03-23 01:05:00 2020-03-23 01:05:00 Outpatient G_Pappas MMG MMG [id number] [facility] 2020-02-17 01:05:00 2020-02-17 01:05:00 Outpatient G_Pappas MMG MMG [id number] [facility] 2020-02-07 00:00:00 2020-02-07 00:00:00 Patient Secure Msg Doctor Unassigned, [place] [facility] 1.2.840.114 350.1.13.10 4.2.7.2.686 [id number] [facility] 2020-01-13 01:06:00 2020-01-13 01:06:00 Outpatient G_Pappas MMG MMG [id number] [facility] 2020-01-08 02:30:00 2020-01-08 02:30:00 Outpatient G_Pappas MMG MMG [id number] [facility] 2019-12-27 00:00:00 2019-12-27 00:00:00 Kartik Samuels MD: [address] [place] [address] , Ph. [phone] G_Pappas MMG [facility] [id number] [facility] 2019-12-18 10:30:00 2019-12-18 10:30:00 Outpatient G_Pappas MMG MMG [id number] [facility] 2019-12-18 06:14:00 2019-12-18 06:14:00 Outpatient Kartik Preciado [facility] [id number] [facility] 2019-12-13 00:00:00 2019-12-13 00:00:00 Kartik Samuels MD: [address] [place] [address] , Ph. [phone] [facility] [id number] [facility] 2019-12-06 05:58:00 2019-12-06 05:58:00 Outpatient G_Pappas MMG MMG [id number] [facility] 2019-11-28 00:00:00 2019-11-28 00:00:00 Kartik Samuels MD: [address] [facility] [address], [place] [address] , Ph. [phone] G_Pappas MMG [facility] [id number] [facility] 2019-11-07 05:38:00 2019-11-08 09:48:00 Inpatient TYE Samuels Kartik [facility] [id number] [facility] 2019-11-04 12:27:00 2019-11-04 12:27:00 Outpatient TYE DiazpasKartik [facility] [id number] [facility] 2019-11-01 11:39:00 2019-11-01 15:15:00 Emergency ER JessicaAngie [facility] [id number] [facility] 2019-11-01 09:08:00 2019-11-01 09:08:00 Outpatient G_Pappas MMG MMG [id number] [facility] 2019-10-31 00:00:00 2019-10-31 00:00:00 Kartik Samuels MD: [address] [facility] [address] [place] [address] , Ph. [phone] G_Pappas MMG [facility]YN [id number] [facility] 2019-10-24 00:00:00 2019-10-24 00:00:00 Kartik Samuels MD: [address] [facility] [address], [place] [address] , Ph. [phone] G_Pappas MMG [facility] [id number] [facility] 2019-10-14 00:00:00 2019-10-14 00:00:00 Kartik Samuels MD: [address], [place] [address] , Ph. [phone] G_Pappas [facility] [id number] [facility] 2019-10-10 19:42:00 2019-10-10 21:30:00 Emergency ER Arvind, Kartik [facility] [id number] [facility] 2019-10-09 14:54:00 2019-10-09 17:40:00 Emergency ER ArvindKartik [facility] [id number] [facility] 2019-10-09 00:00:00 2019-10-09 00:00:00 Jena Adair CLARISSA: [address] [facility] [address], [place] [address] , Ph. [phone] G_Pappas MM[facility] [id number] [facility] 2019-10-06 09:39:00 2019-10-06 09:39:00 Outpatient G_Pappas MMG [facility] [id number] [facility] 2019-10-04 00:00:00 2019-10-04 00:00:00 Kartik Samuels MD: [address] [facility] [address], [place] [address] , Ph. [phone] G_Pappas MM[facility] [id number] [facility] 2019-10-02 19:44:00 2019-10-02 22:44:00 Emergency ER Angie Chase [facility] [id number] [facility] 2019-09-17 00:00:00 2019-09-17 00:00:00 Kartik Samuels MD: [address] [facility] [address], [place] [address] , Ph. [phone] G_Pappas MM[facility] [id number] [facility] 2019-08-27 09:31:00 2019-08-27 09:31:00 Outpatient Kartik Preciado [facility] [id number] [facility] 2019-08-27 00:00:00 2019-08-27 00:00:00 Kartik Samuels MD: [address], [place] [address] , Ph. [phone] G_Pappas MM[facility] [id number] [facility] 2019-08-19 19:27:00 2019-08-19 21:52:00 Emergency ER Angie Chase [facility] [id number] [facility] 2019-08-15 06:16:00 2019-08-15 06:16:00 Outpatient G_Pappas MMG MMG [id number] [facility] 2019-07-29 12:56:00 2019-07-29 12:56:00 Outpatient G_Pappas MMG MMG [id number] [facility] 2019-07-26 00:00:00 2019-07-26 00:00:00 Kartik Samuels MD: [address] [facility] [address] [place] [address] , Ph. [phone] G_Pappas MM[facility] [id number] [facility] 2019-07-18 08:53:00 2019-07-18 08:53:00 Outpatient Oscar Jessica [facility] [id number] [facility] 2019-07-18 00:00:00 2019-07-18 00:00:00 Kartik Samuels MD: [address] [facility] [address], [place] [address] , Ph. [phone] G_Pappas [facility] [id number] [facility] 2019-07-02 00:00:00 2019-07-02 00:00:00 Kartik Samuels MD: [address] [facility] [address] [facility], [place] [address] , Ph. [phone] G_Pappas MM[facility] [id number] [facility] 2019-06-04 00:00:00 2019-06-04 00:00:00 Kartik Samuels MD: [address] [facility] [address], [place] [address] , Ph. [phone] G_Pappas MM[facility] [id number] [facility] 2019-05-31 11:44:00 2019-05-31 11:44:00 Outpatient G_Pappas MMG MMG [id number] [facility] 2019-05-30 00:00:00 2019-05-30 00:00:00 Kartik Samuels MD: [address] [facility] [address] [place] [address] , Ph. [phone] MMG [facility] [id number] [facility] 2019-05-28 09:09:00 2019-05-28 09:09:00 Outpatient G_Pappas MMG MMG [id number] [facility] 2019-05-07 00:00:00 2019-05-07 00:00:00 Telephone Melyssa Mccarty [facility] MARKETING OFFICER [facility] MATERNAL & [facility]ILD [facility] 1.840.114 350.1.13.10 4.2.7.2.686 [id number] [facility] 2019-05-07 00:00:00 2019-05-07 00:00:00 Telephone Melyssa Mccarty [facility] MARKETING OFFICER [facility] 1.2840.114 350.1.13.10 4.2.7.2.686 [id number] 2019-05-05 01:01:00 2019-05-05 01:01:00 Outpatient G_Pappas MMG MMG [id number] [facility] 2019-05-02 00:00:00 2019-05-02 00:00:00 Jena Adair CLARISSA: [address] [facility] [address], [place] [address] , Ph. [phone] G_Pappas MM[facility] [id number] [facility] 2019-04-30 11:00:00 2019-04-30 11:00:00 Outpatient [facility] [id number] [facility] 2019-04-19 10:48:00 2019-04-19 10:48:00 Outpatient G_Pappas MMG [facility] [id number] [facility] 2019-04-17 16:23:00 2019-04-17 16:23:00 Outpatient JENA MICHAEL [facility] [id number] [facility] 2019-04-17 00:00:00 2019-04-17 00:00:00 Orders Only Doctor Unassigned, [place] [id number] 350.1.13.10 4.2.7.2.686 [id number] [facility] 2019-04-17 00:00:00 2019-04-17 00:00:00 Jena Adair, NP: [address] [address] , Ph. [phone] G_Pappas [facility] [id number] [facility] 2019-04-17 00:00:00 2019-04-17 00:00:00 Orders Only Doctor Unassigned, [place] [id number] 350.1.13.10 4.2.7.2.686 [id number] 2019-04-11 10:46:00 2019-04-11 10:46:00 Outpatient G_Pappas MMG [facility] [id number] [facility] 2019-04-10 11:46:00 2019-04-10 11:46:00 Outpatient G_Pappas [facility] [id number] [facility] 2019-04-09 10:20:53 2019-04-09 11:14:02 Routine Visit Melyssa Mccarty [facility] MARKETING OFFICER [facility] 1.2.840.114 350.1.13.10 4.2.7.2.686 [id number] [facility] 2019-04-09 10:20:53 2019-04-09 11:14:02 Routine Visit Melyssa Mccarty [facility] MARKETING OFFICER [facility] & CHILD [facility] 1.2.840.114 350.1.13.10 4.2.7.2.686 [id number] 2019-04-09 00:00:00 2019-04-09 00:00:00 Telephone ShylabrennaMelyssa Ashlie [facility] MARKETING OFFICER [facility] MATERNAL & CHILD [facility] 1.2.840.114 350.1.13.10 4.2.7.2.686 [id number] [facility] 2019-04-09 00:00:00 2019-04-09 00:00:00 Telephone LulMelyssa Ashlie [facility] MARKETING OFFICER [facility] MATERNAL & CHILD [facility] 1.2.840.114 350.1.13.10 4.2.7.2.686 [id number] 2019-04-02 00:00:00 2019-04-02 00:00:00 Abstract ShylabrennaMelyssa Ashlie [facility] MARKETING OFFICER [facility] & CHILD [facility] 1.2.840.114 350.1.13.10 4.2.7.2.686 [id number] [facility] 2019-04-02 00:00:00 2019-04-02 00:00:00 Abstract Melyssa Mccarty [facility] MARKETING OFFICER [facility] & [facility]ILD [facility] 1.2.840.114 350.1.13.10 4.2.7.2.686 [id number] 2019-03-29 13:15:49 2019-03-29 13:58:15 Routine Visit Melyssa Mccarty [facility] MARKETING OFFICER [facility] & CHILD [facility] 1.2.840.114 350.1.13.10 4.2.7.2.686 [id number] [facility] 2019-03-29 13:15:49 2019-03-29 13:58:15 Routine Visit Melyssa Mccarty [facility] MARKETING OFFICER [facility] & [facility] 1.2.840.114 350.1.13.10 4.2.7.2.686 [id number] 2019-03-25 00:00:00 2019-03-25 00:00:00 Patient Secure Msg Melyssa Mccarty [facility] MARKETING OFFICER [facility] CHILD [facility] 1.2.840.114 350.1.13.10 4.2.7.2.686 [id number] [facility] 2019-03-25 00:00:00 2019-03-25 00:00:00 Patient Secure Msg Melyssa Mccarty [facility] MARKETING OFFICER [facility] & [facility] 1.2.840.114 350.1.13.10 4.2.7.2.686 [id number] 2019-03-23 00:00:00 2019-03-23 00:00:00 Patient Secure Msg Doctor Unassigned, [place] [facility] 1.2.840.114 350.1.13.10 4.2.7.2.686 [id number] [facility] 2019-03-23 00:00:00 2019-03-23 00:00:00 Patient Secure Msg Doctor Unassigned, [place] [facility] 1.2.840.114 350.1.13.10 4.2.7.2.686 [id number] 2019-03-22 03:31:00 2019-03-22 03:31:00 Outpatient G_Pappas MMG [facility] [id number] [facility] 2019-03-21 10:37:46 2019-03-21 12:13:44 Routine Visit Trimester, [facility] PereyraCain [facility] 1.2.840.114 350.1.13.10 4.2.7.2.686 [id number] [facility] 2019-03-21 10:37:46 2019-03-21 12:13:44 Routine Visit Trimester, [address] 1.2.840.114 350.1.13.10 4.2.7.2.686 [id number] 2019-03-14 08:59:20 2019-03-14 09:14:20 Skin Installer Visit Lab, [facility] Melyssa Mccarty [facility] MARKETING OFFICER [facility] & CHILD [facility] 1.2.840.114 350.1.13.10 4.2.7.2.686 [id number] [facility] 2019-03-14 08:59:20 2019-03-14 09:14:20 Skin Installer Visit Lab, [facility] MARKETING OFFICER [facility] & CHILD [facility] 1.2.840.114 350.1.13.10 4.2.7.2.686 [id number] 107 [id number] 2019-03-12 10:45:27 2019-03-12 11:26:38 Routine Visit Melyssa Mccarty [facility] MARKETING OFFICER [facility] & CHILD [facility] 1.2.840.114 350.1.13.10 4.2.7.2.686 [id number] [facility] 2019-03-12 10:45:27 2019-03-12 11:26:38 Routine Visit Melyssa Mccarty [facility] MARKETING OFFICER [facility] MATERNAL & CHILD [facility] 1.2.840.114 350.1.13.10 4.2.7.2.686 [id number] 2019-03-12 00:00:00 2019-03-12 00:00:00 Telephone Melyssa Mccarty [facility] MARKETING OFFICER [facility] & CHILD [facility] 1.2.840.114 350.1.13.10 4.2.7.2.686 [id number] [facility] 2019-03-08 00:00:00 2019-03-08 00:00:00 Patient Secure Msg Melyssa Mccarty [facility] MARKETING OFFICER [facility] & CHILD [facility] 1.2.840.114 350.1.13.10 4.2.7.2.686 [id number] [facility] 2019-03-08 00:00:00 2019-03-08 00:00:00 Patient Secure Msg Melyssa Mccarty [facility] MARKETING OFFICER [facility] & CHILD [facility] 1.2.840.114 350.1.13.10 4.2.7.2.686 [id number] 2019-03-07 00:00:00 2019-03-07 00:00:00 Telephone Melyssa Mccarty [facility] MARKETING OFFICER [facility] & [facility] 1.2.840.114 350.1.13.10 4.2.7.2.686 [id number] [facility] 2019-03-06 09:42:06 2019-03-06 11:08:11 Initial Visit Melyssa Mccarty [facility] MARKETING OFFICER [facility] & [facility]ILD [facility] 1.2.840.114 350.1.13.10 [id number] [id number] 107 [id number] [facility] 2019-03-06 00:00:00 2019-03-06 00:00:00 Orders Only Doctor Unassigned, [place] [facility] 1.2.840.114 350.1.13.10 4.2.7.2.686 [id number] [facility] 2018-11-10 11:17:00 2018-11-10 11:17:00 Outpatient Sindhu [facility] [id number] [facility] 2018-10-26 00:00:00 2018-10-26 00:00:00 Angie Chase MD: [address], [address], [place] [address] , Ph. [phone] [facility] [id number] [facility] 2018-07-26 00:00:00 2018-07-26 00:00:00 JUAN Seymour: [address], [address], [place] [address] , Ph. [phone] [facility] [id number] 0606 [facility] 2018-04-26 00:00:00 2018-04-26 00:00:00 JUAN Seymour: [address], [address], [place] [address] , Ph. [phone] [facility] [id number] 0307 [facility] 2018-04-07 19:14:00 2018-04-07 21:48:00 Emergency ER ROSCOE MONTE [facility] [id number] [facility] 2018-04-05 05:11:00 2018-04-06 11:30:00 Inpatient Kartik Preciado [facility] [id number] [facility] 2018-04-02 00:00:00 2018-04-02 00:00:00 Kartik Samuesl MD: [address], [address], [place] [address] , Ph. [phone] [facility] [id number] [facility] 2018-03-29 00:00:00 2018-03-29 00:00:00 ZAID SeymourNP: [address], [address], [place] [address] , Ph. [phone] [facility] [id number] 0207 [facility] 2018-03-20 19:22:00 2018-03-20 21:45:00 Emergency ER ArvindKartik [facility] [id number] [facility] 2018-03-09 11:06:00 2018-03-09 11:06:00 Outpatient Kartik Preciado [facility] [id number] [facility] 2018-03-09 00:00:00 2018-03-09 00:00:00 Kartik Samuels MD: [address] [facility], [address], [place] [address] , Ph. [phone] [facility] [id number] 0118 [facility] 2018-02-28 00:00:00 2018-02-28 00:00:00 ZAID SeymourNP: [address] [facility], [address], [place] [address] , Ph. [phone] [facility] [id number] 0109 [facility] 2018-02-23 00:00:00 2018-02-23 00:00:00 JUAN Seymour: [address] [place] [address] , Ph. [phone] [facility] [place] [id number] 0104 [facility] 2018-01-26 09:39:00 2018-01-26 09:39:00 Outpatient Kartik Preciado [facility] [id number] [facility] 2018-01-26 00:00:00 2018-01-26 00:00:00 Kartik Samuels MD: [facility] [place] [address] , Ph. [phone] [facility] [id number] 1207 [facility] 2017-12-29 18:12:00 2017-12-29 21:56:00 Emergency ER Kartik Samuels [facility] [id number] [facility] 2017-11-24 09:00:00 2017-11-24 09:00:00 Outpatient TYE ADAIR JENA [facility] [id number] [facility] 2017-11-15 16:02:00 2017-11-15 16:02:00 Outpatient JENA MICHAEL [facility] [id number] [facility] 2017-10-05 11:03:00 2017-10-05 17:50:00 Emergency ER BIMAL ALMONTE [facility] [id number] [facility] Results Test Description Test Time Test Comments Results Result Co mments Source [facility] - [id number] 14:51:51* Test Item Value Reference Range Interpretation Comme nts Leukocytes (test code = Leukocytes) Negative Nitrite (test code = Nitrite) negative Urobilinogen (test code = Urobilinogen) .2 Protein (test code = Protein) Negative pH (test code = pH) 7.0 Blood (test code = Blood) Negative Specific Camino (test code = Specific Camino) 1.020 Ketone (test code = Ketone) Negative Bilirubin (test code = Bilirubin) Negative Glucose (test code = Glucose) Negative Appearance (test code = Appearance) Clear Color (test code = Color) Yellow [facility]) panel - [id number] 10:06:00* Test Item Value Reference Range Interpretation Comme nts Leukocytes (test code = Leukocytes) Trace Nitrite (test code = Nitrite) negative Urobilinogen (test code = Urobilinogen) .2 Protein (test code = Protein) Negative pH (test code = pH) 7.0 Blood (test code = Blood) Negative Specific Camino (test code = Specific Camino) 1.025 Ketone (test code = Ketone) Negative Bilirubin (test code = Bilirubin) Negative Glucose (test code = Glucose) Negative Appearance (test code = Appearance) Clear Color (test code = Color) Yellow [facility] (dipstick) panel - [id number] 10:06:00* Test Item Value Reference Range Interpretation Comme nts Leukocytes (test code = Leukocytes) Trace Nitrite (test code = Nitrite) negative Urobilinogen (test code = Urobilinogen) .2 Protein (test code = Protein) Negative pH (test code = pH) 7.0 Blood (test code = Blood) Negative Specific Camino (test code = Specific Camino) 1.025 Ketone (test code = Ketone) Negative Bilirubin (test code = Bilirubin) Negative Glucose (test code = Glucose) Negative Appearance (test code = Appearance) Clear Color (test code = Color) Yellow [facility], [id number] 09:33:09* Test Item Value Reference Range Interpretation Comme [facility] Test (test code = Test) negative [facility], [id number] 09:33:09* Test Item Value Reference Range Interpretation Comme nts Test (test code = Test) negative [facility] Auto Differential panel - [id number] 08:59:00 * Test Item Value Reference Range Interpretation Comme nts white blood count (test code = white blood count) 6.0 K/uL 4.0-11.5 red blood count (test code = red blood count) 5.01 M/uL 3.80-5.20 hemoglobin (test code = hemoglobin) 13.5 g/dL 10.5-15.7 hematocrit (test code = hematocrit) 43.1 % 34.0-50.0 MCV [Entitic volume] (test c ode = 22079-6) 86.0 fL 86-100 mean corpuscular hemoglobin (test [...] neutrophils/100 leukocytes in Blood (test code = 90945-4) 49.2 % 44.4-80.1 Immature granulocytes [#/vol ume] in Blood (test code = 38736-1) 0.0 K/uL 0.0-0.03 lymphocyte% (test code = lymphocyte%) 43.9 % 10.0-50.0 mono % (test code = mono %) 4.2 % 3.6-12.0 eos % (test code = eos %) 1.8 % 0.0-5.4 Basophils/100 leukocytes in Unspecified specimen (test code = 92690-1) 0.7 % 0.1-1.2 Band form neutrophils [#/vol ume] in Blood (test code = 54932-1) 2.96 K/uL 1.56-6.13 Lymphocytes [#/volume] in Unspecified specimen by Automated count (test code = 49099-6) 2.6 K/uL 1.18-3.74 mono # (test code = mono #) 0.25 K/uL 0.24-0.86 eos # (test code = eos #) 0.11 K/uL 0.04-0.36 basophil # (test code = baso miguel #) 0.04 K/uL 0.01-0.08 NRBC% (test code = NRBC%) 0 /100 WBC 0-0.2 NRBC# (test code = NRBC#) 0 K/uL [facility] W Auto Differential panel - [id number] 08:59:00 * Test Item Value Reference Range Interpretation Comme nts white blood count (test code = white blood count) 6.0 K/uL 4.0-11.5 red blood count (test code = red blood count) 5.01 M/uL 3.80-5.20 hemoglobin (test code = hemoglobin) 13.5 g/dL 10.5-15.7 hematocrit (test code = hematocrit) 43.1 % 34.0-50.0 MCV [Entitic volume] (test c ode = 54137-1) 86.0 fL 86-100 mean corpuscular hemoglobin (test [...] neutrophils/100 leukocytes in Blood (test code = 17223-9) 49.2 % 44.4-80.1 Immature granulocytes [#/vol ume] in Blood (test code = 65323-5) 0.0 K/uL 0.0-0.03 lymphocyte% (test code = lymphocyte%) 43.9 % 10.0-50.0 mono % (test code = mono %) 4.2 % 3.6-12.0 eos % (test code = eos %) 1.8 % 0.0-5.4 Basophils/100 leukocytes in Unspecified specimen (test code = 80317-8) 0.7 % 0.1-1.2 Band form neutrophils [#/vol ume] in Blood (test code = 44509-4) 2.96 K/uL 1.56-6.13 Lymphocytes [#/volume] in Unspecified specimen by Automated count (test code = 47985-4) 2.6 K/uL 1.18-3.74 mono # (test code = mono #) 0.25 K/uL 0.24-0.86 eos # (test code = eos #) 0.11 K/uL 0.04-0.36 basophil # (test code = baso miguel #) 0.04 K/uL 0.01-0.08 NRBC% (test code = NRBC%) 0 /100 WBC 0-0.2 NRBC# (test code = NRBC#) 0 K/uL [facility] (dipstick) panel - [id number] 13:38:11* Test Item Value Reference Range Interpretation Comme nts Leukocytes (test code = Leukocytes) Small Nitrite (test code = Nitrite) negative Urobilinogen (test code = Urobilinogen) .2 Protein (test code = Protein) Negative pH (test code = pH) 7.0 Blood (test code = Blood) Moderate Specific Camino (test code = Specific Camino) 1.020 Ketone (test code = Ketone) Negative Bilirubin (test code = Bilirubin) Negative Glucose (test code = Glucose) Negative Appearance (test code = Appearance) Clear Color (test code = Color) Yellow [facility] (dipstick) panel - [id number] 13:38:11* Test Item Value Reference Range Interpretation Comme nts Leukocytes (test code = Leukocytes) Small Nitrite (test code = Nitrite) negative Urobilinogen (test code = Urobilinogen) .2 Protein (test code = Protein) Negative pH (test code = pH) 7.0 Blood (test code = Blood) Moderate Specific Camino (test code = Specific Camino) 1.020 Ketone (test code = Ketone) Negative Bilirubin (test code = Bilirubin) Negative Glucose (test code = Glucose) Negative Appearance (test code = Appearance) Clear Color (test code = Color) Yellow [facility] macro (dipstick) panel - [id number] 13:38:11* Test Item Value Reference Range Interpretation Comme nts Leukocytes (test code = Leukocytes) Small Nitrite (test code = Nitrite) negative Urobilinogen (test code = Urobilinogen) .2 Protein (test code = Protein) Negative pH (test code = pH) 7.0 Blood (test code = Blood) Moderate Specific Camino (test code = Specific Camino) 1.020 Ketone (test code = Ketone) Negative Bilirubin (test code = Bilirubin) Negative Glucose (test code = Glucose) Negative Appearance (test code = Appearance) Clear Color (test code = Color) Yellow [facility] W Auto Differential panel - [id number] 08:05:00 * Test Item Value Reference Range Interpretation Comme nts white blood count (test code = white blood count) 10.1 K/uL 4.0-11.5 red blood count (test code = red blood count) 3.40 M/uL 3.80-5.20 L hemoglobin (test code = hemoglobin) 9.6 g/dL 10.5-15.7 L hematocrit (test code = hematocrit) 29.8 % 34.0-50.0 L MCV [Entitic volume] (test c ode = 31077-9) 87.6 fL 86-100 mean corpuscular hemoglobin (test [...] neutrophils/100 leukocytes in Blood (test code = 63015-0) 65.7 % 44.4-80.1 Immature granulocytes [#/vol ume] in Blood (test code = 69825-0) 0.1 K/uL 0.0-0.03 H lymphocyte% (test code = lymphocyte%) 27.2 % 10.0-50.0 mono % (test code = mono %) 5.2 % 3.6-12.0 eos % (test code = eos %) 0.7 % 0.0-5.4 Basophils/100 leukocytes in Unspecified specimen (test code = 41976-5) 0.5 % 0.1-1.2 Band form neutrophils [#/vol ume] in Blood (test code = 01439-1) 6.61 K/uL 1.56-6.13 H Lymphocytes [#/volume] in Unspecified specimen by Automated count (test code = 00345-9) 2.7 K/uL 1.18-3.74 mono # (test code = mono #) 0.52 K/uL 0.24-0.86 eos # (test code = eos #) 0.07 K/uL 0.04-0.36 basophil # (test code = baso miguel #) 0.05 K/uL 0.01-0.08 NRBC% (test code = NRBC%) 0 /100 WBC 0-0.2 NRBC# (test code = NRBC#) 0 K/uL [facility] W Auto Differential panel - [id number] 04:18:00 * Test Item Value Reference Range Interpretation Comme nts white blood count (test code = white blood count) 8.2 K/uL 4.0-11.5 red blood count (test code = red blood count) 3.42 M/uL 3.80-5.20 L hemoglobin (test code = hemoglobin) 9.6 g/dL 10.5-15.7 L hematocrit (test code = hematocrit) 30.3 % 34.0-50.0 L MCV [Entitic volume] (test c ode = 97593-6) 88.6 fL 86-100 mean corpuscular hemoglobin (test [...] neutrophils/100 leukocytes in Blood (test code = 97796-4) 58.7 % 44.4-80.1 Immature granulocytes [#/vol ume] in Blood (test code = 10763-9) 0.1 K/uL 0.0-0.03 H lymphocyte% (test code = lymphocyte%) 32.6 % 10.0-50.0 mono % (test code = mono %) 6.2 % 3.6-12.0 eos % (test code = eos %) 1.1 % 0.0-5.4 Basophils/100 leukocytes in Unspecified specimen (test code = 21535-9) 0.5 % 0.1-1.2 Band form neutrophils [#/vol ume] in Blood (test code = 18066-3) 4.81 K/uL 1.56-6.13 Lymphocytes [#/volume] in Unspecified specimen by Automated count (test code = 44937-6) 2.7 K/uL 1.18-3.74 mono # (test code = mono #) 0.51 K/uL 0.24-0.86 eos # (test code = eos #) 0.09 K/uL 0.04-0.36 basophil # (test code = baso miguel #) 0.04 K/uL 0.01-0.08 NRBC% (test code = NRBC%) 0 /100 WBC 0-0.2 NRBC# (test code = NRBC#) 0 K/uL [facility] Ind[facility] - Blood 2019-11-07 04:18:00* Test Item Value Reference Range Interpretation Comme nts Rh [Type] in Blood (test cod e = 59900-4) 4+ ABO and Rh group panel - Blo od (test code = 47097-0) A positive [facility] GroupHepatitis B virus surface Ag [Presence] in Serum 2019-11-07 04:18:00* Test Item Value Reference Range Interpretation Comme nts .hepatitis B surface antigen (test code = .hepatitis B surface antigen) negative negative [facility] GroupReagin Ab [Presence] in Serum by [id number] 04:18:00* Test Item Value Reference Range Interpretation Comme nts Reagin Ab [Presence] in Seru m by RPR (test code = 76859-8) nonreactive nonreactive [facility] GroupUrinalysis macro (dipstick) panel - [id number] 08:55:00* Test Item Value Reference Range Interpretation Comme nts Leukocytes (test code = Leukocytes) Large Nitrite (test code = Nitrite) negative Urobilinogen (test code = Urobilinogen) .2 Protein (test code = Protein) Negative pH (test code = pH) 7.0 Blood (test code = Blood) Hemolyzed: Trace Specific Camino (test code = Specific Camino) 1.025 Ketone (test code = Ketone) Negative Bilirubin (test code = Bilirubin) Negative Glucose (test code = Glucose) Negative Appearance (test code = Appearance) Clear Color (test code = Color) Yellow [facility] GroupUrinalysis macro (dipstick) panel - [id number] 11:15:00* Test Item Value Reference Range Interpretation Comme nts Leukocytes (test code = Leukocytes) Large Nitrite (test code = Nitrite) negative Urobilinogen (test code = Urobilinogen) .2 Protein (test code = Protein) Negative pH (test code = pH) 7.0 Blood (test code = Blood) Non-Hemolyzed: Trace Specific Camino (test code = Specific Camino) 1.020 Ketone (test code = Ketone) Negative Bilirubin (test code = Bilirubin) Negative Glucose (test code = Glucose) Negative Appearance (test code = Appearance) Clear Color (test code = Color) Yellow [facility] Group[facility]inalysis macro (dipstick) panel - [id number] 11:15:00* Test Item Value Reference Range Interpretation Comme nts Leukocytes (test code = Leukocytes) Large Nitrite (test code = Nitrite) negative Urobilinogen (test code = Urobilinogen) .2 Protein (test code = Protein) Negative pH (test code = pH) 7.0 Blood (test code = Blood) Non-Hemolyzed: Trace Specific Camino (test code = Specific Camino) 1.020 Ketone (test code = Ketone) Negative Bilirubin (test code = Bilirubin) Negative Glucose (test code = Glucose) Negative Appearance (test code = Appearance) Clear Color (test code = Color) Yellow [facility] Groupnon-stress [id number] 18:40:53* Test Item Value Reference Range Interpretation Comme nts Reactive (test code = Reactive) Yes Contractions (test code = Contractions) No [facility]non-stress [id number] 18:40:53* Test Item Value Reference Range Interpretation Comme nts Reactive (test code = Reactive) Yes Contractions (test code = Contractions) No [facility]stress [id number] 18:40:53* Test Item Value Reference Range Interpretation Comme nts Reactive (test code = Reactive) Yes Contractions (test code = Contractions) No [facility] GroupUrinalysis complete panel - [id number] 05:54:00* Test Item Value Reference Range Interpretation Comme nts Color of Urine by Auto (test code = 93263-0) light yellow Appearance of Urine (test co de = 5767-9) SL cloudy clear A Glucose [Presence] in Urine by Automated test strip (test code = 51232-0) negative negative Bilirubin.total [Mass/volume ] in Urine (test code = 1978-6) negative negative Ketones [Mass/volume] in Uri ne by Automated test strip (test code = 06844-1) negative negative Specific gravity of Urine by Automated test strip (test code = 74147-1) 1.017 1.003-1.030 blood urine (test code = blo od urine) negative negative pH of Urine (test code = 2756-5) 7.000 5-9 protein urine (UA) (test cod e = protein urine (UA)) trace negative Urobilinogen [Presence] in U rine (test code = 07434-7) normal 0.2-1.0 Nitrite [Presence] in Urine by Test strip (test code = 5802-4) negative negative Leukocyte esterase [Presence ] in Urine by Automated test strip (test code = 07438-9) =4 negative H Erythrocytes [#/volume] in U rine by Automated count (test code = 798-9) =1-5 0-5 Leukocytes [#/area] in Urine sediment by Automated count (test code = 25479-2) =30-49 0-5 H Epithelial cells [Presence] in Urine sediment by Light microscopy (test code = 33963-0) =11-14 0-5 Bacteria identified in Urine by Culture (test code = 630-4) moderate (2 none detect H Casts [#/area] in Urine sedi ment by Automated count (test code = 75273-3) =2-5 none detect urine culture added? (test c ode = urine culture added?) yes [facility] YkabqIiqhc-5-Wgjdzugyipout.placental [Presence] in Vaginal [id number] 05:54:00* Test Item Value Reference Range Interpretation Comme nts Xdzjt-4-Nuohdquyftslv.placen anjana [Presence] in Vaginal fluid (test code = 23643-1) negative neg [facility] GroupBacteria identified in Urine by [id number] 05:54:00* Test Item Value Reference Range Interpretation Comme nts Bacteria identified in Urine by Culture (test code = 630-4) no growth at 2 days. [facility] GroupUrinalysis complete panel - [id number] 05:54:00* Test Item Value Reference Range Interpretation Comme nts Color of Urine by Auto (test code = 01250-0) light yellow Appearance of Urine (test co de = 5767-9) SL cloudy clear A Glucose [Presence] in Urine by Automated test strip (test code = 01374-8) negative negative Bilirubin.total [Mass/volume ] in Urine (test code = 1978-6) negative negative Ketones [Mass/volume] in Uri ne by Automated test strip (test code = 00903-2) negative negative Specific gravity of Urine by Automated test strip (test code = 00904-8) 1.017 1.003-1.030 blood urine (test code = blo od urine) negative negative pH of Urine (test code = 2756-5) 7.000 5-9 protein urine (UA) (test cod e = protein urine (UA)) trace negative Urobilinogen [Presence] in U rine (test code = 10576-5) normal 0.2-1.0 Nitrite [Presence] in Urine by Test strip (test code = 5802-4) negative negative Leukocyte esterase [Presence ] in Urine by Automated test strip (test code = 64646-3) =4 negative H Erythrocytes [#/volume] in U rine by Automated count (test code = 798-9) =1-5 0-5 Leukocytes [#/area] in Urine sediment by Automated count (test code = 77803-1) =30-49 0-5 H Epithelial cells [Presence] in Urine sediment by Light microscopy (test code = 23694-2) =11-14 0-5 Bacteria identified in Urine by Culture (test code = 630-4) moderate (2 none detect H Casts [#/area] in Urine sedi ment by Automated count (test code = 70155-9) =2-5 none detect urine culture added? (test c ode = urine culture added?) yes [facility] ZgheuAsatn-2-Tzzqpcqkgyixj.placental [Presence] in Vaginal [id number] 05:54:00* Test Item Value Reference Range Interpretation Comme nts Gahmo-2-Dckebdlyokotx.placen anjnaa [Presence] in Vaginal fluid (test code = 05470-7) negative neg [facility] GroupBacteria identified in Urine by [id number] 05:54:00* Test Item Value Reference Range Interpretation Comme nts Bacteria identified in Urine by Culture (test code = 630-4) no growth at 2 days. [facility] - [id number] 05:54:00* Test Item Value Reference Range Interpretation Comme nts Color of Urine by Auto (test code = 53393-5) light yellow Appearance of Urine (test co de = 5767-9) SL cloudy clear A Glucose [Presence] in Urine by Automated test strip (test code = 85529-7) negative negative Bilirubin.total [Mass/volume ] in Urine (test code = 1978-6) negative negative Ketones [Mass/volume] in Uri ne by Automated test strip (test code = 27305-7) negative negative Specific gravity of Urine by Automated test strip (test code = 09273-5) 1.017 1.003-1.030 blood urine (test code = blo od urine) negative negative pH of Urine (test code = 2756-5) 7.000 5-9 protein urine (UA) (test cod e = protein urine (UA)) trace negative Urobilinogen [Presence] in U rine (test code = 85960-7) normal 0.2-1.0 Nitrite [Presence] in Urine by Test strip (test code = 5802-4) negative negative Leukocyte esterase [Presence ] in Urine by Automated test strip (test code = 49550-0) =4 negative H Erythrocytes [#/volume] in U rine by Automated count (test code = 798-9) =1-5 0-5 Leukocytes [#/area] in Urine sediment by Automated count (test code = 40960-2) =30-49 0-5 H Epithelial cells [Presence] in Urine sediment by Light microscopy (test code = 03181-9) =11-14 0-5 Bacteria identified in Urine by Culture (test code = 630-4) moderate (2 none detect H Casts [#/area] in Urine sedi ment by Automated count (test code = 64396-4) =2-5 none detect urine culture added? (test c ode = urine culture added?) yes [facility] HealthNzvqzYvwat-4-Iyvntojvzapsa.placental [Presence] in Vaginal [id number] 05:54:00* Test Item Value Reference Range Interpretation Comme nts Civqw-3-Abyvwkclsqewh.placen anjana [Presence] in Vaginal fluid (test code = 00737-4) negative neg [facility] GroupBacteria identified in Urine by Dsucmjj2751-01-49 05:54:00* Test Item Value Reference Range Interpretation Comme nts Bacteria identified in Urine by Culture (test code = 630-4) no growth at 2 days. [facility] Groupculture, vaginal/rectal, streptococcus group [id number] 00:00:00* Test Item Value Reference Range Interpretation Comme nts group B strep (test code = g roup B strep) normal [facility]culture, vaginal/rectal, streptococcus group [id number] 00:00:00* Test Item Value Reference Range Interpretation Comme nts group B strep (test code = g roup B strep) normal [facility]culture, vaginal/rectal, streptococcus group [id number] 00:00:00* Test Item Value Reference Range Interpretation Comme nts group B strep (test code = g roup B strep) normal [facility]culture, vaginal/rectal, streptococcus group [id number] 00:00:00* Test Item Value Reference Range Interpretation Comme nts group B strep (test code = g roup B strep) normal [facility] GroupUrinalysis macro (dipstick) panel - [id number] 14:59:26* Test Item Value Reference Range Interpretation Comme nts Leukocytes (test code = Leukocytes) Large Nitrite (test code = Nitrite) negative Urobilinogen (test code = Urobilinogen) .2 Protein (test code = Protein) Negative pH (test code = pH) 7.5 Blood (test code = Blood) Non-Hemolyzed: Trace Specific Camino (test code = Specific Camino) 1.020 Ketone (test code = Ketone) Negative Bilirubin (test code = Bilirubin) Negative Glucose (test code = Glucose) Negative Appearance (test code = Appearance) Clear Color (test code = Color) Yellow [facility] GroupUrinalysis macro (dipstick) panel - [id number] 14:59:26* Test Item Value Reference Range Interpretation Comme nts Leukocytes (test code = Leukocytes) Large Nitrite (test code = Nitrite) negative Urobilinogen (test code = Urobilinogen) .2 Protein (test code = Protein) Negative pH (test code = pH) 7.5 Blood (test code = Blood) Non-Hemolyzed: Trace Specific Camino (test code = Specific Camino) 1.020 Ketone (test code = Ketone) Negative Bilirubin (test code = Bilirubin) Negative Glucose (test code = Glucose) Negative Appearance (test code = Appearance) Clear Color (test code = Color) Yellow [facility] (dipstick) panel - [id number] 14:59:26* Test Item Value Reference Range Interpretation Comme nts Leukocytes (test code = Leukocytes) Large Nitrite (test code = Nitrite) negative Urobilinogen (test code = Urobilinogen) .2 Protein (test code = Protein) Negative pH (test code = pH) 7.5 Blood (test code = Blood) Non-Hemolyzed: Trace Specific Camino (test code = Specific Camino) 1.020 Ketone (test code = Ketone) Negative Bilirubin (test code = Bilirubin) Negative Glucose (test code = Glucose) Negative Appearance (test code = Appearance) Clear Color (test code = Color) Yellow [facility] - [id number] 14:59:26* Test Item Value Reference Range Interpretation Comme nts Leukocytes (test code = Leukocytes) Large Nitrite (test code = Nitrite) negative Urobilinogen (test code = Urobilinogen) .2 Protein (test code = Protein) Negative pH (test code = pH) 7.5 Blood (test code = Blood) Non-Hemolyzed: Trace Specific Camino (test code = Specific Camino) 1.020 Ketone (test code = Ketone) Negative Bilirubin (test code = Bilirubin) Negative Glucose (test code = Glucose) Negative Appearance (test code = Appearance) Clear Color (test code = Color) Yellow [facility] - [id number] 14:59:26* Test Item Value Reference Range Interpretation Comme nts Leukocytes (test code = Leukocytes) Large Nitrite (test code = Nitrite) negative Urobilinogen (test code = Urobilinogen) .2 Protein (test code = Protein) Negative pH (test code = pH) 7.5 Blood (test code = Blood) Non-Hemolyzed: Trace Specific Camino (test code = Specific Camino) 1.020 Ketone (test code = Ketone) Negative Bilirubin (test code = Bilirubin) Negative Glucose (test code = Glucose) Negative Appearance (test code = Appearance) Clear Color (test code = Color) Yellow [facility] W Auto Differential panel - [id number] 06:30:00 * Test Item Value Reference Range Interpretation Comme nts white blood count (test code = white blood count) 11.5 K/uL 4.0-11.5 red blood count (test code = red blood count) 3.26 M/uL 3.80-5.20 L hemoglobin (test code = hemoglobin) 9.9 g/dL 10.5-15.7 L hematocrit (test code = hematocrit) 29.7 % 34.0-50.0 L MCV [Entitic volume] (test c ode = 45421-3) 91.1 fL 86-100 mean corpuscular hemoglobin (test [...] neutrophils/100 leukocytes in Blood (test code = 87371-7) 68.5 % 44.4-80.1 Immature granulocytes [#/vol ume] in Blood (test code = 37614-9) 0.3 K/uL 0.0-0.03 H lymphocyte% (test code = lymphocyte%) 21.8 % 10.0-50.0 mono % (test code = mono %) 6.4 % 3.6-12.0 eos % (test code = eos %) 0.5 % 0.0-5.4 Basophils/100 leukocytes in Unspecified specimen (test code = 77017-2) 0.3 % 0.1-1.2 Band form neutrophils [#/vol ume] in Blood (test code = 36988-1) 7.85 K/uL 1.56-6.13 H Lymphocytes [#/volume] in Unspecified specimen by Automated count (test code = 86727-2) 2.5 K/uL 1.18-3.74 mono # (test code = mono #) 0.73 K/uL 0.24-0.86 eos # (test code = eos #) 0.06 K/uL 0.04-0.36 basophil # (test code = baso miguel #) 0.04 K/uL 0.01-0.08 NRBC% (test code = NRBC%) 0 /100 WBC 0-0.2 NRBC# (test code = NRBC#) 0 K/uL [facility] W Auto Differential panel - [id number] 06:30:00 * Test Item Value Reference Range Interpretation Comme nts white blood count (test code = white blood count) 11.5 K/uL 4.0-11.5 red blood count (test code = red blood count) 3.26 M/uL 3.80-5.20 L hemoglobin (test code = hemoglobin) 9.9 g/dL 10.5-15.7 L hematocrit (test code = hematocrit) 29.7 % 34.0-50.0 L MCV [Entitic volume] (test c ode = 39065-5) 91.1 fL 86-100 mean corpuscular hemoglobin (test [...] neutrophils/100 leukocytes in Blood (test code = 03123-0) 68.5 % 44.4-80.1 Immature granulocytes [#/vol ume] in Blood (test code = 34405-8) 0.3 K/uL 0.0-0.03 H lymphocyte% (test code = lymphocyte%) 21.8 % 10.0-50.0 mono % (test code = mono %) 6.4 % 3.6-12.0 eos % (test code = eos %) 0.5 % 0.0-5.4 Basophils/100 leukocytes in Unspecified specimen (test code = 35845-3) 0.3 % 0.1-1.2 Band form neutrophils [#/vol ume] in Blood (test code = 02431-1) 7.85 K/uL 1.56-6.13 H Lymphocytes [#/volume] in Unspecified specimen by Automated count (test code = 67917-1) 2.5 K/uL 1.18-3.74 mono # (test code = mono #) 0.73 K/uL 0.24-0.86 eos # (test code = eos #) 0.06 K/uL 0.04-0.36 basophil # (test code = baso miguel #) 0.04 K/uL 0.01-0.08 NRBC% (test code = NRBC%) 0 /100 WBC 0-0.2 NRBC# (test code = NRBC#) 0 K/uL [facility] W Auto Differential panel - [id number] 06:30:00 * Test Item Value Reference Range Interpretation Comme nts white blood count (test code = white blood count) 11.5 K/uL 4.0-11.5 red blood count (test code = red blood count) 3.26 M/uL 3.80-5.20 L hemoglobin (test code = hemoglobin) 9.9 g/dL 10.5-15.7 L hematocrit (test code = hematocrit) 29.7 % 34.0-50.0 L MCV [Entitic volume] (test c ode = 64890-8) 91.1 fL 86-100 mean corpuscular hemoglobin (test [...] neutrophils/100 leukocytes in Blood (test code = 96944-6) 68.5 % 44.4-80.1 Immature granulocytes [#/vol ume] in Blood (test code = 52092-8) 0.3 K/uL 0.0-0.03 H lymphocyte% (test code = lymphocyte%) 21.8 % 10.0-50.0 mono % (test code = mono %) 6.4 % 3.6-12.0 eos % (test code = eos %) 0.5 % 0.0-5.4 Basophils/100 leukocytes in Unspecified specimen (test code = 40084-6) 0.3 % 0.1-1.2 Band form neutrophils [#/vol ume] in Blood (test code = 65364-1) 7.85 K/uL 1.56-6.13 H Lymphocytes [#/volume] in Unspecified specimen by Automated count (test code = 83107-8) 2.5 K/uL 1.18-3.74 mono # (test code = mono #) 0.73 K/uL 0.24-0.86 eos # (test code = eos #) 0.06 K/uL 0.04-0.36 basophil # (test code = baso miguel #) 0.04 K/uL 0.01-0.08 NRBC% (test code = NRBC%) 0 /100 WBC 0-0.2 NRBC# (test code = NRBC#) 0 K/uL [facility] W Auto Differential panel - [id number] 06:30:00 * Test Item Value Reference Range Interpretation Comme nts white blood count (test code = white blood count) 11.5 K/uL 4.0-11.5 red blood count (test code = red blood count) 3.26 M/uL 3.80-5.20 L hemoglobin (test code = hemoglobin) 9.9 g/dL 10.5-15.7 L hematocrit (test code = hematocrit) 29.7 % 34.0-50.0 L MCV [Entitic volume] (test c ode = 90785-8) 91.1 fL 86-100 mean corpuscular hemoglobin (test [...] neutrophils/100 leukocytes in Blood (test code = 51938-5) 68.5 % 44.4-80.1 Immature granulocytes [#/vol ume] in Blood (test code = 65780-4) 0.3 K/uL 0.0-0.03 H lymphocyte% (test code = lymphocyte%) 21.8 % 10.0-50.0 mono % (test code = mono %) 6.4 % 3.6-12.0 eos % (test code = eos %) 0.5 % 0.0-5.4 Basophils/100 leukocytes in Unspecified specimen (test code = 46206-3) 0.3 % 0.1-1.2 Band form neutrophils [#/vol ume] in Blood (test code = 26405-3) 7.85 K/uL 1.56-6.13 H Lymphocytes [#/volume] in Unspecified specimen by Automated count (test code = 34500-1) 2.5 K/uL 1.18-3.74 mono # (test code = mono #) 0.73 K/uL 0.24-0.86 eos # (test code = eos #) 0.06 K/uL 0.04-0.36 basophil # (test code = baso miguel #) 0.04 K/uL 0.01-0.08 NRBC% (test code = NRBC%) 0 /100 WBC 0-0.2 NRBC# (test code = NRBC#) 0 K/uL [facility] W Auto Differential panel - [id number] 06:30:00 * Test Item Value Reference Range Interpretation Comme nts white blood count (test code = white blood count) 11.5 K/uL 4.0-11.5 red blood count (test code = red blood count) 3.26 M/uL 3.80-5.20 L hemoglobin (test code = hemoglobin) 9.9 g/dL 10.5-15.7 L hematocrit (test code = hematocrit) 29.7 % 34.0-50.0 L MCV [Entitic volume] (test c ode = 16530-8) 91.1 fL 86-100 mean corpuscular hemoglobin (test [...] neutrophils/100 leukocytes in Blood (test code = 18710-4) 68.5 % 44.4-80.1 Immature granulocytes [#/vol ume] in Blood (test code = 83389-2) 0.3 K/uL 0.0-0.03 H lymphocyte% (test code = lymphocyte%) 21.8 % 10.0-50.0 mono % (test code = mono %) 6.4 % 3.6-12.0 eos % (test code = eos %) 0.5 % 0.0-5.4 Basophils/100 leukocytes in Unspecified specimen (test code = 40971-7) 0.3 % 0.1-1.2 Band form neutrophils [#/vol ume] in Blood (test code = 93869-8) 7.85 K/uL 1.56-6.13 H Lymphocytes [#/volume] in Unspecified specimen by Automated count (test code = 06803-1) 2.5 K/uL 1.18-3.74 mono # (test code = mono #) 0.73 K/uL 0.24-0.86 eos # (test code = eos #) 0.06 K/uL 0.04-0.36 basophil # (test code = baso miguel #) 0.04 K/uL 0.01-0.08 NRBC% (test code = NRBC%) 0 /100 WBC 0-0.2 NRBC# (test code = NRBC#) 0 K/uL [facility] - [id number] 06:07:00* Test Item Value Reference Range Interpretation Comme nts Color of Urine by Auto (test code = 29376-2) light yellow Appearance of Urine (test co de = 5767-9) clear clear Glucose [Presence] in Urine by Automated test strip (test code = 47806-4) trace (30 negative Bilirubin.total [Mass/volume ] in Urine (test code = 1978-6) negative negative Ketones [Mass/volume] in Uri ne by Automated test strip (test code = 53806-4) negative negative Specific gravity of Urine by Automated test strip (test code = 52246-1) 1.016 1.003-1.030 blood urine (test code = blo od urine) negative negative pH of Urine (test code = 2756-5) 7.000 5-9 protein urine (UA) (test cod e = protein urine (UA)) trace negative Urobilinogen [Presence] in Urine (test code = 35207-4) normal 0.2-1.0 Nitrite [Presence] in Urine by Test strip (test code = 5802-4) negative negative Leukocyte esterase [Presence ] in Urine by Automated test strip (test code = 88650-5) =1 negative H Erythrocytes [#/volume] in Urine by Automated count (test code = 798-9) =1-5 0-5 Leukocytes [#/area] in Urine sediment by Automated count (test code = 39939-1) =1-5 0-5 Epithelial cells [Presence] in Urine sediment by Light microscopy (test code = 41451-3) =6-10 0-5 Bacteria identified in Urine by Culture (test code = 630-4) small(1 none detect Casts [#/area] in Urine sediment by Automated count (test code = 12355-5) none detected none detect urine culture added? (test c ode = urine culture added?) yes [facility] Group[facility] complete [facility] - [id number] 06:07:00* Test Item Value Reference Range Interpretation Comme nts Color of Urine by Auto (test code = 34766-0) light yellow Appearance of Urine (test co de = 5767-9) clear clear Glucose [Presence] in Urine by Automated test strip (test code = 99150-4) trace (30 negative Bilirubin.total [Mass/volume ] in Urine (test code = 1977-07) negative negative Ketones [Mass/volume] in Uri ne by Automated test strip (test code = 44657-2) negative negative Specific gravity of Urine by Automated test strip (test code = 96059-5) 1.016 1.003-1.030 blood urine (test code = blo od urine) negative negative pH of Urine (test code = 2756-5) 7.000 5-9 protein urine (UA) (test cod e = protein urine (UA)) trace negative Urobilinogen [Presence] in Urine (test code = 77279-6) normal 0.2-1.0 Nitrite [Presence] in Urine by Test strip (test code = 5802-4) negative negative Leukocyte esterase [Presence ] in Urine by Automated test strip (test code = 51854-1) =1 negative H Erythrocytes [#/volume] in Urine by Automated count (test code = 798-9) =1-5 0-5 Leukocytes [#/area] in Urine sediment by Automated count (test code = 88905-7) =1-5 0-5 Epithelial cells [Presence] in Urine sediment by Light microscopy (test code = 38745-2) =6-10 0-5 Bacteria identified in Urine by Culture (test code = 630-4) small(1 none detect Casts [#/area] in Urine sediment by Automated count (test code = 09643-7) none detected none detect urine culture added? (test c ode = urine culture added?) yes [facility] GroupUr[facility] complete panel - [id number] 06:07:00* Test Item Value Reference Range Interpretation Comme nts Color of Urine by Auto (test code = 59620-8) light yellow Appearance of Urine (test co de = 5767-9) clear clear Glucose [Presence] in Urine by Automated test strip (test code = 71407-7) trace (30 negative Bilirubin.total [Mass/volume ] in Urine (test code = 1977-07) negative negative Ketones [Mass/volume] in Uri ne by Automated test strip (test code = 60693-8) negative negative Specific gravity of Urine by Automated test strip (test code = 83142-1) 1.016 1.003-1.030 blood urine (test code = blo od urine) negative negative pH of Urine (test code = 2756-5) 7.000 5-9 protein urine (UA) (test cod e = protein urine (UA)) trace negative Urobilinogen [Presence] in Urine (test code = 41537-9) normal 0.2-1.0 Nitrite [Presence] in Urine by Test strip (test code = 5802-4) negative negative Leukocyte esterase [Presence ] in Urine by Automated test strip (test code = 38587-5) =1 negative H Erythrocytes [#/volume] in Urine by Automated count (test code = 798-9) =1-5 0-5 Leukocytes [#/area] in Urine sediment by Automated count (test code = 68540-1) =1-5 0-5 Epithelial cells [Presence] in Urine sediment by Light microscopy (test code = 80759-6) =6-10 0-5 Bacteria identified in Urine by Culture (test code = 630-4) small(1 none detect Casts [#/area] in Urine sediment by Automated count (test code = 66791-3) none detected none detect urine culture added? (test c ode = urine culture added?) yes [facility] identified in [facility] by [id number] 06:07:00* Test Item Value Reference Range Interpretation Comme nts Bacteria identified in Urine by Culture (test code = 630-4) no growth after 2 days [facility] Group[facility]inal[facility] complete panel - [id number] 06:07:00* Test Item Value Reference Range Interpretation Comme nts Color of Urine by Auto (test code = 45966-9) light yellow Appearance of Urine (test co de = 5767-9) clear clear Glucose [Presence] in Urine by Automated test strip (test code = 00439-6) trace (30 negative Bilirubin.total [Mass/volume ] in Urine (test code = 1977-07) negative negative Ketones [Mass/volume] in Uri ne by Automated test strip (test code = 35397-9) negative negative Specific gravity of Urine by Automated test strip (test code = 75794-1) 1.016 1.003-1.030 blood urine (test code = blo od urine) negative negative pH of Urine (test code = 2756-5) 7.000 5-9 protein urine (UA) (test cod e = protein urine (UA)) trace negative Urobilinogen [Presence] in Urine (test code = 19257-9) normal 0.2-1.0 Nitrite [Presence] in Urine by Test strip (test code = 5802-4) negative negative Leukocyte esterase [Presence ] in Urine by Automated test strip (test code = 81584-5) =1 negative H Erythrocytes [#/volume] in Urine by Automated count (test code = 798-9) =1-5 0-5 Leukocytes [#/area] in Urine sediment by Automated count (test code = 86401-7) =1-5 0-5 Epithelial cells [Presence] in Urine sediment by Light microscopy (test code = 48327-7) =6-10 0-5 Bacteria identified in Urine by Culture (test code = 630-4) small(1 none detect Casts [#/area] in Urine sediment by Automated count (test code = 23591-2) none detected none detect urine culture added? (test c ode = urine culture added?) yes [facility] identified in Urine by [id number] 06:07:00* Test Item Value Reference Range Interpretation Comme nts Bacteria identified in Urine by Culture (test code = 630-4) no growth after 2 days [facility] GroupUrinalysis complete panel - [id number] 06:07:00* Test Item Value Reference Range Interpretation Comme nts Color of Urine by Auto (test code = 01598-5) light yellow Appearance of Urine (test co de = 5767-9) clear clear Glucose [Presence] in Urine by Automated test strip (test code = 33459-8) trace (30 negative Bilirubin.total [Mass/volume ] in Urine (test code = 1978-6) negative negative Ketones [Mass/volume] in Uri ne by Automated test strip (test code = 96397-8) negative negative Specific gravity of Urine by Automated test strip (test code = 83553-0) 1.016 1.003-1.030 blood urine (test code = blo od urine) negative negative pH of Urine (test code = 2756-5) 7.000 5-9 protein urine (UA) (test cod e = protein urine (UA)) trace negative Urobilinogen [Presence] in Urine (test code = 89324-8) normal 0.2-1.0 Nitrite [Presence] in Urine by Test strip (test code = 5802-4) negative negative Leukocyte esterase [Presence ] in Urine by Automated test strip (test code = 18697-8) =1 negative H Erythrocytes [#/volume] in Urine by Automated count (test code = 798-9) =1-5 0-5 Leukocytes [#/area] in Urine sediment by Automated count (test code = 45176-9) =1-5 0-5 Epithelial cells [Presence] in Urine sediment by Light microscopy (test code = 04095-1) =6-10 0-5 Bacteria identified in Urine by Culture (test code = 630-4) small(1 none detect Casts [#/area] in Urine sediment by Automated count (test code = 87570-8) none detected none detect urine culture added? (test c ode = urine culture added?) yes [facility] by [id number] 06:07:00* Test Item Value Reference Range Interpretation Comme nts Bacteria identified in Urine by Culture (test code = 630-4) no growth after 2 days [facility] (dipstick) panel - [id number] 09:25:26* Test Item Value Reference Range Interpretation Comme nts Leukocytes (test code = Leukocytes) Large Nitrite (test code = Nitrite) negative Urobilinogen (test code = Urobilinogen) .2 Protein (test code = Protein) Negative pH (test code = pH) 7.0 Blood (test code = Blood) Negative Specific Camino (test code = Specific Camino) 1.015 Ketone (test code = Ketone) Negative Bilirubin (test code = Bilirubin) Negative Glucose (test code = Glucose) Negative Appearance (test code = Appearance) Clear Color (test code = Color) Yellow [facility] GroupUrinalysis macro (dipstick) panel - [id number] 09:25:26* Test Item Value Reference Range Interpretation Comme nts Leukocytes (test code = Leukocytes) Large Nitrite (test code = Nitrite) negative Urobilinogen (test code = Urobilinogen) .2 Protein (test code = Protein) Negative pH (test code = pH) 7.0 Blood (test code = Blood) Negative Specific Camino (test code = Specific Camino) 1.015 Ketone (test code = Ketone) Negative Bilirubin (test code = Bilirubin) Negative Glucose (test code = Glucose) Negative Appearance (test code = Appearance) Clear Color (test code = Color) Yellow [facility] GroupUrinalysis macro (dipstick) panel - [id number] 09:25:26* Test Item Value Reference Range Interpretation Comme nts Leukocytes (test code = Leukocytes) Large Nitrite (test code = Nitrite) negative Urobilinogen (test code = Urobilinogen) .2 Protein (test code = Protein) Negative pH (test code = pH) 7.0 Blood (test code = Blood) Negative Specific Camino (test code = Specific Camino) 1.015 Ketone (test code = Ketone) Negative Bilirubin (test code = Bilirubin) Negative Glucose (test code = Glucose) Negative Appearance (test code = Appearance) Clear Color (test code = Color) Yellow [facility] GroupUrinalysis macro (dipstick) panel - [id number] 09:25:26* Test Item Value Reference Range Interpretation Comme nts Leukocytes (test code = Leukocytes) Large Nitrite (test code = Nitrite) negative Urobilinogen (test code = Urobilinogen) .2 Protein (test code = Protein) Negative pH (test code = pH) 7.0 Blood (test code = Blood) Negative Specific Camino (test code = Specific Camino) 1.015 Ketone (test code = Ketone) Negative Bilirubin (test code = Bilirubin) Negative Glucose (test code = Glucose) Negative Appearance (test code = Appearance) Clear Color (test code = Color) Yellow [facility] GroupGlucose [Mass/volume] in Serum or Plasma --1 hour post dose [id number] 09:49:00* Test Item Value Reference Range Interpretation Comme nts Results (test code = Results) 121 [facility] GroupGlucose [Mass/volume] in Serum or Plasma --1 hour post dose [id number] 09:49:00* Test Item Value Reference Range Interpretation Comme nts Results (test code = Results) 121 [facility] (dipstick) panel - [id number] 08:47:35* Test Item Value Reference Range Interpretation Comme nts Leukocytes (test code = Leukocytes) Large Nitrite (test code = Nitrite) negative Urobilinogen (test code = Urobilinogen) .2 Protein (test code = Protein) Negative pH (test code = pH) 7.0 Blood (test code = Blood) Non-Hemolyzed: Trace Specific Camino (test code = Specific Camino) 1.020 Ketone (test code = Ketone) Negative Bilirubin (test code = Bilirubin) Negative Glucose (test code = Glucose) Negative Appearance (test code = Appearance) Slightly Cloudy Color (test code = Color) Yellow [facility] (dipstick) panel - [id number] 08:47:35* Test Item Value Reference Range Interpretation Comme nts Leukocytes (test code = Leukocytes) Large Nitrite (test code = Nitrite) negative Urobilinogen (test code = Urobilinogen) .2 Protein (test code = Protein) Negative pH (test code = pH) 7.0 Blood (test code = Blood) Non-Hemolyzed: Trace Specific Camino (test code = Specific Camino) 1.020 Ketone (test code = Ketone) Negative Bilirubin (test code = Bilirubin) Negative Glucose (test code = Glucose) Negative Appearance (test code = Appearance) Slightly Cloudy Color (test code = Color) Yellow [facility] Healthquest [id number] 07:41:00* Test Item Value Reference Range Interpretation Comme nts quest collection (test code = quest collection) quest [facility] GroupMicroscopic observation [Identifier] in Unspecified specimen by Wet [id number] 06:57:00* Test Item Value Reference Range Interpretation Comme nts Microscopic observation [Identifier] in Unspecified specimen by Wet preparation (test code = 680-9) no trichomonas, yeast or clue cell observed. [facility] GroupMicroscopic observation [Identifier] in Unspecified specimen by Wet [id number] 06:57:00* Test Item Value Reference Range Interpretation Comme nts Microscopic observation [Identifier] in Unspecified specimen by Wet preparation (test code = 680-9) no trichomonas, yeast or clue cell observed. [facility] HealthYbdgeQojfo-9-Ubthesvpixrat.placental [Presence] in Vaginal rdbuc1856-04-07 05:33:00* Test Item Value Reference Range Interpretation Comme nts Wckpb-0-Omxodagfpdatz.placen anjana [Presence] in Vaginal fluid (test code = 69181-0) negative neg [facility] HealthUrinalysis complete panel - [id number] 05:33:00* Test Item Value Reference Range Interpretation Comme nts Color of Urine by Auto (test code = 52272-1) light yellow Appearance of Urine (test co de = 5767-9) SL cloudy clear A Glucose [Presence] in Urine by Automated test strip (test code = 93891-2) trace (50 negative Bilirubin.total [Mass/volume ] in Urine (test code = 1978-6) negative negative Ketones [Mass/volume] in Uri ne by Automated test strip (test code = 76642-7) negative negative Specific gravity of Urine by Automated test strip (test code = 14187-3) 1.016 1.003-1.030 blood urine (test code = blo od urine) negative negative pH of Urine (test code = 2756-5) 7.000 5-9 protein urine (UA) (test cod e = protein urine (UA)) trace negative Urobilinogen [Presence] in U rine (test code = 16169-8) normal 0.2-1.0 Nitrite [Presence] in Urine by Test strip (test code = 5802-4) negative negative Leukocyte esterase [Presence ] in Urine by Automated test strip (test code = 02184-6) =2 negative H Erythrocytes [#/volume] in U rine by Automated count (test code = 798-9) =1-5 0-5 Leukocytes [#/area] in Urine sediment by Automated count (test code = 41479-6) =11-14 0-5 H Epithelial cells [Presence] in Urine sediment by Light microscopy (test code = 74984-6) =11-14 0-5 Bacteria identified in Urine by Culture (test code = 630-4) small(1 none detect Casts [#/area] in Urine sedi ment by Automated count (test code = 29142-4) =2-5 none detect urine culture added? (test c ode = urine culture added?) yes [facility] GroupBacteria identified in Urine by Aahymso8510-94-25 05:33:00Bacteria Ur CultMatagorda Medical FozcfKntxq-6-Hpwqhckdbhkjl.placental [Presence] in Vaginal wcphv8985-04-88 05:33:00* Test Item Value Reference Range Interpretation Comme nts Nruyv-2-Nlkocbjpzkztj.placen anjana [Presence] in Vaginal fluid (test code = 83875-9) negative neg [facility] GroupUrinalysis complete panel - [id number] 05:33:00* Test Item Value Reference Range Interpretation Comme nts Color of Urine by Auto (test code = 75292-8) light yellow Appearance of Urine (test co de = 5767-9) SL cloudy clear A Glucose [Presence] in Urine by Automated test strip (test code = 85540-2) trace (50 negative Bilirubin.total [Mass/volume ] in Urine (test code = 1978-6) negative negative Ketones [Mass/volume] in Uri ne by Automated test strip (test code = 19411-7) negative negative Specific gravity of Urine by Automated test strip (test code = 71892-8) 1.016 1.003-1.030 blood urine (test code = blo od urine) negative negative pH of Urine (test code = 2756-5) 7.000 5-9 protein urine (UA) (test cod e = protein urine (UA)) trace negative Urobilinogen [Presence] in U rine (test code = 48492-4) normal 0.2-1.0 Nitrite [Presence] in Urine by Test strip (test code = 5802-4) negative negative Leukocyte esterase [Presence ] in Urine by Automated test strip (test code = 22292-1) =2 negative H Erythrocytes [#/volume] in U rine by Automated count (test code = 798-9) =1-5 0-5 Leukocytes [#/area] in Urine sediment by Automated count (test code = 20946-5) =11-14 0-5 H Epithelial cells [Presence] in Urine sediment by Light microscopy (test code = 72257-0) =11-14 0-5 Bacteria identified in Urine by Culture (test code = 630-4) small(1 none detect Casts [#/area] in Urine sedi ment by Automated count (test code = 79696-8) =2-5 none detect urine culture added? (test c ode = urine culture added?) yes [facility] by [id number] 05:33:00Bacteria Ur CultMataMerit Health CentralUrinalysis macro (dipstick) panel - [id number] 15:17:12* Test Item Value Reference Range Interpretation Comme nts Leukocytes (test code = Leukocytes) Small Nitrite (test code = Nitrite) negative Urobilinogen (test code = Urobilinogen) .2 Protein (test code = Protein) Negative pH (test code = pH) 7.0 Blood (test code = Blood) Non-Hemolyzed: Trace Specific Camino (test code = Specific Camino) 1.025 Ketone (test code = Ketone) Negative Bilirubin (test code = Bilirubin) Negative Glucose (test code = Glucose) Negative Appearance (test code = Appearance) Clear Color (test code = Color) Yellow [facility]inal[facility] macro (dipstick) panel - [id number] 09:42:47* Test Item Value Reference Range Interpretation Comme nts Leukocytes (test code = Leukocytes) Large Nitrite (test code = Nitrite) negative Urobilinogen (test code = Urobilinogen) .2 Protein (test code = Protein) Negative pH (test code = pH) 7.0 Blood (test code = Blood) Negative Specific Camino (test code = Specific Camino) 1.020 Ketone (test code = Ketone) Negative Bilirubin (test code = Bilirubin) Negative Glucose (test code = Glucose) Negative Appearance (test code = Appearance) Cloudy Color (test code = Color) Yellow [facility]inal[facility] macro (dipstick) panel - [id number] 09:42:47* Test Item Value Reference Range Interpretation Comme nts Leukocytes (test code = Leukocytes) Large Nitrite (test code = Nitrite) negative Urobilinogen (test code = Urobilinogen) .2 Protein (test code = Protein) Negative pH (test code = pH) 7.0 Blood (test code = Blood) Negative Specific Camino (test code = Specific Camino) 1.020 Ketone (test code = Ketone) Negative Bilirubin (test code = Bilirubin) Negative Glucose (test code = Glucose) Negative Appearance (test code = Appearance) Cloudy Color (test code = Color) Yellow [facility] macro (dipstick) panel - [id number] 09:54:00* Test Item Value Reference Range Interpretation Comme nts Leukocytes (test code = Leukocytes) Small Nitrite (test code = Nitrite) negative Urobilinogen (test code = Urobilinogen) .2 Protein (test code = Protein) Negative pH (test code = pH) 7.0 Blood (test code = Blood) Negative Specific Camino (test code = Specific Camino) 1.020 Ketone (test code = Ketone) Negative Bilirubin (test code = Bilirubin) Negative Glucose (test code = Glucose) Negative Appearance (test code = Appearance) Clear Color (test code = Color) Yellow [facility] macro (dipstick) panel - [id number] 09:54:00* Test Item Value Reference Range Interpretation Comme nts Leukocytes (test code = Leukocytes) Small Nitrite (test code = Nitrite) negative Urobilinogen (test code = Urobilinogen) .2 Protein (test code = Protein) Negative pH (test code = pH) 7.0 Blood (test code = Blood) Negative Specific Camino (test code = Specific Camino) 1.020 Ketone (test code = Ketone) Negative Bilirubin (test code = Bilirubin) Negative Glucose (test code = Glucose) Negative Appearance (test code = Appearance) Clear Color (test code = Color) Yellow [facility] (dipstick) panel - [id number] 09:54:00* Test Item Value Reference Range Interpretation Comme nts Leukocytes (test code = Leukocytes) Small Nitrite (test code = Nitrite) negative Urobilinogen (test code = Urobilinogen) .2 Protein (test code = Protein) Negative pH (test code = pH) 7.0 Blood (test code = Blood) Negative Specific Camino (test code = Specific Camino) 1.020 Ketone (test code = Ketone) Negative Bilirubin (test code = Bilirubin) Negative Glucose (test code = Glucose) Negative Appearance (test code = Appearance) Clear Color (test code = Color) Yellow [facility] Grouppap, LB + reflex to HR HPV if [id number] 00:00:00* Test Item Value Reference Range Interpretation Comme nts liquid Pap test with reflex to HPV type-detect 3.0 if ASCUS or greater (test code = liquid Pap test with reflex to HPV type-detect 3.0 if ASCUS or greater) normal [facility] identified in Urine by [id number] 03:30:00Bacteria Ur [facility] CenterChromosome 13+18+21+X+Y aneuploidy in Blood by Molecular genetics method [id number] 00:00:00* Test Item Value Reference Range Interpretation [...] = 22Q11.2 deletion syndrome risk score text) 1/9,000 22Q11.2 deletion syndrome result text (test code = 22Q11.2 deletion syndrome result text) low risk 22Q11.2 deletion syndrome result interpretation (test code = 22Q11.2 deletion syndrome result interpretation) see notes prader-willi syndrome population-based risk score (test code = prader-willi syndrome population-based risk score) prader-willi syndrome population-based risk text (test code = prader-willi syndrome population-based risk text) 110,000 prader-willi syndrome risk score (test code = [...] code = angelman syndrome population-based risk text) 03/03,000 angelman syndrome risk score (test code = [...] code = cri-du-chat syndrome population-based risk text) 20,000 cri-du-chat syndrome risk score (test code = [...] = 1P36 deletion syndrome population-based risk text) 5,000 1P36 deletion syndrome risk score (test code [...] contacts (test code = contacts) see notes [facility] RAPID FLU A AND B [id number] 17:18:00* Test Item Value Reference Range Interpretation Comme nts POCT INFLUENZA A (test code = 3840) Negative Negative - Negative POCT INFLUENZA B (test code = 3841) Negative Negative - Negative [facility] [id number] 16:43:00* Test Item Value Reference Range Interpretation [...] POCT U APPEAR (test code = 3267) [facility] [id number] 19:40:00* Test Item Value Reference Range Interpretation [...] 3267) [facility] URINALYSIS W SPECIFIC [id number] 17:18:00* Test Item Value Reference Range Interpretation [...] 3267) [facility] URINALYSIS W SPECIFIC [id number] 17:18:00* Test Item Value Reference Range Interpretation [...] 3267) [facility] URINALYSIS W/O SPECIFIC [id number] 16:01:00* Test Item Value Reference Range Interpretation [...] = 3257) Neg Negative - Negati ve [facility] URINALYSIS W/O SPECIFIC [id number] 16:01:00* Test Item Value Reference Range Interpretation [...] = 3257) Neg Negative - Negati ve [facility] [id number] 15:58:00* Test Item Value Reference Range Interpretation Comme nts POCT PREG (test code = 1605) Positive On board controls acceptable with C Line (test code = 3574) Yes POCT PREG LOT # (test code = 3575) POCT PREG TEST DATE ( test code = 3576) Lab Interpretation (test cod e = 67444-2) [facility] [id number] 15:58:00* Test Item Value Reference Range Interpretation Comme nts POCT PREG (test code = 1605) Positive On board controls acceptable with C Line (test code = 3574) Yes POCT PREG LOT # (test code = 3575) POCT PREG TEST DATE ( test code = 3576) Lab Interpretation (test cod e = 20704-8) [facility]normal [facility], [id number] 13:36:04* Test Item Value Reference Range Interpretation Comme nts Test (test code = Test) negative [facility] macro (dipstick) panel - [id number] 13:27:27* Test Item Value Reference Range Interpretation Comme nts Leukocytes (test code = Leukocytes) Trace Nitrite (test code = Nitrite) negative Urobilinogen (test code = Urobilinogen) .2 Protein (test code = Protein) Negative pH (test code = pH) 6.0 Blood (test code = Blood) Small Specific Camino (test code = Specific Camino) 1.010 Ketone (test code = Ketone) Negative Bilirubin (test code = Bilirubin) Negative Glucose (test code = Glucose) Negative Appearance (test code = Appearance) Clear Color (test code = Color) Yellow [facility] HealthCBC W Auto Differential panel - [id number] 09:04:00 * Test Item Value Reference Range [...] corpuscular volume [Entitic volume] (test code = 81488-4) 93.2 fL 78-98 Erythrocyte mean corpuscular hemoglobin [Entitic mass] (test code = 18686-4) 30.2 pg 26.2-33.4 mean corpuscular HGB conc (t est code = mean corpuscular HGB conc) 32.3 g/dL 31.5-36.2 red cell distribution width (test code = red cell distribution width) 12.7 % 11.5-15.5 Platelets [#/volume] in Bloo d (test code = 03004-6) 188 K/uL 137-338 Platelet mean volume [Entiti c volume] in Blood (test code = 25703-7) 9.2 fL 8.4-11.8 Neutrophils.band form/100 leukocytes in Blood (test code = 83334-4) 67.1 % 44.4-80.1 Lymphocytes/100 leukocytes i n Body fluid (test code = 73098-9) 26.9 % 10.0-50.0 Monocytes/100 leukocytes in Blood by Automated count (test code = 5905-5) 4.6 % 3.6-12.04 Eosinophils/100 leukocytes i n Blood by Automated count (test code = 713-8) 0.7 % 0.0-5.41 Basophils/100 leukocytes in Blood by Automated count (test code = 706-2) 0.7 % 0.0-0.79 [facility] W Auto Differential panel - [id number] 04:43:00 * Test Item Value Reference Range Interpretation Comme nts white blood count (test code = white blood count) 8.6 K/uL 4.0-11.5 red blood count (test code = red blood count) 3.65 M/uL 3.80-5.20 L Hemoglobin [Mass/volume] in Blood (test code = 718-7) 11.1 g/dL 10.5-15.7 hematocrit (test code = hematocrit) 34.0 % 34.0-50.0 Erythrocyte mean corpuscular volume [Entitic volume] (test code = 55915-4) 93.0 fL 78-98 Erythrocyte mean corpuscular hemoglobin [Entitic mass] (test code = 23450-3) 30.4 pg 26.2-33.4 mean corpuscular HGB conc (t est code = mean corpuscular HGB conc) 32.7 g/dL 31.5-36.2 red cell distribution width (test code = red cell distribution width) 12.8 % 11.5-15.5 Platelets [#/volume] in Bloo d (test code = 25124-0) 218 K/uL 137-338 Platelet mean volume [Entiti c volume] in Blood (test code = 38214-2) 9.2 fL 8.4-11.8 Neutrophils.band form/100 leukocytes in Blood (test code = 99524-4) 54.5 % 44.4-80.1 Lymphocytes/100 leukocytes i n Body fluid (test code = 36079-8) 38.2 % 10.0-50.0 Monocytes/100 leukocytes in Blood by Automated count (test code = 5905-5) 5.6 % 3.6-12.04 Eosinophils/100 leukocytes i n Blood by Automated count (test code = 713-8) 0.9 % 0.0-5.41 Basophils/100 leukocytes in Blood by Automated count (test code = 706-2) 0.8 % 0.0-0.79 H [facility]Com[facility] 2000 panel - Serum or Plasma [...] code = 6768-6) 166 U/L 35-105 H [facility] GroupUrate [Mass/volume] in [id number] 04:43:00* Test Item Value Reference Range Interpretation Comme nts uric acid (test code = uric acid) 6.3 mg/dL 2.4-5.7 H [facility] GroupD-Lactate [Moles/volume] in Serum or [id number] 04:43:00* Test Item Value Reference Range Interpretation Comme nts LDH (test code = LDH) 177 U/L 135-214 [facility] GroupReagin Ab [Presence] in Serum by [id number] 04:43:00* Test Item Value Reference Range Interpretation Comme nts Reagin Ab [Presence] in Seru m by RPR (test code = 78958-1) nonreactive nonreactive [facility] GroupHepatitis B virus surface Ag [Presence] in Serum 2018-04-05 04:43:00* Test Item Value Reference Range Interpretation Comme nts .hepatitis B surface antigen (test code = .hepatitis B surface antigen) negative negative [facility] GroupUrinalysis macro (dipstick) panel - [id number] 14:37:39* Test Item Value Reference Range Interpretation Comme nts Leukocytes (test code = Leukocytes) Small Nitrite (test code = Nitrite) negative Urobilinogen (test code = Urobilinogen) .2 Protein (test code = Protein) 30 pH (test code = pH) 7.0 Blood (test code = Blood) Non-Hemolyzed: Moderate Specific Camino (test code = Specific Camino) 1.020 Ketone (test code = Ketone) Negative Bilirubin (test code = Bilirubin) Negative Glucose (test code = Glucose) Negative Appearance (test code = Appearance) Clear Color (test code = Color) Yellow [facility] HealthUrinalysis macro (dipstick) panel - [id number] 14:37:39* Test Item Value Reference Range Interpretation Comme nts Leukocytes (test code = Leukocytes) Small Nitrite (test code = Nitrite) negative Urobilinogen (test code = Urobilinogen) .2 Protein (test code = Protein) 30 pH (test code = pH) 7.0 Blood (test code = Blood) Non-Hemolyzed: Moderate Specific Camino (test code = Specific Camino) 1.020 Ketone (test code = Ketone) Negative Bilirubin (test code = Bilirubin) Negative Glucose (test code = Glucose) Negative Appearance (test code = Appearance) Clear Color (test code = Color) Yellow [facility] HealthUrinalysis macro (dipstick) panel - [id number] 14:37:39* Test Item Value Reference Range Interpretation Comme nts Leukocytes (test code = Leukocytes) Small Nitrite (test code = Nitrite) negative Urobilinogen (test code = Urobilinogen) .2 Protein (test code = Protein) 30 pH (test code = pH) 7.0 Blood (test code = Blood) Non-Hemolyzed: Moderate Specific Camino (test code = Specific Camino) 1.020 Ketone (test code = Ketone) Negative Bilirubin (test code = Bilirubin) Negative Glucose (test code = Glucose) Negative Appearance (test code = Appearance) Clear Color (test code = Color) Yellow [facility] HealthUrinalysis complete panel - [id number] 06:37:00* Test Item Value Reference Range Interpretation Comme nts Color of Urine by Auto (test code = 25215-3) yellow Appearance of Urine (test co de = 5767-9) SL cloudy clear A Glucose [Presence] in Urine by Automated test strip (test code = 05379-1) =4+ (1000 negative H Bilirubin.total [Mass/volume ] in Urine (test code = 1977-07) negative negative Ketones [Mass/volume] in Uri ne by Automated test strip (test code = 37500-2) negative negative Specific gravity of Urine by Automated test strip (test code = 67578-1) 1.021 1.003-1.030 blood urine (test code = blo od urine) negative negative pH of Urine (test code = 2756-5) 6.500 5-9 protein urine (UA) (test cod e = protein urine (UA)) negative negative Urobilinogen [Presence] in Urine (test code = 92953-0) normal 0.2-1.0 Nitrite [Presence] in Urine by Test strip (test code = 5802-4) negative negative Leukocyte esterase [Presence ] in Urine by Automated test strip (test code = 33339-3) =3 negative H Erythrocytes [#/volume] in Urine by Automated count (test code = 798-9) =1-5 0-5 Leukocytes [#/area] in Urine sediment by Automated count (test code = 58404-8) =11-14 0-5 H Epithelial cells [Presence] in Urine sediment by Light microscopy (test code = 91231-2) =6-10 0-5 Bacteria identified in Urine by Culture (test code = 630-4) small(1 none detect Casts [#/area] in Urine sediment by Automated count (test code = 12397-1) none detected none detect urine culture added? (test c ode = urine culture added?) yes [facility] GroupBacteria identified in Urine by [id number] 06:37:00Bacteria Ur CultAztanew [facility]a [facility] GroupUrinalysis complete panel - Urine 2018-03-20 06:37:00* Test Item Value Reference Range Interpretation Comme nts Color of Urine by Auto (test code = 43535-5) yellow Appearance of Urine (test co de = 5767-9) SL cloudy clear A Glucose [Presence] in Urine by Automated test strip (test code = 99170-2) =4+ (1000 negative H Bilirubin.total [Mass/volume ] in Urine (test code = 1977-07) negative negative Ketones [Mass/volume] in Uri ne by Automated test strip (test code = 72697-4) negative negative Specific gravity of Urine by Automated test strip (test code = 42996-1) 1.021 1.003-1.030 blood urine (test code = blo od urine) negative negative pH of Urine (test code = 2756-5) 6.500 5-9 protein urine (UA) (test cod e = protein urine (UA)) negative negative Urobilinogen [Presence] in Urine (test code = 68475-2) normal 0.2-1.0 Nitrite [Presence] in Urine by Test strip (test code = 5802-4) negative negative Leukocyte esterase [Presence ] in Urine by Automated test strip (test code = 85302-2) =3 negative H Erythrocytes [#/volume] in Urine by Automated count (test code = 798-9) =1-5 0-5 Leukocytes [#/area] in Urine sediment by Automated count (test code = 87074-8) =11-14 0-5 H Epithelial cells [Presence] in Urine sediment by Light microscopy (test code = 12880-3) =6-10 0-5 Bacteria identified in Urine by Culture (test code = 630-4) small(1 none detect Casts [#/area] in Urine sediment by Automated count (test code = 22418-5) none detected none detect urine culture added? (test c ode = urine culture added?) yes [facility] HealthBacteria identified in Urine by [id number] 06:37:00Bacteria Ur CultMataMerit Health CentralUrinalysis macro (dipstick) panel - [id number] 10:47:01* Test Item Value Reference Range Interpretation Comme nts Leukocytes (test code = Leukocytes) Trace Nitrite (test code = Nitrite) negative Urobilinogen (test code = Urobilinogen) .2 Protein (test code = Protein) Negative pH (test code = pH) 7.0 Blood (test code = Blood) Negative Specific Camino (test code = Specific Camino) 1.015 Ketone (test code = Ketone) Negative Bilirubin (test code = Bilirubin) Negative Glucose (test code = Glucose) Negative Appearance (test code = Appearance) Clear Color (test code = Color) Yellow [facility] HealthUrinalysis macro (dipstick) panel - [id number] 10:47:01* Test Item Value Reference Range Interpretation Comme nts Leukocytes (test code = Leukocytes) Trace Nitrite (test code = Nitrite) negative Urobilinogen (test code = Urobilinogen) .2 Protein (test code = Protein) Negative pH (test code = pH) 7.0 Blood (test code = Blood) Negative Specific Camino (test code = Specific Camino) 1.015 Ketone (test code = Ketone) Negative Bilirubin (test code = Bilirubin) Negative Glucose (test code = Glucose) Negative Appearance (test code = Appearance) Clear Color (test code = Color) Yellow [facility] HealthUrinalysis macro (dipstick) panel - [id number] 10:47:01* Test Item Value Reference Range Interpretation Comme nts Leukocytes (test code = Leukocytes) Trace Nitrite (test code = Nitrite) negative Urobilinogen (test code = Urobilinogen) .2 Protein (test code = Protein) Negative pH (test code = pH) 7.0 Blood (test code = Blood) Negative Specific Camino (test code = Specific Camino) 1.015 Ketone (test code = Ketone) Negative Bilirubin (test code = Bilirubin) Negative Glucose (test code = Glucose) Negative Appearance (test code = Appearance) Clear Color (test code = Color) Yellow [facility] Healthnon-stress [id number] 14:04:00* Test Item Value Reference Range Interpretation Comme nts Reactive (test code = Reactive) Yes Contractions (test code = Contractions) No [facility] Healthnon-stress [id number] 14:04:00* Test Item Value Reference Range Interpretation Comme nts Reactive (test code = Reactive) Yes Contractions (test code = Contractions) No [facility] HealthUrinalysis macro (dipstick) panel - [id number] 13:10:36* Test Item Value Reference Range Interpretation Comme nts Leukocytes (test code = Leukocytes) Large Nitrite (test code = Nitrite) negative Urobilinogen (test code = Urobilinogen) .2 Protein (test code = Protein) Negative pH (test code = pH) 7.0 Blood (test code = Blood) Negative Specific Camino (test code = Specific Camino) 1.015 Ketone (test code = Ketone) Negative Bilirubin (test code = Bilirubin) Negative Glucose (test code = Glucose) Negative Appearance (test code = Appearance) Clear Color (test code = Color) Yellow [facility] HospitalUrinalysis macro (dipstick) panel - [id number] 13:10:36* Test Item Value Reference Range Interpretation Comme nts Leukocytes (test code = Leukocytes) Large Nitrite (test code = Nitrite) negative Urobilinogen (test code = Urobilinogen) .2 Protein (test code = Protein) Negative pH (test code = pH) 7.0 Blood (test code = Blood) Negative Specific Camino (test code = Specific Camino) 1.015 Ketone (test code = Ketone) Negative Bilirubin (test code = Bilirubin) Negative Glucose (test code = Glucose) Negative Appearance (test code = Appearance) Clear Color (test code = Color) Yellow [facility] HealthUrinalysis macro (dipstick) panel - [id number] 13:10:36* Test Item Value Reference Range Interpretation Comme nts Leukocytes (test code = Leukocytes) Large Nitrite (test code = Nitrite) negative Urobilinogen (test code = Urobilinogen) .2 Protein (test code = Protein) Negative pH (test code = pH) 7.0 Blood (test code = Blood) Negative Specific Camino (test code = Specific Camino) 1.015 Ketone (test code = Ketone) Negative Bilirubin (test code = Bilirubin) Negative Glucose (test code = Glucose) Negative Appearance (test code = Appearance) Clear Color (test code = Color) Yellow [facility] HealthUrinalysis macro (dipstick) panel - [id number] 09:37:36* Test Item Value Reference Range Interpretation Comme nts Leukocytes (test code = Leukocytes) Small Nitrite (test code = Nitrite) negative Urobilinogen (test code = Urobilinogen) .2 Protein (test code = Protein) Trace pH (test code = pH) 7.0 Blood (test code = Blood) Negative Specific Camino (test code = Specific Camino) 1.020 Ketone (test code = Ketone) Negative Bilirubin (test code = Bilirubin) Negative Glucose (test code = Glucose) Negative Appearance (test code = Appearance) Clear Color (test code = Color) Yellow [facility] GroupUrinalysis macro (dipstick) panel - [id number] 09:37:36* Test Item Value Reference Range Interpretation Comme nts Leukocytes (test code = Leukocytes) Small Nitrite (test code = Nitrite) negative Urobilinogen (test code = Urobilinogen) .2 Protein (test code = Protein) Trace pH (test code = pH) 7.0 Blood (test code = Blood) Negative Specific Camino (test code = Specific Camino) 1.020 Ketone (test code = Ketone) Negative Bilirubin (test code = Bilirubin) Negative Glucose (test code = Glucose) Negative Appearance (test code = Appearance) Clear Color (test code = Color) Yellow [facility] HealthUrinalysis macro (dipstick) panel - [id number] 09:37:36* Test Item Value Reference Range Interpretation Comme nts Leukocytes (test code = Leukocytes) Small Nitrite (test code = Nitrite) negative Urobilinogen (test code = Urobilinogen) .2 Protein (test code = Protein) Trace pH (test code = pH) 7.0 Blood (test code = Blood) Negative Specific Camino (test code = Specific Camino) 1.020 Ketone (test code = Ketone) Negative Bilirubin (test code = Bilirubin) Negative Glucose (test code = Glucose) Negative Appearance (test code = Appearance) Clear Color (test code = Color) Yellow [facility] HealthGlucose [Mass/volume] in Serum or Plasma --1 hour post dose [id number] 13:44:00* Test Item Value Reference Range Interpretation Comme nts Results (test code = Results) 104 [facility] HealthUrinalysis macro (dipstick) panel - [id number] 08:53:48* Test Item Value Reference Range Interpretation Comme nts Leukocytes (test code = Leukocytes) Negative Nitrite (test code = Nitrite) negative Urobilinogen (test code = Urobilinogen) .2 Protein (test code = Protein) Negative pH (test code = pH) 7.0 Blood (test code = Blood) Negative Specific Camino (test code = [place]) 1.010 Ketone (test code = Ketone) Negative Bilirubin (test code = Bilirubin) Negative Glucose (test code = Glucose) Negative Appearance (test code = Appearance) Clear Color (test code = Color) Yellow [facility]
[2023-06-20] MEDS ORDERED: DICYCLOMINE HCL 10 MG CAP ONE (00:02)
[2023-06-20] MEDS ORDERED: NA CHLORIDE 0.9% 1,000 ML ONE (00:03)
[2023-06-20] MEDS ORDERED: KETOROLAC 30 MG/ML INJ ONE (00:03)
[2023-06-20] MEDS ORDERED: METOCLOPRAMIDE 10 MG/2mL INJ ONE (00:03)
[2023-06-20 01:08] LABS: Absolute Basophils 0.1 K/uL (0-0.5); Absolute Eosinophils 0.8 K/uL (0-0.5); Absolute Lymphocytes (CBC) 3.2 K/uL (0.7-4.9); Absolute Monocytes 0.4 K/uL (0.1-1.3); Absolute Neutrophil 4.4 K/uL (1.8-8.0); Basophils % 0.8 % (0-1.3); Eosinophils % 9.1 % (0-4.4); Hematocrit 39.3 % (36.0-45.0); Hemoglobin 13.3 g/dL (12.0-15.0); MCH 31.3 pg (27.0-35.0); MCHC 33.7 g/dL (32.0-36.0); MCV 92.9 fL (80-100); MPV 7.4 fL (7.6-11.3); Monocytes % 4.9 % (3.3-12.3); Neutrophils % 49.2 % (41.7-73.7); Nucleated Red Blood Cells % 0.1 % (0-0); Platelets 304 thou/uL (152-406); RBC Red Blood Cell Count 4.23 M/uL (3.86-4.86); Red Cell Distribution Width 13.1 % (12.1-15.2)
[2023-06-20 01:17] LABS: Albumin 3.7 g/dL (3.4-5.0); Anion Gap 6.5 mEq/L (5.0-15.0); Bilirubin Total 1.1 mg/dL (0.2-1.0); Globulin 3.6 g/dL (2.3-3.5); Potassium 3.5 mEq/L (3.5-5.1); Protein, Total 7.3 g/dL (6.4-8.2)
[2023-06-20] MEDS ORDERED: ONDANSETRON 4 MG (ODT) TAB ONE (03:44)
[2023-06-20] MEDS ORDERED: TRAMADOL HCL 50 MG TAB ONE (03:44)
--- NOTE | 2023-06-20 03:45 | ER ---
Nurse's Notes [facility] Name: Ricarda Marin Age: 28 yrs Sex: Female : 1995 Arrival Date: 06/19/2023 Time: 22:32 Bed 6 Private MD: Diagnosis: Other ovarian cysts;Right ovarian dermoid cyst, left ovarian simple cyst, acute pelvic pain Presentation: 06/18 22:48 Chief complaint: Patient states: pubic pain, lower back pain. Coronavirus screen: vc1 Client denies travel out of the [place] in the last 14 days. At this time, the client does not indicate any symptoms associated with coronavirus-19. Ebola Screen: Patient negative for fever greater than or equal to 101.5 degrees Fahrenheit, and additional compatible Ebola Virus Disease symptoms Patient denies exposure to infectious person. Patient denies travel to an Ebola-affected area in the 21 days before illness onset. No symptoms or risks identified at this time. Initial Sepsis Screen: Does the patient meet any 2 criteria? No. Patient's initial sepsis screen is negative. Does the patient have a suspected source of infection? No. Patient's initial sepsis screen is negative. Risk Assessment: Do you want to hurt yourself or someone else? Patient reports no desire to harm self or others. Onset of symptoms was June 19, 2023. 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 Flu vaccine is not up to date. - Infectious Disease History:: Denies. - Social history:: Smoking status: Patient denies any tobacco usage or history of. - Family history:: not pertinent. Screenin/30 01:38 [facility] ED Fall Risk Assessment (Adult) History of falling in the last 3 months, ha1 including since admission No falls in past 3 months (0 pts) Confusion or Disorientation No (0 pts) Intoxicated or Sedated No (0 pts) Impaired Gait No (0 pts) Mobility Assist Device Used No (0 pt) Altered Elimination No (0 pt) Score/Fall Risk Level 0 - 2 = Low Risk Oriented to surroundings, Maintained a safe environment, Educated pt \T\ family on fall prevention, incl call for assistance when getting out of bed. Abuse screen: Denies threats or abuse. Nutritional screening: No deficits noted. Nutritional screening: No deficits noted. Tuberculosis screening: No symptoms or risk factors identified. Assessment: 06/18 23:00 General: Appears uncomfortable, Behavior is calm, cooperative. Pain: Complains of pain ha1 in abdomen Pain radiates to back Pain currently is 7 out of 10 on a pain scale. Quality of pain is described as burning. Neuro: Level of Consciousness is awake, alert, obeys commands, Oriented to person, place, time, situation. Cardiovascular: Capillary refill < 3 seconds Patient's skin is warm and dry. Respiratory: Airway is patent Respiratory effort is even, unlabored, Respiratory pattern is regular, symmetrical. 06/19 00:00 Reassessment: Patient and/or family updated on plan of care and expected duration. Pain ha1 level reassessed. Patient is alert, oriented x 3, equal unlabored respirations, skin warm/dry/pink. 01:00 Reassessment: Patient and/or family updated on plan of care and expected duration. Pain ha1 level reassessed. Patient is alert, oriented x 3, equal unlabored respirations, skin warm/dry/pink. 02:00 Reassessment: Patient appears in no apparent distress at this time. Patient and/or jw7 family updated on plan of care and expected duration. Pain level reassessed. Patient is alert, oriented x 3, equal unlabored respirations, skin warm/dry/pink. 03:03 Reassessment: Patient and/or family updated on plan of care and expected duration. Pain ha1 level reassessed. Patient is alert, oriented x 3, equal unlabored respirations, skin warm/dry/pink. pain 3/10 Patient states feeling better. Patient states symptoms have improved. 03:57 Reassessment: Patient appears in no apparent distress at this time. No changes from [facility] previously documented assessment. Patient and/or family updated on plan of care and expected duration. Pain level reassessed. Patient is alert, oriented x 3, equal unlabored respirations, skin warm/dry/pink. Vital Signs: 06/18 22:48 BP 121 / 81; Pulse 70; Resp 16; Temp 98.2; Pulse Ox 99% ; Weight 72.57 kg; Height 5 ft. vc1 3 in. ; Pain 7/10; 23:45 BP 120 / 74; Pulse 65; Resp 17 S; Pulse Ox 99% on R/A; ha1 06/19 00:15 BP 142 / 83; Pulse 84; Resp 17 S; Pulse Ox 100% on R/A; ha1 01:00 BP 127 / 77; Pulse 59; Resp 15 S; Pulse Ox 99% on R/A; ha1 02:00 BP 118 / 75; Pulse 61; Resp 17 S; Pulse Ox 99% on R/A; ha1 03:00 BP 102 / 59; Pulse 59; Resp 17 S; Pulse Ox 100% on R/A; ha1 03:30 BP 95 / 56; Pulse 60; Resp 16 S; Pulse Ox 100% on R/A; jw7 06/18 22:48 Body Mass Index 28.34 (72.57 kg, 160.02 cm) vc1 06/18 22:48 Pain Scale: Adult vc1 [place] Coma Score: 03:40 Eye Response: spontaneous(4). Motor Response: obeys commands(6). Verbal Response: sp4 oriented(5). Total: 15. ED Course: 06/18 22:36 Patient arrived in ED. gm2 22:47 Gibran Russell MD is Attending Physician. sp4 22:50 Triage completed. vc1 22:51 Arm band placed on right wrist. vc1 23:30 Patient has correct armband on for positive identification. Placed in gown. Bed in low ha1 position. Call light in reach. Side rails up X 1. 06/19 00:00 Provided Education on: Use of Call Light. jw7 00:00 Missed attempt(s): 20 gauge in right antecubital area. ha1 00:38 Missed attempt(s): 22 gauge Bleeding controlled, band aid applied, catheter tip intact. oe 00:41 Inserted saline lock: 20 gauge in right antecubital area, using aseptic technique. oe Blood collected. 01:40 CT Abd/Pelvis - IV Contrast Only In Process Unspecified. EDMS 02:48 Urine collected: clean catch specimen, joan colored. oe 03:44 Yolette Cantu MD is Referral Physician. sp4 03:58 No provider procedures requiring assistance completed. IV discontinued, intact, jw7 bleeding controlled, No redness/swelling at site. Pressure dressing applied. Administered Medications: 00:15 Drug: Dicyclomine PO 20 mg PO once Route: PO; ha1 03:56 Follow up: Response: No adverse reaction; Marked relief of symptoms; Pain is decreased jw7 00:51 Drug: NS 0.9% IV 1000 ml IV at 1 bolus Per protocol; 1000 mL bolus Route: IV; Rate: 1 jw7 bolus; Site: right antecubital; 03:56 Follow up: Response: No adverse reaction; IV Status: Completed infusion; IV Intake: jw7 1000ml 00:51 Drug: metoCLOPramide IVP 10 mg IVP once; over 1 to 2 minutes Route: IVP; Site: right jw7 antecubital; 03:56 Follow up: Response: No adverse reaction; Marked relief of symptoms; Nausea is decreasedjw7 00:52 Drug: Ketorolac IVP 30 mg IVP once Route: IVP; Site: right antecubital; jw7 03:30 Follow up: Response: No adverse reaction; Marked relief of symptoms; Pain is decreased jw7 03:55 Drug: traMADol PO 50 mg PO once Route: PO; jw7 03:56 Follow up: Response: No adverse reaction; Medication administered at discharge. jw7 03:55 Drug: Ondansetron PO 4 mg PO once Route: PO; jw7 03:57 Follow up: Response: No adverse reaction; Medication administered at discharge. jw7 Medication: 01:39 VIS not applicable for this client. ha1 Intake: 03:56 IV: 1000ml; Total: 1000ml. jw7 Outcome: 03:45 Discharge ordered by . sp4 03:58 Discharged to home ambulatory, jw7 03:58 Condition: stable 03:58 Discharge instructions given to patient, Instructed on discharge instructions, follow up and referral plans. medication usage, Demonstrated understanding of instructions, follow-up care, medications, Prescriptions given X 3, 03:58 Patient left the ED. jw7 Signatures: [facility] Samuel Jacobson Vanessa RN RN vc1 Svitlana Dominguez RN RN jw7 Marina Styles, RN RN ha1 Gibran Russell MD MD sp4 Vero Roy gm2
--- NOTE | 2023-06-20 03:45 | EDPHYS ---
Physician Documentation [facility] Name: Ricarda Marin Age: 28 yrs Sex: Female : 1995 Arrival Date: 06/19/2023 Time: 22:32 Bed 6 Private MD: ED Physician Gibran Russell HPI: 06/18 22:47 This 28 yrs old Female presents to ER via Unassigned with complaints of Back sp4 Pain, Abdominal Pain. 06/19 03:40 28-year-old female presents with acute onset of abdominal pain described as lower sp4 abdominal pain starting last night associated mostly with left lower abdominal pain. History of bilateral tubal ligation 3 years ago. 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 Flu vaccine is not up to date. - Infectious Disease History:: Denies. - Social history:: Smoking status: Patient denies any tobacco usage or history of. - Family history:: not pertinent. ROS: 06/19 03:40 Constitutional: Negative for fever, chills, and weight loss, positive lower abdominal sp4 pain All other systems are negative, Exam: 03:40 Constitutional: This is a well developed, well nourished patient who is awake, alert, sp4 and in no acute distress. Head/Face: Normocephalic, atraumatic. Eyes: Pupils equal round and reactive to light, extra-ocular motions intact. Lids and lashes normal. Conjunctiva and sclera are not injected. Cornea within normal limits. Periorbital areas with no swelling, redness, or edema. ENT: Nares patent. No nasal discharge, no septal abnormalities noted. Tympanic membranes are normal and external auditory canals are clear. Oropharynx with no redness, swelling, or masses, exudates, or evidence of obstruction, uvula midline. Mucous membranes moist. Neck: Trachea midline, no thyromegaly or masses palpated, and no cervical lymphadenopathy. Supple, full range of motion without nuchal rigidity, or vertebral point tenderness. Chest/axilla: Normal chest wall appearance and motion. Nontender with no deformity. No lesions are appreciated. Cardiovascular: Regular rate and rhythm with a normal S1 and S2. No gallops, murmurs, or rubs. Normal PMI, no JVD. No pulse deficits. Respiratory: Lungs have equal breath sounds bilaterally, clear to auscultation and percussion. No rales, rhonchi or wheezes noted. No increased work of breathing, no retractions or nasal flaring. Abdomen/GI: Soft, with normal bowel sounds. No distension or tympany. No guarding or rebound. No evidence of tenderness throughout. Back: No spinal tenderness. No costovertebral tenderness. Skin: Warm, dry with normal turgor. Normal color with no rashes, no lesions, and no evidence of cellulitis. MS/ Extremity: Pulses equal, no cyanosis. Neurovascular intact. Full, normal range of motion. Neuro: Awake and alert, GCS 15, oriented to person, place, time, and situation. Cranial nerves II-XII grossly intact. Motor strength 5/5 in all extremities. Sensory grossly intact. Psych: Awake, alert, with orientation to person, place and time. Behavior, mood, and affect are within normal limits Vital Signs: 06/18 22:48 BP 121 / 81; Pulse 70; Resp 16; Temp 98.2; Pulse Ox 99% ; Weight 72.57 kg; Height 5 ft. vc1 3 in. ; Pain 7/10; 23:45 BP 120 / 74; Pulse 65; Resp 17 S; Pulse Ox 99% on R/A; ha1 06/19 00:15 BP 142 / 83; Pulse 84; Resp 17 S; Pulse Ox 100% on R/A; ha1 01:00 BP 127 / 77; Pulse 59; Resp 15 S; Pulse Ox 99% on R/A; ha1 02:00 BP 118 / 75; Pulse 61; Resp 17 S; Pulse Ox 99% on R/A; ha1 03:00 BP 102 / 59; Pulse 59; Resp 17 S; Pulse Ox 100% on R/A; ha1 03:30 BP 95 / 56; Pulse 60; Resp 16 S; Pulse Ox 100% on R/A; jw7 06/18 22:48 Body Mass Index 28.34 (72.57 kg, 160.02 cm) vc1 06/18 22:48 Pain Scale: Adult vc1 [place] Coma Score: 03:40 Eye Response: spontaneous(4). Motor Response: obeys commands(6). Verbal Response: sp4 oriented(5). Total: 15. MDM: 06/18 22:49 Patient medically screened. sp4 06/19 03:33 ED course: TECHNIQUE: Axial computed tomography images of the abdomen and pelvis with sp4 intravenous contrast. Sagittal and coronal reformatted images were created and reviewed. This CT exam was performed using one or more of the following dose reduction techniques: automated exposure control, adjustment of the mA and/or kV according to patient size, and/or use of iterative reconstruction technique. COMPARISON: No relevant prior studies available. FINDINGS: LUNG BASES: Unremarkable. No mass. No consolidation. ABDOMEN: LIVER: Unremarkable. No mass. GALLBLADDER AND BILE DUCTS: No calcified stones. No ductal dilation. PANCREAS: No ductal dilation. No mass. SPLEEN: Unremarkable. ADRENALS: Unremarkable. No mass. KIDNEYS AND URETERS: Unremarkable. The kidneys enhance symmetrically. No obstructing renal or ureteral calculus is seen. No hydronephrosis or hydroureter. No perinephric fluid or stranding. STOMACH AND BOWEL: The stomach is minimally distended with fluid and air. The small bowel proximally is decompressed. Distally, the small bowel is minimally filled with fluid. A moderate amount of stool is present throughout the colon. There is no mucosal thickening or evidence of obstruction. PELVIS: APPENDIX: The appendix is normal in caliber without surrounding inflammation. BLADDER: The bladder is incompletely distended. REPRODUCTIVE: A 3.2 x 3.2 cm right ovarian dermoid is present. A 2.2 cm left ovarian cyst is present. No follow-up imaging of the left ovarian cyst. The uterus is unremarkable. ABDOMEN and PELVIS: INTRAPERITONEAL SPACE: Unremarkable. No free air. No significant fluid collection. BONES/JOINTS: No acute fracture. SOFT TISSUES: The soft tissues are normal. VASCULATURE: Unremarkable. No abdominal aortic aneurysm. LYMPH NODES: Unremarkable. No enlarged lymph nodes. IMPRESSION: 1. No acute findings on this contrasted CT of the abdomen and pelvis to explain the patient's symptoms. 2. Right ovarian dermoid. ACR White Paper guidelines (Estuardo, et. al. JACR 2020;17(2):248-254) suggest that periodic follow-up imaging may be required at the direction of a Radiation Protection Engineer. Electronically signed by: Chloe Aparicio MD 06/20/2023 02:52 AM. 03:40 Differential diagnosis: arthritis, Fatigue Fracture Hydronephrosis. Data reviewed: 4 vital signs, nurses notes, old medical records, lab test result(s), radiologic studies, CT scan. Consideration of Admission/Observation Escalation of care including admission/observation considered. ED course: Patient has dermoid cyst right ovary and simple ovarian cyst left ovary. Otherwise normal CT. Will refer patient to Dr. 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 06/18 22:48 Order name: CBC with Diff; Complete Time: : [facility] 06/18 22:48 Order name: CMP; Complete Time: : [facility] 06/18 22:48 Order name: Lipase; Complete Time: : [facility] 06/18 22:48 Order name: Test, Urine [facility] 06/18 22:48 Order name: Urinalysis w/ reflexes [facility] 06/18 23:14 Order name: CRP; Complete Time: : [facility] 06/18 23:13 Order name: CT Abd/Pelvis - IV Contrast Only [facility] 06/18 22:48 Order name: IV Saline Lock; Complete Time: 00:44 [facility] 06/18 22:48 Order name: Labs collected and sent; Complete Time: 00:44 4 Administered Medications: 00:15 Drug: Dicyclomine PO 20 mg PO once Route: PO; ha1 03:56 Follow up: Response: No adverse reaction; Marked relief of symptoms; Pain is decreased jw7 00:51 Drug: NS 0.9% IV 1000 ml IV at 1 bolus Per protocol; 1000 mL bolus Route: IV; Rate: 1 jw7 bolus; Site: right antecubital; 03:56 Follow up: Response: No adverse reaction; IV Status: Completed infusion; IV Intake: jw7 1000ml 00:51 Drug: metoCLOPramide IVP 10 mg IVP once; over 1 to 2 minutes Route: IVP; Site: right jw7 antecubital; 03:56 Follow up: Response: No adverse reaction; Marked relief of symptoms; Nausea is decreasedjw7 00:52 Drug: Ketorolac IVP 30 mg IVP once Route: IVP; Site: right antecubital; jw7 03:30 Follow up: Response: No adverse reaction; Marked relief of symptoms; Pain is decreased jw7 03:55 Drug: traMADol PO 50 mg PO once Route: PO; jw7 03:56 Follow up: Response: No adverse reaction; Medication administered at discharge. jw7 03:55 Drug: Ondansetron PO 4 mg PO once Route: PO; jw7 03:57 Follow up: Response: No adverse reaction; Medication administered at discharge. jw7 Disposition Summary: 06/20/23 03:45 Discharge Ordered Problem: new sp4 Symptoms: have improved sp4 Condition: Stable sp4 Diagnosis - Other ovarian cysts sp4 - Right ovarian dermoid cyst, left ovarian simple cyst, acute pelvic pain sp4 Followup: sp4 - With: Yolette Cantu MD - When: 7 - 10 days - Reason: Recheck today's complaints Discharge Instructions: - Discharge Summary Sheet sp4 - Ovarian Cyst, [id number] sp4 Forms: - Work release form lg3 - Patient Portal Instructions sp4 Prescriptions: - meloxicam 15 mg Oral tablet - take 1 tablet ORAL route daily PRN pain; 30 tablet; Refills: 0, Product sp4 Selection Permitted - Tramadol 50 mg Oral tablet - take 1 tablet ORAL route every 8 hours as needed; 25 tablet; Refills: 0, sp4 Product Selection Permitted - promethazine 25 mg Oral tablet - take 1 tablet ORAL route every 6 hours As needed; 30 tablet; Refills: 0, sp4 Product Selection Permitted Signatures: Dispatcher [employer] EDAnjelica Rice RN RN vc1 Svitlana Dominguez RN RN jw7 Marina Styles RN RN ha1 Gibran Russell MD MD sp4 Corrections: (The following items were deleted from the chart) 06/18 22:48 22:48 CBC+H.LAB.BRZ ordered. EDMS EDMS 22:48 22:48 COMPREHENSIVE METABOLIC PANEL+C.LAB.BRZ ordered. EDMS EDMS 22:48 22:48 LIPASE+C.LAB.BRZ ordered. EDMS EDMS 22:48 22:48 Test, Urine+UC.LAB.BRZ ordered. EDMS EDMS 22:48 22:48 Urinalysis+U.LAB.BRZ ordered. EDMS EDMS 23:14 23:14 Abdomen Pelvis W Con+CT.RAD.BRZ ordered. EDMS EDMS
[2023-06-20 03:55] LABS: Specific Gravity 1.016 (1.005-1.030); Urine Bacteria None Seen /HPF (<20); Urine Bilirubin NEGATIVE (Negative); Urine Blood Negative (Negative); Urine Clarity Turbid (Clear); Urine Color Light-Yellow (Yellow); Urine Culture Reflex Order NOT NEEDED; Urine Glucose NEGATIVE (Negative); Urine Ketones NEGATIVE (Negative); Urine Microscopic Reflex YN ORDER UMIC; Urine Nitrite NEGATIVE (Negative); Urine Protein NEGATIVE (Negative); Urine RBC <5 /HPF (None Seen); Urine Urobilinogen Normal (Normal); Urine WBC <5 /HPF (<5)
[2023-06-20 03:56] LABS: Specific Gravity 1.017 (1.005-1.030)
[2023-06-20 04:36] VITALS: BP 95/56; TEMP 98.2; O2SAT 100
--- NOTE | 2023-06-20 17:38 | RAD REPORT ---
EXAM DESCRIPTION: CT - Abdomen Pelvis W Contrast - 06/20/2023 6:36 am CLINICAL HISTORY: The patient is 28 years old and is Female; ABD PAIN TECHNIQUE: Axial computed tomography images of the abdomen and pelvis with intravenous contrast. S agittal and coronal reformatted images were created and reviewed. This CT exam was performed using one or more of the following dose reduction techniques: automated exposure control, adjustment of t he mA and/or kV according to patient size, and/or use of iterative reconstruction technique. COMPARISON: No relevant prior studies available. FINDINGS: LUNG BASES: Unremarkable. No mass. No consolidation. ABDOMEN: LIVER: Unremarkable. No mass. GALLBLADDER AND BILE DUCTS: No calcified stones. No ductal dilation. PANCREAS: No ductal dilation. No mass. SPLEEN: Unremarkable. ADRENALS: Unremarkable. No mass. KIDNEYS AND URETERS: Unremarkable. The kidneys enhance symmetrically. No obstructing renal or ure teral calculus is seen. No hydronephrosis or hydroureter. No perinephric fluid or stranding. STOMACH AND BOWEL: The stomach is minimally distended with fluid and air. The small bowel proxima lly is decompressed. Distally, the small bowel is minimally filled with fluid. A moderate amount of s tool is present throughout the colon. There is no mucosal thickening or evidence of obstruction. PELVIS: APPENDIX: The appendix is normal in caliber without surrounding inflammation. BLADDER: The bladder is incompletely distended. REPRODUCTIVE: A 3.2 x 3.2 cm right ovarian dermoid is present. A 2.2 cm left ovarian cyst is pres ent. No follow-up imaging of the left ovarian cyst. The uterus is unremarkable. ABDOMEN and PELVIS: INTRAPERITONEAL SPACE: Unremarkable. No free air. No significant fluid collection. BONES/JOINTS: No acute fracture. SOFT TISSUES: The soft tissues are normal. VASCULATURE: Unremarkable. No abdominal aortic aneurysm. LYMPH NODES: Unremarkable. No enlarged lymph nodes. IMPRESSION: 1. No acute findings on this contrasted CT of the abdomen and pelvis to explain the pa tient's symptoms. 2. Right ovarian dermoid. ACR White Paper guidelines (Estuardo et. al. JACR 2020;17(2):248-254) sug gest that periodic follow-up imaging may be required at the direction of a Formulation Technician. Electronically signed by: Chloe Aparicio MD 06/20/2023 02:52 AM CDT Due to temporary technical issues with the PACS/Fluency reporting system, reports are being signed by the in house radiologists without review as a courtesy to insure prompt reporting. The interpreting radiologist is fully responsible for the content of the report.
== END 2023-06-20 03:58 | disposition home or self-care (01) ==
LOC: ER 22:32
DX: D27.0 Benign neoplasm of right ovary (principal)
CPT/HCPCS: 36415; 74177; 80053; 81001; 81025; 83690; 85025; 86140; 96361; 96374; 96375; 99284; J2765; J7030; Q0162; Q9967